=== PATIENT | male | born 1960 | race Caucasian/White ===

== ENCOUNTER → 2017-08-13 | Outpatient (CLI) | payer MEDICARE, MEDICAID ==
--- NOTE | 2017-08-14 14:50 | WOMENS IMAGING REPORT ---
EXAM DESCRIPTION: 3D DX MAMMO BILAT; U/S BREAST UNILAT LIMITED COMPLETED DATE/TIME: 08/13/2017 9:50 am; 08/13/2017 11:05 am REASON FOR STUDY: UNSPECIFED LUMP; N63.20; UNSPECIFIED LUMP N63.23 UNSPECIFIED LUMP IN THE LEFT SAMMIE AST, LOWER OUTER QUAD COMPARISON: None. TECHNIQUE: Standard craniocaudal and mediolateral oblique views of each breast recorded using digita l acquisition and breast tomosynthesis. Additional left male breast 90 mediolateral view, and exaggerated craniocaudad view Left male breast ultrasound, with comparison right male breast images LIMITATIONS: None. FINDINGS: RIGHT BREAST MASSES: No suspicious masses. CALCIFICATIONS: No new or suspicious calcifications. ARCHITECTURAL DISTORTION: None. DEVELOPING DENSITY: None. ASYMMETRY: None noted. OTHER: No other significant findings. LEFT BREAST MASSES: No suspicious masses. CALCIFICATIONS: No new or suspicious calcifications. ARCHITECTURAL DISTORTION: None. DEVELOPING DENSITY: None. ASYMMETRY: None noted. OTHER: In the lateral aspect of the left male breast/ subcutaneous fat there is very mild soft tissue stranding with subtle asymmetric thickening of the Ismael's ligaments. Read with the assistance of CAD: .[facility] - R2 Cenova Version 1.3 .[facility] Imaging - R2 Cenova Version 1.3 .[facility] Imaging - R2 Cenova Version 2.4 .[facility] [place] [facility] - R2 Cenova Version 2.4 .[facility] - R2 Emg Technician Version 9.2 Left breast ultrasound: Patient indicates a tender palpable abnormality in the lateral aspect left male breast. In this area , minimal skin thickening and interstitial fluid is present, involving about a 7 cm diameter area. N o well-circumscribed mass. No cysts. No worrisome acoustic absorption. Left chest wall fat is incr eased in echogenicity in this area as compared to the right side. Ultrasound of the right lateral male breast/chest wall is unremarkable. IMPRESSION: No mammographic/ultrasound evidence for malignancy right male breast/ chest wall 7 cm diameter area of subtle findings on mammo and ultrasound, with interstitial tissue fluid/thicken ing of Ismael's ligaments and increased echogenicity of the chest wall fat. Differential is reactive change from contusion or trauma, versus cellulitis. Fat necrosis is possible. A discrete lipoma or soft tissue masses not definitely seen. Continued clinical follow-up is recommended. If this area is fails to resolve, consider follow-up chest wall MRI without contrast BREAST DENSITY: a. The breasts are almost entirely fatty. BIRAD: 2 Benign findings. RECOMMENDATION: RECOMMENDED FOLLOW UP: Clinical follow-up recommended. If these findings fail to re solve or if these findings progress, further imaging with MRI would be useful for followup. SPECIFIC INTERVENTION/IMAGING/CONSULTATION RECOMMENDED:As above COMMUNICATION:Patient notified by letter COMMENT: The patient has been notified of the results by letter per SA requirements. Additional no tification policies are in place for contacting patient with suspicious or incomplete findings. Quality ID #225: The [employer] recommends an annual screening mammogram for women aged 40 years or over. This facility utilizes a reminder system to ensure that all patients receive reminder letters, and/or direct phone calls for appointments. This includes reminders for routine scr eening mammograms, diagnostic mammograms, or other Breast Imaging Interventions when appropriate. Th is patient will be placed in the appropriate reminder system. The [employer] (ACR) has developed recommendations for screening MRI of the breast s in certain patient populations, to be used in conjunction with mammography. Breast MRI surveillanc e may be appropriate for women with more than 20% lifetime risk of developing breast cancer as deter mined by genetic testing, significant family history of the disease, or history of mantle radiation f or Hodgkins Disease. ACR Practice Guidelines 2008. DBT Technology DBT is a type of tomographic mammography. With conventional mammography, overlapping breast tissue ma y make lesions difficult to detect, even with good compression. DBT uses an x-ray tube that rotates a round the breast, taking images at different angles. These images are then combined to create thin sl ices of the breast that the radiologist can view as a 3D reconstruction. The [employer] unit can perform full-field digital mammograms (2D imaging); or DBT (3D imaging); or both, in a combination mode that quickly performs both the mammogram and the tomosynthesis scan while the breast is still compressed. PQRS 6045F: Fluoroscopic imaging is not utilized for breast tomosynthesis. TECHNICAL DOCUMENTATION: FINDING NUMBER: (1) ASSESSMENT: (1) JOB ID: [id number] [employer]- All Rights Reserved Reading location - IP/workstation name: [email or web address]
--- NOTE | 2017-08-14 14:50 | WOMENS IMAGING REPORT ---
EXAM DESCRIPTION: 3D DX MAMMO BILAT; U/S BREAST UNILAT LIMITED COMPLETED DATE/TIME: 08/13/2017 9:50 am; 08/13/2017 11:05 am REASON FOR STUDY: UNSPECIFED LUMP; N63.20; UNSPECIFIED LUMP N63.23 UNSPECIFIED LUMP IN THE LEFT SAMMIE AST, LOWER OUTER QUAD COMPARISON: None. TECHNIQUE: Standard craniocaudal and mediolateral oblique views of each breast recorded using digita l acquisition and breast tomosynthesis. Additional left male breast 90 mediolateral view, and exaggerated craniocaudad view Left male breast ultrasound, with comparison right male breast images LIMITATIONS: None. FINDINGS: RIGHT BREAST MASSES: No suspicious masses. CALCIFICATIONS: No new or suspicious calcifications. ARCHITECTURAL DISTORTION: None. DEVELOPING DENSITY: None. ASYMMETRY: None noted. OTHER: No other significant findings. LEFT BREAST MASSES: No suspicious masses. CALCIFICATIONS: No new or suspicious calcifications. ARCHITECTURAL DISTORTION: None. DEVELOPING DENSITY: None. ASYMMETRY: None noted. OTHER: In the lateral aspect of the left male breast/ subcutaneous fat there is very mild soft tissue stranding with subtle asymmetric thickening of the Ismael's ligaments. Read with the assistance of CAD: .[facility] - R[facility] Cenova Version 1.3 .[facility] Imaging - R2 Cenova Version 1.3 .[facility] Imaging - R2 Cenova Version 2.4 .[facility] - R2 Cenova Version 2.4 .[facility] - R2 Restaurant Worker Version 9.2 Left breast ultrasound: Patient indicates a tender palpable abnormality in the lateral aspect left male breast. In this area , minimal skin thickening and interstitial fluid is present, involving about a 7 cm diameter area. N o well-circumscribed mass. No cysts. No worrisome acoustic absorption. Left chest wall fat is incr eased in echogenicity in this area as compared to the right side. Ultrasound of the right lateral male breast/chest wall is unremarkable. IMPRESSION: No mammographic/ultrasound evidence for malignancy right male breast/ chest wall 7 cm diameter area of subtle findings on mammo and ultrasound, with interstitial tissue fluid/thicken ing of Ismael's ligaments and increased echogenicity of the chest wall fat. Differential is reactive change from contusion or trauma, versus cellulitis. Fat necrosis is possible. A discrete lipoma or soft tissue masses not definitely seen. Continued clinical follow-up is recommended. If this area is fails to resolve, consider follow-up chest wall MRI without contrast BREAST DENSITY: a. The breasts are almost entirely fatty. BIRAD: 2 Benign findings. RECOMMENDATION: RECOMMENDED FOLLOW UP: Clinical follow-up recommended. If these findings fail to re solve or if these findings progress, further imaging with MRI would be useful for followup. SPECIFIC INTERVENTION/IMAGING/CONSULTATION RECOMMENDED:As above COMMUNICATION:Patient notified by letter COMMENT: The patient has been notified of the results by letter per SA requirements. Additional no tification policies are in place for contacting patient with suspicious or incomplete findings. Quality ID #225: The [employer] recommends an annual screening mammogram for women aged 40 years or over. This facility utilizes a reminder system to ensure that all patients receive reminder letters, and/or direct phone calls for appointments. This includes reminders for routine scr eening mammograms, diagnostic mammograms, or other Breast Imaging Interventions when appropriate. Th is patient will be placed in the appropriate reminder system. The [employer] (ACR) has developed recommendations for screening MRI of the breast s in certain patient populations, to be used in conjunction with mammography. Breast MRI surveillanc e may be appropriate for women with more than 20% lifetime risk of developing breast cancer as deter mined by genetic testing, significant family history of the disease, or history of mantle radiation f or Hodgkins Disease. ACR Practice Guidelines 2008. DBT Technology DBT is a type of tomographic mammography. With conventional mammography, overlapping breast tissue ma y make lesions difficult to detect, even with good compression. DBT uses an x-ray tube that rotates a round the breast, taking images at different angles. These images are then combined to create thin sl ices of the breast that the radiologist can view as a 3D reconstruction. The [employer] unit can perform full-field digital mammograms (2D imaging); or DBT (3D imaging); or both, in a combination mode that quickly performs both the mammogram and the tomosynthesis scan while the breast is still compressed. PQRS 6045F: Fluoroscopic imaging is not utilized for breast tomosynthesis. TECHNICAL DOCUMENTATION: FINDING NUMBER: (1) ASSESSMENT: (1) JOB ID: [id number] [employer]- All Rights Reserved Reading location - IP/workstation name: [email or web address]
== END ==
LOC: WI 09:20
PROVIDERS: ATTEND Internal Medicine Geriatric Medicine
DX: N63.23 Unspecified lump in the left breast, lower outer quadrant (principal)
CPT/HCPCS: 76642; 77066; G0279; 77062

== ENCOUNTER 2017-09-26 11:53 | Emergency (ER) | payer MEDICARE, MEDICAID ==
[2017-09-26] MEDS ORDERED: ASPIRIN 81 MG TABLET, CHEWABLE PO ONE (12:21)
[2017-09-26] MEDS ORDERED: NITROGLYCERIN 0.4 MG/TAB 25 TAB/BOTTLE SL PRN (12:30)
--- NOTE | 2017-09-26 12:30 | ER Document Report ---
ED Medical Screen (RME) - General Chief Complaint: Chest Pain > 30 Stated Complaint: CHEST PAIN Time Seen by Provider: 09/26/17 12:22 Notes: Patient is a 56-year-old male, past medical history hypertension, ESRD (Thursday, Thursday dialysis), HLD, presents with 4 hours of left-sided chest pressure with radiation down the left arm that started at rest. PE: NAD. RRR. RUE fistula. I have greeted and performed a rapid initial assessment of this patient. A comprehensive ED assessment and evaluation of the patient, analysis of test results and completion of the medical decision making process will be conducted by additional ED providers. TRAVEL OUTSIDE OF THE [place] IN LAST 30 DAYS: No - Related Data Allergies/Adverse Reactions: No Known Allergies Allergy (Verified 09/26/17 11:55) Past Medical History - Past Medical History Cardiac Medical History: Reports: Hx Hypertension Past Surgical History: Reports: Hx Appendectomy, Hx Cholecystectomy - Immunizations Hx Diphtheria, Pertussis, Tetanus Vaccination: Yes Physical Exam - Vital signs Vitals: Temp Pulse Resp BP Pulse Ox 98.7 F 80 18 165/77 H 99 09/26/17 12:07 09/26/17 12:07 09/26/17 12:07 09/26/17 12:07 09/26/17 12:07 Course - Vital Signs Vital signs: Temp Pulse Resp BP Pulse Ox 98.7 F 80 18 165/77 H 99 09/26/17 12:07 09/26/17 12:07 09/26/17 12:07 09/26/17 12:07 09/26/17 12:07 Doctor's Discharge - Discharge Referrals: RUDY JACOBSEN MD [Primary Care Provider] - Follow up as needed
--- NOTE | 2017-09-26 12:45 | RADIOLOGY REPORT (SQ) ---
EXAM DESCRIPTION: CHEST 2 VIEWS COMPLETED DATE/TIME: 09/26/2017 12:26 pm REASON FOR STUDY: CHEST PRESSURE COMPARISON: None. EXAM PARAMETERS: NUMBER OF VIEWS: two views TECHNIQUE: Digital Frontal and Lateral radiographic views of the chest acquired. RADIATION DOSE: NA LIMITATIONS: none FINDINGS: LUNGS AND PLEURA: Patchy airspace disease is present at the right lung base atelectasis ve rsus pneumonia. Trace bilateral pleural effusions in the posterior costophrenic sulci. No pneumotho rax. MEDIASTINUM AND HILAR STRUCTURES: No masses or contour abnormalities. HEART AND VASCULAR STRUCTURES: Moderate cardiomegaly BONES: No acute findings. HARDWARE: None in the chest. OTHER: No other significant finding. IMPRESSION: Cardiomegaly with trace pleural effusions. Patchy airspace disease right base atelectasis versus pneumonia TECHNICAL DOCUMENTATION: JOB ID: [id number] [employer]- All Rights Reserved Reading location - IP/workstation name: [email or web address]
[2017-09-26 13:09] LABS: ABSOLUTE BASOPHILS # (AUTO) 0.1 10^3/uL (0.0-0.2); ABSOLUTE EOSINOPHILS # (AUTO) 0.5 10^3/uL (0.0-0.6); ABSOLUTE LYMPHOCYTES (AUTO) 0.7 10^3/uL (0.5-4.7); ABSOLUTE MONOCYTES (AUTO) 0.7 10^3/uL (0.1-1.4); ABSOLUTE NEUT (AUTO) 7.3 10^3/uL (1.7-8.2); BASOPHILS % (AUTO) 1.4 % (0-2); EOSINOPHILS % (AUTO) 4.9 % (0-6); HEMATOCRIT 23.5 % (37.9-51.0); LYMPHOCYTES % (AUTO) 7.6 % (13-45); MEAN CORPUSCULAR HEMOGLOBIN 29.6 pg (27.0-33.4); MEAN CORPUSCULAR HGB CONC 32.6 g/dL (32.0-36.0); MEAN CORPUSCULAR VOLUME 91 fl (80-97); MONOCYTES % (AUTO) 7.2 % (3-13); PLATELET COUNT 187 10^3/uL (150-450); RED BLOOD COUNT 2.58 10^6/uL (4.35-5.55); RED CELL DISTRIBUTION WIDTH 16.2 % (11.5-14.0); SEGMENTED NEUTROPHILS % (AUTO) 78.9 % (42-78); TOTAL CELLS COUNTED % (AUTO) 100 %; WHITE BLOOD COUNT 9.3 10^3/uL (4.0-10.5)
[2017-09-26 13:13] LABS: HEMOGLOBIN 7.6 g/dL (13.5-17.0)
[2017-09-26 13:26] LABS: ALANINE AMINOTRANSFERASE 31 U/L (21-72); ALBUMIN 4.2 g/dL (3.5-5.0); ALKALINE PHOSPHATASE 48 U/L (38-126); ASPARTATE AMINO TRANSFERASE 20 U/L (17-59); BILIRUBIN,DIRECT 0.5 mg/dL (0.0-0.4); BILIRUBIN,TOTAL 0.5 mg/dL (0.2-1.3); BLOOD UREA NITROGEN 96 mg/dL (7-20); CALCIUM 8.9 mg/dL (8.4-10.2); CREATINE KINASE 164 U/L (55-170); GLUCOSE 116 mg/dL (75-110); POTASSIUM 5.2 mmol/L (3.6-5.0); TOTAL PROTEIN 6.8 g/dL (6.3-8.2)
[2017-09-26 13:32] LABS: CARBON DIOXIDE 19 mmol/L (22-30); CHLORIDE 106 mmol/L (98-107); SODIUM 146.5 mmol/L (137-145)
[2017-09-26 13:35] LABS: ANION GAP 22 (5-19)
[2017-09-26 13:43] LABS: CREATINE KINASE MB 1.59 ng/mL (<4.55)
[2017-09-26 13:49] LABS: TROPONIN I 0.047 ng/mL
--- NOTE | 2017-09-26 13:55 | ER Document Report ---
ED General - General Chief Complaint: Chest Pain > 30 Stated Complaint: CHEST PAIN Time Seen by Provider: 09/26/17 12:22 Information source: Patient Notes: 56-year-old male with a history of hypertension and hyperlipidemia presents to the emergency department with complaints of a 4 hour history of left-sided chest pain. He describes it as a pressure sensation with radiation to the L arm. Patient states that it started while he was at rest. He states that he coughed and the pain started. He states that it constant. Pain reduced with nitroglycerin. Patient denies a history of diabetes, coronary artery disease, family history of coronary artery disease. Quit smoking 6 months ago. Patient states that he has had a stress test that was done 3 years ago was normal. No history of stents. Patient also denies any recent travel, recent surgery, calf pain, history of DVT or PE, hormone use, history of malignancy. Patient is a dialysis patient. Gets dialysis M.. His community relations representative is Dr. Urbano in [place]. TRAVEL OUTSIDE OF THE [place] IN LAST 30 DAYS: No - HPI Onset: Other - 4 hours Onset/Duration: Sudden Quality of pain: Sharp, Stabbing Severity: Mild Associated symptoms: None Exacerbated by: Movement, Coughing, Other - Palpation Relieved by: Denies Similar symptoms previously: No Recently seen / treated by doctor: No - Related Data Allergies/Adverse Reactions: No Known Allergies Allergy (Verified 09/26/17 11:55) Past Medical History - Social History Smoking Status: Former Smoker Chew tobacco use (# tins/day): No Frequency of alcohol use: None Drug Abuse: None Family History: Reviewed & Not Pertinent Patient has suicidal ideation: No Patient has homicidal ideation: No - Past Medical History Cardiac Medical History: Reports: Hx Hypercholesterolemia, Hx Hypertension Renal/ Medical History: Reports: Hx Peritoneal Dialysis - M &W Past Surgical History: Reports: Hx Appendectomy, Hx Cholecystectomy - Immunizations Hx Diphtheria, Pertussis, Tetanus Vaccination: Yes Review of Systems - Review of Systems Constitutional: No symptoms reported EENT: No symptoms reported Cardiovascular: Chest pain Respiratory: Cough Gastrointestinal: No symptoms reported Genitourinary: No symptoms reported Male Genitourinary: No symptoms reported Skin: Lumps Hematologic/Lymphatic: No symptoms reported Neurological/Psychological: No symptoms reported -: Yes All other systems reviewed and negative Physical Exam - Vital signs Vitals: Temp Pulse Resp BP Pulse Ox 98.7 F 80 18 165/77 H 99 09/26/17 12:07 09/26/17 12:07 09/26/17 12:07 09/26/17 12:07 09/26/17 12:07 Interpretation: Normal - Notes Notes: PHYSICAL EXAMINATION: GENERAL: Well-appearing, well-nourished and in no acute distress. HEAD: Atraumatic, normocephalic. EYES: Pupils equal round and reactive to light, extraocular movements intact, sclera anicteric, conjunctiva are normal. ENT: Nares patent, oropharynx clear without exudates. Moist mucous membranes. NECK: Normal range of motion, supple without lymphadenopathy LUNGS: Breath sounds clear to auscultation bilaterally and equal. No wheezes rales or rhonchi. HEART: Regular rate and rhythm without murmurs. Left lateral chest wall tenderness to palpation. Area of induration noted to the left lateral chest wall without fluctuance. ABDOMEN: Soft, nontender, nondistended abdomen. No guarding, no rebound. No masses appreciated. Musculoskeletal: Normal range of motion, no pitting or edema. No cyanosis. NEUROLOGICAL: Cranial nerves grossly intact. Normal speech, normal gait. Normal sensory, motor exams PSYCH: Normal mood, normal affect. SKIN: Warm, Dry, normal turgor, area of induration to the left lateral chest wall. No fluctuance. Course - Re-evaluation Re-evalutation: 09/26/17 14:24 Patient has indeterminate troponin. EKG does not show STEMI. Hemoglobin low. No previous values to compare. Patient denies any hospitalizations. Says he only gets labs done at dialysis clinic. I contacted the hospitalist weight control engineer for his PCP. Dr. Castillo recommends transfer for cardiac rule out as the patient has a history of renal failure requiring dialysis. [facility]. 09/26/17 14:35 I spoke with the hospitalist weight control engineer at [facility]. She would like repeat troponin done in the ED. She is going to contact the community relations representative weight control engineer to see about getting old lab work for comparison. 09/26/17 15:57 Troponin trending down. No occult blood in stool. Patient now states that he went to dialysis yesterday but did not complete his dialysis. Patient given kayexelate for potassium of 5.2. No EKG changes. Dr. Damian accepts transfer of patient. He is clinically stable at this time. - Vital Signs Vital signs: Temp Pulse Resp BP Pulse Ox 98.7 F 80 18 165/77 H 99 09/26/17 12:07 09/26/17 12:07 09/26/17 12:07 09/26/17 12:07 09/26/17 12:07 - Laboratory Result Diagrams: 09/26/17 12:45 09/26/17 12:45 Laboratory results interpreted by me: 09/26/17 09/26/17 12:45 12:45 RBC 2.58 L Hgb 7.6 L Hct 23.5 L RDW 16.2 H Seg Neutrophils % 78.9 H Lymphocytes % 7.6 L Sodium 146.5 H Potassium 5.2 H Carbon Dioxide 19 L Anion Gap 22 H BUN 96 H Creatinine 22.66 H Est GFR ( Amer) 3 L Est GFR (Non-Af Amer) 2 L Glucose 116 H Direct Bilirubin 0.5 H - EKG Interpretation by Me Additional EKG results interpreted by me: 09/26/17 13:55 EKG: Ventricular rate 77, MS interval 180, QRS duration 110, QTc 494, sinus rhythm, no ischemic changes. Discharge - Discharge Clinical Impression: End stage renal disease, Abscess, Hyperkalemia Chest pain Qualifiers: Chest pain type: unspecified Qualified Code(s): R07.9 - Chest pain, unspecified Condition: Good Disposition: [facility] Referrals: RUDY JACOBSEN MD [Primary Care Provider] - Follow up as needed
[2017-09-26] MEDS ORDERED: SODIUM POLYSTYRENE SULFONATE 15 GM/60 ML PO ONE (14:37)
[2017-09-26] MEDS ORDERED: MORPHINE SULFATE 10 MG/ML INJ IV ONE (15:59)
[2017-09-26] MEDS ORDERED: DOXYCYCLINE HYCLATE 100 MG TABLET PO ONE (16:03)
[2017-09-26 16:14] VITALS: BP 175/87
--- NOTE | 2017-09-26 21:07 | EKG REPORT ---
SEVERITY:- ABNORMAL ECG - SINUS RHYTHM NONSPECIFIC INTRAVENTRICULAR CONDUCTION DELAY : Confirmed by: Fabian Dominguez MD 26-Sep-2017 21:06:16
== END 2017-09-26 16:41 | disposition short-term general hospital (02) ==
LOC: ER 11:53
DX: L02.213 Cutaneous abscess of chest wall (principal); I12.0 Hypertensive chronic kidney disease with stage 5 chronic kidney disease or end stage renal disease; N18.6 End stage renal disease; Z99.2 Dependence on renal dialysis; E87.5 Hyperkalemia; E78.5 Hyperlipidemia, unspecified; Z87.891 Personal history of nicotine dependence
CPT/HCPCS: 93005; 99285; 96374; 36415; 82553; 82550; 85025; 82272; 80053; 84484; 71046; 93010; A9270 ×2; J2270

== ENCOUNTER 2017-11-02 13:51 | Emergency (ER) | payer MEDICARE, MEDICAID ==
--- NOTE | 2017-11-02 15:09 | ER Document Report ---
ED Medical Screen (RME) - General Chief Complaint: Leg Pain Stated Complaint: LEFT CALF PAIN Time Seen by Provider: 11/02/17 15:04 Mode of Arrival: Medic Information source: Patient Notes: Patient is a 56-year-old male who presents to the emergency department today with chief complaint of left calf pain. Patient reports this pain has been going on since Thursday, describes as an achy pain. There is associated swelling but no erythema. Patient denies any history of DVTs or pulmonary embolism. Patient denies being on any blood thinners. Patient is a hemodialysis patient and was supposed to have dialysis this morning however when he got there he reported the calf pain so they sent him straight to the emergency department. Patient's primary care provider is Dr. Jacobsen. Exam: Swelling to left lower extremity. I have greeted and performed a rapid initial assessment of this patient. A comprehensive ED assessment and evaluation of the patient, analysis of test results and completion of the medical decision making process will be conducted by additional ED providers. Dictation of this chart was performed using voice recognition software; therefore, there may be some unintended grammatical errors. TRAVEL OUTSIDE OF THE [place] IN LAST 30 DAYS: No - Related Data Allergies/Adverse Reactions: No Known Allergies Allergy (Verified 09/26/17 11:55) Past Medical History - Past Medical History Cardiac Medical History: Reports: Hx Hypercholesterolemia, Hx Hypertension Renal/ Medical History: Reports: Hx Peritoneal Dialysis - M &W Past Surgical History: Reports: Hx Appendectomy, Hx Cholecystectomy - Immunizations Hx Diphtheria, Pertussis, Tetanus Vaccination: Yes Physical Exam - Vital signs Vitals: Temp Pulse Resp BP Pulse Ox 97.9 F 77 18 156/71 H 97 11/02/17 13:58 11/02/17 13:58 11/02/17 13:58 11/02/17 13:58 11/02/17 13:58 Course - Vital Signs Vital signs: Temp Pulse Resp BP Pulse Ox 97.9 F 77 18 156/71 H 97 11/02/17 13:58 11/02/17 13:58 11/02/17 13:58 11/02/17 13:58 11/02/17 13:58 Doctor's Discharge - Discharge Referrals: RUDY JACOBSEN MD [Primary Care Provider] - Follow up as needed
[2017-11-02 16:19] LABS: ABSOLUTE BASOPHILS # (AUTO) 0.1 10^3/uL (0.0-0.2); ABSOLUTE EOSINOPHILS # (AUTO) 0.4 10^3/uL (0.0-0.6); ABSOLUTE LYMPHOCYTES (AUTO) 0.8 10^3/uL (0.5-4.7); ABSOLUTE MONOCYTES (AUTO) 0.5 10^3/uL (0.1-1.4); ABSOLUTE NEUT (AUTO) 5.5 10^3/uL (1.7-8.2); HEMATOCRIT 24.3 % (37.9-51.0); LYMPHOCYTES % (AUTO) 10.9 % (13-45); MEAN CORPUSCULAR HEMOGLOBIN 28.8 pg (27.0-33.4); MEAN CORPUSCULAR HGB CONC 32.9 g/dL (32.0-36.0); MEAN CORPUSCULAR VOLUME 87 fl (80-97); MONOCYTES % (AUTO) 6.5 % (3-13); PLATELET COUNT 214 10^3/uL (150-450); RED BLOOD COUNT 2.78 10^6/uL (4.35-5.55); RED CELL DISTRIBUTION WIDTH 16.9 % (11.5-14.0); SEGMENTED NEUTROPHILS % (AUTO) 76.6 % (42-78); TOTAL CELLS COUNTED % (AUTO) 100 %; WHITE BLOOD COUNT 7.2 10^3/uL (4.0-10.5)
[2017-11-02 16:25] LABS: PROTHROMBIN TIME 13.7 SEC (11.4-15.4)
[2017-11-02 16:26] LABS: PARTIAL THROMBOPLASTIN TIME 30.3 SEC (23.5-35.8)
[2017-11-02 16:40] LABS: ALANINE AMINOTRANSFERASE 36 U/L (21-72); ALBUMIN 4.2 g/dL (3.5-5.0); ALKALINE PHOSPHATASE 58 U/L (38-126); ASPARTATE AMINO TRANSFERASE 35 U/L (17-59); BILIRUBIN,DIRECT 0.5 mg/dL (0.0-0.4); BILIRUBIN,TOTAL 0.5 mg/dL (0.2-1.3); BLOOD UREA NITROGEN 94 mg/dL (7-20); CALCIUM 9.3 mg/dL (8.4-10.2); GLUCOSE 93 mg/dL (75-110); POTASSIUM 5.6 mmol/L (3.6-5.0)
[2017-11-02 16:47] LABS: CARBON DIOXIDE 18 mmol/L (22-30); CHLORIDE 102 mmol/L (98-107); SODIUM 143.2 mmol/L (137-145)
[2017-11-02 16:55] LABS: ANION GAP 23 (5-19)
--- NOTE | 2017-11-02 17:14 | RADIOLOGY REPORT (SQ) ---
EXAM DESCRIPTION: VENOUS UNILATERAL LOWER COMPLETED DATE/TIME: 11/02/2017 5:02 pm REASON FOR STUDY: left calf swelling/pain COMPARISON: None. TECHNIQUE: Dynamic and static clark scale and color images acquired of the left leg venous system. Se lected spectral images acquired with additional compression and augmentation maneuvers. The contralat eral common femoral vein and saphenofemoral junction were also imaged. Images stored on PACS. LIMITATIONS: None. FINDINGS: COMMON FEMORAL: Normal phasicity, compression and augmentation. No visualized echogenic ma terial on clark scale. No defects on color images. FEMORAL: Normal compression and augmentation. No visualized echogenic material on clark scale. No defe cts on color images. POPLITEAL: Normal compression, augmentation. No visualized echogenic material on clark scale. No defec ts on color images. CALF VESSELS: Normal compression, augmentation. No visualized echogenic material on clark scale. No de fects on color images. GSV and SSV: Greater saphenous not seen. Small saphenous normal. ANY DEEP VENOUS INSUFFICIENCY: Not evaluated. ANY EVIDENCE OF POPLITEAL CYST: No. OTHER: No other significant finding. CONTRALATERAL COMMON FEMORAL VEIN AND SAPHENOFEMORAL JUNCTION: Normal phasicity, compression and augmentation. No visualized echogenic material on clark scale. No de fects on color images. IMPRESSION: NO EVIDENCE DVT OR SVT IN THE LEFT LEG. TECHNICAL DOCUMENTATION: JOB ID: [id number] [employer]- All Rights Reserved Reading location - IP/workstation name: [email or web address]
--- NOTE | 2017-11-02 17:42 | ER Document Report ---
ED General - General Chief Complaint: Leg Pain Stated Complaint: LEFT CALF PAIN Time Seen by Provider: 11/02/17 15:04 Mode of Arrival: Medic Notes: 56-year-old male who presents to the emergency department today with chief complaint of left calf pain. Patient reports this pain has been going on since Thursday, describes as an achy pain. There is associated swelling but no erythema. Patient denies any history of DVTs or pulmonary embolism. Patient denies being on any blood thinners. Patient is a hemodialysis patient and was supposed to have dialysis this morning however when he got there he reported the calf pain so they sent him straight to the emergency department. Patient's primary care provider is Dr. Jacobsen. TRAVEL OUTSIDE OF THE [place] IN LAST 30 DAYS: No - Related Data Allergies/Adverse Reactions: No Known Allergies Allergy (Verified 09/26/17 11:55) Past Medical History - General Information source: Patient - Social History Smoking Status: Unknown if Ever Smoked Family History: Reviewed & Not Pertinent - Past Medical History Cardiac Medical History: Reports: Hx Hypercholesterolemia, Hx Hypertension Renal/ Medical History: Reports: Hx Peritoneal Dialysis - M &W Past Surgical History: Reports: Hx Appendectomy, Hx Cholecystectomy - Immunizations Hx Diphtheria, Pertussis, Tetanus Vaccination: Yes Review of Systems - Review of Systems Cardiovascular: denies: Chest pain, Dyspnea Musculoskeletal: Leg swelling -: Yes All other systems reviewed and negative Physical Exam - Vital signs Vitals: Temp Pulse Resp BP Pulse Ox 97.9 F 77 18 156/71 H 97 11/02/17 13:58 11/02/17 13:58 11/02/17 13:58 11/02/17 13:58 11/02/17 13:58 - Notes Notes: GENERAL_APPEARANCE: well_nourished, alert, cooperative, no_acute_distress, no_ obvious_discomfort. VITALS: reviewed, see vital signs table. HEAD: no_swelling\tenderness on the head. EYES: conjunctiva_clear. NOSE: no_nasal_discharge. MOUTH: (-)decreased moisture. EXTREMITIES: Mild left calf pain positive Homans sign strong dorsalis pedis posterior tibial pulses, chronic edema noted SKIN: warm, dry, good_color, no_rash. MENTAL_STATUS: speech_clear, oriented_X_3, normal_affect, responds_ appropriately to questions. Course - Re-evaluation Re-evalutation: 11/02/17 17:40 Doppler was negative for DVT. No obvious signs of infection. Will refer back to his family doctor. 11/02/17 17:40 All the lab abnormalities are actually better than prior labs a lot of the patient's conditions are chronic including his kidney disease and chronic anemia. - Vital Signs Vital signs: Temp Pulse Resp BP Pulse Ox 97.9 F 77 18 156/71 H 97 11/02/17 13:58 11/02/17 13:58 11/02/17 13:58 11/02/17 13:58 11/02/17 13:58 - Laboratory Result Diagrams: 11/02/17 16:05 11/02/17 16:05 Laboratory results interpreted by me: 11/02/17 11/02/17 16:05 16:05 RBC 2.78 L Hgb 8.0 L Hct 24.3 L RDW 16.9 H Lymphocytes % 10.9 L Potassium 5.6 H Carbon Dioxide 18 L Anion Gap 23 H BUN 94 H Creatinine 25.07 H Est GFR ( Amer) 2 L Est GFR (Non-Af Amer) 2 L Direct Bilirubin 0.5 H - Diagnostic Test Radiology reviewed: Reports reviewed Radiology results interpreted by me: 11/02/17 17:40 Venous Doppler Study 11/02/17 15:04 IMPRESSION: NO EVIDENCE DVT OR SVT IN THE LEFT LEG. Discharge - Discharge Clinical Impression: Leg pain, left Condition: Good Disposition: HOME, SELF-CARE Instructions: Leg Pain Nonspecific ([facility]) Additional Instructions: Please follow-up with your doctor for further care Referrals: RUDY JACOBSEN MD [Primary Care Provider] - Follow up as needed
[2017-11-02 18:36] VITALS: BP 169/93
== END 2017-11-02 18:31 | disposition home or self-care (01) ==
LOC: ER 13:51
DX: M79.662 Pain in left lower leg (principal); I12.0 Hypertensive chronic kidney disease with stage 5 chronic kidney disease or end stage renal disease; N18.6 End stage renal disease; Z99.2 Dependence on renal dialysis; D64.9 Anemia, unspecified; R60.0 Localized edema
CPT/HCPCS: 36415; 80053; 85025; 85610; 85730; 93971; 99284

== ENCOUNTER 2017-11-10 09:32 | Emergency (ER) | payer MEDICARE, MEDICAID ==
[2017-11-10] MEDS ORDERED: NORMAL SALINE 250 ML IV PRN (10:12)
--- NOTE | 2017-11-10 10:22 | ER Document Report ---
ED General - General Chief Complaint: Abnormal Lab Results Stated Complaint: ABNORMAL LABS Time Seen by Provider: 11/10/17 10:09 Notes: Patient says he has been feeling bad for a couple of days. Feels weak, tired, no energy. Patient is a Thursday and Thursday dialysis patient. After his dialysis yesterday, he had labs done and was called to be told that his hemoglobin was 6.1 and he needed transfusions. Patient denies any bleeding source. He has not seen any blood in his stools. Does have hemorrhoids that used to bleed but no problems with him for a couple of months. Has not seen any black stools. No blood in urine. Patient does make some urine. He had a transfusion of blood a couple of months ago, but no other times in the past. Denies any abdominal pains. No vomiting. Denies fevers. TRAVEL OUTSIDE OF THE [place] IN LAST 30 DAYS: No - Related Data Allergies/Adverse Reactions: No Known Allergies Allergy (Verified 09/26/17 11:55) Past Medical History - Social History Smoking Status: Former Smoker - Stopped smoking 6 months ago. Chew tobacco use (# tins/day): No Frequency of alcohol use: None Drug Abuse: None Family History: Reviewed & Not Pertinent Patient has suicidal ideation: No Patient has homicidal ideation: No - Past Medical History Cardiac Medical History: Reports: Hx Hypercholesterolemia, Hx Hypertension Endocrine Medical History: Denies: Hx Diabetes Mellitus Type 1 Past Surgical History: Reports: Hx Appendectomy, Hx Cholecystectomy - Immunizations Hx Diphtheria, Pertussis, Tetanus Vaccination: Yes Review of Systems - Review of Systems Notes: REVIEW OF SYSTEMS: CONSTITUTIONAL : Denies fever. See HPI. Feels weak, tired, no energy. EENT: Denies eye, ear, nose or mouth or throat pain or other symptoms. CARDIOVASCULAR: Denies chest pain. RESPIRATORY: Patient has had a cough for the past few days. Some congestion. Little shortness of breath. GASTROINTESTINAL: Denies abdominal pain or nausea, vomiting, or diarrhea. No indications of gastrointestinal bleeding. GENITOURINARY: Denies difficulty or painful urinating, urinary frequency, blood in urine. MUSCULOSKELETAL: Denies back or neck pain. Denies joint pain or swelling. SKIN: Denies rash or skin lesions. NEUROLOGICAL: Denies LOC or altered mental status. Denies headache. Denies sensory loss or motor deficits. ALL OTHER SYSTEMS REVIEWED AND NEGATIVE. Physical Exam - Vital signs Vitals: Temp Pulse BP Pulse Ox 98.0 F 94 152/72 H 99 11/10/17 09:38 11/10/17 09:38 11/10/17 09:38 11/10/17 09:38 Interpretation: Normal, Hypertensive - Minimal - Notes Notes: PHYSICAL EXAMINATION: GENERAL: Well-appearing, in no acute distress. Pale. Vital signs are all essentially normal with very slight elevation of blood pressure. Occasional cough. HEAD: Atraumatic, normocephalic. EYES: Pupils equal round and reactive to light, extraocular movements intact. ENT: oropharynx clear without exudates. Moist mucous membranes. NECK: Normal range of motion, supple. LUNGS: Breath sounds clear and equal bilaterally. HEART: Regular rate and rhythm without murmurs. ABDOMEN: Soft, nontender. No guarding or rebound. No masses. BACK: No tenderness throughout entire back. EXTREMITIES: Normal range of motion without pain. Dialysis shunt in right upper arm. NEUROLOGICAL: Normal speech, normal gait. Normal sensory, motor, and reflex exams. Awake, alert, and oriented x3. Cranial nerves normal. PSYCH: Normal mood, normal affect. SKIN: Warm, dry, no rashes. Course - Re-evaluation Re-evalutation: 11/10/17 19:15 Patient has had 2 units of packed cells going to give him 20 mg of Lasix IV. He says he does still produce a fair amount of urine. I have also asked for a portable chest just to make sure that I am not missing something causing this patient's cough for the last few days or week. He does not appear to be short of breath. Still, I am going to make certain that I am not overlooking something in his chest. - Vital Signs Vital signs: Temp Pulse Resp BP Pulse Ox 98.6 F 88 24 H 188/76 H 98 11/10/17 19:16 11/10/17 19:10 11/10/17 19:10 11/10/17 19:16 11/10/17 19:10 - Laboratory Result Diagrams: 11/10/17 10:01 11/10/17 10:01 Laboratory results interpreted by me: 11/10/17 11/10/17 11/10/17 10:01 10:01 11:45 RBC 2.29 L Hgb 6.5 L Hct 20.2 L RDW 16.8 H Plt Count 126 L Lymphocytes % 9.2 L Sodium 147.5 H BUN 63 H Creatinine 16.04 H Est GFR ( Amer) 4 L Est GFR (Non-Af Amer) 3 L Direct Bilirubin 0.5 H Crossmatch See Detail - Diagnostic Test Radiology results interpreted by me: 11/10/17 19:32 Chest x-ray shows cardiomegaly and some pulmonary vascular congestion, but no pneumonia or infiltrates. Also no large amount of fluid or pulmonary edema seen. Discharge - Discharge Clinical Impression: Anemia, Chronic kidney disease with end stage renal failure on dialysis Condition: Stable Disposition: HOME, SELF-CARE Additional Instructions: Anemia You have been found to have a significant anemia (a lower than normal amount of red blood cells). Anemia can be due to iron deficiency, vitamin deficiency, abnormal bleeding, or internal diseases. Usually, further tests are necessary to find the exact cause of the anemia. The most common cause of anemia is iron deficiency, often brought on by blood loss. This can be treated with iron supplements. If this appears to be the most likely cause, iron tablets may be prescribed even before all tests are complete. Contact the doctor at once if you note black or tarry-looking stools, bloody vomiting, shortness of breath, chest pain, or faintness. You have been transfused 2 units of packed cells. Your were also given a low dose of Lasix, 20 mg, IV to assist your kidneys and getting rid of any fluid excess that might occur as a result of the transfusions. Follow-up with your primary care provider and bag loader. FOLLOW-UP CARE: If you have been referred to a physician for follow-up care, call the physician s office for an appointment as you were instructed or within the next two days. If you experience worsening or a significant change in your symptoms, notify the physician immediately or return to the Emergency Department at any time for re-evaluation.. Referrals: AIDA ZHOU MD [NO LOCAL MD] - Follow up as needed
[2017-11-10 10:26] LABS: ABSOLUTE BASOPHILS # (AUTO) 0.1 10^3/uL (0.0-0.2); ABSOLUTE EOSINOPHILS # (AUTO) 0.1 10^3/uL (0.0-0.6); ABSOLUTE LYMPHOCYTES (AUTO) 0.5 10^3/uL (0.5-4.7); ABSOLUTE MONOCYTES (AUTO) 0.7 10^3/uL (0.1-1.4); ABSOLUTE NEUT (AUTO) 4.5 10^3/uL (1.7-8.2); BASOPHILS % (AUTO) 1.1 % (0-2); EOSINOPHILS % (AUTO) 2.4 % (0-6); HEMATOCRIT 20.2 % (37.9-51.0); LYMPHOCYTES % (AUTO) 9.2 % (13-45); MEAN CORPUSCULAR HEMOGLOBIN 28.4 pg (27.0-33.4); MEAN CORPUSCULAR HGB CONC 32.4 g/dL (32.0-36.0); MEAN CORPUSCULAR VOLUME 88 fl (80-97); MONOCYTES % (AUTO) 11.1 % (3-13); PLATELET COUNT 126 10^3/uL (150-450); RED BLOOD COUNT 2.29 10^6/uL (4.35-5.55); RED CELL DISTRIBUTION WIDTH 16.8 % (11.5-14.0); SEGMENTED NEUTROPHILS % (AUTO) 76.2 % (42-78); TOTAL CELLS COUNTED % (AUTO) 100 %; WHITE BLOOD COUNT 5.9 10^3/uL (4.0-10.5)
[2017-11-10 10:28] LABS: HEMOGLOBIN 6.5 g/dL (13.5-17.0)
[2017-11-10 10:30] LABS: ALANINE AMINOTRANSFERASE 42 U/L (21-72); ALBUMIN 3.7 g/dL (3.5-5.0); ALKALINE PHOSPHATASE 56 U/L (38-126); ANION GAP 19 (5-19); ASPARTATE AMINO TRANSFERASE 40 U/L (17-59); BILIRUBIN,DIRECT 0.5 mg/dL (0.0-0.4); BILIRUBIN,TOTAL 0.5 mg/dL (0.2-1.3); BLOOD UREA NITROGEN 63 mg/dL (7-20); CALCIUM 8.5 mg/dL (8.4-10.2); CARBON DIOXIDE 26 mmol/L (22-30); CHLORIDE 103 mmol/L (98-107); GLUCOSE 98 mg/dL (75-110); IRON 124.3 ug/dL (49-181); POTASSIUM 4.3 mmol/L (3.6-5.0); SODIUM 147.5 mmol/L (137-145); TOTAL PROTEIN 6.5 g/dL (6.3-8.2)
[2017-11-10 10:51] LABS: INTERNATIONAL RATION (INR) 1.04; PROTHROMBIN TIME 14.1 SEC (11.4-15.4)
[2017-11-10 10:52] LABS: PARTIAL THROMBOPLASTIN TIME 30.3 SEC (23.5-35.8)
[2017-11-10] MEDS ORDERED: BENZONATATE 100 MG CAPSULE PO ONE (13:24)
[2017-11-10] MEDS ORDERED: HYDROCODONE/ACETAMINOPHEN 5-325 MG TABLET PO ONE (13:45)
[2017-11-10] MEDS ORDERED: FUROSEMIDE INJ/PF 20 MG/2 ML SDV IV ONE (19:08)
[2017-11-10 19:36] VITALS: BP 180/79
--- NOTE | 2017-11-10 19:43 | RADIOLOGY REPORT (SQ) ---
EXAM DESCRIPTION: CHEST SINGLE VIEW COMPLETED DATE/TIME: 11/10/2017 7:27 pm REASON FOR STUDY: cough COMPARISON: 09/26/2017 EXAM PARAMETERS: NUMBER OF VIEWS: One view. TECHNIQUE: Single frontal radiographic view of the chest acquired. RADIATION DOSE: NA LIMITATIONS: None. FINDINGS: LUNGS AND PLEURA: There is increased opacification in the left base. Pulmonary vascular c ongestion is present. No denia pulmonary edema is seen. MEDIASTINUM AND HILAR STRUCTURES: No masses. Contour normal. HEART AND VASCULAR STRUCTURES: Cardiomegaly. BONES: No acute findings. HARDWARE: None in the chest. OTHER: No other significant finding. IMPRESSION: Cardiomegaly with pulmonary vascular congestion but no denia CHF. Left lower lobe pneum onia. TECHNICAL DOCUMENTATION: JOB ID: [id number] [email or web address]- All Rights Reserved Reading location - IP/workstation name: [email or web address]
--- NOTE | 2017-11-11 11:50 | ER Document Report ---
Doctor's Note Notes: 11/11/17 11:48 Patient's x-ray was read by radiology as showing left lower lobe pneumonia, which I did not see when I reviewed the patient's films when he was here last night. I contacted the patient this morning and advised him of the findings and the I would like to call in a prescription for an antibiotic for him. He asked me to call it to the [facility] pharmacy on [facility], which I did. I prescribed Levaquin 500 mg initially on the first day, then 250 daily starting on the second day. I discussed this treatment regimen and dosage with 1 of our staff nephrologists to account for the patient's renal disease on dialysis. Patient said he was feeling somewhat better. Denies significant shortness of breath. No fevers. Advised to recheck with us if he develops any symptoms of worsening illness.
== END 2017-11-10 19:49 | disposition home or self-care (01) ==
LOC: ER 09:32
DX: I12.0 Hypertensive chronic kidney disease with stage 5 chronic kidney disease or end stage renal disease (principal); N18.6 End stage renal disease; D64.9 Anemia, unspecified; R53.1 Weakness; R05 Cough; R09.81 Nasal congestion; R06.02 Shortness of breath; Z99.2 Dependence on renal dialysis; Z87.891 Personal history of nicotine dependence
CPT/HCPCS: 99284; 96374; 86900; 86901; 36415; 36430; 86850; 83540; 85025; 85610; 85730; 80053; 86920; 71045; P9016; J1940; J7050; A9270

== ENCOUNTER 2017-11-25 09:18 | Inpatient (IN) | payer MEDICARE, MEDICAID ==
[2017-11-25] MEDS ORDERED: NORMAL SALINE 500 ML IV ONE (09:55)
[2017-11-25] MEDS ORDERED: IPRATROPIUM/ALBUTEROL 0.5-2.5 MG/3 ML AMPUL NEB ONE (09:55)
[2017-11-25] MEDS ORDERED: LIDOCAINE 1% INJ-PF (10 MG/ML) 30 ML SDV NEB ONE (09:55)
--- NOTE | 2017-11-25 09:56 | ER Document Report ---
ED Medical Screen (RME) - General Chief Complaint: Productive Cough Stated Complaint: COUGH Time Seen by Provider: 11/25/17 09:51 TRAVEL OUTSIDE OF THE [place] IN LAST 30 DAYS: No - HPI Notes: 11/25/17 09:56 Patient recently seen for blood transfusion diagnosed with left lower lobe pneumonia and started on Levaquin followed up with Dr. Jacobsen was given more antibiotics states not feeling any better. - Related Data Allergies/Adverse Reactions: No Known Allergies Allergy (Verified 11/25/17 09:20) Past Medical History - Social History Frequency of alcohol use: None Drug Abuse: None - Past Medical History Cardiac Medical History: Reports: Hx Hypercholesterolemia, Hx Hypertension Endocrine Medical History: Denies: Hx Diabetes Mellitus Type 1 Renal/ Medical History: Denies: Hx Peritoneal Dialysis - dialysis M/W/F Past Surgical History: Reports: Hx Appendectomy, Hx Cholecystectomy - Immunizations Hx Diphtheria, Pertussis, Tetanus Vaccination: Yes Review of Systems - Review of Systems Constitutional: Other - Cough generalized weakness Physical Exam - Vital signs Vitals: Temp Pulse Resp BP Pulse Ox 98.1 F 97 20 175/82 H 96 11/25/17 09:24 11/25/17 09:24 11/25/17 09:24 11/25/17 09:24 11/25/17 09:24 - Respiratory Respiratory status: No respiratory distress Chest status: Nontender Breath sounds: Rhonchi, Wheezing Chest palpation: Normal - Cardiovascular Rhythm: Regular, Tachycardia Course - Vital Signs Vital signs: Temp Pulse Resp BP Pulse Ox 98.1 F 97 20 175/82 H 96 11/25/17 09:24 11/25/17 09:24 11/25/17 09:24 11/25/17 09:24 11/25/17 09:24 Doctor's Discharge - Discharge Referrals: RUDY JACOBSEN MD [Primary Care Provider] - Follow up as needed
--- NOTE | 2017-11-25 10:18 | ER Document Report ---
ED Respiratory Problem - General Chief Complaint: Productive Cough Stated Complaint: COUGH Time Seen by Provider: 11/25/17 09:51 Mode of Arrival: Ambulatory Information source: Patient Notes: 57-year-old end-stage renal dialysis patient was told to come to the emergency room and not go to dialysis today because of his cough and shortness of breath. He has tachypnea, shortness of breath, orthopnea for 1 month. He was diagnosed with some CHF and left lower lobe pneumonia when he was seen in the emergency department on November 09. He was started on antibiotics which have not helped. He states they usually pull off 1.2-2 L of fluid during his dialysis but that has not been working for a month. He had a echo and stress test 5 years ago before he moved here in no echo done here. His pcp is Dr. Baker and his patcher helper is Dr. Urbano in [place]. He has been on [facility] Thursday dialysis for 6-8 months. Today was supposed to be the first time he was dialyzed 3 times a week, he decided to come on his own because he did not think the cough would get any better with the dialysis. TRAVEL OUTSIDE OF THE [place] IN LAST 30 DAYS: No - Related Data Allergies/Adverse Reactions: No Known Allergies Allergy (Verified 11/25/17 09:20) Past Medical History - General Information source: Patient - Social History Smoking Status: Former Smoker Frequency of alcohol use: None Drug Abuse: None Lives with: Family Family History: Reviewed & Not Pertinent Patient has suicidal ideation: No Patient has homicidal ideation: No - Past Medical History Cardiac Medical History: Reports: Hx Congestive Heart Failure, Hx Hypercholesterolemia, Hx Hypertension Past Surgical History: Reports: Hx Appendectomy, Hx Cholecystectomy - Immunizations Hx Diphtheria, Pertussis, Tetanus Vaccination: Yes Review of Systems - Review of Systems Constitutional: No symptoms reported EENT: No symptoms reported Cardiovascular: No symptoms reported Respiratory: No symptoms reported, See HPI Gastrointestinal: No symptoms reported Genitourinary: No symptoms reported Male Genitourinary: No symptoms reported Musculoskeletal: No symptoms reported Skin: No symptoms reported Hematologic/Lymphatic: No symptoms reported Neurological/Psychological: No symptoms reported Physical Exam - Vital signs Vitals: Temp Pulse Resp BP Pulse Ox 98.1 F 97 20 175/82 H 96 11/25/17 09:24 11/25/17 09:24 11/25/17 09:24 11/25/17 09:24 11/25/17 09:24 Interpretation: Tachycardic, Tachypneic Notes: Pale chronically ill-appearing - General General appearance: Alert In distress: Moderate - Tachypneic - HEENT Head: Normocephalic, Atraumatic Eyes: Normal Conjunctiva: Normal Pupils: PERRL Neck: Supple. No: Lymphadenopathy - Respiratory Respiratory status: Tachypnea Chest status: Nontender Breath sounds: Decreased air movement - Left, Nonproductive cough Chest palpation: Normal - Cardiovascular Rhythm: Regular Heart sounds: Normal auscultation Murmur: No - Abdominal Inspection: Normal Distension: No distension Bowel sounds: Normal Tenderness: Nontender Organomegaly: No organomegaly - Back Back: Normal, Nontender - Extremities General upper extremity: Normal inspection, Nontender, Normal color, Normal ROM , Normal temperature General lower extremity: Nontender, Edema - Lateral pitting left more than right , Normal color, Normal ROM, Normal temperature, Normal weight bearing. No: Verito's sign - Neurological Neuro grossly intact: Yes Cognition: Normal Orientation: AAOx4 [place] Coma Scale Eye Opening: Spontaneous [place] Coma Scale Verbal: Oriented Yue Coma Scale Motor: Obeys Commands [place] Coma Scale Total: 15 Speech: Normal Motor strength normal: LUE, RUE, LLE, RLE Sensory: Normal - Psychological Associated symptoms: Normal affect, Normal mood - Skin Skin Temperature: Warm Skin Moisture: Dry Skin Color: Normal Course - Re-evaluation Re-evalutation: 11/25/17 10:[address] Kerr he recommends a CTA since CHF, pneumonia, PE, cancers in the differential. He is due for dialysis today. July 2017 there was no mammogram or ultrasound evidence of left breast cancer. It showed a soft tissue mass. The patient states he is gotten 2 more lumps since then. He states his been going downhill since those lumps again. 11/25/17 11:14 Dr. Capellan is willing to be the patcher helper for dialysis if he needs it today and the hospitalist would be the admitting doctor if he needs to be admitted. 11/25/17 12:[address] nelson about the bilateral pleural effusions. 11/25/17 12:[address] Sadler who is willing to consult on the patient and put it in [facility]. He may need a thoracentesis. Call to dr. baker for admission. Will call Dr. Capellan back and let him know about the CT scan. 11/25/17 12:22 Troponin is 0.132 I have ordered a repeat the hours after the first [address] Nelson aware. 11/25/17 12:23 CTA no PE, bilateral effusions and mild LLL volume loss. superimposed asymmetric edema or pneumonia in the right lung. 11/25/17 12:28 11/25/17 13:16 Dr. Baker will admit the patient to [facility], I told him that [facility] and Dr. Capellan will probably dialyze him today and tomorrow. I told him about the pleural effusions and that I consulted with Dr. Talley for possible thoracentesis. - Vital Signs Vital signs: Temp Pulse Resp BP Pulse Ox 98.1 F 97 19 162/74 H 100 11/25/17 09:24 11/25/17 09:24 11/25/17 15:32 11/25/17 15:32 11/25/17 15:32 - Laboratory Result Diagrams: 11/25/17 10:48 11/25/17 10:48 Laboratory results interpreted by me: 11/25/17 11/25/17 11/25/17 10:48 10:48 10:48 RBC 2.67 L Hgb 7.5 L Hct 23.2 L RDW 17.8 H Lymphocytes % 9.1 L BUN 53 H Creatinine 13.16 H Est GFR ( Amer) 5 L Est GFR (Non-Af Amer) 4 L Direct Bilirubin 1.0 H NT-Pro-B Natriuret Pep [id number] H - EKG Interpretation by Sc EKG shows normal: Sinus rhythm Rate: Normal - Transfer of Care Notes: 11/25/17 12:28 prolonged qtc 501, 494 on 11-09-17 Discharge - Discharge Clinical Impression: Pleural cavity effusion, Shortness of breath, ESRD (end stage renal disease) Congestive heart failure Qualifiers: Heart failure type: unspecified Heart failure chronicity: acute on chronic Qualified Code(s): I50.9 - Heart failure, unspecified Anemia Qualifiers: Anemia type: unspecified type Qualified Code(s): D64.9 - Anemia, unspecified Condition: Fair Disposition: ADMITTED INPATIENT Admitting Provider: [facility] Admitted: [facility]
--- NOTE | 2017-11-25 10:36 | RADIOLOGY REPORT (SQ) ---
EXAM DESCRIPTION: CHEST 2 VIEWS COMPLETED DATE/TIME: 11/25/2017 10:18 am REASON FOR STUDY: sob hx of lll pna COMPARISON: 09/26/2017, 11/10/2017 NUMBER OF VIEWS: Two view TECHNIQUE: Frontal and lateral radiographic images of the chest acquired. LIMITATIONS: None. FINDINGS: LUNGS AND PLEURA: Diffuse interstitial pattern with more confluent subsegmental density in the right lower lobe. Small effusions. MEDIASTINUM AND HILAR STRUCTURES: Stable heart size and mediastinal structures. HEART AND VASCULAR STRUCTURES: Stable appearance. BONES: No acute findings. HARDWARE: None in the chest. OTHER: No other significant finding. IMPRESSION: Some degree of volume overload. Possible superimposed pneumonia or other postobstructiv e process in the right lower lobe. TECHNICAL DOCUMENTATION: JOB ID: [id number] [employer]- All Rights Reserved Reading location - IP/workstation name: [email or web address]
[2017-11-25] MEDS ORDERED: FUROSEMIDE INJ/PF 20 MG/2 ML SDV IV ONE (10:48)
[2017-11-25 11:13] LABS: VENOUS BLOOD BASE EXCESS 2.7 mmol/L; VENOUS BLOOD HCO3 28.1 mmol/L (20-32); VENOUS BLOOD PCO2 47.7 mmHg (35-63); VENOUS BLOOD PH 7.39 (7.30-7.42)
[2017-11-25 11:16] LABS: INTERNATIONAL RATION (INR) 1.13; PROTHROMBIN TIME 15.1 SEC (11.4-15.4)
[2017-11-25 11:21] LABS: ABSOLUTE BASOPHILS # (AUTO) 0.1 10^3/uL (0.0-0.2); ABSOLUTE EOSINOPHILS # (AUTO) 0.2 10^3/uL (0.0-0.6); ABSOLUTE LYMPHOCYTES (AUTO) 0.6 10^3/uL (0.5-4.7); ABSOLUTE MONOCYTES (AUTO) 0.9 10^3/uL (0.1-1.4); BASOPHILS % (AUTO) 1.2 % (0-2); EOSINOPHILS % (AUTO) 3.4 % (0-6); HEMATOCRIT 23.2 % (37.9-51.0); LYMPHOCYTES % (AUTO) 9.1 % (13-45); MEAN CORPUSCULAR HGB CONC 32.3 g/dL (32.0-36.0); MEAN CORPUSCULAR VOLUME 87 fl (80-97); MONOCYTES % (AUTO) 12.8 % (3-13); PLATELET COUNT 157 10^3/uL (150-450); RED BLOOD COUNT 2.67 10^6/uL (4.35-5.55); RED CELL DISTRIBUTION WIDTH 17.8 % (11.5-14.0); SEGMENTED NEUTROPHILS % (AUTO) 73.5 % (42-78); TOTAL CELLS COUNTED % (AUTO) 100 %; WHITE BLOOD COUNT 6.8 10^3/uL (4.0-10.5)
[2017-11-25 11:30] LABS: ALANINE AMINOTRANSFERASE 23 U/L (21-72); ALBUMIN 3.9 g/dL (3.5-5.0); ALKALINE PHOSPHATASE 47 U/L (38-126); ANION GAP 16 (5-19); ASPARTATE AMINO TRANSFERASE 40 U/L (17-59); BLOOD UREA NITROGEN 53 mg/dL (7-20); CALCIUM 8.7 mg/dL (8.4-10.2); CARBON DIOXIDE 26 mmol/L (22-30); CHLORIDE 101 mmol/L (98-107); GLUCOSE 103 mg/dL (75-110); POTASSIUM 4.3 mmol/L (3.6-5.0); SODIUM 143.2 mmol/L (137-145); TOTAL PROTEIN 7.1 g/dL (6.3-8.2)
[2017-11-25 11:31] LABS: HEMOGLOBIN 7.5 g/dL (13.5-17.0)
[2017-11-25 11:50] LABS: TROPONIN I 0.132 ng/mL
[2017-11-25] MEDS ORDERED: LIDOCAINE 1% INJ-PF (10 MG/ML) 30 ML SDV ONE (11:59)
--- NOTE | 2017-11-25 12:08 | RADIOLOGY REPORT (SQ) ---
EXAM DESCRIPTION: CTA CHEST COMPLETED DATE/TIME: 11/25/2017 11:51 am REASON FOR STUDY: sob, cough COMPARISON: Recent radiographs. TECHNIQUE: CT scan of the chest performed using helical scanning technique with dynamic intravenous contrast injection. Images reviewed with lung, soft tissue and bone windows. Reconstructed coronal and sagittal MPR images reviewed. Additional 3 dimensional post-processing performed to develop Maximal Intensity Projection images (MD P). All images stored on PACS. All CT scanners at this facility use dose modulation, iterative reconstruction, and/or weight based d osing when appropriate to reduce radiation dose to as low as reasonably achievable (ALARA). [facility]: Dose Right [facility]: CareDose [facility]: Dose Right [facility]: Teradose 4D [facility]: [employer] CONTRAST TYPE AND DOSE: contrast/concentration: Isovue 350.00 mg/ml; Total Contrast Delivered: 83.0 ml; Total Saline Delivered: 90.0 ml Contrast bolus optimized for the pulmonary arteries. Not diagnostic for the aorta. RENAL FUNCTION: Creatinine 12.7. Dialysis patient. RADIATION DOSE: CT Rad equipment meets quality standard of care and radiation dose reduction techniq ues were employed. CTDIvol: 34.8 - 46.3 mGy. DLP: 1330 mGy-cm. . LIMITATIONS: Mild limiting motion. FINDINGS: LUNGS AND PLEURA: Small -moderate bilateral pleural effusions. Mild volume loss left lowe r lobe. Patchy ground-glass opacities in the right upper lobe, right middle lobe and right lower lob e. Potential superimposed pneumonia/ aspiration or asymmetric edema (as suggested on radiographs). AORTA AND GREAT VESSELS: Limited assessment. No gross aneurysm. HEART: Cardiac enlargement. No effusion. Moderate coronary calcification. PULMONARY ARTERIES: Central arteries clear. Peripheral arteries mildly limited due to motion. HILAR AND MEDIASTINAL STRUCTURES: No identified masses or abnormal nodes. HARDWARE: None in the chest. UPPER ABDOMEN: No significant findings. Limited exam. THYROID AND OTHER SOFT TISSUES: No masses. No adenopathy. BONES: No acute or significant finding. 3D MIPS: Confirm above findings. OTHER: No other significant finding. IMPRESSION: 1. Bilateral effusions and mild left lower lobe volume loss, likely related to fluid ov erload (patient normally receives dialysis but has not received dialysis today). Superimposed asymme tric edema or pneumonia in the right lung. 2. No pulmonary embolus. COMMENT: Quality ID # [id number]: Final reports with documentation of one or more dose reduction techniques (e.g., Automated exposure control, adjustment of the mA and/or kV according to patient size, use of iterative reconstruction technique) TECHNICAL DOCUMENTATION: JOB ID: [id number] [employer]- All Rights Reserved Reading location - IP/workstation name: [email or web address]
[2017-11-25] MEDS ORDERED: CEFTRIAXONE INJ 1000 MG VIAL IV ONE ×2 (12:23→17:00)
--- NOTE | 2017-11-25 13:58 | EKG REPORT ---
SEVERITY:- ABNORMAL ECG - SINUS RHYTHM PROLONGED QT INTERVAL : Confirmed by: Fabian Dominguez MD 25-Nov-2017 13:57:57
[2017-11-25] MEDS ORDERED: EPOETIN ALFA INJ 20000 UNIT/1 ML VIAL (RENAL) IV ONE (15:30)
--- NOTE | 2017-11-25 16:18 | PDOC CONSULTATION ---
Consultation Consult Date: 11/25/17 Consult reason:: Acute hemodialysis History of Present Illness Admission Date/PCP: 11/25/17 13:22 RUDY JACOBSEN History of Present Illness: ANY STRONG is a 57 year old maleHistory of ESRD in the background of hypertension and dialyzing with Dr. Urbano of [facility] comes in with history of progressive shortness of breath leading to orthopnea. He said this is been progressing over the last 2-3 weeks. He also has a cough with minimal mucoid expectoration no history of any fever chills or riders no history of any chest pains. Evaluations in the ER revealed that he has likely CHF with superimposed right-sided pneumonia. Patient is being admitted and requested for dialysis by ER provider. Patient currently seen on hemodialysis that she is undergoing without any issues. Labs and medications are reviewed with the patient.He denies any history of abdominal pains or lower GI bleeds. He says he has had cardiac risk stratification to 5 years ago and both echo and apparent distress test were negative. Orders were reviewed with the treating dialysis nurse. Past Medical History Cardiac Medical History: Reports: Hyperlipidemia, Hypertension-primary Endocrine Medical History: Denies: Diabetes Mellitus Type 1 Renal/ Medical History: Reports: End Stage Renal Disease, Secondary Hyperparathyroidism Hematology Medical History: Reports Anemia of Chronic Kidney Disease Past Surgical History Past Surgical History: Reports: Appendectomy, Cholecystectomy Social History Lives with: Family Smoking Status: Former Smoker - Advance Directive Resuscitation Status: Full Code Family History Parental Family History Reviewed: Yes - Negative for ESRD. Children Family History Reviewed: No Sibling(s) Family History Reviewed.: No Medication/Allergy Home Medications: Amlodipine Besylate [Norvasc 10 mg Tablet] 10 mg PO DAILY 11/25/17 Clonidine HCl 0.3 mg PO Q12 11/25/17 Levofloxacin [Levofloxacin] 250 mg PO DAILY MDD filled 11/19 for 7ds 11/25/17 Pravastatin Sodium [Pravastatin Sodium] 40 mg PO QHS 11/25/17 Ranitidine HCl 150 mg PO Q6AM 11/25/17 Sevelamer Carbonate [Renvela] 3,200 mg PO MEALS 11/25/17 Vit B Comp No.3/Folic/C/Biotin [Nephro-Julius Rx Tablet] 1 each PO DAILY 11/25/17 Allergies/Adverse Reactions: No Known Allergies Allergy (Verified 11/25/17 09:20) Review of Systems Constitutional: PRESENT: weakness. ABSENT: fever(s), headache(s), night sweats Nose, Mouth, and Throat: ABSENT: mouth pain, sore throat Cardiovascular: PRESENT: dyspnea on exertion, orthropnea, palpitations. ABSENT : chest pain, edema Respiratory: PRESENT: cough, dyspnea. ABSENT: hemoptysis Gastrointestinal: ABSENT: abdominal pain, diarrhea, dysphagia, heartburn, hematemesis, nausea, vomiting Genitourinary: ABSENT: dysuria, hematuria Neurological: ABSENT: abnormal movements, abnormal speech, confusion, focal weakness Endocrine: ABSENT: heat intolerance Hematologic/Lymphatic: ABSENT: easy bleeding, easy bruising, lymphadenopathy Physical Exam Vital Signs: Temp Pulse Resp BP Pulse Ox 98.1 F 97 19 162/74 H 100 11/25/17 09:24 11/25/17 09:24 11/25/17 15:32 11/25/17 15:32 11/25/17 15:32 General appearance: PRESENT: no acute distress Eye exam: PRESENT: conjunctiva pink, EOMI, PERRLA Ear exam: PRESENT: normal external ear exam Mouth exam: PRESENT: moist, neck supple Neck exam: ABSENT: lymphadenopathy, meningismus, tenderness, thyromegaly, tracheal deviation Respiratory exam: PRESENT: clear to auscultation lew, crackles - Medium-sized in the on the right side. ABSENT: rhonchi Cardiovascular exam: PRESENT: +S1, +S2, systolic murmur GI/Abdominal exam: PRESENT: normal bowel sounds, soft. ABSENT: organomegaly, tenderness Extremities exam: PRESENT: pedal edema Neurological exam: PRESENT: alert, awake, oriented to person, oriented to place Psychiatric exam: PRESENT: appropriate affect Skin exam: ABSENT: cyanosis, erythema, mottled, rash Results Impressions: Chest X-Ray 11/25/17 09:55 IMPRESSION: Some degree of volume overload. Possible superimposed pneumonia or other postobstructive process in the right lower lobe. Chest/Abdomen CTA 11/25/17 10:27 IMPRESSION: 1. Bilateral effusions and mild left lower lobe volume loss, likely related to fluid overload (patient normally receives dialysis but has not received dialysis today). Superimposed asymmetric edema or pneumonia in the right lung. 2. No pulmonary embolus. Assessment & Plan - Diagnosis (1) Congestive heart failure Qualifiers: Heart failure type: unspecified Heart failure chronicity: acute on chronic Qualified Code(s): I50.9 - Heart failure, unspecified Plan: Clinically he is shows features suggestive of likely congestive heart failure with superimposed right-sided pneumonia. Patient currently seen on dialysis which is undergoing without any issues. Plan to remove between 4 and 5 L as tolerated. Discuss orders with the treating dialysis nurse. (2) ESRD (end stage renal disease) Plan: Patient currently undergoing dialysis without any issues. Vital Signs are stable. Orders reviewed with the treating dialysis nurse. Plan to remove between 4 and 5 L as tolerated. (3) Anemia Qualifiers: Anemia type: unspecified type Qualified Code(s): D64.9 - Anemia, unspecified Plan: Adjust erythropoietin. Get iron studies. No evidence of GI bleeds. Monitor. Hemodynamically stable. (4) Hypertension Plan: Uncontrolled. See response to ultrafiltration on dialysis. Monitor. (5) Pneumonia Plan: Right sided. As per primary care.
[2017-11-25 20:26] LABS: APPEARANCE,URINE SLIGHTLY-CLOUDY; BILIRUBIN,URINE NEGATIVE (NEGATIVE); COLOR,URINE STRAW; GLUCOSE, URINE 150 mg/dL (NEGATIVE); KETONES,URINE TRACE mg/dL (NEGATIVE); LEUKOCYTE ESTERASE,URINE TRACE (NEGATIVE); NITRITE,URINE NEGATIVE (NEGATIVE); PROTEIN,URINE >=500 mg/dL (NEGATIVE); URINE SPECIFIC GRAVITY 1.009; UROBILINOGEN,URINE NEGATIVE mg/dL (<2.0)
--- NOTE | 2017-11-25 20:51 | PDOC H&P ---
History of Present Illness Admission Date/PCP: 11/25/17 13:22 [facility] Patient complains of: Difficulty with breathing; Coughing History of Present Illness: ANY STROGN is a 57 year old male known to my practice who presented to the ED with complain of worsening exertional difficulty with breathing and coughing. Patient narrated difficulty with sleeping due to recurrent coughing. Cough remain unproductive. He is currently on Levofloxacin and Benzonatate for recent evaluation of possible URTI. He denied any ongoing fever or chills but reported staying cold all the time. He denied any palpitation or irregular heart beat. He has 2 pillow orthopnea but denied PND. He is currently on twice weekly hemodialysis therapy for ESRD. He continue to make fairly satisfactory urine. He claimed compliance with his medication and admitted to some amount of dietary and fluid indiscretion. His initial evaluation in the ED suggested fluid overload with possible CHF in view of his chest X ray, CTA chest evaluation and elevated NT-Pro BNP level. He was seen in consultation by Dr. Cristo Capellan, senior tax specialist and Dr. Manzanares, [facility] [employer]. His morbidities include Hypertension, Hyperlipidemia, Osteoathritis, Lump around his left breast , GERD and ESRD on hemodialysis. He was advised hospitalization with urgent hemodialysis intervention. Past Medical History Cardiac Medical History: Reports: Congestive Heart Failure, Hyperlipidema, Hypertension Endocrine Medical History: Denies: Diabetes Mellitus Type 1 Renal/ Medical History: Reports: End Stage Renal Disease Past Surgical History Past Surgical History: Reports: Appendectomy, Cholecystectomy Social History Lives with: Family Smoking Status: Former Smoker Number of Years Smokin Frequency of Alcohol Use: None Hx Recreational Drug Use: No Drugs: None Hx Prescription Drug Abuse: No - Advance Directive Resuscitation Status: Full Code Family History Family History: Reviewed & Not Pertinent Parental Family History Reviewed: Yes Children Family History Reviewed: Yes Sibling(s) Family History Reviewed.: Yes Medication/Allergy Home Medications: Amlodipine Besylate [Norvasc 10 mg Tablet] 10 mg PO DAILY 11/25/17 Clonidine HCl 0.3 mg PO Q12 11/25/17 Levofloxacin [Levofloxacin] 250 mg PO DAILY MDD filled 11/19 for 7ds 11/25/17 Pravastatin Sodium [Pravastatin Sodium] 40 mg PO QHS 11/25/17 Ranitidine HCl 150 mg PO Q6AM 11/25/17 Sevelamer Carbonate [Renvela] 3,200 mg PO MEALS 11/25/17 Vit B Comp No.3/Folic/C/Biotin [Nephro-Julius Rx Tablet] 1 each PO DAILY 11/25/17 Allergies/Adverse Reactions: No Known Allergies Allergy (Verified 11/25/17 09:20) Review of Systems Constitutional: ABSENT: chills, fever(s), headache(s), weight gain, weight loss Eyes: PRESENT: visual disturbances - use corrective glasses Ears: ABSENT: hearing changes Nose, Mouth, and Throat: ABSENT: as per HPI, headache(s), mouth pain, sore throat, vertigo, other Cardiovascular: PRESENT: dyspnea on exertion, edema - lower extremities, orthropnea. ABSENT: as per HPI, chest pain, palpitations, other Respiratory: PRESENT: cough, dyspnea. ABSENT: as per HPI, hemoptysis, sputum, other Gastrointestinal: ABSENT: abdominal pain, constipation, diarrhea, hematemesis, hematochezia, nausea, vomiting Genitourinary: ABSENT: dysuria, hematuria Musculoskeletal: PRESENT: joint swelling - periankle regions Integumentary: ABSENT: rash, wounds Neurological: ABSENT: abnormal gait, abnormal speech, confusion, dizziness, focal weakness, syncope Psychiatric: ABSENT: anxiety, depression, homidical ideation, suicidal ideation Endocrine: ABSENT: cold intolerance, heat intolerance, polydipsia, polyuria Hematologic/Lymphatic: ABSENT: easy bleeding, easy bruising, lymphadenopathy Allergic/Immunologic: ABSENT: seasonal rhinorrhea Physical Exam Vital Signs: Temp Pulse Resp BP Pulse Ox 98.5 F 102 H 23 H 168/79 H 94 11/25/17 17:57 11/25/17 19:00 11/25/17 17:57 11/25/17 17:57 11/25/17 17:57 Intake & Output 11/24/17 11/25/17 11/26/17 06:59 06:59 06:59 Weight 115.4 kg General appearance: PRESENT: no acute distress - post dialysis at the time of my evaluation, obese Head exam: PRESENT: atraumatic, normocephalic Eye exam: PRESENT: conjunctiva pink, EOMI, PERRLA. ABSENT: scleral icterus Ear exam: PRESENT: normal external ear exam Mouth exam: PRESENT: moist Teeth exam: ABSENT: dental caries, dental tenderness, edentulous, poor dentation , other Throat exam: ABSENT: post pharyngeal erythema, tonsillar erythema, tonsillar exudate, tonsillogmegaly, other Neck exam: PRESENT: full ROM. ABSENT: carotid bruit, JVD, lymphadenopathy, thyromegaly Respiratory exam: PRESENT: clear to auscultation lew, decreased breath sounds - at lung bases Cardiovascular exam: PRESENT: RRR. ABSENT: diastolic murmur, rubs, systolic murmur Pulses: PRESENT: normal dorsalis pedis pul, +2 pedal pulses bilateral Vascular exam: PRESENT: normal capillary refill. ABSENT: pallor GI/Abdominal exam: PRESENT: normal bowel sounds, soft. ABSENT: distended, guarding, mass, organolmegaly, rebound, tenderness Rectal exam: PRESENT: deferred Extremities exam: ABSENT: pedal edema Musculoskeletal exam: PRESENT: tenderness, other - right arm AV fistula for hemodialysis dressing okay. Neurological exam: PRESENT: alert, awake, oriented to person, oriented to place , oriented to time, oriented to situation, CN II-XII grossly intact. ABSENT: motor sensory deficit Psychiatric exam: PRESENT: appropriate affect, normal mood. ABSENT: homicidal ideation, suicidal ideation Skin exam: PRESENT: dry, warm. ABSENT: cyanosis, rash Results Laboratory Results: 11/25/17 19:40 Urine Color STRAW Urine Appearance SLIGHTLY-CLOUDY Urine pH 9.0 Ur Specific [place] 1.009 Urine Protein >=500 H Urine Glucose (UA) 150 H Urine Ketones TRACE H Urine Blood NEGATIVE Urine Nitrite NEGATIVE Ur Leukocyte Esterase TRACE H Urine WBC (Auto) 6 Urine RBC (Auto) 1 Impressions: Chest X-Ray 11/25/17 09:55 IMPRESSION: Some degree of volume overload. Possible superimposed pneumonia or other postobstructive process in the right lower lobe. Chest/Abdomen CTA 11/25/17 10:27 IMPRESSION: 1. Bilateral effusions and mild left lower lobe volume loss, likely related to fluid overload (patient normally receives dialysis but has not received dialysis today). Superimposed asymmetric edema or pneumonia in the right lung. 2. No pulmonary embolus. Assessment & Plan - Diagnosis (1) Acute CHF (congestive heart failure) Qualifiers: Heart failure type: unspecified Qualified Code(s): I50.9 - Heart failure, unspecified Is this a current diagnosis for this admission?: Yes Plan: See admitting attending physician orders. (2) ESRD on hemodialysis Is this a current diagnosis for this admission?: Yes Plan: See admitting attending physician orders. (3) Anemia in CKD (chronic kidney disease) Qualifiers: Chronic kidney disease stage: on chronic dialysis Qualified Code(s): N18.6 - End stage renal disease; D63.1 - Anemia in chronic kidney disease; D63.1 - Anemia in chronic kidney disease; Z99.2 - Dependence on renal dialysis; Z99.2 - Dependence on renal dialysis; Z99.2 - Dependence on renal dialysis; Z99.2 - Dependence on renal dialysis Is this a current diagnosis for this admission?: Yes Plan: See admitting attending physician orders. (4) Hypertension Qualifiers: Hypertension type: essential hypertension Qualified Code(s): I10 - Essential (primary) hypertension Is this a current diagnosis for this admission?: Yes Plan: See admitting attending physician orders. (5) HLD (hyperlipidemia) Qualifiers: Hyperlipidemia type: unspecified Qualified Code(s): E78.5 - Hyperlipidemia , unspecified Is this a current diagnosis for this admission?: Yes Plan: See admitting attending physician orders. (6) GERD (gastroesophageal reflux disease) Qualifiers: Esophagitis presence: without esophagitis Qualified Code(s): K21.9 - Gastro -esophageal reflux disease without esophagitis Is this a current diagnosis for this admission?: Yes Plan: See admitting attending physician orders. (7) Osteoarthritis involving multiple joints on both sides of body Is this a current diagnosis for this admission?: Yes Plan: See admitting attending physician orders. - Time Time Spent: 50 to 70 Minutes Medications reviewed and adjusted accordingly: Yes Anticipated discharge: Home with Homehealth Within: Other - Inpatient Certification Based on my medical assessment, after consideration of the patient's comorbidities, presenting symptoms, or acuity I expect that the services needed warrant INPATIENT care.: Yes I certify that my determination is in accordance with my understanding of Medicare's requirements for reasonable and necessary INPATIENT services [42 CFR 412.3e].: Yes Medical Necessity: Need Close Monitoring Due to Risk of Patient Decompensation, Need For Continuous Telemetry Monitoring, Risk of Complication if Not Cared For in Hospital Post Hospital Care: D/C Automatic Driller And Reamer Documentation - Plan Summary Plan Summary: See admitting attending physician orders.
[2017-11-25] MEDS ORDERED: BENZONATATE 100 MG CAPSULE PO PRN (21:00)
[2017-11-25] MEDS ORDERED: AMLODIPINE BESYLATE 10 MG TABLET PO ONE (21:30)
[2017-11-25] MEDS: CLONIDINE HCL 0.1 MG TABLET PO SCH (21:34)
[2017-11-25] MEDS: FUROSEMIDE INJ/PF 40 MG/4 ML SDV IV SCH (21:34)
[2017-11-25] MEDS: ATORVASTATIN CALCIUM 10 MG TABLET PO SCH (21:35)
[2017-11-25] MEDS ORDERED: (PENDING PHARMACY ID) (Clonidine Hcl [Clonidine Hcl] 0.3 MG) PO SCH (22:00)
[2017-11-25] MEDS ORDERED: (PENDING PHARMACY ID) (Pravastatin Sodium [Pravastatin Sodium] 40 MG) PO SCH (22:00)
[2017-11-26] MEDS ORDERED: FAMOTIDINE 20 MG TABLET PO SCH (06:00)
[2017-11-26] MEDS ORDERED: (PENDING PHARMACY ID) (Ranitidine Hcl [Ranitidine Hcl] 150 MG) PO SCH (06:00)
[2017-11-26] MEDS ORDERED: SEVELAMER CARBONATE 3200 MG PO SCH (08:00)
[2017-11-26] MEDS: LEVOFLOXACIN 250 MG TABLET PO SCH (09:16)
[2017-11-26] MEDS: AMLODIPINE BESYLATE 10 MG TABLET PO SCH (09:16)
[2017-11-26] MEDS: FOLIC ACID/VITAMIN B COMP W-C CAPSULE PO SCH (09:16)
[2017-11-26] MEDS: SEVELAMER HCL 800 MG TABLET PO SCH ×3 (09:16→17:31)
[2017-11-26] MEDS: FUROSEMIDE INJ/PF 40 MG/4 ML SDV IV SCH (09:17)
[2017-11-26] MEDS: CLONIDINE HCL 0.1 MG TABLET PO SCH ×2 (09:17→22:56)
[2017-11-26 09:30] LABS: ANION GAP 13 (5-19); CALCIUM 8.5 mg/dL (8.4-10.2); CARBON DIOXIDE 30 mmol/L (22-30); CHLORIDE 99 mmol/L (98-107); GLUCOSE 85 mg/dL (75-110); IRON(TIBC) 48.9 ug/dL (49-181); POTASSIUM 4.4 mmol/L (3.6-5.0); SODIUM 141.7 mmol/L (137-145)
[2017-11-26] MEDS ORDERED: [UNRECOGNIZED DRUG - REMARK] PO SCH (10:00)
[2017-11-26 10:31] LABS: ABSOLUTE RETICS # 0.027 10^6/uL (0.028-0.122); HEMATOCRIT 21.8 % (37.9-51.0); MEAN CORPUSCULAR HGB CONC 32.3 g/dL (32.0-36.0); MEAN CORPUSCULAR VOLUME 87 fl (80-97); PLATELET COUNT 189 10^3/uL (150-450); RED BLOOD COUNT 2.51 10^6/uL (4.35-5.55); RED CELL DISTRIBUTION WIDTH 17.5 % (11.5-14.0); RETICULOCYTE COUNT (AUTO) 1.07 % (0.66-2.85); WHITE BLOOD COUNT 6.2 10^3/uL (4.0-10.5)
--- NOTE | 2017-11-26 11:03 | CONSULTATION REPORT E ---
Consultation Report NAME: ANY STRONG : 1960 AGE: 57Y DATE: 11/25/2017 327 A TO: DICKSON ACEVEDO M.D. FROM: RUDY JACOBSEN M.D. Requesting Physician HISTORY OF PRESENT ILLNESS: The patient is a 57-year-old male who came in with increased shortness of breath and chronic cough for the last 1-2 weeks. Patient denies any fever, denies any chills. Patient claims that he is coughing whitish sputum. Denies any purulent sputum production or hemoptysis. Condition worsened today and patient went to [facility] and eventually referred to emergency room because of increased shortness of breath. Patient had dialysis only 2 days a week prior to this admission. PAST MEDICAL HISTORY: 1. Patient has history of hypertension. 2. Hyperlipidemia. 3. End-stage renal disease. 4. She has hyperparathyroidism. 5. History of anemia of chronic disease. SOCIAL HISTORY: Patient lives with family. Patient is a former smoker. MEDICATIONS: Medications at home include: 1. Norvasc. 2. Clonidine. 3. Levaquin. 4. Pravastatin. 5. Ranitidine. 7. Vitamin B complex. ALLERGIES: No known drug allergies. REVIEW OF SYSTEMS: CONSTITUTIONAL: No fever or chills or headache noted. Patient just feeling weak. EARS, NOSE, MOUTH AND THROAT: No ear drainage. No nasal or sore throat. RESPIRATORY: Complains of increased shortness of breath over the last 1-2 weeks. Mostly complained about whitish phlegm expectoration over the last 2 weeks but no purulent sputum production. No hemoptysis. GASTROINTESTINAL: No nausea, vomiting, diarrhea. GENITOURINARY: No dysuria, hematuria. Has history of chronic kidney disease on hemodialysis 2 days a week. NEUROLOGIC: No seizures or stroke or focal weakness. ENDOCRINE: No heat intolerance. PHYSICAL EXAMINATION: GENERAL: The patient is awake, alert, coherent, oriented x3. VITAL SIGNS: Afebrile, not in respiratory distress, with a temperature of 98.5 with a T max of 98.5. Pulse rate of 100. Blood pressure is 168/39, respiratory rate 23, saturation 94% on room air. EYES: No jaundice or pallor. EARS, NOSE AND THROAT: No ear drainage. No nasal discharge. CHEST AND LUNGS: No wheezing. No rhonchi. No coarse crackles. CARDIOVASCULAR: S1, S2 distant. Normal rate, regular rhythm. ABDOMEN: Flabby. Positive bowel sounds. Soft, nondistended, nontender. EXTREMITIES: No joint swelling or cellulitis. LABORATORY: CBC done today showed white count of 6.8, hemoglobin 7.5. Platelet count is 157. PT is 50.1. INR is 1.13 The blood gases this morning with a venous blood gas pH of 7.39, pCO2 of 47. Blood gas bicarb is 21. Chemistry this morning showed sodium 143, potassium 4.3, chloride is 101, CO2 is 26, BUN is 53, creatinine 13.1, glucose is 103, calcium is 8.1. SGOT is 40, SGPT 23. NT-BNP is 145,000. ASSESSMENT: 1. Pulmonary edema with symmetric pulmonary infiltrate, right lower lobe. 2. Pleural effusion bilateral, left greater than right. This is a small pleural effusion and will not a thoracentesis at this time. I do not think this pleural effusion is infected, and this may be due to chronic kidney disease, renal failure and congestive heart failure. 3. Pneumonia, right lower lobe. Possible, but less likely due to nonproductive cough,absence of purulent sputum or fever and leukocytosis. PLAN/RECOMMENDATIONS: 1. Recommend hemodialysis, which will alleviate the pulmonary edema/ congestion as well reduce the pleural effusion. 2. I do not think patient needs a thoracentesis for now. Will continue to watch patient. DICTATING PHYSICIAN: DICKSON ACEVEDO MD,DIDIER,MPH [id number] PHY#: [id number] [id number] JOB#: [id number] ACCT: [id number] cc:DICKSON ACEVEDO M.D. > KURT
[2017-11-26 11:38] LABS: BLOOD UREA NITROGEN 31 mg/dL (7-20)
--- NOTE | 2017-11-26 15:20 | PDOC PROGRESS REPORT ---
Subjective Progress Note for:: 11/26/17 Subjective:: Patient was laying in his bed at the time of examination. He stated that he felt a lot better compared to yesterday. He denied chest pain, SOB, n/v/d/c. He also denied seeing any blood in his stool or any dark tarry stools. Reason For Visit: ACUTE CHF, ESRD ON HEMODIAYSIS, ANEMIA OF CKD Physical Exam Vital Signs: Temp Pulse Resp BP Pulse Ox 98.7 F 83 18 134/68 H 95 11/26/17 11:23 11/26/17 14:00 11/26/17 11:23 11/26/17 11:23 11/26/17 11:23 Intake & Output 11/25/17 11/26/17 11/27/17 06:59 06:59 06:59 Intake Total 222 473 Output Total 4900 Balance -4678 473 Weight 115.5 kg General appearance: PRESENT: no acute distress, well-developed, well-nourished Mouth exam: PRESENT: moist, neck supple Neck exam: PRESENT: full ROM. ABSENT: JVD Respiratory exam: PRESENT: rhonchi. ABSENT: accessory muscle use, clear to auscultation lew, crackles, rales, wheezes Cardiovascular exam: PRESENT: +S1, +S2, systolic murmur GI/Abdominal exam: PRESENT: normal bowel sounds, soft. ABSENT: organomegaly, tenderness Extremities exam: PRESENT: pedal edema, +1 edema. ABSENT: +2 edema Neurological exam: PRESENT: alert, awake, oriented to person, oriented to place , oriented to time, oriented to situation Psychiatric exam: PRESENT: appropriate affect, normal mood Skin exam: PRESENT: dry, intact, warm. ABSENT: cyanosis Results Laboratory Results: 11/26/17 05:48 11/26/17 05:48 11/25/17 11/26/17 11/26/17 19:40 05:48 05:48 WBC 6.2 RBC 2.51 L Hgb 7.0 L Hct 21.8 L MCV 87 MCH 28.0 MCHC 32.3 RDW 17.5 H Plt Count 189 Retic Count (auto) 1.07 Absolute Retic 0.027 L Sodium 141.7 Potassium 4.4 Chloride 99 Carbon Dioxide 30 Anion Gap 13 BUN 31 H D Creatinine 8.91 H Est GFR ( Amer) 7 L Est GFR (Non-Af Amer) 6 L Glucose 85 Calcium 8.5 Iron 48.9 L TIBC 161 L % Saturation 30 Ferritin 1020.00 H Vitamin B12 622.0 Folate 11.30 Urine Color STRAW Urine Appearance SLIGHTLY-CLOUDY Urine pH 9.0 Ur Specific [place] 1.009 Urine Protein >=500 H Urine Glucose (UA) 150 H Urine Ketones TRACE H Urine Blood NEGATIVE Urine Nitrite NEGATIVE Ur Leukocyte Esterase TRACE H Urine WBC (Auto) 6 Urine RBC (Auto) 1 Impressions: Chest X-Ray 11/25/17 09:55 IMPRESSION: Some degree of volume overload. Possible superimposed pneumonia or other postobstructive process in the right lower lobe. Chest/Abdomen CTA 11/25/17 10:27 IMPRESSION: 1. Bilateral effusions and mild left lower lobe volume loss, likely related to fluid overload (patient normally receives dialysis but has not received dialysis today). Superimposed asymmetric edema or pneumonia in the right lung. 2. No pulmonary embolus. Assessment & Plan - Diagnosis (1) Acute CHF (congestive heart failure) Qualifiers: Heart failure type: unspecified Qualified Code(s): I50.9 - Heart failure, unspecified Is this a current diagnosis for this admission?: Yes Plan: currently improving, will look to remove more fluid tomorrow on dialysis. (2) Anemia Qualifiers: Anemia type: unspecified type Qualified Code(s): D64.9 - Anemia, unspecified Plan: concern for a GI bleed with how rapid it is dropping. Ordering an occult blood stool test. It should have improved after having fluid removed yesterday. Will look to give him epogen at dialysis tomorrow. Re-evaluate tomorrow. (3) ESRD (end stage renal disease) Plan: no indication for BOTTLE GAUGER today, will look to have him receive dialysis tomorrow (4) Hypertension Qualifiers: Hypertension type: essential hypertension Qualified Code(s): I10 - Essential (primary) hypertension Is this a current diagnosis for this admission?: Yes Plan: has improved to the 130s, will have to keep monitoring (5) Pneumonia Plan: per primary
--- NOTE | 2017-11-26 18:13 | PDOC PROGRESS REPORT ---
Subjective Progress Note for:: 11/26/17 Subjective:: Patient reported improvement in his breathing. No chest pain. No abdominal pain , nausea, or vomiting. No fever or chills. Reason For Visit: ACUTE CHF, ESRD ON HEMODIAYSIS, ANEMIA OF CKD Physical Exam Vital Signs: Temp Pulse Resp BP Pulse Ox 98.7 F 75 18 148/73 H 96 11/26/17 15:16 11/26/17 15:16 11/26/17 15:16 11/26/17 15:16 11/26/17 15:16 Intake & Output 11/25/17 11/26/17 11/27/17 06:59 06:59 06:59 Intake Total 222 473 Output Total 4900 Balance -4678 473 Weight 115.5 kg General appearance: PRESENT: no acute distress, obese Head exam: PRESENT: atraumatic, normocephalic Ear exam: PRESENT: normal external ear exam Mouth exam: PRESENT: moist Respiratory exam: PRESENT: clear to auscultation lew, decreased breath sounds - at lung bases Cardiovascular exam: PRESENT: RRR, +S1, +S2. ABSENT: diastolic murmur, rubs, systolic murmur Vascular exam: PRESENT: normal capillary refill. ABSENT: pallor GI/Abdominal exam: PRESENT: normal bowel sounds, soft. ABSENT: distended, guarding, mass, organolmegaly, rebound, tenderness Extremities exam: PRESENT: pedal edema - minimally Musculoskeletal exam: PRESENT: deformity - related to multiple joints involvement witha rthritis. ABSENT: tenderness Neurological exam: PRESENT: alert, awake, oriented to person, oriented to place , oriented to time, oriented to situation, CN II-XII grossly intact. ABSENT: motor sensory deficit Psychiatric exam: PRESENT: appropriate affect, normal mood. ABSENT: homicidal ideation, suicidal ideation Skin exam: PRESENT: dry, warm, other - Right arm AV fistula site satisfactory with good bruit. Results Laboratory Results: 11/26/17 05:48 11/26/17 05:48 11/25/17 11/26/17 11/26/17 19:40 05:48 05:48 WBC 6.2 RBC 2.51 L Hgb 7.0 L Hct 21.8 L MCV 87 MCH 28.0 MCHC 32.3 RDW 17.5 H Plt Count 189 Retic Count (auto) 1.07 Absolute Retic 0.027 L Sodium 141.7 Potassium 4.4 Chloride 99 Carbon Dioxide 30 Anion Gap 13 BUN 31 H D Creatinine 8.91 H Est GFR ( Amer) 7 L Est GFR (Non-Af Amer) 6 L Glucose 85 Calcium 8.5 Iron 48.9 L TIBC 161 L % Saturation 30 Ferritin 1020.00 H Vitamin B12 622.0 Folate 11.30 Urine Color STRAW Urine Appearance SLIGHTLY-CLOUDY Urine pH 9.0 Ur Specific [place] 1.009 Urine Protein >=500 H Urine Glucose (UA) 150 H Urine Ketones TRACE H Urine Blood NEGATIVE Urine Nitrite NEGATIVE Ur Leukocyte Esterase TRACE H Urine WBC (Auto) 6 Urine RBC (Auto) 1 Stool Occult Blood 11/26/17 16:32 WBC RBC Hgb Hct MCV MCH MCHC RDW Plt Count Retic Count (auto) Absolute Retic Sodium Potassium Chloride Carbon Dioxide Anion Gap BUN Creatinine Est GFR ( Amer) Est GFR (Non-Af Amer) Glucose Calcium Iron TIBC % Saturation Ferritin Vitamin B12 Folate Urine Color Urine Appearance Urine pH Ur Specific [place] Urine Protein Urine Glucose (UA) Urine Ketones Urine Blood Urine Nitrite Ur Leukocyte Esterase Urine WBC (Auto) Urine RBC (Auto) Stool Occult Blood NEGATIVE Impressions: Chest X-Ray 11/25/17 09:55 IMPRESSION: Some degree of volume overload. Possible superimposed pneumonia or other postobstructive process in the right lower lobe. Chest/Abdomen CTA 11/25/17 10:27 IMPRESSION: 1. Bilateral effusions and mild left lower lobe volume loss, likely related to fluid overload (patient normally receives dialysis but has not received dialysis today). Superimposed asymmetric edema or pneumonia in the right lung. 2. No pulmonary embolus. Assessment & Plan - Diagnosis (1) Acute CHF (congestive heart failure) Qualifiers: Heart failure type: unspecified Qualified Code(s): I50.9 - Heart failure, unspecified Is this a current diagnosis for this admission?: Yes (2) ESRD on hemodialysis Is this a current diagnosis for this admission?: Yes (3) Anemia in CKD (chronic kidney disease) Qualifiers: Chronic kidney disease stage: on chronic dialysis Qualified Code(s): N18.6 - End stage renal disease; D63.1 - Anemia in chronic kidney disease; D63.1 - Anemia in chronic kidney disease; Z99.2 - Dependence on renal dialysis; Z99.2 - Dependence on renal dialysis; Z99.2 - Dependence on renal dialysis; Z99.2 - Dependence on renal dialysis Is this a current diagnosis for this admission?: Yes (4) Hypertension Qualifiers: Hypertension type: essential hypertension Qualified Code(s): I10 - Essential (primary) hypertension Is this a current diagnosis for this admission?: Yes (5) HLD (hyperlipidemia) Qualifiers: Hyperlipidemia type: unspecified Qualified Code(s): E78.5 - Hyperlipidemia , unspecified Is this a current diagnosis for this admission?: Yes (6) GERD (gastroesophageal reflux disease) Qualifiers: Esophagitis presence: without esophagitis Qualified Code(s): K21.9 - Gastro -esophageal reflux disease without esophagitis Is this a current diagnosis for this admission?: Yes (7) Osteoarthritis involving multiple joints on both sides of body Is this a current diagnosis for this admission?: Yes - Time Time Spent with patient: 25-34 minutes Medications reviewed and adjusted accordingly: Yes Anticipated discharge: Home with Homehealth Within: Other - Inpatient Certification Based on my medical assessment, after consideration of the patient's comorbidities, presenting symptoms, or acuity I expect that the services needed warrant INPATIENT care.: Yes I certify that my determination is in accordance with my understanding of Medicare's requirements for reasonable and necessary INPATIENT services [42 CFR 412.3e].: Yes Medical Necessity: Need Close Monitoring Due to Risk of Patient Decompensation, Need For Continuous Telemetry Monitoring, Risk of Complication if Not Cared For in Hospital Post Hospital Care: D/C Surgery Scheduler Documentation - Plan Summary Plan Summary: See attending physician orders. Patient will be schedule for HD session tomorrow and we will evaluate need for any PRBC transfusion.
[2017-11-26] MEDS: ATORVASTATIN CALCIUM 10 MG TABLET PO SCH (22:56)
[2017-11-27] MEDS ORDERED: EPOETIN ALFA INJ 20000 UNIT/1 ML VIAL (RENAL) IV PRN (05:00)
[2017-11-27 05:49] LABS: ABSOLUTE BASOPHILS # (AUTO) 0.1 10^3/uL (0.0-0.2); ABSOLUTE EOSINOPHILS # (AUTO) 0.3 10^3/uL (0.0-0.6); ABSOLUTE LYMPHOCYTES (AUTO) 0.7 10^3/uL (0.5-4.7); ABSOLUTE MONOCYTES (AUTO) 0.7 10^3/uL (0.1-1.4); ABSOLUTE NEUT (AUTO) 4.6 10^3/uL (1.7-8.2); BASOPHILS % (AUTO) 1.7 % (0-2); EOSINOPHILS % (AUTO) 4.4 % (0-6); HEMATOCRIT 21.5 % (37.9-51.0); LYMPHOCYTES % (AUTO) 10.9 % (13-45); MEAN CORPUSCULAR HGB CONC 32.7 g/dL (32.0-36.0); MEAN CORPUSCULAR VOLUME 86 fl (80-97); MONOCYTES % (AUTO) 11.4 % (3-13); PLATELET COUNT 217 10^3/uL (150-450); RED CELL DISTRIBUTION WIDTH 17.1 % (11.5-14.0); SEGMENTED NEUTROPHILS % (AUTO) 71.6 % (42-78); TOTAL CELLS COUNTED % (AUTO) 100 %; WHITE BLOOD COUNT 6.5 10^3/uL (4.0-10.5)
[2017-11-27 06:15] LABS: ANION GAP 12 (5-19); BLOOD UREA NITROGEN 38 mg/dL (7-20); CALCIUM 8.3 mg/dL (8.4-10.2); CARBON DIOXIDE 26 mmol/L (22-30); CHLORIDE 101 mmol/L (98-107); GLUCOSE 92 mg/dL (75-110); POTASSIUM 4.5 mmol/L (3.6-5.0); SODIUM 139.4 mmol/L (137-145)
[2017-11-27] MEDS: LANSOPRAZOLE 30 MG TAB.RAP.DR PO SCH (06:29)
[2017-11-27] MEDS: SEVELAMER HCL 800 MG TABLET PO SCH ×3 (08:36→18:02)
[2017-11-27] MEDS: AMLODIPINE BESYLATE 10 MG TABLET PO SCH (09:55)
[2017-11-27] MEDS: CLONIDINE HCL 0.1 MG TABLET PO SCH ×2 (09:55→21:57)
[2017-11-27] MEDS: LEVOFLOXACIN 250 MG TABLET PO SCH (09:55)
[2017-11-27] MEDS: FUROSEMIDE INJ/PF 40 MG/4 ML SDV IV SCH (09:55)
[2017-11-27] MEDS: FOLIC ACID/VITAMIN B COMP W-C CAPSULE PO SCH (09:55)
--- NOTE | 2017-11-27 12:45 | PROGRESS NOTE E ---
Progress Note NAME: ANY STRONG : 1960 AGE: 57Y DATE: 11/26/2017 ROOM: 327 SUBJECTIVE: The patient is a 57-year-old male who came in with increased coughing and increased shortness of breath with a pulmonary infiltrate on the right lower lobe suggestive of pulmonary edema rather than pneumonia. Started on Levaquin 50 mg daily yesterday. Also started on Rocephin. Patient denies any purulent sputum production, no hemoptysis. Claims that he has some coughing spells but not productive and no fever, chills, no nausea, vomiting, diarrhea. He is scheduled for dialysis again tomorrow. No dialysis done today, but he had dialysis yesterday. OBJECTIVE: GENERAL: Patient awake, alert, coherent, oriented. VITAL SIGNS: Afebrile, not in apparent respiratory distress, with temperature of 98.1 with a T max of 98.7, heart rate is 81, blood pressure is 159/73, respirations 216, saturation 93% on room air. EYES: No jaundice or pallor. EARS, NOSE AND THROAT: No ear drainage. No nasal discharge. HEAD AND NECK: No scalp tenderness. No neck tenderness. CHEST AND LUNGS: No wheezing, no rhonchi, no coarse crackles. CARDIOVASCULAR: S1, S2 distinct. Normal rate, regular rhythm. ABDOMEN: Flabby. Positive bowel sounds. Soft, nondistended, nontender. EXTREMITIES: No joint swelling and no cellulitis. LABORATORY DATA: CBC done today showed white count of 6.2, hemoglobin is 10, hematocrit is 31.8, platelet count is 189,000. Chemistry done today shows sodium 141, potassium 4.4, chloride 99, CO2 is 33, BUN 31, creatinine is 8.91, glucose is 85 and calcium is 8.5. ASSESSMENT: 1. CHRONIC COUGH , RELATED TO GASTROESOPHAGEAL REFLUX DISEASE. 2. PLEURAL EFFUSION, BILATERAL MOST LIKELY DUE TO CKD, WELL PULMONARY EDEMA, CHRONIC CONGESTION. 3. PULMONARY INFILTRATE, RIGHT LOWER LOBE MOST LIKELY PULMONARY CONGESTION/EDEMA. PNEUMONIA POSSIBLE BUT MAY BE LESS LIKELY. Currently in IV antibiotics. PLAN/RECOMMENDATION: 1. Encourage patient to go to hemodialysis 3 days a week. 2. May consider doing chest x-ray after dialysis tomorrow to see progression of the pleural effusion. 3. May consider changing pepcid to omeprazole 40 mg daily. DICTATING PHYSICIAN: DICKSON ACEVEDO MD,DIDIER,MPH [id number] PHY#: [id number] ID: [id number] JOB#: [id number] ACCT: [id number] cc: > MTDD
--- NOTE | 2017-11-27 15:57 | PDOC PROGRESS REPORT ---
Subjective Progress Note for:: 11/27/17 Reason For Visit: Is feeling better since his dialysis in the ER the other day. He denies any history of chest pain or shortness of breath. Feels some weakness. Denies any GI bleeds. Patient currently being seen on dialysis which is undergoing without any issues. Labs and medications reviewed with the patient. Hemoglobin stable at 7. Orders reviewed with the dialysis nurse. Physical Exam Vital Signs: Temp Pulse Resp BP Pulse Ox 98 F 67 15 163/84 H 95 11/27/17 15:06 11/27/17 15:06 11/27/17 15:06 11/27/17 15:06 11/27/17 15:06 Intake & Output 11/26/17 11/27/17 11/28/17 06:59 06:59 06:59 Intake Total 222 709 712 Output Total 4900 Balance -4678 709 712 Weight 115.5 kg General appearance: PRESENT: no acute distress Respiratory exam: PRESENT: clear to auscultation lew. ABSENT: crackles Cardiovascular exam: PRESENT: +S1, +S2, systolic murmur GI/Abdominal exam: PRESENT: normal bowel sounds, soft. ABSENT: organomegaly, tenderness Extremities exam: PRESENT: pedal edema Neurological exam: PRESENT: alert, awake, oriented to person, oriented to place Skin exam: ABSENT: erythema, mottled, rash, skin tears Results Laboratory Results: 11/27/17 05:17 11/27/17 05:17 11/26/17 11/27/17 11/27/17 16:32 05:17 05:17 WBC 6.5 RBC 2.50 L Hgb 7.0 L Hct 21.5 L MCV 86 MCH 28.0 MCHC 32.7 RDW 17.1 H Plt Count 217 Seg Neutrophils % 71.6 Lymphocytes % 10.9 L Monocytes % 11.4 Eosinophils % 4.4 Basophils % 1.7 Absolute Neutrophils 4.6 Absolute Lymphocytes 0.7 Absolute Monocytes 0.7 Absolute Eosinophils 0.3 Absolute Basophils 0.1 Sodium 139.4 Potassium 4.5 Chloride 101 Carbon Dioxide 26 Anion Gap 12 BUN 38 H Creatinine 9.82 H Est GFR ( Amer) 7 L Est GFR (Non-Af Amer) 5 L Glucose 92 Calcium 8.3 L Stool Occult Blood NEGATIVE 11/25/17 19:40 Clean Catch Midstream Urine Culture - Final Mixed Urogenital Vianney Impressions: Chest X-Ray 11/25/17 09:55 IMPRESSION: Some degree of volume overload. Possible superimposed pneumonia or other postobstructive process in the right lower lobe. Chest/Abdomen CTA 11/25/17 10:27 IMPRESSION: 1. Bilateral effusions and mild left lower lobe volume loss, likely related to fluid overload (patient normally receives dialysis but has not received dialysis today). Superimposed asymmetric edema or pneumonia in the right lung. 2. No pulmonary embolus. Assessment & Plan - Diagnosis (1) Congestive heart failure Qualifiers: Heart failure type: unspecified Heart failure chronicity: acute on chronic Qualified Code(s): I50.9 - Heart failure, unspecified Plan: Stable. Still has fluid to be removed. Will challenge him approximately 4 L on dialysis today. Orders reviewed with the treating dialysis nurse. Patient otherwise stable. Vital signs stable. Electrolytes were stable.Will recommend cardiac risk stratification as an outpatient. (2) ESRD (end stage renal disease) Plan: Patient being seen while undergoing dialysis. Vital signs are stable. Plan to remove approximately 4 L. Will get transfusion 2 today on dialysis. Orders reviewed with the treating dialysis.Patient currently undergoes dialysis only twice a week.Discussed with the patient that he needs to have 3 dialysis sessions per week given his recurrent heart failure. Advised to discuss with Dr. Urbano who is his treating management accountant. Furthermore he would benefit from cardiac risk stratification as well. (3) Anemia Qualifiers: Anemia type: unspecified type Qualified Code(s): D64.9 - Anemia, unspecified Plan: Hemoglobin stable at 7. No evidence of GI bleeds. Transfused 2 units. Adjust erythropoietin to 25,000 on dialysis. Monitor. (4) Hypertension Qualifiers: Hypertension type: essential hypertension Qualified Code(s): I10 - Essential (primary) hypertension Is this a current diagnosis for this admission?: Yes Plan: Uncontrolled. Monitor. See response to dialysis. (5) Pneumonia Plan: Superimposed on CHF. On antibiotic.
[2017-11-27] MEDS ORDERED: EPOETIN ALFA 25,000 UNIT in SYRINGE, DISPOSABLE, 1 EACH IV PRN (16:00)
--- NOTE | 2017-11-27 18:16 | PDOC DISCHARGE SUMMARY ---
General - Admit/Disc Date/PCP Admission Date/Primary Care Provider: 11/25/17 13:22 RUDYGEN JACOBSEN Discharge Date: 11/27/17 - Discharge Diagnosis (1) Acute CHF (congestive heart failure) Is this a current diagnosis for this admission?: Yes (2) ESRD on hemodialysis Is this a current diagnosis for this admission?: Yes (3) Anemia in CKD (chronic kidney disease) Is this a current diagnosis for this admission?: Yes (4) Hypertension Is this a current diagnosis for this admission?: Yes (5) HLD (hyperlipidemia) Is this a current diagnosis for this admission?: Yes (6) GERD (gastroesophageal reflux disease) Is this a current diagnosis for this admission?: Yes (7) Osteoarthritis involving multiple joints on both sides of body Is this a current diagnosis for this admission?: Yes - Additional Information Resuscitation Status: Full Code Prescriptions: Carvedilol 3.125 mg PO BID #60 tablet Furosemide [Lasix 40 mg Tablet] 40 mg PO DAILY #30 tablet Levofloxacin [Levaquin 250 mg Tablet] 250 mg PO DAILY #7 tablet Home Medications: Amlodipine Besylate [Norvasc 10 mg Tablet] 10 mg PO DAILY 11/25/17 Clonidine HCl 0.3 mg PO Q12 11/25/17 Levofloxacin 250 mg PO DAILY MDD filled 11/19 for 7ds 11/25/17 Pravastatin Sodium 40 mg PO QHS 11/25/17 Ranitidine HCl 150 mg PO Q6AM 11/25/17 Sevelamer Carbonate [Renvela] 3,200 mg PO MEALS 11/25/17 Vit B Comp No.3/Folic/C/Biotin [Nephro-Julius Rx Tablet] 1 each PO DAILY 11/25/17 Carvedilol 3.125 mg PO BID #60 tablet 11/27/17 Furosemide [Lasix 40 mg Tablet] 40 mg PO DAILY #30 tablet 11/27/17 Levofloxacin [Levaquin 250 mg Tablet] 250 mg PO DAILY #7 tablet 11/27/17 History of Present Illness Patient complains of: Difficulty with breathing History of Present Illness: ANY STRONG is a 57 year old male known to my practice who presented to the ED with complain of worsening exertional difficulty with breathing and coughing. Patient narrated difficulty with sleeping due to recurrent coughing. Cough remain unproductive. He is currently on Levofloxacin and Benzonatate for recent evaluation of possible URTI. He denied any ongoing fever or chills but reported staying cold all the time. He denied any palpitation or irregular heart beat. He has 2 pillow orthopnea but denied PND. He is currently on twice weekly hemodialysis therapy for ESRD. He continue to make fairly satisfactory urine. He claimed compliance with his medication and admitted to some amount of dietary and fluid indiscretion. His initial evaluation in the ED suggested fluid overload with possible CHF in view of his chest X ray, CTA chest evaluation and elevated NT-Pro BNP level. He was seen in consultation by Dr. Cristo Capellan, oleomargarine maker and Dr. Manzanares, fine arts model. His morbidities include Hypertension, Hyperlipidemia, Osteoarthritis, Lump around his left breast, GERD and ESRD on hemodialysis. He was advised hospitalization with urgent hemodialysis intervention. Hospital Course Hospital Course: Patient was admitted for acute decompensated CHF with fluid over load. He had two sessions of hemodialysis with significant improvement in his symptoms. Also , he was managed with IV Lasix. He was transfused 2 units PRBC during dialysis today due to persistently low hemoglobin around 7 gm /dL. His post transfusion CBC and official echocardiogram reports are not available at the time of his discharge. He will be starting on three times per week dialysis session from Thursday. I will start him on Carvedilol 3.125 mg po bid and maintain on Lasix 40 mg po daily. He will follow up with Dr Urbano, oleomargarine maker, at [facility] for nephrology care. He will follow up with me as instructed upon discharge. Physical Exam Vital Signs: Temp Pulse Resp BP Pulse Ox 97.9 F 73 15 178/84 H 98 11/27/17 15:48 11/27/17 15:48 11/27/17 15:48 11/27/17 15:48 11/27/17 15:48 Intake & Output 11/26/17 11/27/17 11/28/17 06:59 06:59 06:59 Intake Total 797 321 6567.25 Output Total 4900 Balance -4678 709 1013.25 Weight 115.5 kg Physical Exam: General appearance: PRESENT: no acute distress, obese Head exam: PRESENT: atraumatic, normocephalic Ear exam: PRESENT: normal external ear exam Mouth exam: PRESENT: moist Respiratory exam: PRESENT: clear to auscultation lew, decreased breath sounds - at lung bases Cardiovascular exam: PRESENT: RRR, +S1, +S2. ABSENT: diastolic murmur, rubs, systolic murmur Vascular exam: PRESENT: normal capillary refill. ABSENT: pallor GI/Abdominal exam: PRESENT: normal bowel sounds, soft. ABSENT: distended, guarding, mass, organomegaly, rebound, tenderness Extremities exam: PRESENT: pedal edema - minimally Musculoskeletal exam: PRESENT: deformity - related to multiple joints involvement with arthritis. ABSENT: tenderness Neurological exam: PRESENT: alert, awake, oriented to person, oriented to place , oriented to time, oriented to situation, CN II-XII grossly intact. ABSENT: motor sensory deficit Psychiatric exam: PRESENT: appropriate affect, normal mood. ABSENT: homicidal ideation, suicidal ideation Skin exam: PRESENT: dry, warm, other - Right arm AV fistula site satisfactory with good bruit. Results Laboratory Results: 11/27/17 05:17 11/27/17 05:17 11/27/17 11/27/17 05:17 05:17 WBC 6.5 RBC 2.50 L Hgb 7.0 L Hct 21.5 L MCV 86 MCH 28.0 MCHC 32.7 RDW 17.1 H Plt Count 217 Seg Neutrophils % 71.6 Lymphocytes % 10.9 L Monocytes % 11.4 Eosinophils % 4.4 Basophils % 1.7 Absolute Neutrophils 4.6 Absolute Lymphocytes 0.7 Absolute Monocytes 0.7 Absolute Eosinophils 0.3 Absolute Basophils 0.1 Sodium 139.4 Potassium 4.5 Chloride 101 Carbon Dioxide 26 Anion Gap 12 BUN 38 H Creatinine 9.82 H Est GFR ( Amer) 7 L Est GFR (Non-Af Amer) 5 L Glucose 92 Calcium 8.3 L 11/25/17 19:40 Clean Catch Midstream Urine Culture - Final Mixed Urogenital Vianney Impressions: Chest X-Ray 11/25/17 09:55 IMPRESSION: Some degree of volume overload. Possible superimposed pneumonia or other postobstructive process in the right lower lobe. Chest/Abdomen CTA 11/25/17 10:27 IMPRESSION: 1. Bilateral effusions and mild left lower lobe volume loss, likely related to fluid overload (patient normally receives dialysis but has not received dialysis today). Superimposed asymmetric edema or pneumonia in the right lung. 2. No pulmonary embolus. Qualifiers - * PATIENT BEING DISCHARGED WITH ANY OF THE FOLLOWING DIAGNOSIS: Heart Failure HF Pt being discharged on ACEI for LVEF less than 40%?: No Reason(s) for not prescribing ACEI:: Medical Contraindication HF Pt being discharged on ARBS for LVEF less than 40%?: No Reason(s) for not prescribing ARBS:: Medical Contraindication HF Pt with Afib discharged with Warfarin?: No Reason(s) for not prescribing Warfarin:: Not indicated HF Pt discharged on evidence-based Beta Sunday:: Yes Plan Discharge Plan: D/C home today. Follow up in the office as instructed upon discharge. Patient is scheduled for hemodialysis at [facility] on Thursday, Thursday, and Thursday.
--- NOTE | 2017-11-27 18:39 | XCELERA REPORT ---
[address] [address] Transthoracic Echocardiogram Report Name: ANY STRONG Age: 57 yrs Gender: Male : 1960 Patient Status: Inpatient Patient Location: [address] [place] [address] Study Date: 11/27/2017 02:37 PM Height: 70 in Weight: 254 lb BSA: 2.3 m2 Procedure: A complete two-dimensional transthoracic echocardiogram was performed (2D, M-mode, spectral and color flow Doppler). The study was technically adequate with some images being suboptimal in quality. Reason For Study: Acute CHF, ESRD on Hemodialysis Ordering Physician: RUDY JACOBSEN Performed By: Nancy Fontenot Interpretation Summary Left ventricular systolic function is low normal. The Ejection Fraction estimate is 50-55% There is mild concentric left ventricular hypertrophy. The left ventricle is grossly normal size. Doppler measurements suggest pseudonormalized left ventricular relaxation, which is associated with grade II/IV or mild to moderate diastolic dysfunction Wall motion cannot be accurately commented on, but no definite regional wall motion abnormalities noted. The right ventricular systolic function is normal. The right ventricle is grossly normal size. The right atrium is normal in size The left atrium is mildly dilated. There is a trace amount of mitral regurgitation There is no mitral valve stenosis. No aortic regurgitation is present. There is no aortic valve stenosis There is a trace to mild amount of tricuspid regurgitation There is mild pulmonary hypertension by echo Right ventricular systolic pressure is estimated to be elevated at 30-40mmHg. The aortic root is not well visualized but is probably normal size. The inferior vena cava was not well visualized Minimal pericardial effusion. MMode/2D Measurements & Calculations RVDd: 2.8 cm LVIDd: 6.1 cm FS: 30.5 % Ao root diam: 2.9 cm IVSd: 1.3 cm LVIDs: 4.2 cm EDV(Teich): 183.9 ml Ao root area: 6.4 cm2 LVPWd: 1.3 cm ESV(Teich): 78.9 ml LA dimension: 4.2 cm EF(Teich): 57.1 % Doppler Measurements & Calculations MV E max taye: MV P1/2t max atye: Ao V2 max: LV V1 max P.3 cm/sec 116.3 cm/sec 176.3 cm/sec 10.5 mmHg MV A max taye: MV P1/2t: 111.9 msec Ao max PG: LV V1 max: 100.9 cm/sec MVA(P1/2t): 2.0 cm2 12.4 mmHg 162.3 cm/sec MV E/A: 1.2 MV dec slope: 304.3 cm/sec2 MV dec time: 0.39 sec PA V2 max: TR max taye: MV P1/2t-pr_phl: 121.7 cm/sec 255.2 cm/sec 111.9 msec PA max P.9 mmHgTR max P.0 mmHg Left Ventricle The left ventricle is grossly normal size. There is mild concentric left ventricular hypertrophy. Left ventricular systolic function is low normal. The Ejection Fraction estimate is 50-55%. Doppler measurements suggest pseudonormalized left ventricular relaxation, which is associated with grade II/IV or mild to moderate diastolic dysfunction. Wall motion cannot be accurately commented on, but no definite regional wall motion abnormalities noted. Right Ventricle The right ventricle is grossly normal size. There is normal right ventricular wall thickness. The right ventricular systolic function is normal. Atria The right atrium is normal in size. The left atrium is mildly dilated. Interarterial septum not well visualized and not well dopplered. Cannot comment on ASD/PFO presence. Mitral Valve There is mild mitral leaflet calcification. There is mild mitral annular calcification. There is no mitral valve stenosis. There is a trace amount of mitral regurgitation. Aortic Valve The aortic valve is grossly normal. There is no aortic valve stenosis. No aortic regurgitation is present. Tricuspid Valve The tricuspid valve is not well visualized, but is grossly normal. There is no tricuspid stenosis. There is a trace to mild amount of tricuspid regurgitation. There is mild pulmonary hypertension by echo. Right ventricular systolic pressure is estimated to be elevated at 30-40mmHg. Pulmonic Valve The pulmonic valve is not well seen, but is grossly normal. Great Vessels The aortic root is not well visualized but is probably normal size. The inferior vena cava was not well visualized. Effusions Minimal pericardial effusion. : RUDY JACOBSEN > Ryann Varner
[2017-11-27] MEDS: CARVEDILOL 3.125 MG TABLET PO SCH (21:58)
[2017-11-27] MEDS: HEPARIN SOD (PORCINE) 5,000 UNIT/ML 1 ML SYRINGE SUBCUT SCH (21:59)
[2017-11-27] MEDS: ATORVASTATIN CALCIUM 10 MG TABLET PO SCH (21:59)
[2017-11-28] MEDS: LANSOPRAZOLE 30 MG TAB.RAP.DR PO SCH (06:01)
[2017-11-28] MEDS: HEPARIN SOD (PORCINE) 5,000 UNIT/ML 1 ML SYRINGE SUBCUT SCH (06:02)
[2017-11-28 06:48] LABS: HEMATOCRIT 26.6 % (37.9-51.0); HEMOGLOBIN 8.9 g/dL (13.5-17.0); MEAN CORPUSCULAR HEMOGLOBIN 28.6 pg (27.0-33.4); MEAN CORPUSCULAR HGB CONC 33.3 g/dL (32.0-36.0); MEAN CORPUSCULAR VOLUME 86 fl (80-97); PLATELET COUNT 231 10^3/uL (150-450); RED CELL DISTRIBUTION WIDTH 16.2 % (11.5-14.0); WHITE BLOOD COUNT 6.2 10^3/uL (4.0-10.5)
[2017-11-28 07:00] LABS: ANION GAP 10 (5-19); BLOOD UREA NITROGEN 25 mg/dL (7-20); CALCIUM 8.9 mg/dL (8.4-10.2); CARBON DIOXIDE 29 mmol/L (22-30); CHLORIDE 101 mmol/L (98-107); GLUCOSE 86 mg/dL (75-110); POTASSIUM 4.3 mmol/L (3.6-5.0); SODIUM 139.5 mmol/L (137-145)
--- NOTE | 2017-11-28 07:25 | PROGRESS NOTE E ---
Progress Note NAME: ANY STRONG : 1960 AGE: 57Y DATE: 11/27/2017 ROOM: 327 SUBJECTIVE: The patient is a 57-year-old male who has chronic kidney disease. Consulted because of pleural effusion bilateral, pulmonary infiltrate right lower lobe, suspected to be a pneumonic process. Currently, the patient is also coughing chronically, suffering severe paroxysms. Currently today, the patient is feeling a lot better, had the hemodialysis today. Denies any fever, chills, increased cough, or purulent sputum production. No hemoptysis or chest pain. OBJECTIVE: GENERAL: The patient is awake, alert, oriented x3. VITAL SIGNS: Afebrile, not in apparent respiratory distress, with a temperature of 98.3, with a T max of 98.3, blood pressure 156/52, respiratory rate 16, saturation 97% on room air. EYES: No jaundice or pallor. EARS, NOSE, AND THROAT: No ear drainage. No nasal discharge. HEAD AND NECK: No scalp tenderness. No neck tenderness. CHEST AND LUNGS: No wheezing. No rhonchi. No coarse crackles. CARDIOVASCULAR: S1, S2 distinct. Normal rate, regular rhythm. ABDOMEN: Flabby. Positive bowel sounds. Soft, nondistended, nontender. EXTREMITIES: No joint swelling. No cellulitis. LABORATORY DATA: CBC done today showed a white count of 6.5, hemoglobin of 7, hematocrit 31.5, platelet count 217. Chemistry done today showed sodium is 139, potassium 4.5, chloride 101, CO2 is 26, BUN is 38, creatinine 9.82, calcium is 8.3, and glucose is 92. ASSESSMENT: 1. CHRONIC COUGH, MOST LIKELY DUE TO GERD. 2. PLEURAL EFFUSION BILATERALLY, MOST LIKELY DUE TO FLUID OVERLOAD, PULMONARY CONGESTION, AND PULMONARY EDEMA. Dyspnea appeared to be improving following hemodialysis. 3. PULMONARY INFILTRATE RIGHT LOWER LOBE. I THINK THIS MAY BE A *------* OF PULMONARY EDEMA, CHRONIC CONGESTION. PNEUMONIA MAY STILL BE POSSIBLE, BUT THAT COULD NOT BE COMPLETELY EXCLUDED, BUT PROBABLY LESS LIKELY. PLAN AND RECOMMENDATIONS: 1. Recommend pulmonary clinic followup in 2-3 weeks following hospital discharge to follow up the bilateral pleural effusion, and the pulmonary infiltrate right lower lobe. 2. 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 3. Continue Lasix maybe 40 mg once daily. 4. Recommend Prevacid 30 mg once a day. 5. May continue Levaquin 250 mg tabletfor 7-8 days. DICTATING PHYSICIAN: DICKSON ACEVEDO MD,DIDIER,MPH [id number] PH#: [id number] 2017 ID: [id number] JOB#: [id number] ACCT: [id number] cc: > MTDD
[2017-11-28 08:22] VITALS: BP 145/72
[2017-11-28] MEDS: SEVELAMER HCL 800 MG TABLET PO SCH (09:08)
[2017-11-28] MEDS: CLONIDINE HCL 0.1 MG TABLET PO SCH (09:08)
[2017-11-28] MEDS: FUROSEMIDE INJ/PF 40 MG/4 ML SDV IV SCH (09:09)
[2017-11-28] MEDS: AMLODIPINE BESYLATE 10 MG TABLET PO SCH (09:09)
[2017-11-28] MEDS: FOLIC ACID/VITAMIN B COMP W-C CAPSULE PO SCH (09:09)
[2017-11-28] MEDS: LEVOFLOXACIN 250 MG TABLET PO SCH (09:09)
[2017-11-28] MEDS: CARVEDILOL 3.125 MG TABLET PO SCH (09:09)
== END 2017-11-28 10:24 | disposition home health service (06) | DRG 291 ==
LOC: ER 09:18 → EH 13:22 → 3S 17:40
PROVIDERS: ADMIT Internal Medicine Geriatric Medicine; ATTEND Internal Medicine Geriatric Medicine
PROC: 5A1D70Z Performance of Urinary Filtration, Intermittent, Less than 6 Hours Per Day (ICD-10-PCS; 2017-11-25)
PROC: 30233N1 Transfusion of Nonautologous Red Blood Cells into Peripheral Vein, Percutaneous Approach (ICD-10-PCS; principal; 2017-11-27)
PROC: 5A1D70Z Performance of Urinary Filtration, Intermittent, Less than 6 Hours Per Day (ICD-10-PCS; 2017-11-27)
DX: I13.2 Hypertensive heart and chronic kidney disease with heart failure and with stage 5 chronic kidney disease, or end stage renal disease (principal); N18.6 End stage renal disease; I50.9 Heart failure, unspecified; D63.1 Anemia in chronic kidney disease; E78.5 Hyperlipidemia, unspecified; K21.9 Gastro-esophageal reflux disease without esophagitis; N63.0 Unspecified lump in unspecified breast; M19.90 Unspecified osteoarthritis, unspecified site; Z79.899 Other long term (current) drug therapy; Z87.891 Personal history of nicotine dependence; Z90.49 Acquired absence of other specified parts of digestive tract
CPT/HCPCS: 36415; 36430; 71046; 71275; 80048; 80053; 81001; 82272; 82553; 82607; 82728; 82746; 82803; 82962; 83540; 83550; 83605; 83880; 84484; 85025; 85027; 85045; 85610; 86850; 86900; 86901; 86920; 87040; 87086; 93005; 93010; 93306; 94640; 99285; G0257; J0696; J1644; J1940; J3490; J7620; P9016; Q4081

== ENCOUNTER 2018-03-27 21:43 | Emergency (ER) | payer MEDICARE, MEDICAID ==
[2018-03-27] MEDS ORDERED: PROMETHAZINE HCL INJ 25 MG/1 ML VIAL IM ONE (23:38)
--- NOTE | 2018-03-27 23:41 | ER Document Report ---
ED General - General Chief Complaint: Nausea/Vomiting/Diarrhea Stated Complaint: LOSS OF APPETITE, DIARRHEA Time Seen by Provider: 03/27/18 23:28 Notes: Patient is a 57-year-old male that comes to the emergency department for chief complaint of vomiting, diarrhea, inability to take his home medications, and shortness of breath with pain across his upper abdomen. He states he has vomited 7 times today, he is having diarrhea almost every 20 minutes. He denies bloody diarrhea, hematemesis, fever. He states he has been unable to take his Norvasc 10 mg and clonidine 0.3 mg twice a day because he vomits them. Symptoms have been going on for 3 days. He also missed dialysis on Thursday and Thursday (normally MWF with Dr. Kimball), because of his symptoms. Past medical history of CHF, hypertension, kidney failure. He states he does not make any urine. TRAVEL OUTSIDE OF THE [place] IN LAST 30 DAYS: No - Related Data Allergies/Adverse Reactions: No Known Allergies Allergy (Verified 11/25/17 09:20) Past Medical History - General Information source: Patient - Social History Smoking Status: Never Smoker Drug Abuse: None Lives with: Alone Family History: Reviewed & Not Pertinent - Past Medical History Cardiac Medical History: Reports: Hx Congestive Heart Failure, Hx Hypercholesterolemia, Hx Hypertension Endocrine Medical History: Denies: Hx Diabetes Mellitus Type 1 Renal/ Medical History: Reports: Hx End Stage Renal Disease. Denies: Hx Peritoneal Dialysis - dialysis M/W/F Past Surgical History: Reports: Hx Appendectomy, Hx Cholecystectomy - Immunizations Hx Diphtheria, Pertussis, Tetanus Vaccination: Yes Review of Systems - Review of Systems Constitutional: See HPI EENT: No symptoms reported Cardiovascular: No symptoms reported Respiratory: No symptoms reported Gastrointestinal: See HPI Genitourinary: No symptoms reported Male Genitourinary: No symptoms reported Musculoskeletal: No symptoms reported Skin: No symptoms reported Hematologic/Lymphatic: No symptoms reported Neurological/Psychological: No symptoms reported Physical Exam - Vital signs Vitals: Temp Pulse Resp BP Pulse Ox 98.0 F 95 24 H 221/101 H 98 03/27/18 22:08 03/27/18 22:08 03/27/18 22:08 03/27/18 22:08 03/27/18 22:08 - Notes Notes: GENERAL: Generally unwell-appearing HEAD: Normocephalic, atraumatic. EYES: Pupils equal, round, and reactive to light. Extraocular movements intact. ENT: Oral mucosa dry, tongue midline. Oropharynx unremarkable. Airway patent. Nares patent, no nasal septal hematoma, TM's intact. NECK: Full range of motion. Supple. Trachea midline. LUNGS: Clear to auscultation bilaterally, no wheezes, rales, or rhonchi. No respiratory distress. HEART: Regular rate and rhythm. No murmur ABDOMEN: Generalized abdominal tenderness, nonspecific, no guarding. Borborygmi. GENITOURINARY: Deferred EXTREMITIES: Moves all 4 extremities spontaneously. No edema, normal radial and dorsalis pedis pulses bilaterally. No cyanosis. BACK: no cervical, thoracic, lumbar midline tenderness. No saddle anesthesia, normal distal neurovascular exam. NEUROLOGICAL: Alert and oriented x3. Normal speech. [cranial nerves II through XII grossly intact]. PSYCH: Normal affect, normal mood. SKIN: Warm, dry, normal turgor. No rashes or lesions noted. Course - Re-evaluation Re-evalutation: EKG showing prolonged QT at 535. T waves are not significantly peaked. Chest x-ray is unremarkable without evidence of vascular congestion. Patient probably does have some degree of volume overload after missing dialysis twice, he is hypertensive, he is also unable to take his medication at home reportedly. Patient has been able to tolerate p.o., feeling slightly better reportedly, still has some nausea, giving his daily blood pressure medications by mouth at this time. 03/28/18 02:29 Called and spoke with lab because it has been 3 hours since I have seen patient and I still do not have a blood chemistry result. They state that both analyzer's are down and both are being repaired at this moment, should have results soon. Results still pending. CBC unremarkable. Chemistry is still pending. C. difficile is positive. After medications however patient started to significantly improved. He started to tolerate p.o. without any difficulty. He still states he feels poorly. Chemistry shows marked uremia with BUN greater than 120. Creatinine is 26. Potassium 5.6. Bicarbonate is 12. Because of this along with prolonged QT and no dialysis for several days I discussed with Dr. Calle and then with patient. We do not have nephrology until Thursday. I recommend the [facility] for [facility]. Patient declines. He states he is able to take oral medication and he wants to wait until Thursday to have his dialysis performed. Explained that because he has had delay on di alysis he has volume overload, hyperkalemia, PT prolongation, and he could have a life-threatening arrhythmia or other complication in diet. Patient persists. He states that he wants to be discharged and he wants to go to dialysis tomorrow. He is requesting he be prescribed the antibiotic for the C. difficile as well. Patient is completely oriented, he can relate the concerns back to me in full detail, he appears to be completely capable of making this decision. Patient states he wants to sign out AGAINST MEDICAL ADVICE after this was thoroughly discussed. Confirmed with Dr. Calle. - Vital Signs Vital signs: Temp Pulse Resp BP Pulse Ox 98.0 F 95 18 215/95 H 98 03/27/18 22:08 03/27/18 22:08 03/28/18 03:58 03/28/18 03:58 03/28/18 03:58 - Laboratory Result Diagrams: 03/28/18 01:00 03/28/18 01:00 Laboratory results interpreted by me: 03/28/18 03/28/18 01:00 01:00 RBC 3.68 L Hgb 11.2 L Hct 35.1 L MCHC 31.9 L RDW 15.7 H Plt Count 132 L Seg Neutrophils % 80.6 H Lymphocytes % 8.8 L Potassium 5.6 H Carbon Dioxide 12 L Anion Gap 27 H BUN > 120 H Creatinine 26.08 H Est GFR ( Amer) 2 L Est GFR (Non-Af Amer) 2 L Calcium 8.2 L Direct Bilirubin 0.5 H AST 11 L ALT 11 L Lipase 520.4 H Discharge - Discharge Clinical Impression: Uremia, Prolonged QT interval, Hyperkalemia, C. difficile diarrhea, ESRD (end stage renal disease) Diarrhea Qualifiers: Diarrhea type: infectious Qualified Code(s): A09 - Infectious gastroenteritis and colitis, unspecified Hypertension Qualifiers: Hypertension type: unspecified Qualified Code(s): I10 - Essential (primary) hypertension Disposition: AGAINST MEDICAL ADVICE Additional Instructions: You are signing out AGAINST MEDICAL ADVICE. You have C. difficile infection causing the abdominal and diarrhea symptoms, you also emergently need dialysis. There is a possibility that you will have a life-threatening arrhythmia and you could . I strongly recommend that you both take your vancomycin and you have dialysis as soon as possible, return to the emergency department at any time for additional evaluation and management. Prescriptions: Promethazine HCl [Phenergan 25 mg Tablet] 25 mg PO Q6H PRN #20 tablet PRN Reason: Vancomycin HCl 125 mg PO Q6H 10 Days #40 capsule Referrals: RUDY JACOBSEN MD [Primary Care Provider] - Follow up as needed
--- NOTE | 2018-03-28 00:13 | RADIOLOGY REPORT (SQ) ---
XR CHEST 1 VIEW HISTORY: Shortness of breath, hypertension, missed dialysis. COMPARISON: 11/10/2017 FINDINGS: The heart size is enlarged. No pulmonary vascular congestion is seen. The lungs are clear. No pleural effusion or pneumothorax is identified. IMPRESSION: No pulmonary edema or pleural effusions.
[2018-03-28] MEDS ORDERED: OXYCODONE HCL IR 5 MG TABLET PO ONE (01:13)
[2018-03-28] MEDS ORDERED: FAMOTIDINE 20 MG TABLET PO ONE (01:13)
[2018-03-28 01:21] LABS: ABSOLUTE BASOPHILS # (AUTO) 0.1 10^3/uL (0.0-0.2); ABSOLUTE EOSINOPHILS # (AUTO) 0.1 10^3/uL (0.0-0.6); ABSOLUTE LYMPHOCYTES (AUTO) 0.5 10^3/uL (0.5-4.7); ABSOLUTE MONOCYTES (AUTO) 0.5 10^3/uL (0.1-1.4); EOSINOPHILS % (AUTO) 1.4 % (0-6); HEMATOCRIT 35.1 % (37.9-51.0); HEMOGLOBIN 11.2 g/dL (13.5-17.0); LYMPHOCYTES % (AUTO) 8.8 % (13-45); MEAN CORPUSCULAR HEMOGLOBIN 30.5 pg (27.0-33.4); MEAN CORPUSCULAR HGB CONC 31.9 g/dL (32.0-36.0); MEAN CORPUSCULAR VOLUME 95 fl (80-97); MONOCYTES % (AUTO) 8.2 % (3-13); PLATELET COUNT 132 10^3/uL (150-450); RED BLOOD COUNT 3.68 10^6/uL (4.35-5.55); RED CELL DISTRIBUTION WIDTH 15.7 % (11.5-14.0); SEGMENTED NEUTROPHILS % (AUTO) 80.6 % (42-78); TOTAL CELLS COUNTED % (AUTO) 100 %; WHITE BLOOD COUNT 6.2 10^3/uL (4.0-10.5)
[2018-03-28] MEDS ORDERED: CLONIDINE HCL 0.2 MG TABLET PO ONE (01:49)
[2018-03-28] MEDS ORDERED: AMLODIPINE BESYLATE 10 MG TABLET PO ONE (01:49)
[2018-03-28 03:06] LABS: ALANINE AMINOTRANSFERASE 11 U/L (21-72); ALBUMIN 4.1 g/dL (3.5-5.0); ALKALINE PHOSPHATASE 65 U/L (38-126); ASPARTATE AMINO TRANSFERASE 11 U/L (17-59); BILIRUBIN,DIRECT 0.5 mg/dL (0.0-0.4); BILIRUBIN,TOTAL 0.5 mg/dL (0.2-1.3); CALCIUM 8.2 mg/dL (8.4-10.2); GLUCOSE 92 mg/dL (75-110); LIPASE 520.4 U/L (23-300); POTASSIUM 5.6 mmol/L (3.6-5.0); TOTAL PROTEIN 7.1 g/dL (6.3-8.2)
[2018-03-28 03:14] LABS: CARBON DIOXIDE 12 mmol/L (22-30); CHLORIDE 103 mmol/L (98-107)
[2018-03-28 03:17] LABS: ANION GAP 27 (5-19)
[2018-03-28] MEDS ORDERED: VANCOMYCIN HCL INJ 500 MG VIAL PO ONE (03:26)
[2018-03-28 03:59] VITALS: BP 215/95
--- NOTE | 2018-03-28 12:50 | EKG REPORT ---
SEVERITY:- ABNORMAL ECG - SINUS RHYTHM PROBABLE LEFT ATRIAL ABNORMALITY INCOMPLETE RIGHT BUNDLE BRANCH BLOCK : Confirmed by: Oanh Valdivia MD 28-Mar-2018 12:49:18
[2018-03-29 08:26] LABS: BLOOD UREA NITROGEN 156 mg/dL (7-20)
== END 2018-03-28 04:11 | disposition left against medical advice (07) ==
LOC: ER 21:43
DX: A09 Infectious gastroenteritis and colitis, unspecified (principal); I45.81 Long QT syndrome; E87.5 Hyperkalemia; B96.89 Other specified bacterial agents as the cause of diseases classified elsewhere; I13.2 Hypertensive heart and chronic kidney disease with heart failure and with stage 5 chronic kidney disease, or end stage renal disease; I50.9 Heart failure, unspecified; N18.6 End stage renal disease; R11.2 Nausea with vomiting, unspecified; R63.0 Anorexia; R10.10 Upper abdominal pain, unspecified
CPT/HCPCS: 93005; 99284; 96372; 36415; 87045; 89055; 87205; 83690; 85025; 80053; 84484; 87493; 71045; 93010; A9270 ×4; J2550; J3370

== ENCOUNTER 2018-04-03 09:44 | Inpatient (IN) | payer MEDICARE, MEDICAID ==
[2018-04-03] MEDS ORDERED: OXYCODONE-ACETAMINOPHEN 5-325 MG TABLET PO ONE (10:16)
--- NOTE | 2018-04-03 10:16 | ER Document Report ---
ED Medical Screen (RME) - General Chief Complaint: Chest Pain Stated Complaint: CHEST PAIN Time Seen by Provider: 04/03/18 10:07 Notes: 57-year-old dialysis patient, not feeling well since yesterday. Onset yesterday evening of midsternal pleuritic chest pain and shortness of breath since midnight. Did not go to dialysis yesterday. Does not make urine. Was seen here 6 days ago diagnosed with C. difficile diarrhea and started on vancomycin. The pain is a sharp midsternal pain made worse with deep breath. I have greeted and performed a rapid initial assessment of this patient. A comprehensive ED assessment and evaluation of the patient, analysis of test results and completion of the medical decision making process will be conducted by additional ED providers. TRAVEL OUTSIDE OF THE [place] IN LAST 30 DAYS: No - Related Data Allergies/Adverse Reactions: No Known Allergies Allergy (Verified 04/03/18 10:14) Past Medical History - Social History Chew tobacco use (# tins/day): No Frequency of alcohol use: None Drug Abuse: None - Past Medical History Cardiac Medical History: Reports: Hx Congestive Heart Failure, Hx Hypercholesterolemia, Hx Hypertension Endocrine Medical History: Denies: Hx Diabetes Mellitus Type 1 Renal/ Medical History: Reports: Hx End Stage Renal Disease. Denies: Hx Peritoneal Dialysis Past Surgical History: Reports: Hx Appendectomy, Hx Cholecystectomy - Immunizations Hx Diphtheria, Pertussis, Tetanus Vaccination: Yes Physical Exam - Vital signs Vitals: Temp Pulse Resp BP Pulse Ox 97.8 F 83 20 146/65 H 99 04/03/18 10:04/03/18 10:04/03/18 10:07 04/03/18 10:07 04/03/18 10:07 Course - Vital Signs Vital signs: Temp Pulse Resp BP Pulse Ox 97.8 F 83 20 146/65 H 99 04/03/18 10:07 04/03/18 10:07 04/03/18 10:04/03/18 10:07 04/03/18 10:07 Doctor's Discharge - Discharge Referrals: RUDY JACOBSEN MD [Primary Care Provider] - Follow up as needed
[2018-04-03] MEDS ORDERED: ONDANSETRON HCL INJ/PF 4 MG/2 ML SDV IV ONE (10:46)
[2018-04-03] MEDS ORDERED: FENTANYL CITRATE INJ/PF 100 MCG/2 ML AMPUL IV ONE (10:47)
[2018-04-03] MEDS ORDERED: BACLOFEN 20 MG TABLET PO ONE (10:47)
--- NOTE | 2018-04-03 10:51 | RADIOLOGY REPORT (SQ) ---
EXAM DESCRIPTION: CHEST SINGLE VIEW COMPLETED DATE/TIME: 04/03/2018 10:34 am REASON FOR STUDY: Pleuritic midsternal chest pain COMPARISON: 03/27/2018 NUMBER OF VIEWS: One view. TECHNIQUE: Single frontal radiographic view of the chest acquired. LIMITATIONS: None. FINDINGS: LUNGS AND PLEURA: Low lung volumes. No opacities, masses or pneumothorax. No pleural eff usion. MEDIASTINUM AND HILAR STRUCTURES: No masses. No contour abnormality. HEART AND VASCULAR STRUCTURES: Normal size. No evidence for failure. BONES: No acute findings. HARDWARE: None in the chest. OTHER: No other significant finding. IMPRESSION: LOW LUNG VOLUMES. NO SIGNIFICANT RADIOGRAPHIC FINDING IN THE CHEST. TECHNICAL DOCUMENTATION: JOB ID: [id number] [employer]- All Rights Reserved Reading location - IP/workstation name: [email or web address]
--- NOTE | 2018-04-03 10:52 | ER Document Report ---
ED General - General Chief Complaint: Chest Pain Stated Complaint: CHEST PAIN Time Seen by Provider: 04/03/18 10:07 Mode of Arrival: Ambulatory Information source: Patient Notes: Chief complaint: Chest pain History of complain:( obtained from----patient) 57 years old male with a history of congestive heart failure, hypertension, recently diagnosed with C. difficile infection. Presents today with mid back pain as well as right chest wall pain since midnight last night. He was sleeping in a couch, pain woke him up. Since then is been persistent. Increasing pain on change of position particularly laying down or turning around. Not associated with any nausea vomiting palpitation or diaphoresis. Denies any fever chills or cough. Onset: As above Duration: Since last midnight Severity: Moderate Quality: Sharp Context: Slept the wrong way Exacerbating factor and relieving factors: Change of position REVIEW OF SYSTEMS: CONSTITUTIONAL : Denies fever, chills, or sweats. Denies recent illness. EENT: Denies eye, ear, throat, or mouth pain or symptoms. Denies nasal or sinus congestion or discharge. Denies throat, tongue, or mouth swelling or difficulty swallowing. CARDIOVASCULAR: . Denies palpitations or racing or irregular heart beat. Denies ankle edema. RESPIRATORY: Denies cough, cold, or chest congestion. Denies shortness of breath, difficulty breathing, or wheezing. GASTROINTESTINAL: Denies distention. Denies nausea, vomiting, or diarrhea. Denies blood in vomitus, stools, or per rectum. Denies black, tarry stools. Denies constipation. GENITOURINARY: Denies difficulty urinating, painful urination, burning, frequency, blood in urine, or discharge. FEMALE GENITOURINARY: Denies vaginal bleeding, heavy or abnormal periods, irregular periods. Denies vaginal discharge or odor. MUSCULOSKELETAL: Denies back or neck pain or stiffness. Denies joint pain or swelling. SKIN: Denies rash, lesions or sores. HEMATOLOGIC : Denies easy bruising or bleeding. LYMPHATIC: Denies swollen, enlarged glands. NEUROLOGICAL: Denies confusion or altered mental status. Denies passing out or loss of consciousness. Denies dizziness or lightheadedness. Denies headache. Denies weakness or paralysis or loss of use of either side. Denies problems with gait or speech. Denies sensory loss, numbness, or tingling. Denies seizures. PSYCHIATRIC: Denies anxiety or stress. Denies depression, suicidal ideation, or homicidal ideation. ALL OTHER SYSTEMS REVIEWED AND NEGATIVE. PHYSICAL EXAMINATION: GENERAL: Well-appearing, well-nourished and in no acute distress. HEAD: Atraumatic, normocephalic. EYES: Pupils equal round and reactive to light, extraocular movements intact, conjunctiva are normal. ENT: Nares patent, oropharynx clear without exudates. Moist mucous membranes. NECK: Normal range of motion, supple without lymphadenopathy LUNGS: Breath sounds clear to auscultation bilaterally and equal. No wheezes rales or rhonchi. Chest wall-sharp tenderness over the right fifth and sixth ribs anteriorly, as well as bilateral paraspinal muscular tenderness over the mid thoracic vertebral region. HEART: Regular rate and rhythm without murmurs ABDOMEN: Soft, nontender, nondistended abdomen. No guarding, no rebound. No masses appreciated. Examination of genitals-deferred Musculoskeletal: Normal range of motion, no pitting or edema. No cyanosis. NEUROLOGICAL: Cranial nerves grossly intact. Normal speech, normal gait. Normal sensory, motor exams PSYCH: Normal mood, normal affect. SKIN: Warm, Dry, normal turgor, no rashes or lesions noted. Except multiple skin rashes noted over the back most likely is a scratch back Dictation was performed using [employer] voice recognition software TRAVEL OUTSIDE OF THE [place] IN LAST 30 DAYS: No - HPI Notes: Dictated - Related Data Allergies/Adverse Reactions: No Known Allergies Allergy (Verified 04/03/18 10:14) Past Medical History - Social History Smoking Status: Never Smoker Chew tobacco use (# tins/day): No Frequency of alcohol use: None Drug Abuse: None Lives with: Family Family History: Reviewed & Not Pertinent Patient has suicidal ideation: No Patient has homicidal ideation: No - Past Medical History Cardiac Medical History: Reports: Hx Congestive Heart Failure, Hx Hypercho lesterolemia, Hx Hypertension Endocrine Medical History: Denies: Hx Diabetes Mellitus Type 1 Renal/ Medical History: Reports: Hx End Stage Renal Disease. Denies: Hx Peritoneal Dialysis Past Surgical History: Reports: Hx Appendectomy, Hx Cholecystectomy - Immunizations Hx Diphtheria, Pertussis, Tetanus Vaccination: Yes Review of Systems - Review of Systems Notes: Dictated Physical Exam - Vital signs Vitals: Temp Pulse Resp BP Pulse Ox 97.8 F 83 20 146/65 H 99 04/03/18 10:07 04/03/18 10:07 04/03/18 10:07 04/03/18 10:07 04/03/18 10:07 - Notes Notes: Dictated Course - Re-evaluation Re-evalutation: 04/03/18 12:13 Case was discussed with the hospitalist and currently being admitted - Vital Signs Vital signs: Temp Pulse Resp BP Pulse Ox 97.8 F 83 21 H 139/70 H 95 04/03/18 10:07 04/03/18 10:07 04/03/18 11:42 04/03/18 11:42 04/03/18 11:42 - Laboratory Result Diagrams: 04/03/18 10:08 04/03/18 10:08 Laboratory results interpreted by me: 04/03/18 04/03/18 10:08 10:08 RBC 3.82 L Hgb 11.6 L Hct 35.6 L RDW 15.4 H Seg Neutrophils % 83.8 H Lymphocytes % 5.4 L Absolute Neutrophils 8.7 H Chloride 95 L Carbon Dioxide 21 L Anion Gap 21 H BUN 89 H Creatinine 16.19 H Est GFR ( Amer) 4 L Est GFR (Non-Af Amer) 3 L Glucose 140 H Direct Bilirubin 0.7 H ALT 14 L - Diagnostic Test Radiology reviewed: Reports reviewed - CT of the chest indicates bilateral small pleural effusion no obvious rib fractures. Chest x-ray reported as unremarkable Critical Care Note - Critical Care Note Total time excluding time spent on procedures (mins): 30 Comments: Management of non-STEMI, interpretation of EKG chest x-ray Discharge - Discharge Clinical Impression: Non-STEMI (non-ST elevated myocardial infarction), Pleural effusion Chest pain Qualifiers: Chest pain type: unspecified Qualified Code(s): R07.9 - Chest pain, unspecified Condition: Fair Disposition: ADMITTED INPATIENT Admitting Provider: Hospitalist Unit Admitted: Telemetry Referrals: RUDY JACOBSEN MD [Primary Care Provider] - Follow up as needed
[2018-04-03 11:09] LABS: ABSOLUTE BASOPHILS # (AUTO) 0.1 10^3/uL (0.0-0.2); ABSOLUTE EOSINOPHILS # (AUTO) 0.2 10^3/uL (0.0-0.6); ABSOLUTE LYMPHOCYTES (AUTO) 0.6 10^3/uL (0.5-4.7); ABSOLUTE MONOCYTES (AUTO) 0.8 10^3/uL (0.1-1.4); ABSOLUTE NEUT (AUTO) 8.7 10^3/uL (1.7-8.2); BASOPHILS % (AUTO) 0.8 % (0-2); HEMATOCRIT 35.6 % (37.9-51.0); HEMOGLOBIN 11.6 g/dL (13.5-17.0); LYMPHOCYTES % (AUTO) 5.4 % (13-45); MEAN CORPUSCULAR HEMOGLOBIN 30.4 pg (27.0-33.4); MEAN CORPUSCULAR HGB CONC 32.7 g/dL (32.0-36.0); MEAN CORPUSCULAR VOLUME 93 fl (80-97); PLATELET COUNT 274 10^3/uL (150-450); RED BLOOD COUNT 3.82 10^6/uL (4.35-5.55); RED CELL DISTRIBUTION WIDTH 15.4 % (11.5-14.0); SEGMENTED NEUTROPHILS % (AUTO) 83.8 % (42-78); TOTAL CELLS COUNTED % (AUTO) 100 %; WHITE BLOOD COUNT 10.4 10^3/uL (4.0-10.5)
[2018-04-03 11:28] LABS: ALANINE AMINOTRANSFERASE 14 U/L (21-72); ALBUMIN 4.8 g/dL (3.5-5.0); ALKALINE PHOSPHATASE 69 U/L (38-126); ASPARTATE AMINO TRANSFERASE 28 U/L (17-59); BILIRUBIN,DIRECT 0.7 mg/dL (0.0-0.4); BILIRUBIN,TOTAL 0.7 mg/dL (0.2-1.3); BLOOD UREA NITROGEN 89 mg/dL (7-20); CALCIUM 8.5 mg/dL (8.4-10.2); CREATINE KINASE 57 U/L (55-170); GLUCOSE 140 mg/dL (75-110); POTASSIUM 4.9 mmol/L (3.6-5.0); TOTAL PROTEIN 8.2 g/dL (6.3-8.2)
[2018-04-03 11:33] LABS: CARBON DIOXIDE 21 mmol/L (22-30); CHLORIDE 95 mmol/L (98-107)
[2018-04-03 11:36] LABS: ANION GAP 21 (5-19)
[2018-04-03 11:39] LABS: CREATINE KINASE MB 1.34 ng/mL (<4.55)
--- NOTE | 2018-04-03 11:40 | RADIOLOGY REPORT (SQ) ---
EXAM DESCRIPTION: CT CHEST WITHOUT COMPLETED DATE/TIME: 04/03/2018 11:22 am REASON FOR STUDY: Chest wall pain/rule out rib fracture COMPARISON: Chest radiograph TECHNIQUE: CT scan performed of the chest without intravenous contrast. Images reviewed with lung, soft tissue and bone windows. Reconstructed coronal and sagittal MPR images reviewed. All images st ored on PACS. All CT scanners at this facility use dose modulation, iterative reconstruction, and/or weight based d osing when appropriate to reduce radiation dose to as low as reasonably achievable (ALARA). [facility]: Dose Right [facility]: CareDose [facility]: Dose Right [facility]: Teradose 4D [facility]: [employer] RADIATION DOSE: CT Rad equipment meets quality standard of care and radiation dose reduction techniq ues were employed. CTDIvol: 19.9 mGy. DLP: 799 mGy-cm. mGy. LIMITATIONS: No technical limitations. FINDINGS: LUNGS AND PLEURA: Bilateral pleural effusions left greater than right. HILAR AND MEDIASTINAL STRUCTURES: No identified masses or abnormal nodes. No obvious aneurysm. HEART AND VASCULAR STRUCTURES: Cardiac enlargement. Coronary artery calcification. UPPER ABDOMEN: Small kidneys. Multiple masses arising from the kidneys which are likely cysts. Poss ible right hydronephrosis. THYROID AND OTHER SOFT TISSUES: No masses. No adenopathy. BONES: No significant finding. HARDWARE: None in the chest. OTHER: No other significant findings. IMPRESSION: Small bilateral pleural effusions left greater than right. Cardiac enlargement. Coronary artery calcification. Small kidneys. Question right hydronephrosis. TECHNICAL DOCUMENTATION: JOB ID: [id number] Quality ID # [id number]: Final reports with documentation of one or more dose reduction techniques (e.g., Au tomated exposure control, adjustment of the mA and/or kV according to patient size, use of iterative reconstruction technique) 2010 [employer]- All Rights Reserved Reading location - IP/workstation name: [email or web address]
[2018-04-03 11:41] LABS: TROPONIN I 0.145 ng/mL
--- NOTE | 2018-04-03 12:11 | EKG REPORT ---
SEVERITY:- BORDERLINE ECG - SINUS RHYTHM BORDERLINE PROLONGED QT INTERVAL : Confirmed by: Fabian Dominguez MD 03-Apr-2018 12:10:42
[2018-04-03] MEDS ORDERED: TEMAZEPAM 15 MG CAPSULE PO PRN (13:08)
[2018-04-03] MEDS ORDERED: ACETAMINOPHEN 325 MG TABLET PO PRN (13:08)
[2018-04-03] MEDS ORDERED: IPRATROPIUM/ALBUTEROL 0.5-2.5 MG/3 ML AMPUL NEB PRN (13:08)
[2018-04-03 15:31] LABS: CREATINE KINASE MB 1.39 ng/mL (<4.55); TROPONIN I 0.141 ng/mL
[2018-04-03] MEDS: OXYCODONE-ACETAMINOPHEN 5-325 MG TABLET PO PRN ×2 (15:47→21:43)
[2018-04-03] MEDS: DOCUSATE SODIUM 100 MG CAPSULE PO SCH (18:40)
[2018-04-03] MEDS: SEVELAMER HCL 800 MG TABLET PO SCH (18:43)
[2018-04-03] MEDS: LANSOPRAZOLE 15 MG TAB.RAP.DR PO SCH (18:43)
[2018-04-03] MEDS ORDERED: NITROGLYCERIN 10 MG (0.4 MG/HR) PATCH.TD24 TD ONE (19:15)
[2018-04-03] MEDS: CARVEDILOL 3.125 MG TABLET PO SCH (21:36)
[2018-04-03] MEDS: ATORVASTATIN CALCIUM 40 MG TABLET PO SCH (21:36)
[2018-04-03] MEDS: FAMOTIDINE 20 MG TABLET PO SCH (21:37)
[2018-04-03] MEDS: CLONIDINE HCL 0.2 MG TABLET PO SCH (21:37)
[2018-04-03 21:52] LABS: CREATINE KINASE MB 1.76 ng/mL (<4.55)
[2018-04-03 21:53] LABS: TROPONIN I 0.177 ng/mL
--- NOTE | 2018-04-03 22:07 | HISTORY AND PHYSICAL E ---
History and Physical NAME: ANY STRONG : 1960 AGE: 57Y ADMITTED: 04/03/2018 ROOM: 403 CHIEF COMPLAINT: Chest pain. HISTORY OF PRESENT ILLNESS: The patient is a pleasant 57-year-old male who has a past medical history of hypertension, heart failure, hyperlipidemia. He says the chest pain started retrosternal. It increases with cough and with movement. He had a troponin that was slightly elevated. EKG was unremarkable. The patient goes to dialysis on Thursday, Thursday, and Thursday. REVIEW OF SYSTEMS: GENERAL: No fever, chills, or weakness. HEENT: No headache or dizziness. Eyes: No blurred vision or double vision. Ears: No discharge from the ears. Nose: No discharge from the nose. NECK: No difficulty swallowing. RESPIRATORY: No cough or wheezing or hemoptysis. CARDIOVASCULAR: See history of present illness. GASTROINTESTINAL: No nausea, vomiting, or diarrhea. GENITOURINARY: No urgency, no frequency, no dysuria or hematuria. ENDOCRINE: No polyuria, polyphagia, polydipsia. HEMATOLOGIC: No significant anemia. No easy bruising. PAST MEDICAL HISTORY: 1. Congestive heart failure. 2. Hyperlipidemia. 3. Hypertension. 4. End-stage renal disease on hemodialysis Thursday, Thursday, and Thursday. PAST SURGICAL HISTORY: 1. Appendectomy. 2. Cholecystectomy. SOCIAL HISTORY: Former smoker. FAMILY HISTORY: Positive for heart disease and hypertension. HOME MEDICATIONS: 1. Amlodipine 10 mg daily. 2. Clonidine 0.3 mg daily. 3. Levaquin 250 mg daily. 4. Pravastatin 40 mg daily. 5. Ranitidine 150 twice a day. 6. Sevelamer 3200 mg three times daily. 7. B complex. ALLERGIES: No known drug allergies. PHYSICAL EXAMINATION: GENERAL: The patient is lying in bed comfortably. Not in distress. VITAL SIGNS: Blood pressure 151/70, heart rate 77, temperature afebrile. HEENT: Normocephalic/atraumatic. Pupils equal, round, reactive to light and accommodation bilaterally. Ears: Tympanic membranes intact bilaterally, no discharge from the ears. No discharge from the nose. NECK: Supple. No acute JVD. No thyromegaly. No lymphadenopathy. CARDIOVASCULAR: Normal S1, S2. Regular rate and rhythm. No murmur. No gallop, no S3. LUNGS: Clear. ABDOMEN: Soft, nontender. MUSCULOSKELETAL: No edema. NEUROLOGIC: Awake, alert. SKIN: No rash. HEMATOLOGIC: No significant anemia, no easy bruising. LABORATORY: Sodium 136, potassium 4.9, creatinine 16. White blood count 10, hemoglobin 11. Troponin 0.145. EKG: No change. ASSESSMENT: 1. CHEST PAIN, RULE OUT MYOCARDIAL INFARCTION. 2. END-STAGE RENAL DISEASE ON HEMODIALYSIS. 3. HYPERTENSION. 4. HYPERLIPIDEMIA. PLAN: 1. Will admit the patient for a 23-hour observation to rule out myocardial infarction. Admit to telemetry. 2. Three sets of cardiac enzymes. 3. Diet: Cardiac diet. 4. Medications: Will continue his home medication. Will put him on aspirin 325 mg daily and Tylenol p.r.n. Continue his home medication of clonidine 0.3 twice daily, Coreg 3.125 twice a day, amlodipine 10 mg daily, Sevelamer 3200 mg three times daily. 5. Code status. Full code. 6. Activity as tolerated. Time spent is 45 minutes. DICTATING PHYSICIAN: LOBO MORENO M.D. [id number] PHY#: [id number] ID: [id number] JOB#: [id number] ACCT: [id number] cc:LOBO MORENO M.D. > MTDD
[2018-04-04 03:58] LABS: CREATINE KINASE MB 2.14 ng/mL (<4.55)
[2018-04-04 04:07] LABS: TROPONIN I 0.201 ng/mL
[2018-04-04] MEDS: OXYCODONE-ACETAMINOPHEN 5-325 MG TABLET PO PRN (05:44)
[2018-04-04] MEDS: LANSOPRAZOLE 15 MG TAB.RAP.DR PO SCH ×2 (05:44→17:08)
[2018-04-04] MEDS: SEVELAMER HCL 800 MG TABLET PO SCH ×3 (07:58→17:08)
[2018-04-04] MEDS: ONDANSETRON HCL INJ/PF 4 MG/2 ML SDV IV PRN ×2 (07:59→13:27)
[2018-04-04] MEDS: PROMETHAZINE HCL 25 MG TABLET PO PRN (10:51)
[2018-04-04] MEDS: NITROGLYCERIN 10 MG (0.4 MG/HR) PATCH.TD24 TD SCH (10:51)
[2018-04-04] MEDS: CARVEDILOL 3.125 MG TABLET PO SCH ×2 (11:59→21:45)
[2018-04-04] MEDS: AMLODIPINE BESYLATE 10 MG TABLET PO SCH (11:59)
[2018-04-04] MEDS: DOCUSATE SODIUM 100 MG CAPSULE PO SCH ×2 (12:00→17:08)
[2018-04-04] MEDS: ASPIRIN 325 MG TABLET PO SCH (12:00)
[2018-04-04] MEDS: CLONIDINE HCL 0.2 MG TABLET PO SCH ×2 (12:00→21:44)
[2018-04-04] MEDS: FAMOTIDINE 20 MG TABLET PO SCH ×2 (12:01→21:45)
[2018-04-04] MEDS ORDERED: PROMETHAZINE HCL INJ 25 MG/1 ML VIAL IV PRN (13:42)
[2018-04-04 16:22] LABS: CREATINE KINASE MB 3.31 ng/mL (<4.55)
[2018-04-04 16:26] LABS: TROPONIN I 0.142 ng/mL
--- NOTE | 2018-04-04 16:57 | PROGRESS NOTE E ---
Progress Note NAME: ANY STRONG : 1960 AGE: 57Y DATE: 04/04/2018 ROOM: 403 SUBJECTIVE: We are going to hold discharge today. The patient is feeling better. He vomited one time, and his troponins came back and continued increasing. OBJECTIVE: GENERAL: Patient lying in bed comfortable, not in distress. VITAL SIGNS: Temperature 98, heart rate 171, blood pressure is 149/69. HEENT: Normocephalic, atraumatic. Pupils round, reactive to light and accommodation bilaterally. Extraocular movements intact. Ears: Tympanic membranes intact bilaterally. No discharge from the ears. No discharge from the nose. NECK: Supple. No increased JVD. No thyromegaly. No lymphadenopathy. CARDIOVASCULAR: Normal S1, S2. Regular rate and rhythm. No murmur. No gallop. RESPIRATORY: Lungs clear. ABDOMEN: Soft, nontender. MUSCULOSKELETAL: No edema. NEUROLOGICAL: Awake, alert. LABORATORY: White blood count is 10, hemoglobin 11. Troponin is increasing at 0.14, increased to 0.4 and now 0.2. ASSESSMENT: 1. NON-STEMI. 2. END-STAGE RENAL DISEASE ON HEMODIALYSIS. 3. HYPERTENSION. PLAN: Will put the patient on nitroglycerin and continue Coreg and aspirin. He is on statin, Lipitor 40 mg. I discussed the case with Dr. Valdivia. He will do stress tomorrow morning. Recommended another serial cardiac enzyme. Will hold the discharge instructions. DICTATING PHYSICIAN: LOBO MORENO M.D. [id number] Y#: [id number] ID: [id number] JOB#: [id number] ACCT: [id number] cc: >
[2018-04-04 21:39] LABS: CREATINE KINASE MB 2.74 ng/mL (<4.55); TROPONIN I 0.129 ng/mL
[2018-04-04] MEDS: ATORVASTATIN CALCIUM 40 MG TABLET PO SCH (21:45)
[2018-04-05 04:12] LABS: CREATINE KINASE MB 2.27 ng/mL (<4.55); TROPONIN I 0.11 ng/mL
[2018-04-05] MEDS: LANSOPRAZOLE 15 MG TAB.RAP.DR PO SCH ×2 (05:10→17:54)
[2018-04-05 08:16] LABS: ABSOLUTE BASOPHILS # (AUTO) 0.1 10^3/uL (0.0-0.2); ABSOLUTE EOSINOPHILS # (AUTO) 0.4 10^3/uL (0.0-0.6); ABSOLUTE LYMPHOCYTES (AUTO) 0.6 10^3/uL (0.5-4.7); ABSOLUTE MONOCYTES (AUTO) 0.9 10^3/uL (0.1-1.4); ABSOLUTE NEUT (AUTO) 4.8 10^3/uL (1.7-8.2); EOSINOPHILS % (AUTO) 5.2 % (0-6); HEMATOCRIT 29.9 % (37.9-51.0); HEMOGLOBIN 9.8 g/dL (13.5-17.0); LYMPHOCYTES % (AUTO) 9.6 % (13-45); MEAN CORPUSCULAR HEMOGLOBIN 30.6 pg (27.0-33.4); MEAN CORPUSCULAR HGB CONC 32.7 g/dL (32.0-36.0); MEAN CORPUSCULAR VOLUME 94 fl (80-97); MONOCYTES % (AUTO) 13.1 % (3-13); PLATELET COUNT 255 10^3/uL (150-450); RED CELL DISTRIBUTION WIDTH 15.1 % (11.5-14.0); SEGMENTED NEUTROPHILS % (AUTO) 71.1 % (42-78); TOTAL CELLS COUNTED % (AUTO) 100 %; WHITE BLOOD COUNT 6.8 10^3/uL (4.0-10.5)
[2018-04-05 08:35] LABS: ANION GAP 18 (5-19); BLOOD UREA NITROGEN 110 mg/dL (7-20); CALCIUM 8.1 mg/dL (8.4-10.2); CARBON DIOXIDE 22 mmol/L (22-30); CHLORIDE 94 mmol/L (98-107); GLUCOSE 88 mg/dL (75-110); POTASSIUM 5.7 mmol/L (3.6-5.0); SODIUM 133.7 mmol/L (137-145)
[2018-04-05] MEDS ORDERED: EPOETIN ALFA INJ 20000 UNIT/1 ML VIAL (RENAL) IV PRN (09:44)
[2018-04-05] MEDS ORDERED: NORMAL SALINE 1000 ML 1,000 ML IV PRN (09:44)
[2018-04-05] MEDS: NITROGLYCERIN 10 MG (0.4 MG/HR) PATCH.TD24 TD SCH (09:47)
[2018-04-05] MEDS: DOCUSATE SODIUM 100 MG CAPSULE PO SCH ×2 (09:49→17:54)
[2018-04-05] MEDS: ASPIRIN 325 MG TABLET PO SCH (09:49)
[2018-04-05] MEDS: SEVELAMER HCL 800 MG TABLET PO SCH ×3 (09:49→17:54)
[2018-04-05] MEDS: CLONIDINE HCL 0.2 MG TABLET PO SCH ×2 (09:50→22:39)
[2018-04-05] MEDS: METOPROLOL SUCCINATE 25 MG TAB.SR.24H PO SCH (09:50)
[2018-04-05] MEDS: FAMOTIDINE 20 MG TABLET PO SCH (09:50)
[2018-04-05] MEDS: CARVEDILOL 3.125 MG TABLET PO SCH ×2 (09:50→22:39)
[2018-04-05] MEDS: AMLODIPINE BESYLATE 10 MG TABLET PO SCH (09:50)
[2018-04-05] MEDS ORDERED: EPOETIN ALFA 10,000 UNIT in SYRINGE, DISPOSABLE, 1 EACH IV PRN (09:59)
--- NOTE | 2018-04-05 13:21 | DISCHARGE SUMMARY E ---
Discharge Summary NAME: ANY STRONG : 1960 AGE: 57Y ADMITTED: 04/03/2018 DISCHARGED: 04/04/2018 ADMISSION DIAGNOSES: 1. Chest pain, rule out [place]. 2. End-stage renal disease on hemodialysis. 3. Hypertension. 4. Diabetes. 5. Hyperlipidemia. 6. Congestive heart failure. DISCHARGE DIAGNOSES: 1. Chest pain, [place] was ruled out. 2. Congestive heart failure. 3. End-stage renal disease. 4. Hypertension. 5. Hyperlipidemia. IMAGING: CT scan of the chest was unremarkable. No PE. Small bilateral pleural effusion. HOSPITAL COURSE: The patient is a pleasant 57-year-old male who had a past medical history of end-stage renal disease on hemodialysis Thursday, Thursday, Thursday and Nephrology, hyperlipidemia, congestive heart failure. The patient was admitted with chest pain. He has slight elevation of troponin, He had 3 sets of cardiac enzymes that were done. His troponin did increase from 0.17 to 0.14 to 2 today, but the patient denies any chest pain or any shortness of breath. He is feeling much better. The patient is stable to be discharged home. DISCHARGE INSTRUCTIONS: Discharge patient home. Diet regular renal diet. Activity as tolerated. Follow up with his primary physician. 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 MEDICATIONS: 1. Phenergan p.r.n. for nausea, vomiting. 2. Coreg 3.125 mg twice a day. 3. Clonidine 0.2 mg t.i.d. 4. Sevelamer. 5. Pravastatin. DICTATING PHYSICIAN: LOBO MORENO M.D. [id number] PHY#: [id number] ID: [id number] JOB#: [id number] ACCT: [id number] cc:LOBO MORENO M.D. > MTDD
[2018-04-05] MEDS ORDERED: ACETAMINOPHEN 325 MG TABLET PO PRN (15:06)
--- NOTE | 2018-04-05 15:12 | PDOC CONSULTATION ---
Consultation Consult Date: 04/05/18 Attending physician:: LOBO MORENO Consult reason:: I was asked to see the patient supervised dialysis while here in the hospital. History of Present Illness Admission Date/PCP: 04/04/18 15:28 RUDY JACOBSEN History of Present Illness: ANY STRONG is a 57 year old male with history of end-stage renal disease on maintenance on Mondays, Wednesdays and Fridays, hypertension, and history of congestive heart failure who was admitted on April 03 for chest pains. Patient relates that he started having chest pain early Thursday morning. He tried taking antacid but it did not get resolved so that front of him to go to emergency room. He did miss his dialysis last Thursday so his last dialysis was Thursday of last week. He said he he continues to have chest pains over the weekend and then about 2 AM today. Currently he denies any chest pains no shortness of breath otherwise. He is being scheduled for stress test tomorrow morning. I am seeing the patient on hemodialysis this afternoon. So far has been hemodynamically stable and really does not have much complaints. He seems to be tolerating dialysis well without any much problems or complaints. Is being dialyzed through his right AV fistula. Patient is being monitored throughout dialysis treatment. Past Medical History Cardiac Medical History: Reports: Hyperlipidemia, Hypertension-primary Endocrine Medical History: Reports: Obesity, Other - Thyroid nodule Renal/ Medical History: Reports: End Stage Renal Disease, Hyperphosphatemia, Renal Osteodystropy, Secondary Hyperparathyroidism GI Medical History: Reports: Gastroesophageal Reflux Disease Musculoskeltal Medical History: Reports: Other - Degenerative joint disease Hematology Medical History: Reports Anemia of Chronic Kidney Disease Past Surgical History Past Surgical History: Reports: Appendectomy, Cholecystectomy, Dialysis Access Surgery AVF Social History Information Source: Patient Lives with: Family Smoking Status: Never Smoker Frequency of Alcohol Use: None Hx Recreational Drug Use: No Drugs: None Hx Prescription Drug Abuse: No Family History Family History: Chronic Kidney Disease - Sister, Hypertension - Sister, Malignancy - Sister and mother of unknown types Parental Family History Reviewed: Yes Children Family History Reviewed: Yes Sibling(s) Family History Reviewed.: Yes Medication/Allergy Home Medications: Amlodipine Besylate [Norvasc 10 mg Tablet] 10 mg PO QAM 04/05/18 Carvedilol [Coreg 12.5 mg Tablet] 12.5 mg PO Q12 04/05/18 Clonidine HCl [Catapres 0.3 mg Tablet] 0.3 mg PO TID 04/05/18 Furosemide [Lasix 40 mg Tablet] 40 mg PO QAM 04/05/18 Pravastatin Sodium [Pravachol] 40 mg PO QHS 04/05/18 Promethazine HCl 12.5 mg PO Q4HP PRN 04/05/18 Ranitidine HCl [Zantac 150 mg Tablet] 150 mg PO Q6AM 04/05/18 Allergies/Adverse Reactions: No Known Allergies Allergy (Verified 04/03/18 10:14) Review of Systems All systems: reviewed and no additional remarkable complaints except as stated Review of Systems: Constitutional: ABSENT: chills, fatigue, fever(s), headache(s), weight gain, weight loss Eyes: ABSENT: visual disturbances Ears: ABSENT: hearing changes Cardiovascular: ABSENT: Dyspnea on exertion, edema, orthropnea, palpitations; admits chest pains Respiratory: ABSENT: cough, dyspnea, hemoptysis Gastrointestinal: ABSENT: abdominal pain, constipation, diarrhea, hematemesis, hematochezia, nausea, vomiting Genitourinary: ABSENT: dysuria, hematuria Musculoskeletal: ABSENT: joint swelling Integumentary: ABSENT: rash, wounds Neurological: ABSENT: abnormal gait, abnormal speech, confusion, dizziness, focal weakness, numbness, syncope Psychiatric: ABSENT: anxiety, depression Endocrine: ABSENT: cold intolerance, heat intolerance, polydipsia, polyuria Hematologic/Lymphatic: ABSENT: easy bleeding, easy bruising, lymphadenopathy Physical Exam Vital Signs: Temp Pulse Resp BP Pulse Ox 98.1 F 59 L 16 121/56 L 98 04/05/18 11:01 04/05/18 14:00 04/05/18 11:01 04/05/18 11:01 04/05/18 11:01 Intake & Output 04/04/18 04/05/18 04/06/18 06:59 06:59 06:59 Intake Total 220 1624 Output Total 500 Balance 220 1124 Weight 113 kg 113.2 kg Vitals during dialysis: Blood pressure 142/80, heart rate of 57, blood flow rate of 450 ml/ per minute, dialysate flow rate of 800 mL/min. Exam: General appearance: No acute distress, cooperative, well-developed, well- nourished Head exam: PRESENT: atraumatic, normocephalic Eye exam: PRESENT: Conjunctiva slightly pale, EOMI, PERRLA. ABSENT: conjunctival injection, scleral icterus Mouth exam: PRESENT: moist, neck supple, tongue midline Neck exam: PRESENT: full ROM. ABSENT: carotid bruit, JVD, lymphadenopathy, thyromegaly Respiratory exam: PRESENT: clear to auscultation bilaterally. ABSENT: rales, rhonchi, stridor, wheezes Cardiovascular exam: PRESENT: RRR, +S1, +S2. Grade 2/6 systolic murmur Pulses: PRESENT: normal radial pulses, normal dorsalis pedis pulses GI/Abdominal exam: PRESENT: normal bowel sounds, soft. ABSENT: guarding, mass, tenderness Rectal exam: Deferred Extremities exam: PRESENT: full ROM. ABSENT: calf tenderness, pedal edema Musculoskeletal: PRESENT: full ROM. ABSENT: deformity Neurological exam: PRESENT: alert, Awake, Oriented to person, Oriented to place, Oriented to time, reflexes normal, CN II-XII grossly intact. ABSENT: motor sensory deficit Psychiatric exam: PRESENT: appropriate affect, normal mood. ABSENT: homicidal ideation, suicidal ideation Skin exam: PRESENT: intact, dry, warm. ABSENT: rash Results Laboratory Results: 04/05/18 08:02 04/05/18 08:02 04/05/18 04/05/18 08:02 08:02 WBC 6.8 RBC 3.20 L Hgb 9.8 L Hct 29.9 L MCV 94 MCH 30.6 MCHC 32.7 RDW 15.1 H Plt Count 255 Seg Neutrophils % 71.1 Lymphocytes % 9.6 L Monocytes % 13.1 H Eosinophils % 5.2 Basophils % 1.0 Absolute Neutrophils 4.8 Absolute Lymphocytes 0.6 Absolute Monocytes 0.9 Absolute Eosinophils 0.4 Absolute Basophils 0.1 Sodium 133.7 L Potassium 5.7 H Chloride 94 L Carbon Dioxide 22 Anion Gap 18 BUN 110 H Creatinine 19.24 H Est GFR ( Amer) 3 L Est GFR (Non-Af Amer) 3 L Glucose 88 Calcium 8.1 L 04/03/18 04/03/18 04/03/18 10:08 10:08 10:08 Creatine Kinase 57 CK-MB (CK-2) 1.34 Troponin I 0.145 NT-Pro-B Natriuret Pep [id number] H 04/03/18 04/03/18 04/03/18 14:46 14:46 21:10 Creatine Kinase 49 L 53 L CK-MB (CK-2) 1.39 Troponin I 0.141 NT-Pro-B Natriuret Pep 04/03/18 04/04/18 04/04/18 21:10 03:08 03:08 Creatine Kinase 55 CK-MB (CK-2) 1.76 2.14 Troponin I 0.177 0.201 NT-Pro-B Natriuret Pep 04/04/18 04/04/18 04/04/18 15:20 15:20 21:00 Creatine Kinase 68 49 L CK-MB (CK-2) 3.31 Troponin I 0.142 NT-Pro-B Natriuret Pep 04/04/18 04/05/18 04/05/18 21:00 03:22 03:22 Creatine Kinase 38 L CK-MB (CK-2) 2.74 2.27 Troponin I 0.129 0.110 NT-Pro-B Natriuret Pep Impressions: Chest X-Ray 04/03/18 10:14 IMPRESSION: LOW LUNG VOLUMES. NO SIGNIFICANT RADIOGRAPHIC FINDING IN THE CH EST. Chest CT 04/03/18 10:45 IMPRESSION: Small bilateral pleural effusions left greater than right. Cardiac enlargement. Coronary artery calcification. Small kidneys. Question right hydronephrosis. Assessment & Plan - Diagnosis (1) ESRD (end stage renal disease) Is this a current diagnosis for this admission?: Yes Plan: We will do dialysis today for 3 hours, using the patient's right AV fistula, with 2 potassium bath, blood flow rate of 450 mL per minute, dialysate flow rate of 800 mL per minute, ultrafiltration 3-4 L as tolerated no heparin 10,000, no heparin and Procrit with 10,000 units during dialysis intravenously. Patient will be monitored during dialysis treatment. Ultrafiltration will be adjusted accordingly. Discussed prescription and treatment of dialysis nurse. (2) Hyperkalemia Is this a current diagnosis for this admission?: Yes Plan: Dialysis will take care of this. (3) Chest pain Qualifiers: Chest pain type: unspecified Qualified Code(s): R07.9 - Chest pain, unspecified Is this a current diagnosis for this admission?: Yes Plan: Patient has borderline elevated troponin. He will be scheduled for stress test tomorrow morning. (4) Anemia in CKD (chronic kidney disease) Qualifiers: Chronic kidney disease stage: on chronic dialysis Qualified Code(s): N18.6 - End stage renal disease; D63.1 - Anemia in chronic kidney disease; D63.1 - Anemia in chronic kidney disease; Z99.2 - Dependence on renal dialysis; Z99.2 - Dependence on renal dialysis; Z99.2 - Dependence on renal dialysis; Z99.2 - Dependence on renal dialysis Is this a current diagnosis for this admission?: Yes Plan: Procrit to be given on dialysis today. (5) Hypertension Qualifiers: Hypertension type: unspecified Qualified Code(s): I10 - Essential (primary) hypertension Is this a current diagnosis for this admission?: Yes - Notes Notes: Thank you very much for this consultation. We will supervised dialysis while the patient is here in the hospital. - Time Time Spent: 50 to 70 Minutes
[2018-04-05] MEDS ORDERED: ONDANSETRON HCL INJ/PF 4 MG/2 ML SDV IV PRN (15:30)
--- NOTE | 2018-04-05 20:49 | PDOC PROGRESS REPORT ---
Subjective Progress Note for:: 04/05/18 Subjective:: Patient was transferred to my service today with his discharge on hold by the hospitalist team due to continued intermittent chest discomfort and need for further evaluation with pharmacologic stress test. He reported continue exertional dyspnea. No palpitation or associated diaphoresis. No nausea or vomiting. He had his scheduled hemodialysis today. Reason For Visit: NSTEMI, CHEST PAIN Physical Exam Vital Signs: Temp Pulse Resp BP Pulse Ox 98.1 F 59 L 16 121/56 L 98 04/05/18 11:01 04/05/18 14:00 04/05/18 11:01 04/05/18 11:01 04/05/18 11:01 Intake & Output 04/04/18 04/05/18 04/06/18 06:59 06:59 06:59 Intake Total 220 1624 624.5 Output Total 500 Balance 220 1124 624.5 Weight 113 kg 113.2 kg General appearance: PRESENT: no acute distress, obese Head exam: PRESENT: atraumatic, normocephalic Eye exam: PRESENT: conjunctiva pink, EOMI, PERRLA. ABSENT: scleral icterus Ear exam: PRESENT: normal external ear exam Mouth exam: PRESENT: moist Respiratory exam: PRESENT: decreased breath sounds - at lung bases Cardiovascular exam: PRESENT: RRR. ABSENT: diastolic murmur, rubs, systolic murmur Vascular exam: PRESENT: normal capillary refill, other - right arm dialysis fistular bruit.. ABSENT: pallor GI/Abdominal exam: PRESENT: normal bowel sounds, soft. ABSENT: distended, guarding, mass, organolmegaly, rebound, tenderness Extremities exam: ABSENT: pedal edema Musculoskeletal exam: PRESENT: normal inspection Neurological exam: PRESENT: alert, awake, oriented to person, oriented to place, oriented to time, oriented to situation, CN II-XII grossly intact. ABSENT: motor sensory deficit Skin exam: PRESENT: dry, warm Results Laboratory Results: 04/05/18 08:02 04/05/18 08:02 04/05/18 04/05/18 08:02 08:02 WBC 6.8 RBC 3.20 L Hgb 9.8 L Hct 29.9 L MCV 94 MCH 30.6 MCHC 32.7 RDW 15.1 H Plt Count 255 Seg Neutrophils % 71.1 Lymphocytes % 9.6 L Monocytes % 13.1 H Eosinophils % 5.2 Basophils % 1.0 Absolute Neutrophils 4.8 Absolute Lymphocytes 0.6 Absolute Monocytes 0.9 Absolute Eosinophils 0.4 Absolute Basophils 0.1 Sodium 133.7 L Potassium 5.7 H Chloride 94 L Carbon Dioxide 22 Anion Gap 18 BUN 110 H Creatinine 19.24 H Est GFR ( Amer) 3 L Est GFR (Non-Af Amer) 3 L Glucose 88 Calcium 8.1 L 04/03/18 04/03/18 04/03/18 10:08 10:08 10:08 Creatine Kinase 57 CK-MB (CK-2) 1.34 Troponin I 0.145 NT-Pro-B Natriuret Pep [id number] H 04/03/18 04/03/18 04/03/18 14:46 14:46 21:10 Creatine Kinase 49 L 53 L CK-MB (CK-2) 1.39 Troponin I 0.141 NT-Pro-B Natriuret Pep 04/03/18 04/04/18 04/04/18 21:10 03:08 03:08 Creatine Kinase 55 CK-MB (CK-2) 1.76 2.14 Troponin I 0.177 0.201 NT-Pro-B Natriuret Pep 04/04/18 04/04/18 04/04/18 15:20 15:20 21:00 Creatine Kinase 68 49 L CK-MB (CK-2) 3.31 Troponin I 0.142 NT-Pro-B Natriuret Pep 04/04/18 04/05/18 04/05/18 21:00 03:22 03:22 Creatine Kinase 38 L CK-MB (CK-2) 2.74 2.27 Troponin I 0.129 0.110 NT-Pro-B Natriuret Pep Impressions: Chest X-Ray 04/03/18 10:14 IMPRESSION: LOW LUNG VOLUMES. NO SIGNIFICANT RADIOGRAPHIC FINDING IN THE CHEST. Chest CT 04/03/18 10:45 IMPRESSION: Small bilateral pleural effusions left greater than right. Cardiac enlargement. Coronary artery calcification. Small kidneys. Question right hydronephrosis. Assessment & Plan - Diagnosis (1) Chest pain Qualifiers: Chest pain type: unspecified Qualified Code(s): R07.9 - Chest pain, unspecified Is this a current diagnosis for this admission?: Yes Plan: His elevated Troponin I may be cardiac leakage and less clearance due to his ESRD on dialysis. He is schedule for pharmacologic stress test evaluation tomorrow. (2) ESRD on hemodialysis Is this a current diagnosis for this admission?: Yes Plan: Continue schedule dialysis on Thursday, Thursday and Thursday. Spray Technician input appreciated. (3) Anemia in CKD (chronic kidney disease) Qualifiers: Chronic kidney disease stage: on chronic dialysis Qualified Code(s): N18.6 - End stage renal disease; D63.1 - Anemia in chronic kidney disease; D63.1 - Anemia in chronic kidney disease; Z99.2 - Dependence on renal dialysis; Z99.2 - Dependence on renal dialysis; Z99.2 - Dependence on renal dialysis; Z99.2 - Dependence on renal dialysis Is this a current diagnosis for this admission?: Yes Plan: Continue current medication management with procrit administration at dialysis. (4) Hypertension Qualifiers: Hypertension type: unspecified Qualified Code(s): I10 - Essential (primary) hypertension Is this a current diagnosis for this admission?: Yes Plan: Continue current medication management. (5) HLD (hyperlipidemia) Qualifiers: Hyperlipidemia type: unspecified Qualified Code(s): E78.5 - Hyperlipidemia, unspecified Is this a current diagnosis for this admission?: Yes Plan: Continue current medication management. (6) GERD (gastroesophageal reflux disease) Qualifiers: Esophagitis presence: without esophagitis Qualified Code(s): K21.9 - Gas tro-esophageal reflux disease without esophagitis Is this a current diagnosis for this admission?: Yes Plan: Continue current medication, dietary restrictions and lifestyle modification management. - Time Time Spent with patient: 25-34 minutes Medications reviewed and adjusted accordingly: Yes Anticipated discharge: Home Within: Other - Inpatient Certification Based on my medical assessment, after consideration of the patient's comorbidities, presenting symptoms, or acuity I expect that the services needed warrant INPATIENT care.: Yes I certify that my determination is in accordance with my understanding of Medicare's requirements for reasonable and necessary INPATIENT services [42 CFR 412.3e].: Yes Medical Necessity: Need Close Monitoring Due to Risk of Patient Decompensation, Need For Continuous Telemetry Monitoring, Risk of Complication if Not Cared For in Hospital Post Hospital Care: D/C Medical Receptionist Biller Documentation - Plan Summary Plan Summary: Continue current medication management. Follow up on pharmacologic stress test findings.
[2018-04-05] MEDS: ATORVASTATIN CALCIUM 40 MG TABLET PO SCH (22:38)
[2018-04-06] MEDS: LANSOPRAZOLE 15 MG TAB.RAP.DR PO SCH ×2 (05:34→18:24)
[2018-04-06] MEDS ORDERED: REGADENOSON INJ 0.4 MG/5 ML DISP.SYRIN IV ONE (12:39)
[2018-04-06] MEDS: SEVELAMER HCL 800 MG TABLET PO SCH ×3 (12:53→18:24)
[2018-04-06] MEDS: CLONIDINE HCL 0.2 MG TABLET PO SCH ×2 (12:54→21:32)
[2018-04-06] MEDS: CARVEDILOL 3.125 MG TABLET PO SCH ×2 (12:54→21:33)
[2018-04-06] MEDS: DOCUSATE SODIUM 100 MG CAPSULE PO SCH ×2 (12:54→18:26)
[2018-04-06] MEDS: METOPROLOL SUCCINATE 25 MG TAB.SR.24H PO SCH (12:54)
[2018-04-06] MEDS: ASPIRIN 325 MG TABLET PO SCH (12:55)
[2018-04-06] MEDS: AMLODIPINE BESYLATE 10 MG TABLET PO SCH (12:56)
[2018-04-06] MEDS: FAMOTIDINE 20 MG TABLET PO SCH (12:58)
--- NOTE | 2018-04-06 13:18 | PDOC PROGRESS REPORT ---
Subjective Progress Note for:: 04/06/18 Subjective:: No chest pain or difficulty with breathing. Patient had episode of low blood pressure and bradycardia last night necessitating withholding of his evening dose of Carvedilol and Clonidine. Awaiting stress test findings. No nausea, vomiting or abdominal pain. No fever or chills. Reason For Visit: NSTEMI, CHEST PAIN Physical Exam Vital Signs: Temp Pulse Resp BP Pulse Ox 98.5 F 60 16 129/64 H 97 04/06/18 07:52 04/06/18 07:52 04/06/18 07:52 04/06/18 07:52 04/06/18 07:52 Intake & Output 04/05/18 04/06/18 04/07/18 06:59 06:59 06:59 Intake Total 1624 846.5 Output Total 500 3100 Balance 1124 -2253.5 Weight 113.2 kg 110.1 kg Physical Exam: General appearance: PRESENT: no acute distress, obese Head exam: PRESENT: atraumatic, normocephalic Eye exam: PRESENT: conjunctiva pink, EOMI, PERRLA. ABSENT: pallor, scleral icterus Ear exam: PRESENT: normal external ear exam Mouth exam: PRESENT: moist Respiratory exam: PRESENT: decreased breath sounds - at lung bases Cardiovascular exam: PRESENT: RRR. ABSENT: diastolic murmur, rubs, systolic murmur Vascular exam: PRESENT: normal capillary refill, other - right arm dialysis fistula bruit. GI/Abdominal exam: PRESENT: normal bowel sounds, soft. ABSENT: distended, guarding, mass, organomegaly, rebound, tenderness Extremities exam: ABSENT: pedal edema Musculoskeletal exam: PRESENT: normal inspection Neurological exam: PRESENT: alert, awake, oriented to person, oriented to place, oriented to time, oriented to situation, CN II-XII grossly intact. ABSENT: motor sensory deficit Skin exam: PRESENT: dry, warm Results Laboratory Results: 04/05/18 08:02 04/05/18 08:02 04/03/18 04/03/18 04/03/18 10:08 10:08 10:08 Creatine Kinase 57 CK-MB (CK-2) 1.34 Troponin I 0.145 NT-Pro-B Natriuret Pep 91461 H 01/12/19 01/12/19 01/12/19 14:46 14:46 21:10 Creatine Kinase 49 L 53 L CK-MB (CK-2) 1.39 Troponin I 0.141 NT-Pro-B Natriuret Pep 04/03/18 04/04/18 04/04/18 21:10 03:08 03:08 Creatine Kinase 55 CK-MB (CK-2) 1.76 2.14 Troponin I 0.177 0.201 NT-Pro-B Natriuret Pep 04/04/18 04/04/18 04/04/18 15:20 15:20 21:00 Creatine Kinase 68 49 L CK-MB (CK-2) 3.31 Troponin I 0.142 NT-Pro-B Natriuret Pep 04/04/18 04/05/18 04/05/18 21:00 03:22 03:22 Creatine Kinase 38 L CK-MB (CK-2) 2.74 2.27 Troponin I 0.129 0.110 NT-Pro-B Natriuret Pep Impressions: Chest X-Ray 04/03/18 10:14 IMPRESSION: LOW LUNG VOLUMES. NO SIGNIFICANT RADIOGRAPHIC FINDING IN THE CHEST . Chest CT 04/03/18 10:45 IMPRESSION: Small bilateral pleural effusions left greater than right. Cardiac enlargement. Coronary artery calcification. Small kidneys. Question right hydronephrosis. Assessment & Plan - Diagnosis (1) Chest pain Qualifiers: Chest pain type: unspecified Qualified Code(s): R07.9 - Chest pain, unspecified Is this a current diagnosis for this admission?: Yes (2) ESRD on hemodialysis Is this a current diagnosis for this admission?: Yes (3) Anemia in CKD (chronic kidney disease) Qualifiers: Chronic kidney disease stage: on chronic dialysis Qualified Code(s): N18.6 - End stage renal disease; D63.1 - Anemia in chronic kidney disease; D63.1 - Anemia in chronic kidney disease; Z99.2 - Dependence on renal dialysis; Z99.2 - Dependence on renal dialysis; Z99.2 - Dependence on renal dialysis; Z99.2 - Dependence on renal dialysis Is this a current diagnosis for this admission?: Yes (4) Hypertension Qualifiers: Hypertension type: unspecified Qualified Code(s): I10 - Essential (primary) hypertension Is this a current diagnosis for this admission?: Yes (5) HLD (hyperlipidemia) Qualifiers: Hyperlipidemia type: unspecified Qualified Code(s): E78.5 - Hyperlipidemia, unspecified Is this a current diagnosis for this admission?: Yes (6) GERD (gastroesophageal reflux disease) Qualifiers: Esophagitis presence: without esophagitis Qualified Code(s): K21.9 - Gastro-esophageal reflux disease without esophagitis Is this a current diagnosis for this admission?: Yes - Time Time Spent with patient: 25-34 minutes Medications reviewed and adjusted accordingly: Yes Anticipated discharge: Home Within: Other - Inpatient Certification Based on my medical assessment, after consideration of the patient's comorbidities, presenting symptoms, or acuity I expect that the services needed warrant INPATIENT care.: Yes I certify that my determination is in accordance with my understanding of Medic are's requirements for reasonable and necessary INPATIENT services [42 CFR 412.3e].: Yes Medical Necessity: Need Close Monitoring Due to Risk of Patient Decompensation, Need For Continuous Telemetry Monitoring, Risk of Complication if Not Cared For in Hospital Post Hospital Care: D/C [employer] Documentation - Plan Summary Plan Summary: Continue current medication management. Follow up on stress test findings. Possible discharge in AM to allow for schedule dialysis at [facility] tomorrow at 1 pm..
[2018-04-06] MEDS: PROMETHAZINE HCL 25 MG TABLET PO PRN (21:32)
[2018-04-06] MEDS: ATORVASTATIN CALCIUM 40 MG TABLET PO SCH (21:33)
[2018-04-07] MEDS: LANSOPRAZOLE 15 MG TAB.RAP.DR PO SCH (05:45)
--- NOTE | 2018-04-07 08:40 | PDOC DISCHARGE SUMMARY ---
General - Admit/Disc Date/PCP Admission Date/Primary Care Provider: 04/04/18 15:28 RUDY DELMAR Discharge Date: 04/07/18 - Discharge Diagnosis (1) Chest pain not due to acute coronary syndrome Is this a current diagnosis for this admission?: Yes Summary: Patient will be discharged home on his preadmission mediation. His elevated Troponin I most likely was due to his ESRD on dialysis with less elimination. (2) ESRD on hemodialysis Is this a current diagnosis for this admission?: Yes (3) Anemia in CKD (chronic kidney disease) Is this a current diagnosis for this admission?: Yes (4) Hypertension Is this a current diagnosis for this admission?: Yes (5) HLD (hyperlipidemia) Is this a current diagnosis for this admission?: Yes (6) GERD (gastroesophageal reflux disease) Is this a current diagnosis for this admission?: Yes - Additional Information Discharge Activity: Activity As Tolerated Home Medications: Amlodipine Besylate [Norvasc 10 mg Tablet] 10 mg PO QAM 04/05/18 Carvedilol [Coreg 12.5 mg Tablet] 12.5 mg PO Q12 04/05/18 Clonidine HCl [Catapres 0.3 mg Tablet] 0.3 mg PO TID 04/05/18 Furosemide [Lasix 40 mg Tablet] 40 mg PO QAM 04/05/18 Pravastatin Sodium [Pravachol] 40 mg PO QHS 04/05/18 Promethazine HCl 12.5 mg PO Q4HP PRN 04/05/18 Ranitidine HCl [Zantac 150 mg Tablet] 150 mg PO Q6AM 04/05/18 History of Present Illness Patient complains of: Chest pain History of Present Illness: ANY STRONG is a 57 year old male known to my practice who was admitted on 04/03/18 to hospitalist program for chest pain and transferred to my service on 04/05/18 with his discharge on hold due to elevated Troponin level and need for further inpatient care. Patient reported chest pain that started in his retrosternal region and worsen with coughing and movement. Hospital Course Hospital Course: His cardiac enzymes did show downward trend and his pharmacologic stress test was negative for reversible ischemic changes. He had his dialysis as schedule for Thursday, Thursday, and Thursday. He will be discharge home today with plan for hemodialysis at [facility] today. He will follow up with his sales account manager and myself as instructed upon discharge. Physical Exam Vital Signs: Temp Pulse Resp BP Pulse Ox 98.0 F 53 L 18 107/59 L 93 04/07/18 07:20 04/07/18 07:20 04/07/18 07:20 04/07/18 07:20 04/07/18 07:20 Intake & Output 04/06/18 04/07/18 04/08/18 06:59 06:59 06:59 Intake Total 846.5 1037 Output Total 3100 Balance -2253.5 1037 Weight 110.1 kg 112 kg Physical Exam: General appearance: PRESENT: no acute distress, obese Head exam: PRESENT: atraumatic, normocephalic Eye exam: PRESENT: conjunctiva pink, EOMI, PERRLA. ABSENT: pallor, scleral icterus Ear exam: PRESENT: normal external ear exam Mouth exam: PRESENT: moist Respiratory exam: PRESENT: decreased breath sounds - at lung bases Cardiovascular exam: PRESENT: RRR. ABSENT: diastolic murmur, rubs, systolic murmur Vascular exam: PRESENT: normal capillary refill, other - right arm dialysis fistula bruit. GI/Abdominal exam: PRESENT: normal bowel sounds, soft. ABSENT: distended, guarding, mass, organomegaly, rebound, tenderness Extremities exam: ABSENT: pedal edema Musculoskeletal exam: PRESENT: normal inspection Neurological exam: PRESENT: alert, awake, oriented to person, oriented to place, oriented to time, oriented to situation, CN II-XII grossly intact. ABSENT: motor sensory deficit Skin exam: PRESENT: dry, warm Results Laboratory Results: 04/05/18 08:02 04/05/18 08:02 04/03/18 04/03/18 04/03/18 10:08 10:08 10:08 Creatine Kinase 57 CK-MB (CK-2) 1.34 Troponin I 0.145 NT-Pro-B Natriuret Pep [id number] H 04/03/18 04/03/18 04/03/18 14:46 14:46 21:10 Creatine Kinase 49 L 53 L CK-MB (CK-2) 1.39 Troponin I 0.141 NT-Pro-B Natriuret Pep 04/03/18 04/04/18 04/04/18 21:10 03:08 03:08 Creatine Kinase 55 CK-MB (CK-2) 1.76 2.14 Troponin I 0.177 0.201 NT-Pro-B Natriuret Pep 04/04/18 04/04/18 04/04/18 15:20 15:20 21:00 Creatine Kinase 68 49 L CK-MB (CK-2) 3.31 Troponin I 0.142 NT-Pro-B Natriuret Pep 04/04/18 04/05/18 04/05/18 21:00 03:22 03:22 Creatine Kinase 38 L CK-MB (CK-2) 2.74 2.27 Troponin I 0.129 0.110 NT-Pro-B Natriuret Pep Impressions: Chest X-Ray 04/03/18 10:14 IMPRESSION: LOW LUNG VOLUMES. NO SIGNIFICANT RADIOGRAPHIC FINDING IN THE CHES T. Chest CT 04/03/18 10:45 IMPRESSION: Small bilateral pleural effusions left greater than right. Cardiac enlargement. Coronary artery calcification. Small kidneys. Question right hydronephrosis. Qualifiers - * PATIENT BEING DISCHARGED WITH ANY OF THE FOLLOWING DIAGNOSIS: No Plan Discharge Plan: Discharge home today. Follow up in the office as instructed upon discharge.
[2018-04-07 08:56] VITALS: BP 117/58
[2018-04-07] MEDS: CLONIDINE HCL 0.2 MG TABLET PO SCH (09:23)
[2018-04-07] MEDS: NITROGLYCERIN 10 MG (0.4 MG/HR) PATCH.TD24 TD SCH (09:23)
[2018-04-07] MEDS: AMLODIPINE BESYLATE 10 MG TABLET PO SCH (09:24)
[2018-04-07] MEDS: CARVEDILOL 3.125 MG TABLET PO SCH (09:24)
[2018-04-07] MEDS: METOPROLOL SUCCINATE 25 MG TAB.SR.24H PO SCH (09:24)
[2018-04-07] MEDS: DOCUSATE SODIUM 100 MG CAPSULE PO SCH (09:25)
[2018-04-07] MEDS: ASPIRIN 325 MG TABLET PO SCH (09:25)
[2018-04-07] MEDS: FAMOTIDINE 20 MG TABLET PO SCH (09:25)
[2018-04-07] MEDS: SEVELAMER HCL 800 MG TABLET PO SCH (09:25)
--- NOTE | 2018-04-09 00:49 | DRAGON STRESS TEST REPORT ---
Intravenous Lexiscan Cardiolite stress test using single photon emmision computerized tomography. Date of procedure: 04/06/2018. Ordering Provider: Dr. Munson. Patient's status: In Patient. Indication: Chest pain. Coronary risk factors: Age, hypertension, and dyslipidemia. Patient has end-stage renal disease on hemodialysis. Resting EKG: Sinus rhythm T inversion in lead aVL only. Stress EKG: No changes of ischemia. The patient had no chest pain or discomfort, and there were no arrhythmias seen. Reason for termination: Protocol. Conclusions: Normal EKG and hemodynamic response to IV Lexiscan. Nuclear data: At rest the patient was given 16.30 millicuries of technetium 99m sestamibi injected intravenously. As per protocol rest non gated SPECT images were obtained. Subsequently the patient was given intravenous Lexiscan at a dose of 0.4 mg in 5 mL intravenously, followed by flush with normal saline. Subsequently the stress dose of 48.1 millicuries of technetium 99m sestamibi was injected intravenously. As per protocol stress gated images were obtained. Nuclear interpretation: Review of images showed that all segments of the myocardium had normal perfusion at rest, and normal perfusion post stress with IV Lexiscan. All segments of the myocardium had normal motion, contraction, and thickening by gated study. T. I D. ratio was normal at 1.10. There is no transient ischemic dilatation of the left ventricle. Computer read rest, and stress left ventricular ejection fraction were 48 %, and 49 %, respectively. Conclusion: 1. There is no scintigraphic evidence of Lexiscan induced myocardial ischemia. 2. There is no scintigraphic evidence of myocardial infarction/scar. Recommendations: 1. Check echo for LV ejection fraction correlation. 2. Aggressive risk factor modification, and treating the underlying co- morbidities. [facility]
== END 2018-04-07 09:45 | disposition home or self-care (01) | DRG 313 ==
LOC: ER 09:44 → EH 12:31 → 4N 17:56 → OBSVTOIN 04-04 15:28
PROVIDERS: ADMIT Internal Medicine Geriatric Medicine; ATTEND Internal Medicine Geriatric Medicine
PROC: 5A1D70Z Performance of Urinary Filtration, Intermittent, Less than 6 Hours Per Day (ICD-10-PCS; principal; 2018-04-05)
DX: R07.89 Other chest pain (principal); N18.6 End stage renal disease; I13.2 Hypertensive heart and chronic kidney disease with heart failure and with stage 5 chronic kidney disease, or end stage renal disease; I50.9 Heart failure, unspecified; E78.5 Hyperlipidemia, unspecified; D63.1 Anemia in chronic kidney disease; K21.9 Gastro-esophageal reflux disease without esophagitis; Z99.2 Dependence on renal dialysis; E66.9 Obesity, unspecified; R00.1 Bradycardia, unspecified; Z87.891 Personal history of nicotine dependence
CPT/HCPCS: 36415; 71045; 71250; 78452; 80048; 80053; 82550; 82553; 83880; 84484; 85025; 87040; 93005; 93010; 93017; 96374; 96375; 99291; A9500; G0378; J2405; J2550; J2785; J3010; J3490; Q4081; Q9969

== ENCOUNTER 2018-05-04 22:29 | Emergency (ER) | payer MEDICARE, MEDICAID ==
[2018-05-05] MEDS ORDERED: OXYCODONE-ACETAMINOPHEN 5-325 MG TABLET PO ONE (00:30)
[2018-05-05] MEDS ORDERED: ONDANSETRON 4 MG TAB.RAPDIS PO ONE (00:44)
--- NOTE | 2018-05-05 00:44 | RADIOLOGY REPORT (SQ) ---
EXAM DESCRIPTION: XR SHOULDER 2 OR MORE VIEWS COMPLETED DATE/TME: 05/04/2018 23:23 CLINICAL HISTORY: 57 years Male, pain COMPARISON: None. Findings: 0.7 cm left acromioclavicular joint space indicates mild acromioclavicular ligamentous injury/laxity. Mild osteoarthritis of the acromiohumeral joint. Bones, joints, and soft tissues of the LEFT XR SHOULDER 3 VIEWS appear otherwise intact. IMPRESSION: Mild left acromioclavicular ligamentous injury/laxity.
--- NOTE | 2018-05-05 01:43 | ER Document Report ---
ED General - General Chief Complaint: Shoulder Pain Stated Complaint: LEFT SHOULDER PAIN Time Seen by Provider: 05/05/18 00:22 Primary Care Provider: RUDY JACOBSEN MD [Primary Care Provider] - Follow up as needed TRAVEL OUTSIDE OF THE [place] IN LAST 30 DAYS: No - HPI Notes: Patient presents to the emergency department for evaluation of left shoulder pain. He states he had a similar episode a few weeks ago and it seemed to get better within a few hours. He states he woke with this. It is a sharp and shooting pain. He states it hurts significantly for him to move his left arm in any way. When his pain is severe he has nausea. No associated shortness of breath, diaphoresis, near syncope. Pain with this pain. He was last dialyzed last week. He is due again this week. He has no shortness of breath at all. - Related Data Allergies/Adverse Reactions: No Known Allergies Allergy (Verified 04/03/18 10:14) Past Medical History - General Information source: Patient - Social History Smoking Status: Former Smoker Family History: Reviewed & Not Pertinent Patient has suicidal ideation: No Patient has homicidal ideation: No - Past Medical History Cardiac Medical History: Reports: Hx Congestive Heart Failure, Hx Hypercholesterolemia, Hx Hypertension Endocrine Medical History: Denies: Hx Diabetes Mellitus Type 1 Renal/ Medical History: Reports: Hx End Stage Renal Disease. Denies: Hx Peritoneal Dialysis GI Medical History: Reports: Hx Gastroesophageal Reflux Disease Past Surgical History: Reports: Hx Appendectomy, Hx Cholecystectomy - Immunizations Hx Diphtheria, Pertussis, Tetanus Vaccination: Yes Review of Systems - Review of Systems Constitutional: No symptoms reported EENT: No symptoms reported Cardiovascular: No symptoms reported Respiratory: No symptoms reported Musculoskeletal: See HPI Physical Exam - Vital signs Vitals: Temp Pulse Resp BP Pulse Ox 98.7 F 95 16 208/87 H 99 05/04/18 23:20 05/04/18 23:20 05/04/18 23:20 05/04/18 23:20 05/04/18 23:20 Interpretation: Hypertensive - Notes Notes: Vital signs reviewed, please refer to chart. Patient is normocephalic, atraumatic. Pupils equal round, reactive to light. Neck is supple without meningismus. Heart is regular rate and rhythm. Lungs are clear to auscultation bilaterally. Abdomen is soft, nontender, normoactive bowel sounds throughout. Extremities without cyanosis, clubbing, edema. Peripheral pulses are equal. Skin is warm and dry. Patient is awake, alert, neurological exam is nonfocal. Examination of the left shoulder reveals no obvious deformity. He is tender to palpation over the trapezius and the anterior humeral head, and exquisitely tender down the anterior head of the biceps. Negative drawer sign, negative apprehension. Patient resists any sort of active range of motion of that left upper extremity secondary to pain. Radial pulses 2+. Capillary refill is brisk. Strength is plus 5 out of 5 balance wheel facer, patient declines to do any further strength testing secondary to pain. Course - Re-evaluation Re-evalutation: 05/05/18 01:41 Patient presents to the emergency department for evaluation of left shoulder pain. It sounds musculoskeletal in nature. It is reproducible. Patient is medicated here. There is some mild AC joint separation noted on x-ray but no other acute bony abnormality. Will refer him on to his primary care, possible MRI/referral on to orthopedist. He states he has seen one in the past. We did discuss his elevated blood pressure. He is due for dialysis tomorrow which is the likely cause. He states he will follow up regarding this with his primary care physician as well. He is to return to the ED with worsening or new concerning symptoms of any sort. 05/05/18 01:48 - Vital Signs Vital signs: Temp Pulse Resp BP Pulse Ox 98.7 F 95 20 184/77 H 95 05/04/18 23:20 05/04/18 23:20 05/05/18 01:22 05/05/18 01:22 05/05/18 01:22 - EKG Interpretation by Me Additional EKG results interpreted by me: 05/05/18 01:40 Sinus mechanism with a rate of 92 bpm. Normal axis and intervals, no acute ST-T wave changes concerning for ischemia or infarction. Discharge - Discharge Clinical Impression: Left shoulder pain Condition: Good Disposition: HOME, SELF-CARE Instructions: Shoulder Injury ([facility]) Additional Instructions: Take pain medication as needed for severe pain. Follow-up with your orthopedic doctor in 1-2 weeks if pain persist. Wear sling as needed for comfort. Be sure to practice range of motion intermittently to avoid frozen shoulder. Return to the emergency department with worsening or new concerning symptoms. Referrals: RUDY JACOBSEN MD [Primary Care Provider] - Follow up as needed
[2018-05-05 02:01] VITALS: BP 179/74
--- NOTE | 2018-05-05 07:36 | EKG REPORT ---
SEVERITY:- NORMAL ECG - SINUS RHYTHM : Confirmed by: Oanh Valdivia MD 05-May-2018 07:35:43
== END 2018-05-05 02:01 | disposition home or self-care (01) ==
LOC: ER 22:29
DX: S43.102A Unspecified dislocation of left acromioclavicular joint, initial encounter (principal); M25.512 Pain in left shoulder; X58.XXXA Exposure to other specified factors, initial encounter; R11.0 Nausea; I12.0 Hypertensive chronic kidney disease with stage 5 chronic kidney disease or end stage renal disease; N18.6 End stage renal disease; Z99.2 Dependence on renal dialysis; Z87.891 Personal history of nicotine dependence
CPT/HCPCS: 93005; 99283; 73030; 93010; A9270 ×2; S0119

== ENCOUNTER 2018-06-22 05:37 | Inpatient (IN) | payer MEDICARE, MEDICAID ==
--- NOTE | 2018-06-22 06:15 | ER Document Report ---
ED General - General Chief Complaint: Cough Stated Complaint: DIFFICULTY BREATHING,COUGH Time Seen by Provider: 06/22/18 06:01 TRAVEL OUTSIDE OF THE [place] IN LAST 30 DAYS: No - HPI Notes: Patient is a 57-year-old male that presents to the emergency department for chief complaint of shortness of breath and cough. Patient reports cough for the last month with increased shortness of breath starting yesterday. He does state he feels like there is something in the back of his throat that he cannot clear. He denies any associated fevers or chills. He states he has been sitting sleeping up right which seems to help. He denies any significant change in his lower extremity edema. Patient does receive dialysis Thursday and had a complete treatment yesterday. He denies increased sputum production and smoking. Patient states yesterday he started to have an aching in the left side of his chest that has been constant since onset. Past Medical History: Hypertension, end-stage renal disease on dialysis, hyperlipidemia, CHF Past Surgical History: Right upper extremity AV fistula Social History: Denies drugs alcohol and tobacco Family History: Reviewed and noncontributory for presenting illness Allergies: Reviewed, see documented allergy list. REVIEW OF SYSTEMS: CONSTITUTIONAL : No fever No chills No diaphoresis No recent illness EENT: No vision changes congestion No sore throat CARDIOVASCULAR: chest pain No palpitations RESPIRATORY: shortness of breath cough difficulty breathing GASTROINTESTINAL: No abdominal pain No nausea No vomiting No diarrhea GENITOURINARY: No dysuria No hematuria No difficulty urinating MUSCULOSKELETAL: No back pain No leg pain No arm pain SKIN: No rashes No lesions LYMPHATIC: No swollen, enlarged glands. NEUROLOGICAL: No lightheadedness No headache No weakness No paresthesias PSYCHIATRIC: No anxiety No depression PHYSICAL EXAMINATION: Vital signs reviewed, nursing noted reviewed. GENERAL: Well-appearing, well-nourished and in no acute distress. HEAD: Atraumatic, normocephalic. EYES: Eyes appear normal, extraocular movements intact, sclera anicteric, conjunctiva are normal. ENT: nares patent, oropharynx clear without exudates. Moist mucous membranes. NECK: Normal range of motion, supple without lymphadenopathy LUNGS: Breath sounds significantly diminished on the left. Diminished and wheezing on the right. Mild tachypnea. Mild accessory muscle use HEART: Tachycardic rate and regular rhythm without murmurs ABDOMEN: Soft, nontender, normoactive bowel sounds. No rebound, guarding, or rigidity. No masses appreciated. EXTREMITIES: Nontender, good range of motion, +2 pitting edema bilateral lower extremities NEUROLOGICAL: No focal neurological deficits. Moves all extremities spontaneously Motor and sensory grossly intact on exam. PSYCH: Normal mood, normal affect. SKIN: Warm, Dry, normal turgor, no rashes or lesions noted on exposed skin - Related Data Allergies/Adverse Reactions: No Known Allergies Allergy (Verified 06/22/18 05:39) Past Medical History - Social History Smoking Status: Unknown if Ever Smoked Family History: Reviewed & Not Pertinent Patient has suicidal ideation: No Patient has homicidal ideation: No - Past Medical History Cardiac Medical History: Reports: Hx Congestive Heart Failure, Hx Hyperchole sterolemia, Hx Hypertension Endocrine Medical History: Denies: Hx Diabetes Mellitus Type 1 Renal/ Medical History: Reports: Hx End Stage Renal Disease. Denies: Hx Peritoneal Dialysis GI Medical History: Reports: Hx Gastroesophageal Reflux Disease Past Surgical History: Reports: Hx Appendectomy, Hx Cholecystectomy - Immunizations Hx Diphtheria, Pertussis, Tetanus Vaccination: Yes Physical Exam - Vital signs Vitals: Temp Pulse Resp BP Pulse Ox 98.1 F 107 H 22 H 166/80 H 95 06/22/18 05:42 06/22/18 05:42 06/22/18 05:42 06/22/18 05:42 06/22/18 05:42 Course - Re-evaluation Re-evalutation: 06/22/18 07:37 Vitals reviewed. Nursing notes reviewed. Patient is oxygenating well on 2 L nasal cannula but does have increased work of breathing. His x-ray shows a large left pleural effusion. Patient has no leukocytosis or fever and I do not clinically suspect underlying infection. He is not currently requiring antibiotics. He did receive a full dialysis treatment yesterday. I discussed his care with Dr. Barahona who will admit him to the hospital for thoracentesis today and discharge in the morning so he can obtain his dialysis tomorrow as an outpatient. Patient is in agreement with this plan of care and stable at time of admission Laboratory 06/22/18 06/22/18 06/22/18 06:17 06:17 06:17 WBC 8.3 RBC 2.48 L Hgb 7.1 L Hct 21.9 L MCV 88 MCH 28.5 MCHC 32.3 RDW 17.5 H Plt Count 337 Seg Neutrophils % 80.3 H Lymphocytes % 8.5 L Monocytes % 6.6 Eosinophils % 3.3 Basophils % 1.3 Absolute Neutrophils 6.6 Absolute Lymphocytes 0.7 Absolute Monocytes 0.5 Absolute Eosinophils 0.3 Absolute Basophils 0.1 Sodium 141.7 Potassium 4.6 Chloride 100 Carbon Dioxide 26 Anion Gap 16 BUN 48 H Creatinine 12.25 H Est GFR ( Amer) 5 L Est GFR (Non-Af Amer) 4 L Glucose 109 Calcium 9.3 Total Bilirubin 0.5 Direct Bilirubin 0.5 H Neonat Total Bilirubin Not Reportable Neonat Direct Bilirubin Not Reportable Neonat Indirect Bili Not Reportable AST 13 L ALT 21 Alkaline Phosphatase 90 Troponin I 0.046 NT-Pro-B Natriuret Pep 17993 H Total Protein 7.3 Albumin 4.0 Chest X-Ray 06/22/18 06:01 IMPRESSION: 1. Large left pleural effusion. 2. Suspect trace right pleural effusion. 3. Suspect cardiomegaly. - Vital Signs Vital signs: Temp Pulse Resp BP Pulse Ox 98.1 F 107 H 36 H 176/75 H 97 06/22/18 05:42 06/22/18 05:42 06/22/18 06:01 06/22/18 06:01 06/22/18 06:01 - Laboratory Result Diagrams: 06/22/18 06:17 06/22/18 06:17 Laboratory results interpreted by me: 06/22/18 06/22/18 06/22/18 06:17 06:17 06:17 RBC 2.48 L Hgb 7.1 L Hct 21.9 L RDW 17.5 H Seg Neutrophils % 80.3 H Lymphocytes % 8.5 L BUN 48 H Creatinine 12.25 H Est GFR ( Amer) 5 L Est GFR (Non-Af Amer) 4 L Direct Bilirubin 0.5 H AST 13 L NT-Pro-B Natriuret Pep 01264 H - EKG Interpretation by Me Additional EKG results interpreted by me: 06/22/18 06:15 Interpreted by myself [id number]: Sinus tachycardia, rate 101, normal axis, no ectopy, no STEMI, nonspecific T wave abnormalities Discharge - Discharge Clinical Impression: Pleural effusion, left Dyspnea Qualifiers: Dyspnea type: unspecified Qualified Code(s): R06.00 - Dyspnea, unspecified Condition: Stable Disposition: ADMITTED OBSERVATION Admitting Provider: [facility] Admitted: Telemetry
[2018-06-22 06:29] LABS: ABSOLUTE BASOPHILS # (AUTO) 0.1 10^3/uL (0.0-0.2); ABSOLUTE EOSINOPHILS # (AUTO) 0.3 10^3/uL (0.0-0.6); ABSOLUTE LYMPHOCYTES (AUTO) 0.7 10^3/uL (0.5-4.7); ABSOLUTE MONOCYTES (AUTO) 0.5 10^3/uL (0.1-1.4); ABSOLUTE NEUT (AUTO) 6.6 10^3/uL (1.7-8.2); BASOPHILS % (AUTO) 1.3 % (0-2); EOSINOPHILS % (AUTO) 3.3 % (0-6); HEMATOCRIT 21.9 % (37.9-51.0); LYMPHOCYTES % (AUTO) 8.5 % (13-45); MEAN CORPUSCULAR HEMOGLOBIN 28.5 pg (27.0-33.4); MEAN CORPUSCULAR HGB CONC 32.3 g/dL (32.0-36.0); MEAN CORPUSCULAR VOLUME 88 fl (80-97); MONOCYTES % (AUTO) 6.6 % (3-13); PLATELET COUNT 337 10^3/uL (150-450); RED BLOOD COUNT 2.48 10^6/uL (4.35-5.55); RED CELL DISTRIBUTION WIDTH 17.5 % (11.5-14.0); SEGMENTED NEUTROPHILS % (AUTO) 80.3 % (42-78); TOTAL CELLS COUNTED % (AUTO) 100 %; WHITE BLOOD COUNT 8.3 10^3/uL (4.0-10.5)
[2018-06-22 06:31] LABS: HEMOGLOBIN 7.1 g/dL (13.5-17.0)
[2018-06-22 06:37] LABS: ALANINE AMINOTRANSFERASE 21 U/L (21-72); ALKALINE PHOSPHATASE 90 U/L (38-126); ANION GAP 16 (5-19); ASPARTATE AMINO TRANSFERASE 13 U/L (17-59); BILIRUBIN,DIRECT 0.5 mg/dL (0.0-0.4); BILIRUBIN,TOTAL 0.5 mg/dL (0.2-1.3); BLOOD UREA NITROGEN 48 mg/dL (7-20); CALCIUM 9.3 mg/dL (8.4-10.2); CARBON DIOXIDE 26 mmol/L (22-30); CHLORIDE 100 mmol/L (98-107); GLUCOSE 109 mg/dL (75-110); POTASSIUM 4.6 mmol/L (3.6-5.0); SODIUM 141.7 mmol/L (137-145); TOTAL PROTEIN 7.3 g/dL (6.3-8.2)
[2018-06-22 07:00] LABS: TROPONIN I 0.046 ng/mL
--- NOTE | 2018-06-22 07:23 | RADIOLOGY REPORT (SQ) ---
EXAM DESCRIPTION: X-ray two view chest. CLINICAL HISTORY: 57 years Male, cough COMPARISON: Prior CT chest performed on 04/03/2018 TECHNIQUE: PA and Lateral views of the chest performed on 06/22/2018 at 7:01 AM FINDINGS: There is moderate opacification of the left inferior hemithorax due to a large pleural effusion. There is likely underlying compressive atelectasis. The right lung is well-expanded. There is trace blunting of the right lateral and posterior costophrenic sulci suggesting a small right pleural effusion. The right lung is otherwise grossly clear. There is no evidence of a pneumothorax. The cardiac silhouette is partially obscured by pathology in the left lung. The cardiac silhouette appears enlarged. The mediastinal contours are normal. No acute osseous abnormalities are identified. No focal soft tissue abnormalities are identified. IMPRESSION: 1. Large left pleural effusion. 2. Suspect trace right pleural effusion. 3. Suspect cardiomegaly.
--- NOTE | 2018-06-22 07:56 | EKG REPORT ---
SEVERITY:- ABNORMAL ECG - SINUS TACHYCARDIA NONSPECIFIC T ABNORMALITIES, LATERAL LEADS : Confirmed by: Fabian Dominguez MD 22-Jun-2018 07:55:34
[2018-06-22] MEDS ORDERED: MORPHINE SULFATE 10 MG/ML INJ IV ONE (08:11)
[2018-06-22 08:24] LABS: INTERNATIONAL RATION (INR) 1.01; PARTIAL THROMBOPLASTIN TIME 38.4 SEC (23.5-35.8); PROTHROMBIN TIME 13.8 SEC (11.4-15.4)
[2018-06-22] MEDS: FAMOTIDINE 20 MG TABLET PO SCH ×2 (09:49→22:44)
[2018-06-22] MEDS: FUROSEMIDE INJ/PF 20 MG/2 ML SDV IV SCH (09:49)
[2018-06-22] MEDS: CARVEDILOL 12.5 MG TABLET PO SCH ×2 (09:50→22:44)
[2018-06-22] MEDS: CLONIDINE HCL 0.2 MG TABLET PO SCH ×2 (09:50→22:44)
[2018-06-22] MEDS: AMLODIPINE BESYLATE 10 MG TABLET PO SCH (09:50)
--- NOTE | 2018-06-22 15:48 | RADIOLOGY REPORT (SQ) ---
EXAM DESCRIPTION: CHEST SINGLE VIEW COMPLETED DATE/TIME: 06/22/2018 3:40 pm REASON FOR STUDY: S/P LT THORACENTESIS COMPARISON: Earlier the same day. EXAM PARAMETERS: NUMBER OF VIEWS: One view. TECHNIQUE: Single frontal radiographic view of the chest acquired. RADIATION DOSE: NA LIMITATIONS: None. FINDINGS: LUNGS AND PLEURA: Persistent large left pleural effusion. No pneumothorax. There is a sm all right effusion. MEDIASTINUM AND HILAR STRUCTURES: No masses. Contour normal. HEART AND VASCULAR STRUCTURES: Difficult to evaluate but appears enlarged. BONES: No acute findings. HARDWARE: None in the chest. OTHER: No other significant finding. IMPRESSION: Large left pleural effusion. No pneumothorax following thoracentesis. Small right effu cathy. TECHNICAL DOCUMENTATION: JOB ID: [id number] [employer]- All Rights Reserved Reading location - IP/workstation name: [email or web address]
--- NOTE | 2018-06-22 16:13 | RADIOLOGY REPORT (SQ) ---
EXAM DESCRIPTION: U/S THORACENTESIS WITH IMAGING COMPLETED DATE/TIME: 06/22/2018 3:54 pm REASON FOR STUDY: Large left Pleural Effusion J90 PLEURAL EFFUSION, NOT ELSEWHERE CLASSIFIED I12.0 HYP CHR KIDNEY DISEASE W STAGE 5 CHR KIDNEY DISEASE OR COMPARISON: None. LIMITATIONS: None. PROCEDURE: Procedure, risks, benefit, and alternative explained to patient who then gave written con sent. The posterior left chest wall was marked using ultrasound guidance. A time-out was called for correct marking verification. Chest prepped and draped using sterile technique. Local anesthesia ac hieved using 10 ml of 1% lidocaine injection. A 6fr Safe-T- Centesis set was introduced into the lef t pleural space. Fluid was aspirated. The catheter was removed and the entry site was covered with sterile bandage. No immediate complications noted. Images acquired during the procedure were stored on PACS. FINDINGS: ENTRY SITE: posterior left chest. FLUID VOLUME: 900 mL. FLUID ANALYSIS: Clear eddie colored fluid. OTHER: Fluid sent to the lab for testing. IMPRESSION: SUCCESSFUL THORACENTESIS USING ULTRASOUND GUIDANCE. COMMENT: Patient medication list reviewed: Yes- Quality ID# [id number]:Eligible professional attests to doc umenting in the medical record they obtained, updated, or reviewed the patient's current medications. TECHNICAL DOCUMENTATION: JOB ID: [id number] [email or web address]- All Rights Reserved Reading location - IP/workstation name: [email or web address]
[2018-06-22 16:30] LABS: FLUID SOURCE LUNG; FLUID TYPE PLEURAL
[2018-06-22 16:31] LABS: FLUID APPEARANCE SLIGHTLY HAZY; FLUID COLOR DARK YELLOW; FLUID VISCOSITY LIQUID
--- NOTE | 2018-06-22 17:57 | RADIOLOGY REPORT (SQ) ---
EXAM DESCRIPTION: CHEST SINGLE VIEW COMPLETED DATE/TIME: 06/22/2018 5:49 pm REASON FOR STUDY: S/P LT THORACENTESIS J90 PLEURAL EFFUSION, NOT ELSEWHERE CLASSIFIED I12.0 HYP CH R KIDNEY DISEASE W STAGE 5 CHR KIDNEY DISEASE OR COMPARISON: Earlier the same day. NUMBER OF VIEWS: One view. TECHNIQUE: Single frontal radiographic image of the chest acquired. LIMITATIONS: None. FINDINGS: LUNGS AND PLEURA: Stable appearance. No pneumothorax 2 hours following thoracentesis. Pe rsistent large left pleural effusion. MEDIASTINUM AND HILAR STRUCTURES: Stable heart size and mediastinal structures. HEART AND VASCULAR STRUCTURES: Stable appearance. BONES: No acute findings. HARDWARE: None in the chest. OTHER: No other significant finding. IMPRESSION: STABLE APPEARANCE OF THE CHEST. TECHNICAL DOCUMENTATION: JOB ID: [id number] [employer]- All Rights Reserved Reading location - IP/workstation name: [email or web address]
[2018-06-22] MEDS ORDERED: FUROSEMIDE INJ/PF 40 MG/4 ML SDV IV ONE (20:00)
[2018-06-22 20:09] LABS: ABSOLUTE BASOPHILS # (AUTO) 0.1 10^3/uL (0.0-0.2); ABSOLUTE EOSINOPHILS # (AUTO) 0.2 10^3/uL (0.0-0.6); ABSOLUTE LYMPHOCYTES (AUTO) 0.8 10^3/uL (0.5-4.7); ABSOLUTE MONOCYTES (AUTO) 0.9 10^3/uL (0.1-1.4); BASOPHILS % (AUTO) 0.7 % (0-2); EOSINOPHILS % (AUTO) 1.4 % (0-6); HEMATOCRIT 19.5 % (37.9-51.0); MEAN CORPUSCULAR HEMOGLOBIN 28.6 pg (27.0-33.4); MEAN CORPUSCULAR HGB CONC 32.1 g/dL (32.0-36.0); MEAN CORPUSCULAR VOLUME 89 fl (80-97); MONOCYTES % (AUTO) 8.6 % (3-13); PLATELET COUNT 274 10^3/uL (150-450); RED CELL DISTRIBUTION WIDTH 17.1 % (11.5-14.0); SEGMENTED NEUTROPHILS % (AUTO) 82.3 % (42-78); TOTAL CELLS COUNTED % (AUTO) 100 %
[2018-06-22 20:13] LABS: HEMOGLOBIN 6.3 g/dL (13.5-17.0)
[2018-06-23] MEDS ORDERED: NORMAL SALINE 1000 ML 1,000 ML IV PRN (05:00)
[2018-06-23 06:15] LABS: HEMATOCRIT 18.4 % (37.9-51.0); MEAN CORPUSCULAR HEMOGLOBIN 28.5 pg (27.0-33.4); MEAN CORPUSCULAR HGB CONC 31.7 g/dL (32.0-36.0); MEAN CORPUSCULAR VOLUME 90 fl (80-97); PLATELET COUNT 270 10^3/uL (150-450); RED BLOOD COUNT 2.05 10^6/uL (4.35-5.55); RED CELL DISTRIBUTION WIDTH 16.9 % (11.5-14.0); WHITE BLOOD COUNT 7.2 10^3/uL (4.0-10.5)
[2018-06-23 06:18] LABS: HEMOGLOBIN 5.8 g/dL (13.5-17.0)
[2018-06-23 06:31] LABS: ANION GAP 11 (5-19); BLOOD UREA NITROGEN 58 mg/dL (7-20); CALCIUM 8.7 mg/dL (8.4-10.2); CARBON DIOXIDE 28 mmol/L (22-30); CHLORIDE 97 mmol/L (98-107); GLUCOSE 91 mg/dL (75-110); POTASSIUM 5.2 mmol/L (3.6-5.0); SODIUM 136.1 mmol/L (137-145)
--- NOTE | 2018-06-23 07:57 | PDOC PROGRESS REPORT ---
Subjective Progress Note for:: 06/23/18 Subjective:: No chest pain. SOB improving but not with exertion. No leg swelling. Patient denied any tarry or blood stool. [place] normal about 5-6 years ago. No abdominal pain, nausea or vomiting. No fever or chills. Patient reported completion of cardiac stress test at this facility couple of years ago. Reason For Visit: PLEURAL EFFUSION Physical Exam Vital Signs: Temp Pulse Resp BP Pulse Ox 98.5 F 59 L 20 117/64 98 06/23/18 04:28 06/23/18 04:28 06/23/18 04:28 06/23/18 04:28 06/23/18 04:28 Intake & Output 06/22/18 06/23/18 06/24/18 06:59 06:59 06:59 Intake Total 222 Output Total 0 Balance 222 Weight 108.2 kg 105.4 kg General appearance: PRESENT: no acute distress, well-developed, well-nourished Head exam: PRESENT: atraumatic, normocephalic Eye exam: ABSENT: scleral icterus Ear exam: PRESENT: normal external ear exam Mouth exam: PRESENT: moist Respiratory exam: PRESENT: clear to auscultation lew, decreased breath sounds - at lung bases Cardiovascular exam: PRESENT: RRR, +S1, +S2. ABSENT: diastolic murmur, rubs, systolic murmur Vascular exam: PRESENT: pallor GI/Abdominal exam: PRESENT: normal bowel sounds, soft. ABSENT: distended, guarding, mass, organolmegaly, rebound, tenderness Extremities exam: ABSENT: pedal edema Neurological exam: PRESENT: alert, awake, oriented to person, oriented to place, oriented to time, oriented to situation, CN II-XII grossly intact. ABSENT: motor sensory deficit Psychiatric exam: PRESENT: appropriate affect, normal mood. ABSENT: homicidal ideation, suicidal ideation Skin exam: PRESENT: dry, warm Results Laboratory Results: 06/23/18 05:44 06/23/18 05:44 06/22/18 06/22/18 06/22/18 15:15 19:55 20:43 WBC 11.0 H RBC 2.20 L Hgb 6.3 L Hct 19.5 L MCV 89 MCH 28.6 MCHC 32.1 RDW 17.1 H Plt Count 274 Seg Neutrophils % 82.3 H Lymphocytes % 7.0 L Monocytes % 8.6 Eosinophils % 1.4 Basophils % 0.7 Absolute Neutrophils 9.0 H Absolute Lymphocytes 0.8 Absolute Monocytes 0.9 Absolute Eosinophils 0.2 Absolute Basophils 0.1 Sodium Potassium Chloride Carbon Dioxide Anion Gap BUN Creatinine Est GFR ( Amer) Est GFR (Non-Af Amer) Glucose Calcium Fluid Type PLEURAL Fluid Source LUNG Fluid Color DARK YELLOW Fluid Appearance SLIGHTLY HAZY Fluid Viscosity LIQUID Fluid WBC 0 Fluid RBC 29440 Blood Type A POSITIVE Antibody Screen NEGATIVE 06/23/18 06/23/18 05:44 05:44 WBC 7.2 RBC 2.05 L Hgb 5.8 L Hct 18.4 L MCV 90 MCH 28.5 MCHC 31.7 L RDW 16.9 H Plt Count 270 Seg Neutrophils % Lymphocytes % Monocytes % Eosinophils % Basophils % Absolute Neutrophils Absolute Lymphocytes Absolute Monocytes Absolute Eosinophils Absolute Basophils Sodium 136.1 L Potassium 5.2 H Chloride 97 L Carbon Dioxide 28 Anion Gap 11 BUN 58 H Creatinine 13.53 H Est GFR ( Amer) 5 L Est GFR (Non-Af Amer) 4 L Glucose 91 Calcium 8.7 Fluid Type Fluid Source Fluid Color Fluid Appearance Fluid Viscosity Fluid WBC Fluid RBC Blood Type Antibody Screen 06/22/18 06:17 Troponin I 0.046 NT-Pro-B Natriuret Pep 09771 H Impressions: Thoracentesis Ultrasound 06/22/18 00:00 IMPRESSION: SUCCESSFUL THORACENTESIS USING ULTRASOUND GUIDANCE. Chest X-Ray 06/22/18 17:30 IMPRESSION: STABLE APPEARANCE OF THE CHEST. Assessment & Plan - Diagnosis (1) Pleural effusion, left Is this a current diagnosis for this admission?: Yes (2) Anemia in CKD (chronic kidney disease) Qualifiers: Chronic kidney disease stage: on chronic dialysis Qualified Code(s): N18.6 - End stage renal disease; D63.1 - Anemia in chronic kidney disease; D63.1 - Anemia in chronic kidney disease; Z99.2 - Dependence on renal dialysis; Z99.2 - Dependence on renal dialysis; Z99.2 - Dependence on renal dialysis; Z99.2 - Dependence on renal dialysis Is this a current diagnosis for this admission?: Yes Plan: Type and cross 2 units PRBC for transfusion during hemodialysis today. (3) Chest pain Qualifiers: Chest pain type: unspecified Qualified Code(s): R07.9 - Chest pain, unspecified Is this a current diagnosis for this admission?: Yes (4) ESRD on hemodialysis Is this a current diagnosis for this admission?: Yes (5) Hypertension Qualifiers: Hypertension type: unspecified Qualified Code(s): I10 - Essential (primary) hypertension Is this a current diagnosis for this admission?: Yes (6) Chronic diastolic CHF (congestive heart failure), NYHA class 3 Is this a current diagnosis for this admission?: Yes Plan: Obtain complete echocardiogram in view of his persistent large left pleural effusion and elevated NT-Pro BNP although the latter may be due to his ESRD. (7) HLD (hyperlipidemia) Qualifiers: Hyperlipidemia type: unspecified Qualified Code(s): E78.5 - Hyperlipidemia, unspecified Is this a current diagnosis for this admission?: Yes - Time Time Spent with patient: 25-34 minutes Medications reviewed and adjusted accordingly: Yes Anticipated discharge: Home Within: Other - Inpatient Certification Based on my medical assessment, after consideration of the patient's comorbidities, presenting symptoms, or acuity I expect that the services needed warrant INPATIENT care.: Yes I certify that my determination is in accordance with my understanding of Medicare's requirements for reasonable and necessary INPATIENT services [42 CFR 412.3e].: Yes Medical Necessity: Significant Comorbidiites Make Outpatient Treatment Too Risky, Need Close Monitoring Due to Risk of Patient Decompensation, Risk of Complication if Not Cared For in Hospital, Risk of Diagnosis Which Will Require Inpatient Eval/Care/Monitoring 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 Chen for possible dialysis and PRBC transfusion while on dialysis. Obtain complete echocardiogram for function and structural evaluation of the heart. Change his admission status to full inpatient due to rapid decline in his hemoglobin. Obtain stool occult blood test. Continue all other current medication management.
--- NOTE | 2018-06-23 14:39 | RADIOLOGY REPORT (SQ) ---
EXAM DESCRIPTION: CHEST 2 VIEWS COMPLETED DATE/TIME: 06/23/2018 2:16 pm REASON FOR STUDY: post left thoracentesis, lew. pleural effusion COMPARISON: 06/22/2018 EXAM PARAMETERS: NUMBER OF VIEWS: two views TECHNIQUE: Digital Frontal and Lateral radiographic views of the chest acquired. RADIATION DOSE: NA LIMITATIONS: none FINDINGS: LUNGS AND PLEURA: Persistent large left pleural effusion in basilar consolidation. Mildly improved aeration of the upper lung compared to prior. Unchanged small right pleural effusion. No appreciable pneumothorax. MEDIASTINUM AND HILAR STRUCTURES: Stable. HEART AND VASCULAR STRUCTURES: Partially obscured, stable. BONES: No acute findings. HARDWARE: None in the chest. OTHER: No other significant finding. IMPRESSION: Mildly improved aeration of the left mid lung with persistent moderate to large effusion . TECHNICAL DOCUMENTATION: JOB ID: [id number] [employer]- All Rights Reserved Reading location - IP/workstation name: [email or web address]
[2018-06-23] MEDS: CLONIDINE HCL 0.2 MG TABLET PO SCH (15:14)
[2018-06-23] MEDS: CARVEDILOL 12.5 MG TABLET PO SCH (15:14)
[2018-06-23] MEDS: FUROSEMIDE INJ/PF 20 MG/2 ML SDV IV SCH (15:15)
[2018-06-23] MEDS: AMLODIPINE BESYLATE 10 MG TABLET PO SCH (15:15)
[2018-06-23] MEDS: FAMOTIDINE 20 MG TABLET PO SCH (15:16)
--- NOTE | 2018-06-23 18:22 | PDOC H&P ---
History of Present Illness Admission Date/PCP: 06/22/18 07:50 RUDY DELMAR Patient complains of: DIFFICULTY BREATHING,COUGH History of Present Illness: ANY STRONG is a 57 year old male patient known to my practice who presented to the ED with worsening shortness of breath and difficulty laying down to sleep. He reported worsening cough and orthopnea over last couple of days due to difficulty even with ambulation in his home from shortness of breath he decided to seek further evaluation in the ED. He has ESRD on hemodialysis and had a session at [facility] [place] a day prior to his presentation. He denied any palpitation but reported chest discomfort with coughing earlier that has minimally improved. He reported compliance with his medication ad dietary restrictions. He denied cigarette smoking or alcohol abuse. He denied any significant sputum production, fever or chills. No nausea, vomiting or abdominal pain. His urine output remain fairly stable. His initial ED evaluation was significant for tachypnea, bilateral pleural effusion, left >> right on his chest x ray, anemia, elevated NT Pro-BNP and elevated serum creatinine related to his ESRD on hemodialysis support. His morbidities include chronic CHF, HTN, Hyperlipidemia, ESRD on dialysis, and GERD. He was advised hospitalization to observation bed for further evaluation and management. Past Medical History Cardiac Medical History: Reports: Congestive Heart Failure, Hyperlipidema, Hypertension Endocrine Medical History: Denies: Diabetes Mellitus Type 1 Renal/ Medical History: Reports: End Stage Renal Disease GI Medical History: Reports: Gastroesophageal Reflux Disease Past Surgical History Past Surgical History: Reports: Appendectomy, Cholecystectomy Social History Smoking Status: Unknown if Ever Smoked Frequency of Alcohol Use: None Hx Recreational Drug Use: No Drugs: None Hx Prescription Drug Abuse: No - Advance Directive Resuscitation Status: Full Code Family History Family History: Reviewed & Not Pertinent Parental Family History Reviewed: Yes Children Family History Reviewed: Yes Sibling(s) Family History Reviewed.: Yes Medication/Allergy Home Medications: Amlodipine Besylate [Norvasc 10 mg Tablet] 10 mg PO QAM 04/05/18 Carvedilol [Coreg 12.5 mg Tablet] 12.5 mg PO Q12 04/05/18 Clonidine HCl [Catapres 0.3 mg Tablet] 0.3 mg PO TID 04/05/18 Furosemide [Lasix 40 mg Tablet] 40 mg PO QAM 04/05/18 Pravastatin Sodium [Pravachol] 40 mg PO QHS 04/05/18 Promethazine HCl 12.5 mg PO Q4HP PRN 04/05/18 Ranitidine HCl [Zantac 150 mg Tablet] 150 mg PO Q6AM 04/05/18 Oxycodone HCl/Acetaminophen [Percocet 5-325 mg Tablet] 1 tab PO Q4H PRN #8 tablet 05/05/18 Allergies/Adverse Reactions: No Known Allergies Allergy (Verified 06/22/18 05:39) Review of Systems Constitutional: ABSENT: chills, fever(s), headache(s), weight gain, weight loss Eyes: ABSENT: visual disturbances Ears: ABSENT: hearing changes Nose, Mouth, and Throat: ABSENT: as per HPI, headache(s), mouth pain, sore throat, vertigo Cardiovascular: PRESENT: chest pain, dyspnea on exertion, orthropnea Respiratory: PRESENT: cough, dyspnea, other. ABSENT: as per HPI, hemoptysis, sputum Gastrointestinal: ABSENT: abdominal pain, constipation, diarrhea, hematemesis, hematochezia, nausea, vomiting Genitourinary: ABSENT: dysuria, hematuria Musculoskeletal: ABSENT: joint swelling Integumentary: ABSENT: rash, wounds Neurological: ABSENT: abnormal gait, abnormal speech, confusion, dizziness, focal weakness, syncope Psychiatric: ABSENT: anxiety, depression, homidical ideation, suicidal ideation Endocrine: ABSENT: cold intolerance, heat intolerance, polydipsia, polyuria Hematologic/Lymphatic: ABSENT: easy bleeding, easy bruising, lymphadenopathy Allergic/Immunologic: ABSENT: seasonal rhinorrhea Physical Exam Vital Signs: Temp Pulse Resp BP Pulse Ox 98.1 F 107 H 36 H 176/75 H 97 06/22/18 05:42 06/22/18 05:42 06/22/18 06:01 06/22/18 06:01 06/22/18 06:01 Intake & Output 06/21/18 06/22/18 06/23/18 06:59 06:59 06:59 Weight 108.2 kg General appearance: PRESENT: mild distress - sitting up in recliner chair Head exam: PRESENT: atraumatic, normocephalic Eye exam: PRESENT: conjunctiva pink, EOMI, PERRLA. ABSENT: scleral icterus Ear exam: PRESENT: normal external ear exam Mouth exam: PRESENT: moist Neck exam: PRESENT: full ROM. ABSENT: carotid bruit, JVD, lymphadenopathy, thyromegaly Respiratory exam: PRESENT: decreased breath sounds - at lung bases, tachypnea Cardiovascular exam: PRESENT: RRR, +S1, +S2. ABSENT: diastolic murmur, rubs, systolic murmur Vascular exam: ABSENT: pallor GI/Abdominal exam: PRESENT: normal bowel sounds, soft. ABSENT: distended, guarding, mass, organolmegaly, rebound, tenderness Rectal exam: PRESENT: deferred Gentrourinary exam: ABSENT: scrotal swelling Extremities exam: ABSENT: pedal edema Musculoskeletal exam: PRESENT: normal inspection Neurological exam: PRESENT: alert, awake, oriented to person, oriented to place, oriented to time, oriented to situation, CN II-XII grossly intact. ABSENT: motor sensory deficit Psychiatric exam: PRESENT: appropriate affect, normal mood. ABSENT: homicidal ideation, suicidal ideation Skin exam: PRESENT: dry, warm Results Laboratory Results: 06/22/18 06:17 06/22/18 06:17 06/22/18 06/22/18 06:17 06:17 WBC 8.3 RBC 2.48 L Hgb 7.1 L Hct 21.9 L MCV 88 MCH 28.5 MCHC 32.3 RDW 17.5 H Plt Count 337 Seg Neutrophils % 80.3 H Lymphocytes % 8.5 L Monocytes % 6.6 Eosinophils % 3.3 Basophils % 1.3 Absolute Neutrophils 6.6 Absolute Lymphocytes 0.7 Absolute Monocytes 0.5 Absolute Eosinophils 0.3 Absolute Basophils 0.1 Sodium 141.7 Potassium 4.6 Chloride 100 Carbon Dioxide 26 Anion Gap 16 BUN 48 H Creatinine 12.25 H Est GFR ( Amer) 5 L Est GFR (Non-Af Amer) 4 L Glucose 109 Calcium 9.3 Total Bilirubin 0.5 AST 13 L ALT 21 Alkaline Phosphatase 90 Total Protein 7.3 Albumin 4.0 06/22/18 06:17 Troponin I 0.046 NT-Pro-B Natriuret Pep [id number] H Impressions: Chest X-Ray 06/22/18 06:01 IMPRESSION: 1. Large left pleural effusion. 2. Suspect trace right pleural effusion. 3. Suspect cardiomegaly. Assessment & Plan - Diagnosis (1) Pleural effusion, left Is this a current diagnosis for this admission?: Yes Plan: See admitting attending physician orders. (2) Anemia in CKD (chronic kidney disease) Qualifiers: Chronic kidney disease stage: on chronic dialysis Qualified Code(s): N18.6 - End stage renal disease; D63.1 - Anemia in chronic kidney disease; D63.1 - Anemia in chronic kidney disease; Z99.2 - Dependence on renal dialysis; Z99.2 - Dependence on renal dialysis; Z99.2 - Dependence on renal dialysis; Z99.2 - Dependence on renal dialysis Plan: See admitting attending physician orders. (3) Chest pain Qualifiers: Chest pain type: unspecified Qualified Code(s): R07.9 - Chest pain, unspecified Is this a current diagnosis for this admission?: Yes Plan: See admitting attending physician orders. (4) ESRD on hemodialysis Is this a current diagnosis for this admission?: Yes Plan: See admitting attending physician orders. (5) Hypertension Qualifiers: Hypertension type: unspecified Qualified Code(s): I10 - Essential (primary) hypertension Is this a current diagnosis for this admission?: Yes Plan: See admitting attending physician orders. (6) Chronic diastolic CHF (congestive heart failure), NYHA class 3 Is this a current diagnosis for this admission?: Yes Plan: See admitting attending physician orders. (7) HLD (hyperlipidemia) Qualifiers: Hyperlipidemia type: unspecified Qualified Code(s): E78.5 - Hyperlipidemia, unspecified Is this a current diagnosis for this admission?: Yes Plan: See admitting attending physician orders. 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
--- NOTE | 2018-06-23 18:30 | PDOC PROGRESS REPORT ---
Subjective Progress Note for:: 06/23/18 Subjective:: Patient's hemoglobin dropped significantly since admission. He is scheduled for hemodialysis today with intent to transfuse during dialysis. No chest pain. Patient reported fair breathing with efforts. No abdominal pain, nausea or vomiting. No fever or chills. Reason For Visit: SEVERE ANEMIA,ESRD ON DIALYSIS,PLEURAL EFFUSION, Physical Exam Vital Signs: Temp Pulse Resp BP Pulse Ox 98.4 F 70 16 140/64 H 91 L 06/23/18 14:37 06/23/18 14:37 06/23/18 14:37 06/23/18 14:37 06/23/18 14:37 Intake & Output 06/22/18 06/23/18 06/24/18 06:59 06:59 06:59 Intake Total 222 1200 Output Total 0 800 Balance 222 400 Weight 108.2 kg 105.4 kg Physical Exam: General appearance: PRESENT: no acute distress, well-developed, well-nourished Head exam: PRESENT: atraumatic, normocephalic Eye exam: PRESENT: pallor ABSENT: scleral icterus Ear exam: PRESENT: normal external ear exam Mouth exam: PRESENT: moist Respiratory exam: PRESENT: clear to auscultation lew, decreased breath sounds - at lung bases Cardiovascular exam: PRESENT: RRR, +S1, +S2. ABSENT: diastolic murmur, rubs, systolic murmur GI/Abdominal exam: PRESENT: normal bowel sounds, soft. ABSENT: distended, guarding, mass, organomegaly, rebound, tenderness Extremities exam: ABSENT: pedal edema Neurological exam: PRESENT: alert, awake, oriented to person, oriented to place, oriented to time, oriented to situation, CN II-XII grossly intact. ABSENT: motor sensory deficit Psychiatric exam: PRESENT: appropriate affect, normal mood. ABSENT: homicidal ideation, suicidal ideation Skin exam: PRESENT: dry, warm, left thoracentesis site dressing remain intact. Results Laboratory Results: 06/23/18 05:44 06/22/18 06/22/18 06/23/18 19:55 20:43 05:44 WBC 11.0 H 7.2 RBC 2.20 L 2.05 L Hgb 6.3 L 5.8 L Hct 19.5 L 18.4 L MCV 89 90 MCH 28.6 28.5 MCHC 32.1 31.7 L RDW 17.1 H 16.9 H Plt Count 274 270 Seg Neutrophils % 82.3 H Lymphocytes % 7.0 L Monocytes % 8.6 Eosinophils % 1.4 Basophils % 0.7 Absolute Neutrophils 9.0 H Absolute Lymphocytes 0.8 Absolute Monocytes 0.9 Absolute Eosinophils 0.2 Absolute Basophils 0.1 Sodium Potassium Chloride Carbon Dioxide Anion Gap BUN Creatinine Est GFR ( Amer) Est GFR (Non-Af Amer) Glucose Calcium Blood Type A POSITIVE Antibody Screen NEGATIVE 06/23/18 05:44 WBC RBC Hgb Hct MCV MCH MCHC RDW Plt Count Seg Neutrophils % Lymphocytes % Monocytes % Eosinophils % Basophils % Absolute Neutrophils Absolute Lymphocytes Absolute Monocytes Absolute Eosinophils Absolute Basophils Sodium 136.1 L Potassium 5.2 H Chloride 97 L Carbon Dioxide 28 Anion Gap 11 BUN 58 H Creatinine 13.53 H Est GFR ( Amer) 5 L Est GFR (Non-Af Amer) 4 L Glucose 91 Calcium 8.7 Blood Type Antibody Screen 06/22/18 06:17 Troponin I 0.046 NT-Pro-B Natriuret Pep 00407 H Impressions: Thoracentesis Ultrasound 06/22/18 00:00 IMPRESSION: SUCCESSFUL THORACENTESIS USING ULTRASOUND GUIDANCE. Chest X-Ray 06/23/18 08:00 IMPRESSION: Mildly improved aeration of the left mid lung with persistent moderate to large effusion. Assessment & Plan - Diagnosis (1) Pleural effusion, left Is this a current diagnosis for this admission?: Yes (2) Anemia in CKD (chronic kidney disease) Qualifiers: Chronic kidney disease stage: on chronic dialysis Qualified Code(s): N18.6 - End stage renal disease; D63.1 - Anemia in chronic kidney disease; D63.1 - Anemia in chronic kidney disease; Z99.2 - Dependence on renal dialysis; Z99.2 - Dependence on renal dialysis; Z99.2 - Dependence on renal dialysis; Z99.2 - Dependence on renal dialysis Is this a current diagnosis for this admission?: Yes (3) Chest pain Qualifiers: Chest pain type: unspecified Qualified Code(s): R07.9 - Chest pain, unspecified Is this a current diagnosis for this admission?: Yes (4) ESRD on hemodialysis Is this a current diagnosis for this admission?: Yes (5) Hypertension Qualifiers: Hypertension type: unspecified Qualified Code(s): I10 - Essential (primary) hypertension Is this a current diagnosis for this admission?: Yes (6) Chronic diastolic CHF (congestive heart failure), NYHA class 3 Is this a current diagnosis for this admission?: Yes (7) HLD (hyperlipidemia) Qualifiers: Hyperlipidemia type: unspecified Qualified Code(s): E78.5 - Hyperlipidemia, unspecified Is this a current diagnosis for this admission?: Yes - Time Time Spent with patient: 25-34 minutes Medications reviewed and adjusted accordingly: Yes Anticipated discharge: Home Within: Other - Inpatient Certification Based on my medical assessment, after consideration of the patient's comorbidities, presenting symptoms, or acuity I expect that the services needed warrant INPATIENT care.: Yes I certify that my determination is in accordance with my understanding of Medicare's requirements for reasonable and necessary INPATIENT services [42 CFR 412.3e].: Yes Medical Necessity: Significant Comorbidiites Make Outpatient Treatment Too Risky, Need Close Monitoring Due to Risk of Patient Decompensation, Risk of Complication if Not Cared For in Hospital, Risk of Diagnosis Which Will Require Inpatient Eval/Care/Monitoring 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 I consulted with Dr. Chen, glaze carrier, on his need for hemodialysis with transfusion today. Patient's regular glaze carrier is Dr. Urbano who does not come to this hospital. Obtain complete echocardiogram for further cardiac evaluation. Patient had stress test earlier this year and did not suggest any ischemic event or m yocardial infarction.
[2018-06-23 18:31] LABS: HEMATOCRIT 24.8 % (37.9-51.0); MEAN CORPUSCULAR HEMOGLOBIN 28.8 pg (27.0-33.4); MEAN CORPUSCULAR HGB CONC 32.8 g/dL (32.0-36.0); MEAN CORPUSCULAR VOLUME 88 fl (80-97); PLATELET COUNT 289 10^3/uL (150-450); RED BLOOD COUNT 2.82 10^6/uL (4.35-5.55); RED CELL DISTRIBUTION WIDTH 16.2 % (11.5-14.0); WHITE BLOOD COUNT 7.4 10^3/uL (4.0-10.5)
[2018-06-23 18:33] LABS: HEMOGLOBIN 8.1 g/dL (13.5-17.0)
[2018-06-23 19:24] LABS: ABSOLUTE MONOCYTES # (MANUAL) 0.7 10^3/uL (0.1-1.4); ABSOLUTE NEUTROPHILS# (MANUAL) 5.5 10^3/uL (1.7-8.2); BASOPHILS % (MANUAL) 0 % (0-2); EOSINOPHILS % (MANUAL) 3 % (0-6); LYMPHOCYTES % (MANUAL) 13 % (13-45); MONOCYTES % (MANUAL) 10 % (3-13); SEGMENTED NEUTROPHILS % (MAN) 74 % (42-78); TOTAL CELLS COUNTED 100
[2018-06-23 19:25] LABS: ANISOCYTOSIS 1+; PLATELET COMMENT ADEQUATE; POIKILOCYTOSIS SLIGHT; TOXIC GRANULATION SLIGHT
--- NOTE | 2018-06-23 20:00 | PDOC CONSULTATION ---
Consultation Consult Date: 06/23/18 Consult reason:: Dialysis History of Present Illness Admission Date/PCP: 06/23/18 07:44 RUDY OSUNKPHU History of Present Illness: ANY STRONG is a 57 year old male who is ESRD on dialysis and fluid overload. He came to the ER yesterday due to increased SOB. His SOB started about a week ago and was not improving with dialysis. He denies having any chest pain, nausea, vomiting, fever, chills, or cough/sputum production. Does admit to orthopnea when laying completely. flat. Claims that he has not missed any dialysis treatments lately. In the ER a chest x-ray was done that showed a large left pleural effusions and a small right. A thoracentesis was done and 900mL was removed from the left side. Labs showed an initial hemoglobin of 7.1, that the dropped to 6.3 and 5.8 after that. At this time he was admitted to receive transfusions with dialysis and to have the pleural effusions looked into a little further. Patient was seen on dialysis today. He was undergoing dialysis with no complications. Packed red blood cells were being hung at the time. He claims that his SOB has improved since being in the hospital. He denies chest pain with dialysis. Past Medical History Cardiac Medical History: Reports: Hyperlipidemia, Hypertension-primary Endocrine Medical History: Denies: Diabetes Mellitus Type 1 Renal/ Medical History: Reports: End Stage Renal Disease, Hyperphosphatemia GI Medical History: Reports: Gastroesophageal Reflux Disease Past Surgical History Past Surgical History: Reports: Appendectomy, Cholecystectomy, Dialysis Access Surgery AVF Social History Smoking Status: Unknown if Ever Smoked Frequency of Alcohol Use: None Hx Recreational Drug Use: No Drugs: None Hx Prescription Drug Abuse: No - Advance Directive Resuscitation Status: Full Code Family History Parental Family History Reviewed: Yes Children Family History Reviewed: No Sibling(s) Family History Reviewed.: No Medication/Allergy Home Medications: Amlodipine Besylate [Norvasc 10 mg Tablet] 10 mg PO DAILY 06/23/18 Carvedilol [Coreg 12.5 mg Tablet] 12.5 mg PO BID 06/23/18 Clonidine HCl [Catapres 0.3 mg Tablet] 0.3 mg PO TID 06/23/18 Furosemide [Lasix 40 mg Tablet] 40 mg PO DAILY 06/23/18 Pravastatin Sodium [Pravachol] 40 mg PO QHS 06/23/18 Promethazine HCl 12.5 mg PO Q4HP PRN 06/23/18 Ranitidine HCl [Zantac 150 mg Tablet] 150 mg PO DAILY 06/23/18 Allergies/Adverse Reactions: No Known Allergies Allergy (Verified 06/22/18 05:39) Review of Systems Constitutional: ABSENT: chills, fever(s) Eyes: ABSENT: visual disturbances Nose, Mouth, and Throat: ABSENT: headache(s) Cardiovascular: PRESENT: dyspnea on exertion, orthropnea. ABSENT: chest pain, edema Respiratory: PRESENT: dyspnea. ABSENT: sputum Gastrointestinal: ABSENT: constipation, diarrhea, nausea, vomiting Genitourinary: ABSENT: dysuria Neurological: ABSENT: numbness, weakness Physical Exam Vital Signs: Temp Pulse Resp BP Pulse Ox 97.6 F 57 L 18 148/75 H 100 06/23/18 11:15 06/23/18 11:15 06/23/18 11:15 06/23/18 11:15 06/23/18 10:40 Intake & Output 06/22/18 06/23/18 06/24/18 06:59 06:59 06:59 Intake Total 222 800 Output Total 0 800 Balance 222 0 Weight 108.2 kg 105.4 kg General appearance: PRESENT: no acute distress, well-developed, well-nourished Mouth exam: PRESENT: moist. ABSENT: neck supple Neck exam: ABSENT: JVD, tracheal deviation Respiratory exam: PRESENT: crackles. ABSENT: accessory muscle use, clear to auscultation lew, rhonchi, wheezes Cardiovascular exam: PRESENT: RRR, +S1, +S2 GI/Abdominal exam: PRESENT: soft. ABSENT: distended, tenderness Extremities exam: ABSENT: pedal edema, tenderness, +1 edema, +2 edema Musculoskeletal exam: PRESENT: normal inspection. ABSENT: tenderness Neurological exam: PRESENT: alert, awake, oriented to person, oriented to place, oriented to time, oriented to situation Skin exam: PRESENT: dry, intact, warm Results Laboratory Results: 06/23/18 05:44 06/23/18 05:44 06/22/18 06/22/18 06/22/18 15:15 19:55 20:43 WBC 11.0 H RBC 2.20 L Hgb 6.3 L Hct 19.5 L MCV 89 MCH 28.6 MCHC 32.1 RDW 17.1 H Plt Count 274 Seg Neutrophils % 82.3 H Lymphocytes % 7.0 L Monocytes % 8.6 Eosinophils % 1.4 Basophils % 0.7 Absolute Neutrophils 9.0 H Absolute Lymphocytes 0.8 Absolute Monocytes 0.9 Absolute Eosinophils 0.2 Absolute Basophils 0.1 Sodium Potassium Chloride Carbon Dioxide Anion Gap BUN Creatinine Est GFR ( Amer) Est GFR (Non-Af Amer) Glucose Calcium Fluid Type PLEURAL Fluid Source LUNG Fluid Color DARK YELLOW Fluid Appearance SLIGHTLY HAZY Fluid Viscosity LIQUID Fluid WBC 0 Fluid RBC 50836 Blood Type A POSITIVE Antibody Screen NEGATIVE 06/23/18 06/23/18 05:44 05:44 WBC 7.2 RBC 2.05 L Hgb 5.8 L Hct 18.4 L MCV 90 MCH 28.5 MCHC 31.7 L RDW 16.9 H Plt Count 270 Seg Neutrophils % Lymphocytes % Monocytes % Eosinophils % Basophils % Absolute Neutrophils Absolute Lymphocytes Absolute Monocytes Absolute Eosinophils Absolute Basophils Sodium 136.1 L Potassium 5.2 H Chloride 97 L Carbon Dioxide 28 Anion Gap 11 BUN 58 H Creatinine 13.53 H Est GFR ( Amer) 5 L Est GFR (Non-Af Amer) 4 L Glucose 91 Calcium 8.7 Fluid Type Fluid Source Fluid Color Fluid Appearance Fluid Viscosity Fluid WBC Fluid RBC Blood Type Antibody Screen 06/22/18 06:17 Troponin I 0.046 NT-Pro-B Natriuret Pep 96688 H Impressions: Thoracentesis Ultrasound 06/22/18 00:00 IMPRESSION: SUCCESSFUL THORACENTESIS USING ULTRASOUND GUIDANCE. Chest X-Ray 06/23/18 08:00 IMPRESSION: Mildly improved aeration of the left mid lung with persistent moderate to large effusion. Assessment & Plan - Diagnosis (1) ESRD (end stage renal disease) Plan: Patient was seen on dialysis. He was under going dialysis with no complications. Vitals were stable. Labs and orders were discussed with treating dialysis nurse. (2) Anemia in CKD (chronic kidney disease) Qualifiers: Chronic kidney disease stage: on chronic dialysis Qualified Code(s): N18.6 - End stage renal disease; D63.1 - Anemia in chronic kidney disease; D63.1 - Anemia in chronic kidney disease; Z99.2 - Dependence on renal dialysis; Z99.2 - Dependence on renal dialysis; Z99.2 - Dependence on renal dialysis; Z99.2 - Dependence on renal dialysis Is this a current diagnosis for this admission?: Yes Plan: getting a blood transfusion during dialysis and epogen. Will then check hemoglobin after dialysis. (3) Chronic diastolic CHF (congestive heart failure), NYHA class 3 Is this a current diagnosis for this admission?: Yes Plan: Will look to remove some extra fluid with dialysis. (4) Dyspnea Qualifiers: Dyspnea type: unspecified Qualified Code(s): R06.00 - Dyspnea, unspecified Plan: Looks to be due to the pleural effusion and from a decreased hemoglobin. Will be getting a blood transfusion with dialysis. (5) Pleural effusion, left Is this a current diagnosis for this admission?: Yes Plan: had a recent thoracentesis of 900mL (6) Hyperkalemia Plan: removing potassium with dialysis.
--- NOTE | 2018-06-23 22:31 | XCELERA REPORT ---
[address] [address] Transthoracic Echocardiogram Report Name: ANY STRONG Age: 57 yrs Gender: Male : 1960 Patient Status: Inpatient Patient Location: [address] [place], [place] [address] Study Date: 06/23/2018 01:32 PM Height: 70 in Weight: 232 lb BSA: 2.2 m2 Procedure: A two-dimensional transthoracic echocardiogram with color flow Doppler was performed. Study Quality: Fair. Reason For Study: CHF History: CHF. Ordering Physician: RUDY JACOBSEN Performed By: Nancy Fontenot Interpretation Summary The left ventricle is mildly dilated. There is normal left ventricular wall thickness. The left ventricular ejection fraction is within normal limits. LV EF is 60% Doppler measurements suggest normal left ventricular diastolic function The left ventricular wall motion is normal. There is no thrombus. There is no ventricular septal defect visualized. The right ventricle is mild to moderately dilated. The right ventricle is not well visualized secondary to technical limitations The right atrium is mildly dilated. The left atrium is moderately dilated. The interatrial septum is intact with no evidence for an atrial septal defect. There is no Doppler evidence for an interatrial shunt There is moderate to severe mitral annular calcification. Calcified mitral apparatus causing mitral stenosis. There is no evidence of mitral valve prolapse. There is no vegetation seen on the mitral valve. There is mild mitral stenosis There is a trace amount of mitral regurgitation There is no aortic valvular vegetation. There is mild aortic stenosis There is a peak gradient of 19 mm of Hg. No hemodynamically significant valvular aortic stenosis. There is a trace amount of aortic regurgitation There is no tricuspid stenosis. There is a mild amount of tricuspid regurgitation There is moderate pulmonary hypertension by echo RVSP is 53 to 58 mm of Hg , with RA mean of 15 to 20. There is no pulmonic valvular stenosis. There is no pulmonic valvular regurgitation. The aortic root is normal size. The inferior vena cava appeared dilated and decreased < 50% with respiration (RAP 15-20 mmHg) There is no pericardial effusion. Large left pleural effusion. MMode/2D Measurements & Calculations RVDd: 3.8 cm LVIDd: 6.1 cm FS: 31.2 % Ao root diam: 3.0 cm IVSd: 1.0 cm LVIDs: 4.2 cm EDV(Teich): 188.8 ml Ao root area: 7.1 cm2 LVPWd: 0.95 cm ESV(Teich): 79.3 ml LA dimension: 4.7 cm EF(Teich): 58.0 % Doppler Measurements & Calculations MV E max taye: MV P1/2t max taye: Ao V2 max: LV V1 max P.6 cm/sec 168.4 cm/sec 206.3 cm/sec 14.7 mmHg MV A max taye: MV P1/2t: 84.8 msec Ao max PG: LV V1 max: 137.8 cm/sec MVA(P1/2t): 2.6 cm2 17.0 mmHg 192.0 cm/sec MV E/A: 1.2 MV dec slope: 581.2 cm/sec2 MV dec time: 0.30 sec PA V2 max: TR max taye: MV P1/2t-pr_phl: 97.2 cm/sec 308.1 cm/sec 84.8 msec PA max P.8 mmHgTR max P.0 mmHg Left Ventricle The left ventricle is mildly dilated. There is normal left ventricular wall thickness. The left ventricular ejection fraction is within normal limits. LV EF is 60%. Doppler measurements suggest normal left ventricular diastolic function. The left ventricular wall motion is normal. There is no thrombus. There is no ventricular septal defect visualized. Right Ventricle The right ventricle is mild to moderately dilated. The right ventricle is not well visualized secondary to technical limitations. Atria The right atrium is mildly dilated. The left atrium is moderately dilated. The interatrial septum is intact with no evidence for an atrial septal defect. There is no Doppler evidence for an interatrial shunt. Mitral Valve There is moderate to severe mitral annular calcification. Calcified mitral apparatus causing mitral stenosis. There is no evidence of mitral valve prolapse. There is no vegetation seen on the mitral valve. There is mild mitral stenosis. There is a trace amount of mitral regurgitation. Aortic Valve There is no aortic valvular vegetation. There is mild aortic stenosis. There is a peak gradient of 19 mm of Hg. No hemodynamically significant valvular aortic stenosis. There is a trace amount of aortic regurgitation. Tricuspid Valve There is no tricuspid stenosis. There is a mild amount of tricuspid regurgitation. There is moderate pulmonary hypertension by echo. RVSP is 53 to 58 mm of Hg , with RA mean of 15 to 20. Pulmonic Valve There is no pulmonic valvular stenosis. There is no pulmonic valvular regurgitation. Great Vessels The aortic root is normal size. The inferior vena cava appeared dilated and decreased < 50% with respiration (RAP 15-20 mmHg). Effusions There is no pericardial effusion. Large left pleural effusion. : RUDY JACOBSEN > Oanh Valdivia
[2018-06-24] MEDS: FAMOTIDINE 20 MG TABLET PO SCH ×2 (00:25→09:28)
[2018-06-24] MEDS: CLONIDINE HCL 0.2 MG TABLET PO SCH ×3 (00:25→21:40)
[2018-06-24] MEDS: CARVEDILOL 12.5 MG TABLET PO SCH ×3 (00:25→21:41)
--- NOTE | 2018-06-24 08:08 | PDOC PROGRESS REPORT ---
Subjective Progress Note for:: 06/24/18 Subjective:: Patient denied any chest pain. Breathing remain fair No abdominal pain, nausea or vomiting. No fever or chills. Reason For Visit: SEVERE ANEMIA,ESRD ON DIALYSIS,PLEURAL EFFUSION, Physical Exam Vital Signs: Temp Pulse Resp BP Pulse Ox 98.1 F 62 17 120/56 L 98 06/24/18 07:18 06/24/18 07:18 06/24/18 07:18 06/24/18 07:18 06/24/18 07:18 Intake & Output 06/23/18 06/24/18 06/25/18 06:59 06:59 06:59 Intake Total 222 1422 Output Total 0 800 Balance 222 622 Weight 105.4 kg 106.1 kg Physical Exam: General appearance: PRESENT: no acute distress, well-developed, well-nourished Head exam: PRESENT: atraumatic, normocephalic Eye exam: PRESENT: pallor ABSENT: scleral icterus Ear exam: PRESENT: normal external ear exam Mouth exam: PRESENT: moist Respiratory exam: PRESENT: clear to auscultation lew, decreased breath sounds - at lung bases Cardiovascular exam: PRESENT: RRR, +S1, +S2. ABSENT: diastolic murmur, rubs, systolic murmur GI/Abdominal exam: PRESENT: normal bowel sounds, soft. ABSENT: distended, g uarding, mass, organomegaly, rebound, tenderness Extremities exam: ABSENT: pedal edema Neurological exam: PRESENT: alert, awake, oriented to person, oriented to place, oriented to time, oriented to situation, CN II-XII grossly intact. ABSENT: motor sensory deficit Psychiatric exam: PRESENT: appropriate affect, normal mood. ABSENT: homicidal ideation, suicidal ideation Skin exam: PRESENT: dry, warm Results Laboratory Results: 06/23/18 18:05 06/23/18 05:44 06/22/18 06/23/18 06/23/18 20:43 05:44 18:05 WBC 7.2 7.4 RBC 2.05 L 2.82 L Hgb 5.8 L 8.1 L D Hct 18.4 L 24.8 L MCV 90 88 MCH 28.5 28.8 MCHC 31.7 L 32.8 RDW 16.9 H 16.2 H Plt Count 270 289 Seg Neutrophils % Cancelled Not Reportable Lymphocytes % Cancelled Not Reportable Monocytes % Cancelled Not Reportable Eosinophils % Cancelled Not Reportable Basophils % Cancelled Not Reportable Absolute Neutrophils Cancelled Not Reportable Absolute Lymphocytes Cancelled Not Reportable Absolute Monocytes Cancelled Not Reportable Absolute Eosinophils Cancelled Not Reportable Absolute Basophils Cancelled Not Reportable Blood Type A POSITIVE Antibody Screen NEGATIVE 06/22/18 06:17 Troponin I 0.046 NT-Pro-B Natriuret Pep 65212 H Impressions: Thoracentesis Ultrasound 06/22/18 00:00 IMPRESSION: SUCCESSFUL THORACENTESIS USING ULTRASOUND GUIDANCE. Chest X-Ray 06/23/18 08:00 IMPRESSION: Mildly improved aeration of the left mid lung with persistent moderate to large effusion. Assessment & Plan - Diagnosis (1) Pleural effusion, left Is this a current diagnosis for this admission?: Yes (2) Anemia in CKD (chronic kidney disease) Qualifiers: Chronic kidney disease stage: on chronic dialysis Qualified Code(s): N18.6 - End stage renal disease; D63.1 - Anemia in chronic kidney disease; D63.1 - Anemia in chronic kidney disease; Z99.2 - Dependence on renal dialysis; Z99.2 - Dependence on renal dialysis; Z99.2 - Dependence on renal dialysis; Z99.2 - Dependence on renal dialysis Is this a current diagnosis for this admission?: Yes (3) Chest pain Qualifiers: Chest pain type: unspecified Qualified Code(s): R07.9 - Chest pain, unspecified Is this a current diagnosis for this admission?: Yes (4) ESRD on hemodialysis Is this a current diagnosis for this admission?: Yes (5) Hypertension Qualifiers: Hypertension type: unspecified Qualified Code(s): I10 - Essential (primary) hypertension Is this a current diagnosis for this admission?: Yes (6) Chronic diastolic CHF (congestive heart failure), NYHA class 3 Is this a current diagnosis for this admission?: Yes (7) HLD (hyperlipidemia) Qualifiers: Hyperlipidemia type: unspecified Qualified Code(s): E78.5 - Hyperlipidemia, unspecified Is this a current diagnosis for this admission?: Yes - Time Time Spent with patient: 25-34 minutes Medications reviewed and adjusted accordingly: Yes Anticipated discharge: Home Within: Other - Inpatient Certification Based on my medical assessment, after consideration of the patient's comorbi dities, presenting symptoms, or acuity I expect that the services needed warrant INPATIENT care.: Yes I certify that my determination is in accordance with my understanding of Medicare's requirements for reasonable and necessary INPATIENT services [42 CFR 412.3e].: Yes Medical Necessity: Significant Comorbidiites Make Outpatient Treatment Too Risky, Need Close Monitoring Due to Risk of Patient Decompensation, Risk of Complication if Not Cared For in Hospital, Risk of Diagnosis Which Will Require Inpatient Eval/Care/Monitoring 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 Request repeat left thoracentesis for removal of more pleural fluid today. I discussed possible chest tube placement if radiologist is not able to satisfactorily remove enough fluid. I discussed his echocardiogram findings with Dr. Whitt yesterday.
[2018-06-24] MEDS: FUROSEMIDE 40 MG TABLET PO SCH (09:28)
[2018-06-24] MEDS: AMLODIPINE BESYLATE 10 MG TABLET PO SCH (09:28)
[2018-06-24 14:52] LABS: TOTAL PROTEIN BODY FLUID 4.4 g/dL (.)
[2018-06-24] MEDS ORDERED: MORPHINE SULFATE 10 MG/ML INJ ONE (15:46)
--- NOTE | 2018-06-24 15:50 | RADIOLOGY REPORT (SQ) ---
EXAM DESCRIPTION: U/S THORACENTESIS W/CHEST TUBE COMPLETED DATE/TIME: 06/24/2018 3:14 pm REASON FOR STUDY: persistent large pelural effusion J90 PLEURAL EFFUSION, NOT ELSEWHERE CLASSIFIED I12.0 HYP CHR KIDNEY DISEASE W STAGE 5 CHR KIDNEY DISEASE OR COMPARISON: None FLUORO TIME: None. 1 images saved to PACS. TECHNIQUE: Image guided chest tube placement using sterile technique. LIMITATIONS: None FINDINGS: After written consent was obtained and explaining the risks and benefits of conscious elsy tion , the patient was placed upright. A time out was then called for site verification. An entry si te was then marked using ultrasound guidance. The posterior left wall was then prepped and draped in a sterile fashion. The site was then anesthetized using 4.0 ml of 1% lidocaine solution. An 11 blad e scalpel was used to make a small skin incision. A 18g -7cm needle was advanced into the chest wall . A.038 guidewire was passed through the needle. The tract was then dilated using a 10 Marshallese dilat or. A 10 fr drain was then placed over the wire. The catheter was then attached to the collection d evice. The entry site was covered with a sterile bandage. IMPRESSION: SUCCESSFUL PLACEMENT OF A LEFT SIDED CHEST TUBE USING ULTRASOUND GUIDANCE. COMMENT: Patient medication list reviewed: Yes- Quality ID# [id number]:Eligible professional attests to do cumenting in the medical record they obtained, updated, or reviewed the patient's current medications . Quality ID 145: Final reports for procedures using fluoroscopy that document radiation exposure griffin lorraine, or exposure time and number of fluorographic images (if radiation exposure indices are not avail able) TECHNICAL DOCUMENTATION: JOB ID: [id number] [employer]- All Rights Reserved rev-07/08 Reading location - IP/workstation name: [email or web address]
[2018-06-24] MEDS ORDERED: MORPHINE SULFATE 10 MG/ML INJ IV ONE (16:15)
[2018-06-24] MEDS: HYDROCODONE/ACETAMINOPHEN 5-325 MG TABLET PO PRN (19:34)
[2018-06-25] MEDS: HYDROCODONE/ACETAMINOPHEN 5-325 MG TABLET PO PRN (00:30)
[2018-06-25] MEDS ORDERED: EPOETIN ALFA INJ 20000 UNIT/1 ML VIAL (RENAL) IV PRN (05:00)
[2018-06-25] MEDS ORDERED: NORMAL SALINE 1000 ML 1,000 ML IV PRN (05:00)
[2018-06-25 06:51] LABS: ABSOLUTE BASOPHILS # (AUTO) 0.1 10^3/uL (0.0-0.2); ABSOLUTE EOSINOPHILS # (AUTO) 0.3 10^3/uL (0.0-0.6); ABSOLUTE LYMPHOCYTES (AUTO) 0.9 10^3/uL (0.5-4.7); ABSOLUTE MONOCYTES (AUTO) 0.7 10^3/uL (0.1-1.4); BASOPHILS % (AUTO) 0.9 % (0-2); EOSINOPHILS % (AUTO) 4.3 % (0-6); HEMATOCRIT 24.6 % (37.9-51.0); HEMOGLOBIN 8.1 g/dL (13.5-17.0); LYMPHOCYTES % (AUTO) 10.8 % (13-45); MEAN CORPUSCULAR HEMOGLOBIN 28.8 pg (27.0-33.4); MEAN CORPUSCULAR HGB CONC 32.8 g/dL (32.0-36.0); MEAN CORPUSCULAR VOLUME 88 fl (80-97); MONOCYTES % (AUTO) 8.7 % (3-13); PLATELET COUNT 241 10^3/uL (150-450); RED BLOOD COUNT 2.81 10^6/uL (4.35-5.55); RED CELL DISTRIBUTION WIDTH 15.7 % (11.5-14.0); SEGMENTED NEUTROPHILS % (AUTO) 75.3 % (42-78); TOTAL CELLS COUNTED % (AUTO) 100 %; WHITE BLOOD COUNT 7.9 10^3/uL (4.0-10.5)
[2018-06-25 07:13] LABS: ANION GAP 14 (5-19); BLOOD UREA NITROGEN 56 mg/dL (7-20); CALCIUM 8.5 mg/dL (8.4-10.2); CARBON DIOXIDE 27 mmol/L (22-30); CHLORIDE 93 mmol/L (98-107); GLUCOSE 84 mg/dL (75-110); PHOSPHORUS 8.4 mg/dL (2.5-4.5); POTASSIUM 4.7 mmol/L (3.6-5.0)
--- NOTE | 2018-06-25 09:56 | PDOC PROGRESS REPORT ---
Subjective Progress Note for:: 06/25/18 Subjective:: Patient was seen on dialysis. He was under going dialysis with no complications. He had no complaints at the time of evaluation. His SOB had resolved and he denied chest pain. He had a recent chest tube placed for recurrent pleural effusions. He has had about 3 liters removed since admission. Reason For Visit: SEVERE ANEMIA,ESRD ON DIALYSIS,PLEURAL EFFUSION, Physical Exam Vital Signs: Temp Pulse Resp BP Pulse Ox 98.1 F 64 16 127/49 H 96 06/25/18 07:23 06/25/18 07:23 06/25/18 07:23 06/25/18 07:23 06/25/18 07:23 Intake & Output 06/24/18 06/25/18 06/26/18 06:59 06:59 06:59 Intake Total 1422 500 Output Total 800 2475 Balance 622 -1975 Weight 106.1 kg 106.3 kg General appearance: PRESENT: no acute distress, well-developed, well-nourished Mouth exam: PRESENT: moist, neck supple Neck exam: ABSENT: JVD, tracheal deviation Respiratory exam: PRESENT: crackles, rales, unlabored. ABSENT: accessory muscle use, clear to auscultation lew, rhonchi, wheezes Cardiovascular exam: PRESENT: RRR, +S1, +S2 GI/Abdominal exam: PRESENT: soft. ABSENT: distended, tenderness Extremities exam: ABSENT: tenderness, +1 edema, +2 edema Musculoskeletal exam: PRESENT: normal inspection. ABSENT: tenderness Neurological exam: PRESENT: alert, awake, oriented to person, oriented to place, oriented to time, oriented to situation Psychiatric exam: PRESENT: appropriate affect, normal mood Skin exam: PRESENT: dry, intact, warm Results Laboratory Results: 06/25/18 06:13 06/25/18 06:13 06/22/18 06/25/18 06/25/18 15:15 06:13 06:13 WBC 7.9 RBC 2.81 L Hgb 8.1 L Hct 24.6 L MCV 88 MCH 28.8 MCHC 32.8 RDW 15.7 H Plt Count 241 Seg Neutrophils % 75.3 Lymphocytes % 10.8 L Monocytes % 8.7 Eosinophils % 4.3 Basophils % 0.9 Absolute Neutrophils 6.0 Absolute Lymphocytes 0.9 Absolute Monocytes 0.7 Absolute Eosinophils 0.3 Absolute Basophils 0.1 Sodium 134.0 L Potassium 4.7 Chloride 93 L Carbon Dioxide 27 Anion Gap 14 BUN 56 H Creatinine 10.36 H Est GFR ( Amer) 6 L Est GFR (Non-Af Amer) 5 L Glucose 84 Calcium 8.5 Phosphorus 8.4 H Magnesium 2.1 Fluid Glucose 99 Fluid Total Protein 4.4 Fluid LDH 182 Fluid Amylase 47 06/22/18 06:17 Troponin I 0.046 NT-Pro-B Natriuret Pep 08445 H Impressions: Chest X-Ray 06/23/18 08:00 IMPRESSION: Mildly improved aeration of the left mid lung with persistent moderate to large effusion. Thoracentesis Ultrasound 06/24/18 08:03 IMPRESSION: SUCCESSFUL PLACEMENT OF A LEFT SIDED CHEST TUBE USING ULTRASOUND SHIMA HALEY. Assessment & Plan - Diagnosis (1) ESRD (end stage renal disease) Plan: Patient was seen on dialysis. He was under going dialysis with no complications. Vitals were stable. Labs and orders were discussed with treating dialysis nurse. Looking to remove 2 to 3L (2) Anemia in CKD (chronic kidney disease) Qualifiers: Chronic kidney disease stage: on chronic dialysis Qualified Code(s): N18.6 - End stage renal disease; D63.1 - Anemia in chronic kidney disease; D63.1 - Anemia in chronic kidney disease; Z99.2 - Dependence on renal dialysis; Z99.2 - Dependence on renal dialysis; Z99.2 - Dependence on renal dialysis; Z99.2 - Dependence on renal dialysis Is this a current diagnosis for this admission?: Yes Plan: procrit with dialysis (3) Chronic diastolic CHF (congestive heart failure), NYHA class 3 Is this a current diagnosis for this admission?: Yes Plan: improved (4) Dyspnea Qualifiers: Dyspnea type: unspecified Qualified Code(s): R06.00 - Dyspnea, unspecified Plan: looks to have resolved at the time of examination (5) Pleural effusion, left Is this a current diagnosis for this admission?: Yes Plan: currently has a chest tube in place, per primary (6) Hyperkalemia Plan: currently controlled
--- NOTE | 2018-06-25 10:24 | RADIOLOGY REPORT (SQ) ---
EXAM DESCRIPTION: CHEST SINGLE VIEW COMPLETED DATE/TIME: 06/25/2018 10:00 am REASON FOR STUDY: chest tube COMPARISON: 06/23/2018. FINDINGS: Single-view chest AP portable upright approximately 0957 hours. Small caliber left chest tube in place. Improved left pleural effusion with improved left lung aeration generally. No significant pleural ga s. Slightly worsening aeration right base looks like volume loss predominantly. Probable small righ t pleural effusion as well. Generally stable cardiomediastinal silhouette. IMPRESSION: Improved left lung aeration post chest tube placement. Worsening right base aeration. TECHNICAL DOCUMENTATION: JOB ID: [id number] Reading location - IP/workstation name: [email or web address]
[2018-06-25] MEDS: FAMOTIDINE 20 MG TABLET PO SCH (12:15)
[2018-06-25] MEDS: CLONIDINE HCL 0.2 MG TABLET PO SCH ×2 (12:15→22:05)
[2018-06-25] MEDS: FUROSEMIDE 40 MG TABLET PO SCH (12:16)
[2018-06-25] MEDS: AMLODIPINE BESYLATE 10 MG TABLET PO SCH (12:16)
[2018-06-25] MEDS: CARVEDILOL 12.5 MG TABLET PO SCH ×2 (12:16→22:06)
--- NOTE | 2018-06-25 18:33 | PDOC PROGRESS REPORT ---
Subjective Progress Note for:: 06/25/18 Subjective:: Patient denied any chest pain but pain at site of chest tube is fairly controlled on oral [place]. Breathing remain fair No abdominal pain, nausea or vomiting. No fever or chills. Reason For Visit: SEVERE ANEMIA,ESRD ON DIALYSIS,PLEURAL EFFUSION, Physical Exam Vital Signs: Temp Pulse Resp BP Pulse Ox 98.7 F 66 16 135/69 H 92 06/25/18 16:00 06/25/18 16:00 06/25/18 16:00 06/25/18 16:00 06/25/18 16:00 Intake & Output 06/24/18 06/25/18 06/26/18 06:59 06:59 06:59 Intake Total 1422 500 Output Total 800 3625 4800 Balance 622 -1975 -4800 Weight 106.1 kg 106.3 kg Physical Exam: General appearance: PRESENT: no acute distress, well-developed, well-nourished Head exam: PRESENT: atraumatic, normocephalic Eye exam: PRESENT: pallor ABSENT: pallor, scleral icterus Ear exam: PRESENT: normal external ear exam Mouth exam: PRESENT: moist Respiratory exam: PRESENT: clear to auscultation lew, decreased breath sounds - at lung bases Cardiovascular exam: PRESENT: RRR, +S1, +S2. ABSENT: diastolic murmur, rubs, systolic murmur GI/Abdominal exam: PRESENT: normal bowel sounds, soft. ABSENT: distended, guarding, mass, organomegaly, rebound, tenderness Extremities exam: ABSENT: pedal edema Neurological exam: PRESENT: alert, awake, oriented to person, oriented to place, oriented to time, oriented to situation, CN II-XII grossly intact. ABSENT: motor sensory deficit Psychiatric exam: PRESENT: appropriate affect, normal mood. ABSENT: homicidal ideation, suicidal ideation Skin exam: PRESENT: dry, warm Results Laboratory Results: 06/25/18 06:13 06/25/18 06:13 06/25/18 06/25/18 06:13 06:13 WBC 7.9 RBC 2.81 L Hgb 8.1 L Hct 24.6 L MCV 88 MCH 28.8 MCHC 32.8 RDW 15.7 H Plt Count 241 Seg Neutrophils % 75.3 Lymphocytes % 10.8 L Monocytes % 8.7 Eosinophils % 4.3 Basophils % 0.9 Absolute Neutrophils 6.0 Absolute Lymphocytes 0.9 Absolute Monocytes 0.7 Absolute Eosinophils 0.3 Absolute Basophils 0.1 Sodium 134.0 L Potassium 4.7 Chloride 93 L Carbon Dioxide 27 Anion Gap 14 BUN 56 H Creatinine 10.36 H Est GFR ( Amer) 6 L Est GFR (Non-Af Amer) 5 L Glucose 84 Calcium 8.5 Phosphorus 8.4 H Magnesium 2.1 06/22/18 06:17 Troponin I 0.046 NT-Pro-B Natriuret Pep 23531 H Impressions: Thoracentesis Ultrasound 06/24/18 08:03 IMPRESSION: SUCCESSFUL PLACEMENT OF A LEFT SIDED CHEST TUBE USING ULTRASOUND GUIDANCE. Chest X-Ray 06/25/18 08:00 IMPRESSION: Improved left lung aeration post chest tube placement. Worsening right base aeration. Assessment & Plan - Diagnosis (1) Pleural effusion, left Is this a current diagnosis for this admission?: Yes (2) Anemia in CKD (chronic kidney disease) Qualifiers: Chronic kidney disease stage: on chronic dialysis Qualified Code(s): N18.6 - End stage renal disease; D63.1 - Anemia in chronic kidney disease; D63.1 - Anemia in chronic kidney disease; Z99.2 - Dependence on renal dialysis; Z99.2 - Dependence on renal dialysis; Z99.2 - Dependence on renal dialysis; Z99.2 - Dependence on renal dialysis Is this a current diagnosis for this admission?: Yes (3) Chest pain Qualifiers: Chest pain type: unspecified Qualified Code(s): R07.9 - Chest pain, unspecified Is this a current diagnosis for this admission?: Yes (4) ESRD on hemodialysis Is this a current diagnosis for this admission?: Yes (5) Hypertension Qualifiers: Hypertension type: unspecified Qualified Code(s): I10 - Essential (primary) hypertension Is this a current diagnosis for this admission?: Yes (6) Chronic diastolic CHF (congestive heart failure), NYHA class 3 Is this a current diagnosis for this admission?: Yes (7) HLD (hyperlipidemia) Qualifiers: Hyperlipidemia type: unspecified Qualified Code(s): E78.5 - Hyperlipidemia, unspecified Is this a current diagnosis for this admission?: Yes - Time Time Spent with patient: 25-34 minutes Medications reviewed and adjusted accordingly: Yes Anticipated discharge: Home Within: Other - Inpatient Certification Based on my medical assessment, after consideration of the patient's comorbidities, presenting symptoms, or acuity I expect that the services needed warrant INPATIENT care.: Yes I certify that my determination is in accordance with my understanding of Medicare's requirements for reasonable and necessary INPATIENT services [42 CFR 412.3e].: Yes Medical Necessity: Significant Comorbidiites Make Outpatient Treatment Too Risky, Need Close Monitoring Due to Risk of Patient Decompensation, Need For Continuous Telemetry Monitoring, Risk of Complication if Not Cared For in Hospital, Risk of Diagnosis Which Will Require Inpatient Eval/Care/Monitoring 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 Follow up on his chest tube drainage.
[2018-06-26] MEDS: HYDROCODONE/ACETAMINOPHEN 5-325 MG TABLET PO PRN ×4 (08:13→20:35)
[2018-06-26] MEDS: CLONIDINE HCL 0.2 MG TABLET PO SCH ×2 (09:56→21:25)
[2018-06-26] MEDS: AMLODIPINE BESYLATE 10 MG TABLET PO SCH (09:57)
[2018-06-26] MEDS: FAMOTIDINE 20 MG TABLET PO SCH (09:57)
[2018-06-26] MEDS: FUROSEMIDE 40 MG TABLET PO SCH (09:57)
[2018-06-26] MEDS: CARVEDILOL 12.5 MG TABLET PO SCH ×2 (09:57→21:26)
--- NOTE | 2018-06-26 10:07 | RADIOLOGY REPORT (SQ) ---
EXAM DESCRIPTION: CHEST SINGLE VIEW COMPLETED DATE/TIME: 06/26/2018 9:11 am REASON FOR STUDY: chest tube COMPARISON: Previous day. NUMBER OF VIEWS: One view. TECHNIQUE: Single frontal radiographic image of the chest acquired. LIMITATIONS: None. FINDINGS: LUNGS AND PLEURA: Stable appearance. No pneumothorax status post left thoracentesis. MEDIASTINUM AND HEART: Stable heart size and mediastinal structures. SUPPORT DEVICES: Appropriate location without change. BONY STRUCTURES: No acute findings. HARDWARE: None. OTHER: No other significant finding. IMPRESSION: No pneumothorax. Reading location - IP/workstation name: [email or web address]
--- NOTE | 2018-06-26 15:45 | RADIOLOGY REPORT (SQ) ---
EXAM DESCRIPTION: PELVIS AP COMPLETED DATE/TIME: 06/26/2018 2:53 pm REASON FOR STUDY: LEFT HIP PAIN J90 PLEURAL EFFUSION, NOT ELSEWHERE CLASSIFIED I12.0 HYP CHR KIDN EY DISEASE W STAGE 5 CHR KIDNEY DISEASE OR COMPARISON: None. NUMBER OF VIEWS: One view TECHNIQUE: AP Pelvis LIMITATIONS: None. FINDINGS: No evidence of fracture or aggressive bone lesion. Moderate osteoarthritic changes in bot h hips. SI joints are normal. Lower lumbar spondylosis. IMPRESSION: No acute findings. TECHNICAL DOCUMENTATION: JOB ID: [id number] [employer]- All Rights Reserved Reading location - IP/workstation name: [email or web address]
--- NOTE | 2018-06-26 16:09 | RADIOLOGY REPORT (SQ) ---
EXAM DESCRIPTION: VENOUS UNILATERAL LOWER COMPLETED DATE/TIME: 06/26/2018 4:00 pm REASON FOR STUDY: left leg pain and swelling r/o DVT J90 PLEURAL EFFUSION, NOT ELSEWHERE CLASSIFIED I12.0 HYP CHR KIDNEY DISEASE W STAGE 5 CHR KIDNEY DISEASE OR COMPARISON: None. TECHNIQUE: Dynamic and static clark scale and color images acquired of the left leg venous system. Se lected spectral images acquired with additional compression and augmentation maneuvers. The contralat eral common femoral vein and saphenofemoral junction were also imaged. Images stored on PACS. LIMITATIONS: None. FINDINGS: COMMON FEMORAL: Normal phasicity, compression and augmentation. No visualized echogenic ma terial on clark scale. No defects on color images. FEMORAL: Normal compression and augmentation. No visualized echogenic material on clark scale. No defe cts on color images. POPLITEAL: Normal compression, augmentation. No visualized echogenic material on clark scale. No defec ts on color images. CALF VESSELS: Normal compression, augmentation. No visualized echogenic material on clark scale. No de fects on color images. GSV and SSV: Normal compression, augmentation. No visualized echogenic material on clark scale. No def ects on color images. ANY DEEP VENOUS INSUFFICIENCY: Not evaluated. ANY EVIDENCE OF POPLITEAL CYST: No. OTHER: No other significant finding. CONTRALATERAL COMMON FEMORAL VEIN AND SAPHENOFEMORAL JUNCTION: Normal phasicity, compression and augmentation. No visualized echogenic material on clark scale. No de fects on color images. IMPRESSION: NO EVIDENCE DVT OR SVT IN THE LEFT LEG. TECHNICAL DOCUMENTATION: JOB ID: [id number] [employer]- All Rights Reserved Reading location - IP/workstation name: [email or web address]
--- NOTE | 2018-06-26 19:34 | PDOC PROGRESS REPORT ---
Subjective Progress Note for:: 06/26/18 Subjective:: Patient was seen by the bedside he complained of severe pain of the left upper thigh on inspection there was slight increased swelling of the thigh, a stat venous Doppler was done, negative for deep vein thrombosis a pelvic x-ray was done, demonstrated osteoarthritic changes in both hips, patient already on hydrocodone for pain control Reason For Visit: SEVERE ANEMIA,ESRD ON DIALYSIS,PLEURAL EFFUSION, Physical Exam Vital Signs: Temp Pulse Resp BP Pulse Ox 99.0 F 64 18 114/59 L 95 06/26/18 15:27 06/26/18 15:27 06/26/18 15:27 06/26/18 15:27 06/26/18 15:27 Intake & Output 06/25/18 06/26/18 06/27/18 06:59 06:59 06:59 Intake Total 853 671 9699 Output Total 2475 5400 50 Balance -1974 -4900 1204 Weight 106.3 kg 104.6 kg General appearance: PRESENT: no acute distress Eye exam: PRESENT: PERRLA Respiratory exam: PRESENT: clear to auscultation lew Cardiovascular exam: PRESENT: +S1, +S2 GI/Abdominal exam: PRESENT: soft Neurological exam: PRESENT: alert, CN II-XII grossly intact Results Laboratory Results: 06/25/18 06:13 06/25/18 06:13 06/22/18 15:15 Pleural Fluid - Left Pleural Effusion Gram Stain - Final 06/22/18 15:15 Pleural Fluid - Left Pleural Effusion Body Fluid Culture - Final NO AEROBIC OR ANAEROBIC ORGANISMS RECOVERED 06/22/18 06:17 Troponin I 0.046 NT-Pro-B Natriuret Pep [id number] H Impressions: Thoracentesis Ultrasound 06/24/18 08:03 IMPRESSION: SUCCESSFUL PLACEMENT OF A LEFT SIDED CHEST TUBE USING ULTRASOUND GUIDANCE. Pelvis X-Ray 06/26/18 00:00 IMPRESSION: No acute findings. Venous Doppler Study 06/26/18 00:00 IMPRESSION: NO EVIDENCE DVT OR SVT IN THE LEFT LEG. Chest X-Ray 06/26/18 08:00 IMPRESSION: No pneumothorax. Assessment & Plan - Diagnosis (1) Pleural effusion on left Is this a current diagnosis for this admission?: Yes Plan: He has a chest tube in place presently asymptomatic (2) Chronic diastolic heart failure Is this a current diagnosis for this admission?: Yes (3) Dyspnea Qualifiers: Dyspnea type: unspecified Qualified Code(s): R06.00 - Dyspnea, unspecified Is this a current diagnosis for this admission?: Yes (4) ESRD (end stage renal disease) on dialysis Is this a current diagnosis for this admission?: Yes
[2018-06-27] MEDS: HYDROCODONE/ACETAMINOPHEN 5-325 MG TABLET PO PRN ×3 (05:17→20:11)
[2018-06-27] MEDS: FUROSEMIDE 40 MG TABLET PO SCH (09:45)
[2018-06-27] MEDS: CLONIDINE HCL 0.2 MG TABLET PO SCH ×2 (09:45→23:03)
[2018-06-27] MEDS: CARVEDILOL 12.5 MG TABLET PO SCH ×2 (09:46→23:03)
[2018-06-27] MEDS: AMLODIPINE BESYLATE 10 MG TABLET PO SCH (09:46)
[2018-06-27] MEDS: FAMOTIDINE 20 MG TABLET PO SCH (09:46)
[2018-06-27] MEDS: CYCLOBENZAPRINE HCL 10 MG TABLET PO PRN ×2 (11:35→20:11)
--- NOTE | 2018-06-27 17:01 | RADIOLOGY REPORT (SQ) ---
EXAM DESCRIPTION: CT LT LOWER EXTREMITY WITHOUT COMPLETED DATE/TIME: 06/27/2018 4:28 pm REASON FOR STUDY: Left hip pain, immobility. J90 PLEURAL EFFUSION, NOT ELSEWHERE CLASSIFIED I12.0 HYP CHR KIDNEY DISEASE W STAGE 5 CHR KIDNEY DISEASE OR COMPARISON: None. TECHNIQUE: CT scan of the left hip performed without intravenous or oral contrast. Images reviewed with soft tissue and bone windows. Reconstructed coronal and sagittal MPR images reviewed. All imag es stored on PACS. All CT scanners at this facility use dose modulation, iterative reconstruction, and/or weight based d osing when appropriate to reduce radiation dose to as low as reasonably achievable (ALARA). [facility]: Dose Right [facility]: CareDose [facility]: Dose Right [facility]: Teradose 4D [facility]: Smart [place] EXTENDED STAYS RADIATION DOSE: CT Rad equipment meets quality standard of care and radiation dose reduction techniq ues were employed. CTDIvol: 4.1 mGy. DLP: 109 mGy-cm. mGy. LIMITATIONS: None. FINDINGS: PELVIC BONES: No acute fracture. No worrisome bone lesions. VISUALIZED SPINE: No acute findings. SYMPTOMATIC HIP: No acute fracture or dislocation. No worrisome bone lesions. Mild degenerative sweeney ges. OPPOSITE HIP: Not imaged PELVIC SOFT TISSUES: No significant findings. EXTRAPELVIC SOFT TISSUES: No significant findings. OTHER: No other significant finding. IMPRESSION: Mild degenerative changes without evidence of acute injury. TECHNICAL DOCUMENTATION: JOB ID: [id number] Quality ID # [id number]: Final reports with documentation of one or more dose reduction techniques (e.g., Au tomated exposure control, adjustment of the mA and/or kV according to patient size, use of iterative reconstruction technique) 2010 [employer]- All Rights Reserved Reading location - IP/workstation name: [email or web address]
[2018-06-27] MEDS: MORPHINE SULFATE 10 MG/ML INJ IV PRN (17:02)
--- NOTE | 2018-06-27 20:21 | PDOC PROGRESS REPORT ---
Subjective Progress Note for:: 06/27/18 Subjective:: Patient was seen by the bedside he complained of severe pain of the left upper thigh on inspection there was slight increased swelling of the thigh, a stat venous Doppler was done, negative for deep vein thrombosis a pelvic x-ray was done, demonstrated osteoarthritic changes in both hips, patient already on hydrocodone for pain control, He continues to complain of pain CT scan of the hip joint was done Reason For Visit: SEVERE ANEMIA,ESRD ON DIALYSIS,PLEURAL EFFUSION, Physical Exam Vital Signs: Temp Pulse Resp BP Pulse Ox 99.6 F 68 18 116/54 L 98 06/27/18 19:13 06/27/18 19:13 06/27/18 19:13 06/27/18 19:13 06/27/18 19:13 Intake & Output 06/26/18 06/27/18 06/28/18 06:59 06:59 06:59 Intake Total 500 1974 606 Output Total 5400 60 50 Balance -4900 1914 556 Weight 104.6 kg 104.6 kg General appearance: PRESENT: no acute distress Eye exam: PRESENT: PERRLA Respiratory exam: PRESENT: clear to auscultation lew Cardiovascular exam: PRESENT: +S1, +S2 GI/Abdominal exam: PRESENT: soft Neurological exam: PRESENT: alert Results Laboratory Results: 06/25/18 06:13 06/25/18 06:13 06/22/18 06:17 Troponin I 0.046 NT-Pro-B Natriuret Pep 80146 H Impressions: Thoracentesis Ultrasound 06/24/18 08:03 IMPRESSION: SUCCESSFUL PLACEMENT OF A LEFT SIDED CHEST TUBE USING ULTRASOUND GUIDANCE. Pelvis X-Ray 06/26/18 00:00 IMPRESSION: No acute findings. Venous Doppler Study 06/26/18 00:00 IMPRESSION: NO EVIDENCE DVT OR SVT IN THE LEFT LEG. Chest X-Ray 06/26/18 08:00 IMPRESSION: No pneumothorax. Lower Extremity CT 06/27/18 00:00 IMPRESSION: Mild degenerative changes without evidence of acute injury. Assessment & Plan - Diagnosis (1) Pleural effusion on left Is this a current diagnosis for this admission?: Yes (2) Chronic diastolic heart failure Is this a current diagnosis for this admission?: Yes (3) Dyspnea Qualifiers: Dyspnea type: unspecified Qualified Code(s): R06.00 - Dyspnea, unspecified Is this a current diagnosis for this admission?: Yes (4) ESRD (end stage renal disease) on dialysis Is this a current diagnosis for this admission?: Yes (5) Pain in left hip Is this a current diagnosis for this admission?: Yes
[2018-06-28] MEDS ORDERED: NORMAL SALINE 1000 ML 1,000 ML IV PRN (05:00)
[2018-06-28] MEDS ORDERED: EPOETIN ALFA INJ 20000 UNIT/1 ML VIAL (RENAL) IV PRN (05:00)
[2018-06-28] MEDS: CYCLOBENZAPRINE HCL 10 MG TABLET PO PRN (05:14)
[2018-06-28 07:56] LABS: ABSOLUTE BASOPHILS # (AUTO) 0.1 10^3/uL (0.0-0.2); ABSOLUTE EOSINOPHILS # (AUTO) 0.2 10^3/uL (0.0-0.6); ABSOLUTE LYMPHOCYTES (AUTO) 0.6 10^3/uL (0.5-4.7); ABSOLUTE MONOCYTES (AUTO) 0.9 10^3/uL (0.1-1.4); ABSOLUTE NEUT (AUTO) 7.6 10^3/uL (1.7-8.2); BASOPHILS % (AUTO) 0.7 % (0-2); EOSINOPHILS % (AUTO) 2.1 % (0-6); HEMATOCRIT 22.8 % (37.9-51.0); LYMPHOCYTES % (AUTO) 6.2 % (13-45); MEAN CORPUSCULAR HEMOGLOBIN 29.3 pg (27.0-33.4); MEAN CORPUSCULAR HGB CONC 32.8 g/dL (32.0-36.0); MEAN CORPUSCULAR VOLUME 89 fl (80-97); MONOCYTES % (AUTO) 9.5 % (3-13); PLATELET COUNT 257 10^3/uL (150-450); RED BLOOD COUNT 2.56 10^6/uL (4.35-5.55); RED CELL DISTRIBUTION WIDTH 16.6 % (11.5-14.0); SEGMENTED NEUTROPHILS % (AUTO) 81.5 % (42-78); TOTAL CELLS COUNTED % (AUTO) 100 %; WHITE BLOOD COUNT 9.3 10^3/uL (4.0-10.5)
[2018-06-28 07:59] LABS: HEMOGLOBIN 7.5 g/dL (13.5-17.0)
[2018-06-28] MEDS ORDERED: NORMAL SALINE 250 ML IV PRN ×2 (08:02)
[2018-06-28 08:11] LABS: ANION GAP 15 (5-19); BLOOD UREA NITROGEN 68 mg/dL (7-20); CALCIUM 8.7 mg/dL (8.4-10.2); CARBON DIOXIDE 23 mmol/L (22-30); CHLORIDE 94 mmol/L (98-107); GLUCOSE 133 mg/dL (75-110); POTASSIUM 5.5 mmol/L (3.6-5.0); SODIUM 131.8 mmol/L (137-145)
--- NOTE | 2018-06-28 08:11 | PDOC PROGRESS REPORT ---
Subjective Progress Note for:: 06/28/18 Subjective:: Patient reproted left thigh pain and difficulty lifting affected extremity. He denied any fall or trauma. He denied any chest pain. He reported satisfactory pain control at site of chest tube. Breathing is normal No abdominal pain, nausea or vomiting. No fever or chills. Reason For Visit: SEVERE ANEMIA,ESRD ON DIALYSIS,PLEURAL EFFUSION, Physical Exam Vital Signs: Temp Pulse Resp BP Pulse Ox 99.2 F 65 16 98/48 L 100 06/28/18 03:43 06/28/18 03:43 06/28/18 03:43 06/28/18 03:43 06/28/18 03:43 Intake & Output 06/27/18 06/28/18 06/29/18 06:59 06:59 06:59 Intake Total 1974 846 Output Total 60 60 Balance 1914 786 Weight 104.6 kg 104.6 kg Physical Exam: General appearance: PRESENT: no acute distress, obese Head exam: PRESENT: atraumatic, normocephalic Eye exam: PRESENT: pallor ABSENT: pallor, scleral icterus Ear exam: PRESENT: normal external ear exam Mouth exam: PRESENT: moist Respiratory exam: PRESENT: clear to auscultation lew, decreased breath sounds - at lung bases Cardiovascular exam: PRESENT: RRR, +S1, +S2. ABSENT: diastolic murmur, rubs, systolic murmur GI/Abdominal exam: PRESENT: normal bowel sounds, soft. ABSENT: distended, guarding, mass, organomegaly, rebound, tenderness Extremities exam: PRESENT: Left thigh pain to palpation ABSENT: pedal edema Neurological exam: PRESENT: alert, awake, oriented to person, oriented to place, oriented to time, oriented to situation, CN II-XII grossly intact. ABSENT: motor sensory deficit Psychiatric exam: PRESENT: appropriate affect, normal mood. ABSENT: homicidal ideation, suicidal ideation Skin exam: PRESENT: dry, warm Results Laboratory Results: 06/28/18 07:27 06/28/18 07:27 WBC 9.3 RBC 2.56 L Hgb 7.5 L Hct 22.8 L MCV 89 MCH 29.3 MCHC 32.8 RDW 16.6 H Plt Count 257 Seg Neutrophils % 81.5 H Lymphocytes % 6.2 L Monocytes % 9.5 Eosinophils % 2.1 Basophils % 0.7 Absolute Neutrophils 7.6 Absolute Lymphocytes 0.6 Absolute Monocytes 0.9 Absolute Eosinophils 0.2 Absolute Basophils 0.1 06/22/18 06:17 Troponin I 0.046 NT-Pro-B Natriuret Pep 26205 H Impressions: Thoracentesis Ultrasound 06/24/18 08:03 IMPRESSION: SUCCESSFUL PLACEMENT OF A LEFT SIDED CHEST TUBE USING ULTRASOUND GUIDANCE. Pelvis X-Ray 06/26/18 00:00 IMPRESSION: No acute findings. Venous Doppler Study 06/26/18 00:00 IMPRESSION: NO EVIDENCE DVT OR SVT IN THE LEFT LEG. Chest X-Ray 06/26/18 08:00 IMPRESSION: No pneumothorax. Lower Extremity CT 06/27/18 00:00 IMPRESSION: Mild degenerative changes without evidence of acute injury. Assessment & Plan - Diagnosis (1) Pleural effusion, left Is this a current diagnosis for this admission?: Yes Plan: Continue chest tube drainage. Obtain chest X ray for progress evaluation. (2) Anemia in CKD (chronic kidney disease) Qualifiers: Chronic kidney disease stage: on chronic dialysis Qualified Code(s): N18.6 - End stage renal disease; D63.1 - Anemia in chronic kidney disease; D63.1 - Anemia in chronic kidney disease; Z99.2 - Dependence on renal dialysis; Z99.2 - Dependence on renal dialysis; Z99.2 - Dependence on renal dialysis; Z99.2 - Dependence on renal dialysis Is this a current diagnosis for this admission?: Yes Plan: Transfuse 2 units during dialysis session today. (3) Chest pain Qualifiers: Chest pain type: unspecified Qualified Code(s): R07.9 - Chest pain, unspecified Is this a current diagnosis for this admission?: Yes (4) ESRD on hemodialysis Is this a current diagnosis for this admission?: Yes (5) Hypertension Qualifiers: Hypertension type: unspecified Qualified Code(s): I10 - Essential (primary) hypertension Is this a current diagnosis for this admission?: Yes (6) Chronic diastolic CHF (congestive heart failure), NYHA class 3 Is this a current diagnosis for this admission?: Yes (7) HLD (hyperlipidemia) Qualifiers: Hyperlipidemia type: unspecified Qualified Code(s): E78.5 - Hyperlipidemia, unspecified Is this a current diagnosis for this admission?: Yes (8) Pain in left thigh Is this a current diagnosis for this admission?: Yes Plan: Probably due to muscle spasm. CT scan evaluation was unrevealing and no acute fracture. Continue use of Flexeril for muscle spasm management. Obtain PT evaluation and management. - Time Time Spent with patient: 25-34 minutes Medications reviewed and adjusted accordingly: Yes Anticipated discharge: Home with Homehealth Within: Other - Inpatient Certification Based on my medical assessment, after consideration of the patient's comorbidities, presenting symptoms, or acuity I expect that the services needed warrant INPATIENT care.: Yes I certify that my determination is in accordance with my understanding of Medicare's requirements for reasonable and necessary INPATIENT services [42 CFR 412.3e].: Yes Medical Necessity: Significant Comorbidiites Make Outpatient Treatment Too Risky, Need Close Monitoring Due to Risk of Patient Decompensation, Need for Pain Control, Risk of Complication if Not Cared For in Hospital, Risk of Diagnosis Which Will Require Inpatient Eval/Care/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
[2018-06-28] MEDS: MORPHINE SULFATE 10 MG/ML INJ IV PRN (09:47)
--- NOTE | 2018-06-28 12:26 | PDOC PROGRESS REPORT ---
Subjective Progress Note for:: 06/28/18 Reason For Visit: Patient seen on dialysis. He is undergoing dialysis without any issues. He has got a chest tube in his left side and is draining minimal fluid. He admits that his breathing is a whole lot better since he has been admitted and had a chest tube placed. No complaints of any fever or chills. Labs and medications were reviewed. Chart review was done.Dialysis orders were reviewed with the treating dialysis nurse. Physical Exam Vital Signs: Temp Pulse Resp BP Pulse Ox 98.6 F 66 17 121/57 L 96 06/28/18 07:53 06/28/18 07:53 06/28/18 07:53 06/28/18 07:53 06/28/18 07:53 Intake & Output 06/27/18 06/28/18 06/29/18 06:59 06:59 06:59 Intake Total 1974 846 Output Total 60 60 Balance 1914 786 Weight 104.6 kg 104.6 kg General appearance: PRESENT: no acute distress Respiratory exam: PRESENT: clear to auscultation lew, decreased breath sounds - Left side.. ABSENT: crackles Cardiovascular exam: PRESENT: RRR, +S1, +S2 GI/Abdominal exam: PRESENT: normal bowel sounds, soft. ABSENT: distended, organomegaly, tenderness Extremities exam: ABSENT: pedal edema Neurological exam: PRESENT: alert, awake, oriented to person, oriented to place, oriented to time Skin exam: ABSENT: erythema, mottled, rash Results Laboratory Results: 06/28/18 07:27 06/28/18 07:20 06/28/18 06/28/18 06/28/18 07:20 07:27 10:32 WBC 9.3 RBC 2.56 L Hgb 7.5 L Hct 22.8 L MCV 89 MCH 29.3 MCHC 32.8 RDW 16.6 H Plt Count 257 Seg Neutrophils % 81.5 H Lymphocytes % 6.2 L Monocytes % 9.5 Eosinophils % 2.1 Basophils % 0.7 Absolute Neutrophils 7.6 Absolute Lymphocytes 0.6 Absolute Monocytes 0.9 Absolute Eosinophils 0.2 Absolute Basophils 0.1 Sodium 131.8 L Potassium 5.5 H Chloride 94 L Carbon Dioxide 23 Anion Gap 15 BUN 68 H Creatinine 12.37 H Est GFR ( Amer) 5 L Est GFR (Non-Af Amer) 4 L Glucose 133 H Calcium 8.7 Blood Type A POSITIVE Antibody Screen NEGATIVE 06/22/18 06:17 Troponin I 0.046 NT-Pro-B Natriuret Pep [id number] H Impressions: Thoracentesis Ultrasound 06/24/18 08:03 IMPRESSION: SUCCESSFUL PLACEMENT OF A LEFT SIDED CHEST TUBE USING ULTRASOUND GUIDANCE. Pelvis X-Ray 06/26/18 00:00 IMPRESSION: No acute findings. Venous Doppler Study 06/26/18 00:00 IMPRESSION: NO EVIDENCE DVT OR SVT IN THE LEFT LEG. Chest X-Ray 06/26/18 08:00 IMPRESSION: No pneumothorax. Lower Extremity CT 06/27/18 00:00 IMPRESSION: Mild degenerative changes without evidence of acute injury. Status: Imported from PACS Assessment & Plan - Diagnosis (1) ESRD (end stage renal disease) on dialysis Is this a current diagnosis for this admission?: Yes Plan: Patient seen on dialysis. He is undergoing dialysis without any issues. Vital signs are stable. Dialysis is being supervised to ensure safe and smooth procedure. Plan to remove between 1 and 1.5 L as tolerated. He dropped his blood pressure minimally initially and therefore ultrafiltration has been cut back. Dialysis orders were reviewed with the treating dialysis nurse. (2) Pleural effusion on left Is this a current diagnosis for this admission?: Yes Plan: Status post chest tube placement on the left with marked improvement in his breathing. (3) Hyperkalemia Plan: Should respond to dialysis. Monitor. Advised proper dietary changes. (4) Hypertension Qualifiers: Hypertension type: unspecified Qualified Code(s): I10 - Essential (primary) hypertension Is this a current diagnosis for this admission?: Yes Plan: Well-controlled. (5) Chronic diastolic CHF (congestive heart failure), NYHA class 3 Is this a current diagnosis for this admission?: Yes Plan: Stable.
[2018-06-28] MEDS: CARVEDILOL 12.5 MG TABLET PO SCH ×2 (14:36→23:13)
[2018-06-28] MEDS: FAMOTIDINE 20 MG TABLET PO SCH (14:36)
[2018-06-28] MEDS: HYDROCODONE/ACETAMINOPHEN 5-325 MG TABLET PO PRN (14:36)
[2018-06-28] MEDS: AMLODIPINE BESYLATE 10 MG TABLET PO SCH (14:37)
[2018-06-28] MEDS: FUROSEMIDE 40 MG TABLET PO SCH (14:37)
[2018-06-28] MEDS: CLONIDINE HCL 0.2 MG TABLET PO SCH ×3 (14:37→23:15)
[2018-06-28] MEDS ORDERED: ACETAMINOPHEN 325 MG TABLET ONE (15:56)
--- NOTE | 2018-06-28 17:01 | RADIOLOGY REPORT (SQ) ---
EXAM DESCRIPTION: CHEST 2 VIEWS COMPLETED DATE/TIME: 06/28/2018 4:46 pm REASON FOR STUDY: pleural efusion with indwelling chest tube. COMPARISON: Chest films 06/23/2018, 06/25/2018, 06/26/2018 EXAM PARAMETERS: NUMBER OF VIEWS: two views TECHNIQUE: Digital Frontal and Lateral radiographic views of the chest acquired. RADIATION DOSE: NA LIMITATIONS: none FINDINGS: LUNGS AND PLEURA: Left pleural space pigtail catheter is present. Resolved left pleural e ffusion. No left pneumothorax. Patchy consolidation at the left lung base is present worrisome for pneumonia. No right pleural effusion or pneumothorax. No focal right-sided infiltrates. MEDIASTINUM AND HILAR STRUCTURES: No masses or contour abnormalities. HEART AND VASCULAR STRUCTURES: Stable cardiomegaly BONES: No acute findings. HARDWARE: Left lower lateral pleural space pigtail catheter, no residual left pleural fluid. Persis tent left basilar consolidation. OTHER: No other significant finding. IMPRESSION: Left lower lateral pleural space pigtail catheter, no residual left pleural effusion. No pneumothorax Persistent left basilar consolidation atelectasis versus pneumonia TECHNICAL DOCUMENTATION: JOB ID: [id number] 3316[employer]- All Rights Reserved Reading location - IP/workstation name: [email or web address]
[2018-06-29] MEDS: AMLODIPINE BESYLATE 10 MG TABLET PO SCH (09:42)
[2018-06-29] MEDS: MORPHINE SULFATE 10 MG/ML INJ IV PRN (09:42)
[2018-06-29] MEDS: FUROSEMIDE 40 MG TABLET PO SCH (09:42)
[2018-06-29] MEDS: FAMOTIDINE 20 MG TABLET PO SCH (09:42)
[2018-06-29] MEDS: CLONIDINE HCL 0.2 MG TABLET PO SCH ×2 (09:42→21:01)
[2018-06-29] MEDS: CARVEDILOL 12.5 MG TABLET PO SCH ×2 (09:42→21:01)
[2018-06-29 10:18] LABS: ABSOLUTE BASOPHILS # (AUTO) 0.1 10^3/uL (0.0-0.2); ABSOLUTE EOSINOPHILS # (AUTO) 0.2 10^3/uL (0.0-0.6); ABSOLUTE LYMPHOCYTES (AUTO) 0.4 10^3/uL (0.5-4.7); ABSOLUTE MONOCYTES (AUTO) 0.9 10^3/uL (0.1-1.4); ABSOLUTE NEUT (AUTO) 4.4 10^3/uL (1.7-8.2); BASOPHILS % (AUTO) 0.9 % (0-2); EOSINOPHILS % (AUTO) 2.9 % (0-6); HEMATOCRIT 26.6 % (37.9-51.0); HEMOGLOBIN 8.7 g/dL (13.5-17.0); LYMPHOCYTES % (AUTO) 7.1 % (13-45); MEAN CORPUSCULAR HGB CONC 32.9 g/dL (32.0-36.0); MEAN CORPUSCULAR VOLUME 88 fl (80-97); MONOCYTES % (AUTO) 14.7 % (3-13); PLATELET COUNT 230 10^3/uL (150-450); RED BLOOD COUNT 3.02 10^6/uL (4.35-5.55); RED CELL DISTRIBUTION WIDTH 15.6 % (11.5-14.0); SEGMENTED NEUTROPHILS % (AUTO) 74.4 % (42-78); TOTAL CELLS COUNTED % (AUTO) 100 %; WHITE BLOOD COUNT 5.9 10^3/uL (4.0-10.5)
--- NOTE | 2018-06-29 17:44 | PDOC PROGRESS REPORT ---
Subjective Progress Note for:: 06/29/18 Subjective:: Patient reproted some improvement in his left thigh pain. He participated in physical therapy session. He denied any chest pain. He reported satisfactory pain control at site of chest tube. Breathing is normal. No abdominal pain, nausea or vomiting. No fever or chills. Chest tube drainage has been minimal since last clinical evaluation by me. Reason For Visit: SEVERE ANEMIA,ESRD ON DIALYSIS,PLEURAL EFFUSION, Physical Exam Vital Signs: Temp Pulse Resp BP Pulse Ox 98.9 F 61 19 115/55 L 100 06/29/18 11:16 06/29/18 13:57 06/29/18 11:16 06/29/18 11:16 06/29/18 11:16 Intake & Output 06/28/18 06/29/18 06/30/18 06:59 06:59 06:59 Intake Total 846 300 960 Output Total 60 1800 Balance 786 -1500 960 Weight 104.6 kg 104.8 kg Physical Exam: General appearance: PRESENT: no acute distress, obese Head exam: PRESENT: atraumatic, normocephalic Eye exam: PRESENT: pallor ABSENT: pallor, scleral icterus Ear exam: PRESENT: normal external ear exam Mouth exam: PRESENT: moist Respiratory exam: PRESENT: clear to auscultation lew, decreased breath sounds - at lung bases, left chest tube in situ. Cardiovascular exam: PRESENT: RRR, +S1, +S2. ABSENT: diastolic murmur, rubs, systolic murmur GI/Abdominal exam: PRESENT: normal bowel sounds, soft. ABSENT: distended, guarding, mass, organomegaly, rebound, tenderness Extremities exam: PRESENT: comparative improvement in expressed tenderness to Left thigh palpation ABSENT: pedal edema Neurological exam: PRESENT: alert, awake, oriented to person, oriented to place, oriented to time, oriented to situation, CN II-XII grossly intact. ABSENT: motor sensory deficit Psychiatric exam: PRESENT: appropriate affect, normal mood. ABSENT: homicidal ideation, suicidal ideation Skin exam: PRESENT: dry, warm Results Laboratory Results: 06/29/18 10:05 06/28/18 07:20 06/28/18 06/29/18 10:32 10:05 WBC 5.9 RBC 3.02 L Hgb 8.7 L Hct 26.6 L MCV 88 MCH 29.0 MCHC 32.9 RDW 15.6 H Plt Count 230 Seg Neutrophils % 74.4 Lymphocytes % 7.1 L Monocytes % 14.7 H Eosinophils % 2.9 Basophils % 0.9 Absolute Neutrophils 4.4 Absolute Lymphocytes 0.4 L Absolute Monocytes 0.9 Absolute Eosinophils 0.2 Absolute Basophils 0.1 Blood Type A POSITIVE Antibody Screen NEGATIVE 06/22/18 06:17 Troponin I 0.046 NT-Pro-B Natriuret Pep [id number] H Impressions: Thoracentesis Ultrasound 06/24/18 08:03 IMPRESSION: SUCCESSFUL PLACEMENT OF A LEFT SIDED CHEST TUBE USING ULTRASOUND GUIDANCE. Pelvis X-Ray 06/26/18 00:00 IMPRESSION: No acute findings. Venous Doppler Study 06/26/18 00:00 IMPRESSION: NO EVIDENCE DVT OR SVT IN THE LEFT LEG. Lower Extremity CT 06/27/18 00:00 IMPRESSION: Mild degenerative changes without evidence of acute injury. Chest X-Ray 06/28/18 00:00 IMPRESSION: Left lower lateral pleural space pigtail catheter, no residual left pleural effusion. No pneumothorax Persistent left basilar consolidation atelectasis versus pneumonia Assessment & Plan - Diagnosis (1) Pleural effusion, left Is this a current diagnosis for this admission?: Yes (2) Anemia in CKD (chronic kidney disease) Qualifiers: Chronic kidney disease stage: on chronic dialysis Qualified Code(s): N18.6 - End stage renal disease; D63.1 - Anemia in chronic kidney disease; D63.1 - Anemia in chronic kidney disease; Z99.2 - Dependence on renal dialysis; Z99.2 - Dependence on renal dialysis; Z99.2 - Dependence on renal dialysis; Z99.2 - Dependence on renal dialysis Is this a current diagnosis for this admission?: Yes (3) Chest pain Qualifiers: Chest pain type: unspecified Qualified Code(s): R07.9 - Chest pain, unspecified Is this a current diagnosis for this admission?: Yes (4) ESRD on hemodialysis Is this a current diagnosis for this admission?: Yes (5) Hypertension Qualifiers: Hypertension type: unspecified Qualified Code(s): I10 - Essential (primary) hypertension Is this a current diagnosis for this admission?: Yes (6) Chronic diastolic CHF (congestive heart failure), NYHA class 3 Is this a current diagnosis for this admission?: Yes (7) HLD (hyperlipidemia) Qualifiers: Hyperlipidemia type: unspecified Qualified Code(s): E78.5 - Hyperlipidemia, unspecified Is this a current diagnosis for this admission?: Yes (8) Pain in left thigh Is this a current diagnosis for this admission?: Yes - Time Time Spent with patient: 25-34 minutes Medications reviewed and adjusted accordingly: Yes Anticipated discharge: Home Within: Other - Inpatient Certification Based on my medical assessment, after consideration of the patient's comorbidities, presenting symptoms, or acuity I expect that the services needed warrant INPATIENT care.: Yes I certify that my determination is in accordance with my understanding of Medicare's requirements for reasonable and necessary INPATIENT services [42 CFR 412.3e].: Yes Medical Necessity: Significant Comorbidiites Make Outpatient Treatment Too Risky, Need Close Monitoring Due to Risk of Patient Decompensation, Need for Pain Control, Risk of Complication if Not Cared For in Hospital, Risk of Diagnosis Which Will Require Inpatient Eval/Care/Monitoring 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 Possible removal of chest tube tomorrow. Encouraged ambulation as much as possible.
[2018-06-29] MEDS: HYDROCODONE/ACETAMINOPHEN 5-325 MG TABLET PO PRN (20:14)
[2018-06-30] MEDS ORDERED: EPOETIN ALFA INJ 20000 UNIT/1 ML VIAL (RENAL) IV PRN (05:00)
[2018-06-30] MEDS: CARVEDILOL 12.5 MG TABLET PO SCH ×3 (10:27→22:44)
[2018-06-30] MEDS: FUROSEMIDE 40 MG TABLET PO SCH (10:29)
[2018-06-30] MEDS: FAMOTIDINE 20 MG TABLET PO SCH (10:29)
[2018-06-30] MEDS: CLONIDINE HCL 0.2 MG TABLET PO SCH ×2 (10:29→22:44)
[2018-06-30] MEDS: CYCLOBENZAPRINE HCL 10 MG TABLET PO PRN (12:52)
[2018-06-30] MEDS: AMLODIPINE BESYLATE 10 MG TABLET PO SCH (15:10)
--- NOTE | 2018-06-30 19:14 | PDOC PROGRESS REPORT ---
Subjective Progress Note for:: 06/30/18 Subjective:: Patient denied any chest pain or difficulty with breathing. He reported satisfactory pain control at site of chest tube. No abdominal pain, nausea or vomiting. No fever or chills. Chest tube drainage has been minimal since last clinical evaluation by me. Reason For Visit: SEVERE ANEMIA,ESRD ON DIALYSIS,PLEURAL EFFUSION, Physical Exam Vital Signs: Temp Pulse Resp BP Pulse Ox 98.9 F 62 18 135/75 H 96 06/30/18 11:41 06/30/18 14:00 06/30/18 11:41 06/30/18 11:41 06/30/18 11:41 Intake & Output 06/29/18 06/30/18 07/01/18 06:59 06:59 06:59 Intake Total 300 1440 573 Output Total 1800 0 1400 Balance -1500 1440 -827 Weight 104.8 kg 104.8 kg Physical Exam: General appearance: PRESENT: no acute distress, obese Head exam: PRESENT: atraumatic, normocephalic Eye exam: PRESENT: pallor ABSENT: pallor, scleral icterus Ear exam: PRESENT: normal external ear exam Mouth exam: PRESENT: moist Respiratory exam: PRESENT: clear to auscultation lew, decreased breath sounds - at lung bases, left chest tube in situ. Cardiovascular exam: PRESENT: RRR, +S1, +S2. ABSENT: diastolic murmur, rubs, systolic murmur GI/Abdominal exam: PRESENT: normal bowel sounds, soft. ABSENT: distended, guarding, mass, organomegaly, rebound, tenderness Extremities exam: PRESENT: minimal tenderness to Left thigh palpation ABSENT: pedal edema Neurological exam: PRESENT: alert, awake, oriented to person, oriented to place, oriented to time, oriented to situation, CN II-XII grossly intact. ABSENT: motor sensory deficit Psychiatric exam: PRESENT: appropriate affect, normal mood. ABSENT: homicidal ideation, suicidal ideation Skin exam: PRESENT: dry, warm Results Laboratory Results: 06/29/18 10:05 06/28/18 07:20 06/22/18 06:17 Troponin I 0.046 NT-Pro-B Natriuret Pep [id number] H Impressions: Thoracentesis Ultrasound 06/24/18 08:03 IMPRESSION: SUCCESSFUL PLACEMENT OF A LEFT SIDED CHEST TUBE USING ULTRASOUND GUIDANCE. Pelvis X-Ray 06/26/18 00:00 IMPRESSION: No acute findings. Venous Doppler Study 06/26/18 00:00 IMPRESSION: NO EVIDENCE DVT OR SVT IN THE LEFT LEG. Lower Extremity CT 06/27/18 00:00 IMPRESSION: Mild degenerative changes without evidence of acute injury. Chest X-Ray 06/28/18 00:00 IMPRESSION: Left lower lateral pleural space pigtail catheter, no residual left pleural effusion. No pneumothorax Persistent left basilar consolidation atelectasis versus pneumonia Assessment & Plan - Diagnosis (1) Pleural effusion, left Is this a current diagnosis for this admission?: Yes (2) Anemia in CKD (chronic kidney disease) Qualifiers: Chronic kidney disease stage: on chronic dialysis Qualified Code(s): N18.6 - End stage renal disease; D63.1 - Anemia in chronic kidney disease; D63.1 - Anemia in chronic kidney disease; Z99.2 - Dependence on renal dialysis; Z99.2 - Dependence on renal dialysis; Z99.2 - Dependence on renal dialysis; Z99.2 - Dependence on renal dialysis Is this a current diagnosis for this admission?: Yes (3) Chest pain Qualifiers: Chest pain type: unspecified Qualified Code(s): R07.9 - Chest pain, unspecified Is this a current diagnosis for this admission?: Yes (4) ESRD on hemodialysis Is this a current diagnosis for this admission?: Yes (5) Hypertension Qualifiers: Hypertension type: unspecified Qualified Code(s): I10 - Essential (primary) hypertension Is this a current diagnosis for this admission?: Yes (6) Chronic diastolic CHF (congestive heart failure), NYHA class 3 Is this a current diagnosis for this admission?: Yes (7) HLD (hyperlipidemia) Qualifiers: Hyperlipidemia type: unspecified Qualified Code(s): E78.5 - Hyperlipidemia, unspecified Is this a current diagnosis for this admission?: Yes (8) Pain in left thigh Is this a current diagnosis for this admission?: Yes - Time Time Spent with patient: 25-34 minutes Medications reviewed and adjusted accordingly: Yes Anticipated discharge: SNF Within: Other - Inpatient Certification Based on my medical assessment, after consideration of the patient's comorbidities, presenting symptoms, or acuity I expect that the services needed warrant INPATIENT care.: Yes I certify that my determination is in accordance with my understanding of Medicare's requirements for reasonable and necessary INPATIENT services [42 CFR 412.3e].: Yes Medical Necessity: Significant Comorbidiites Make Outpatient Treatment Too Risky, Need Close Monitoring Due to Risk of Patient Decompensation, Risk of Complication if Not Cared For in Hospital, Risk of Diagnosis Which Will Require Inpatient Eval/Care/Monitoring Post Hospital Care: D/C or Transfer Summary - Plan Summary Plan Summary: Continue current medication management. Follow up on SNF rehabilitation placement.
--- NOTE | 2018-06-30 19:33 | PDOC PROGRESS REPORT ---
Subjective Progress Note for:: 06/30/18 Reason For Visit: Patient seen on dialysis today. Undergoing dialysis without any issues. Still has chest tube with very minimal drainage. He denies any history of chest pain shortness of breath fever chills. Dialysis orders were reviewed with the treating dialysis nurse. Physical Exam Vital Signs: Temp Pulse Resp BP Pulse Ox 98.9 F 62 18 135/75 H 96 06/30/18 11:41 06/30/18 14:00 06/30/18 11:41 06/30/18 11:41 06/30/18 11:41 Intake & Output 06/29/18 06/30/18 07/01/18 06:59 06:59 06:59 Intake Total 300 1440 573 Output Total 1800 0 1400 Balance -1500 1440 -827 Weight 104.8 kg 104.8 kg General appearance: PRESENT: no acute distress Respiratory exam: PRESENT: clear to auscultation lew. ABSENT: crackles Cardiovascular exam: PRESENT: RRR, +S1, +S2 GI/Abdominal exam: PRESENT: normal bowel sounds, soft. ABSENT: distended, organomegaly, tenderness Extremities exam: ABSENT: pedal edema Neurological exam: PRESENT: alert, awake, oriented to person, oriented to place, oriented to time Skin exam: ABSENT: cyanosis, erythema, mottled, rash Results Laboratory Results: 06/29/18 10:05 06/28/18 07:20 06/22/18 06:17 Troponin I 0.046 NT-Pro-B Natriuret Pep 53830 H Impressions: Thoracentesis Ultrasound 06/24/18 08:03 IMPRESSION: SUCCESSFUL PLACEMENT OF A LEFT SIDED CHEST TUBE USING ULTRASOUND GUIDANCE. Pelvis X-Ray 06/26/18 00:00 IMPRESSION: No acute findings. Venous Doppler Study 06/26/18 00:00 IMPRESSION: NO EVIDENCE DVT OR SVT IN THE LEFT LEG. Lower Extremity CT 06/27/18 00:00 IMPRESSION: Mild degenerative changes without evidence of acute injury. Chest X-Ray 06/28/18 00:00 IMPRESSION: Left lower lateral pleural space pigtail catheter, no residual left pleural effusion. No pneumothorax Persistent left basilar consolidation atelectasis versus pneumonia Assessment & Plan - Diagnosis (1) ESRD (end stage renal disease) on dialysis Is this a current diagnosis for this admission?: Yes Plan: Patient seen on dialysis. He is undergoing dialysis without any issues. Vital signs are stable. Dialysis is being supervised to ensure safe and smooth procedure. Plan to remove between 1 and 1.5 L as tolerated. Dialysis orders were reviewed with the treating dialysis nurse. (2) Pleural effusion on left Is this a current diagnosis for this admission?: Yes Plan: Status post chest tube placement on the left with marked improvement in his breathing. (3) Hyperkalemia Plan: Unresolved.? Recirculation. Monitor. Advised proper dietary changes. (4) Hypertension Qualifiers: Hypertension type: unspecified Qualified Code(s): I10 - Essential (primary) hypertension Is this a current diagnosis for this admission?: Yes Plan: Well-controlled. (5) Chronic diastolic CHF (congestive heart failure), NYHA class 3 Is this a current diagnosis for this admission?: Yes Plan: Stable. (6) Anemia Qualifiers: Anemia type: unspecified type Qualified Code(s): D64.9 - Anemia, unspecified Plan: Status post transfusion stable. On erythropoietin.Get appropriate studies done as not done so far.
[2018-06-30] MEDS: ACETAMINOPHEN 325 MG TABLET PO PRN (22:45)
[2018-06-30] MEDS: HYDROCODONE/ACETAMINOPHEN 5-325 MG TABLET PO PRN (22:45)
[2018-07-01 04:59] LABS: ABSOLUTE RETICS # 0.038 10^6/uL (0.028-0.122); HEMATOCRIT 27.3 % (37.9-51.0); MEAN CORPUSCULAR HEMOGLOBIN 29.4 pg (27.0-33.4); MEAN CORPUSCULAR HGB CONC 32.8 g/dL (32.0-36.0); MEAN CORPUSCULAR VOLUME 90 fl (80-97); PLATELET COUNT 219 10^3/uL (150-450); RED BLOOD COUNT 3.05 10^6/uL (4.35-5.55); RED CELL DISTRIBUTION WIDTH 15.6 % (11.5-14.0); RETICULOCYTE COUNT (AUTO) 1.25 % (0.66-2.85); WHITE BLOOD COUNT 3.9 10^3/uL (4.0-10.5)
[2018-07-01 05:17] LABS: ANION GAP 11 (5-19); BLOOD UREA NITROGEN 38 mg/dL (7-20); CALCIUM 8.7 mg/dL (8.4-10.2); CARBON DIOXIDE 33 mmol/L (22-30); CHLORIDE 94 mmol/L (98-107); GLUCOSE 99 mg/dL (75-110); POTASSIUM 4.4 mmol/L (3.6-5.0); SODIUM 138.4 mmol/L (137-145)
[2018-07-01 06:23] LABS: FOLATE 5.59 ng/mL (>2.76)
[2018-07-01] MEDS: CARVEDILOL 12.5 MG TABLET PO SCH ×2 (09:48→21:04)
[2018-07-01] MEDS: AMLODIPINE BESYLATE 10 MG TABLET PO SCH (09:48)
[2018-07-01] MEDS: FUROSEMIDE 40 MG TABLET PO SCH (09:49)
[2018-07-01] MEDS: CLONIDINE HCL 0.2 MG TABLET PO SCH ×2 (09:49→21:04)
[2018-07-01] MEDS: FAMOTIDINE 20 MG TABLET PO SCH (09:49)
[2018-07-01] MEDS: CYCLOBENZAPRINE HCL 10 MG TABLET PO PRN ×2 (11:31→21:05)
--- NOTE | 2018-07-01 13:41 | RADIOLOGY REPORT (SQ) ---
EXAM DESCRIPTION: CHEST SINGLE VIEW COMPLETED DATE/TIME: 07/01/2018 1:09 pm REASON FOR STUDY: Chest Tube removal COMPARISON: 06/28/2018 EXAM PARAMETERS: NUMBER OF VIEWS: One view. TECHNIQUE: Single frontal radiographic view of the chest acquired. RADIATION DOSE: NA LIMITATIONS: None. FINDINGS: LUNGS AND PLEURA: There is improved aeration in the left base. There may be a minimal ple ural effusion. MEDIASTINUM AND HILAR STRUCTURES: No masses. Contour normal. HEART AND VASCULAR STRUCTURES: Cardiomegaly. No pulmonary edema. BONES: No acute findings. HARDWARE: Thoracotomy tube is no longer present in the left base. OTHER: No other significant finding. IMPRESSION: NO ACUTE RADIOGRAPHIC FINDING IN THE CHEST. TECHNICAL DOCUMENTATION: JOB ID: [id number] [employer]- All Rights Reserved Reading location - IP/workstation name: [email or web address]
--- NOTE | 2018-07-01 18:07 | PDOC PROGRESS REPORT ---
Subjective Progress Note for:: 07/01/18 Subjective:: Patient reported ambulating on the medical floor earlier today post removal of his left sided chest tube. He denied any chest pain or difficulty with breathing. No abdominal pain, nausea or vomiting. No fever or chills. Reason For Visit: SEVERE ANEMIA,ESRD ON DIALYSIS,PLEURAL EFFUSION, Physical Exam Vital Signs: Temp Pulse Resp BP Pulse Ox 98.7 F 65 16 127/64 H 96 07/01/18 07:31 07/01/18 14:00 07/01/18 07:31 07/01/18 07:31 07/01/18 07:31 Intake & Output 06/30/18 07/01/18 07/02/18 06:59 06:59 06:59 Intake Total 1440 1053 520 Output Total 0 1400 20 Balance 1440 -347 500 Weight 104.8 kg 106.4 kg Physical Exam: General appearance: PRESENT: no acute distress, obese Head exam: PRESENT: atraumatic, normocephalic Eye exam: PRESENT: pallor ABSENT: pallor, scleral icterus Ear exam: PRESENT: normal external ear exam Mouth exam: PRESENT: moist Respiratory exam: PRESENT: clear to auscultation lew, decreased breath sounds - at lung bases. Cardiovascular exam: PRESENT: RRR, +S1, +S2. ABSENT: diastolic murmur, rubs, systolic murmur GI/Abdominal exam: PRESENT: normal bowel sounds, soft. ABSENT: distended, guarding, mass, organomegaly, rebound, tenderness Extremities exam: PRESENT: minimal tenderness to Left thigh palpation ABSENT: pedal edema Neurological exam: PRESENT: alert, awake, oriented to person, oriented to place, oriented to time, oriented to situation, CN II-XII grossly intact. ABSENT: motor sensory deficit Psychiatric exam: PRESENT: appropriate affect, normal mood. ABSENT: homicidal ideation, suicidal ideation Skin exam: PRESENT: dry, warm Results Laboratory Results: 07/01/18 04:42 07/01/18 04:42 07/01/18 07/01/18 04:42 04:42 WBC 3.9 L RBC 3.05 L Hgb 9.0 L Hct 27.3 L MCV 90 MCH 29.4 MCHC 32.8 RDW 15.6 H Plt Count 219 Retic Count (auto) 1.25 Absolute Retic 0.038 Sodium 138.4 Potassium 4.4 Chloride 94 L Carbon Dioxide 33 H Anion Gap 11 BUN 38 H Creatinine 8.62 H Est GFR ( Amer) 8 L Est GFR (Non-Af Amer) 6 L Glucose 99 Calcium 8.7 Iron 19.0 L TIBC 160 L % Saturation 12 Ferritin 1800.00 H Vitamin B12 697.0 Folate 5.59 06/22/18 06:17 Troponin I 0.046 NT-Pro-B Natriuret Pep 53946 H Impressions: Thoracentesis Ultrasound 06/24/18 08:03 IMPRESSION: SUCCESSFUL PLACEMENT OF A LEFT SIDED CHEST TUBE USING ULTRASOUND GUIDANCE. Pelvis X-Ray 06/26/18 00:00 IMPRESSION: No acute findings. Venous Doppler Study 06/26/18 00:00 IMPRESSION: NO EVIDENCE DVT OR SVT IN THE LEFT LEG. Lower Extremity CT 06/27/18 00:00 IMPRESSION: Mild degenerative changes without evidence of acute injury. Chest X-Ray 07/01/18 00:00 IMPRESSION: NO ACUTE RADIOGRAPHIC FINDING IN THE CHEST. Assessment & Plan - Diagnosis (1) Pleural effusion, left Is this a current diagnosis for this admission?: Yes (2) Anemia in CKD (chronic kidney disease) Qualifiers: Chronic kidney disease stage: on chronic dialysis Qualified Code(s): N18.6 - End stage renal disease; D63.1 - Anemia in chronic kidney disease; D63.1 - Anemia in chronic kidney disease; Z99.2 - Dependence on renal dialysis; Z99.2 - Dependence on renal dialysis; Z99.2 - Dependence on renal dialysis; Z99.2 - Dependence on renal dialysis Is this a current diagnosis for this admission?: Yes (3) Chest pain Qualifiers: Chest pain type: unspecified Qualified Code(s): R07.9 - Chest pain, unspecified Is this a current diagnosis for this admission?: Yes (4) ESRD on hemodialysis Is this a current diagnosis for this admission?: Yes (5) Hypertension Qualifiers: Hypertension type: unspecified Qualified Code(s): I10 - Essential (primary) hypertension Is this a current diagnosis for this admission?: Yes (6) Chronic diastolic CHF (congestive heart failure), NYHA class 3 Is this a current diagnosis for this admission?: Yes (7) HLD (hyperlipidemia) Qualifiers: Hyperlipidemia type: unspecified Qualified Code(s): E78.5 - Hyperlipidemia, unspecified Is this a current diagnosis for this admission?: Yes (8) Pain in left thigh Is this a current diagnosis for this admission?: Yes - Time Time Spent with patient: 25-34 minutes Medications reviewed and adjusted accordingly: Yes Anticipated discharge: Home Within: Other - Inpatient Certification Based on my medical assessment, after consideration of the patient's comorbidities, presenting symptoms, or acuity I expect that the services needed warrant INPATIENT care.: Yes I certify that my determination is in accordance with my understanding of Medicare's requirements for reasonable and necessary INPATIENT services [42 CFR 412.3e].: Yes Medical Necessity: Significant Comorbidiites Make Outpatient Treatment Too Risky, Need Close Monitoring Due to Risk of Patient Decompensation, Risk of Complication if Not Cared For in Hospital, Risk of Diagnosis Which Will Require Inpatient Eval/Care/Monitoring Post Hospital Care: D/C Smalltalk Developer Documentation - Plan Summary Plan Summary: Continue current medication management. Encouraged gradual increase in physical activities with plan to engage in outpatient physical therapy.
[2018-07-01] MEDS: ACETAMINOPHEN 325 MG TABLET PO PRN (21:04)
[2018-07-02] MEDS ORDERED: EPOETIN ALFA INJ 20000 UNIT/1 ML VIAL (RENAL) IV PRN (05:00)
[2018-07-02 07:32] LABS: ANION GAP 14 (5-19); BLOOD UREA NITROGEN 51 mg/dL (7-20); CARBON DIOXIDE 26 mmol/L (22-30); CHLORIDE 94 mmol/L (98-107); GLUCOSE 94 mg/dL (75-110); POTASSIUM 4.5 mmol/L (3.6-5.0); SODIUM 133.5 mmol/L (137-145)
[2018-07-02] MEDS: CLONIDINE HCL 0.2 MG TABLET PO SCH (11:39)
[2018-07-02] MEDS: FUROSEMIDE 40 MG TABLET PO SCH (11:40)
[2018-07-02] MEDS: CARVEDILOL 12.5 MG TABLET PO SCH (11:40)
[2018-07-02] MEDS: FAMOTIDINE 20 MG TABLET PO SCH (11:40)
[2018-07-02] MEDS: AMLODIPINE BESYLATE 10 MG TABLET PO SCH (11:40)
--- NOTE | 2018-07-02 13:43 | PDOC DISCHARGE SUMMARY ---
General - Admit/Disc Date/PCP Admission Date/Primary Care Provider: 06/23/18 07:44 RUDY DELMAR Discharge Date: 07/02/18 - Discharge Diagnosis (1) Pleural effusion, left Is this a current diagnosis for this admission?: Yes (2) Anemia in CKD (chronic kidney disease) Is this a current diagnosis for this admission?: Yes (3) Chest pain Is this a current diagnosis for this admission?: Yes (4) ESRD on hemodialysis Is this a current diagnosis for this admission?: Yes (5) Hypertension Is this a current diagnosis for this admission?: Yes (6) Chronic diastolic CHF (congestive heart failure), NYHA class 3 Is this a current diagnosis for this admission?: Yes (7) HLD (hyperlipidemia) Is this a current diagnosis for this admission?: Yes (8) Pain in left thigh Is this a current diagnosis for this admission?: Yes - Additional Information Resuscitation Status: Full Code Home Medications: Amlodipine Besylate [Norvasc 10 mg Tablet] 10 mg PO DAILY 06/23/18 Carvedilol [Coreg 12.5 mg Tablet] 12.5 mg PO BID 06/23/18 Furosemide [Lasix 40 mg Tablet] 40 mg PO DAILY 06/23/18 Pravastatin Sodium [Pravachol] 40 mg PO QHS 06/23/18 Promethazine HCl 12.5 mg PO Q4HP PRN 06/23/18 Ranitidine HCl [Zantac 150 mg Tablet] 150 mg PO DAILY 06/23/18 Clonidine HCl [Catapres 0.3 mg Tablet] 0.3 mg PO BID #0 07/02/18 History of Present Illness Patient complains of: Worsening shortness of breath History of Present Illness: ANY STRONG is a 57 year old male patient known to my practice who presented to the ED with worsening shortness of breath and difficulty laying down to sleep. He reported worsening cough and orthopnea over last couple of days due to difficulty even with ambulation in his home from shortness of breath he decided to seek further evaluation in the ED. He has ESRD on hemodialysis and had a session at [facility] [place] a day prior to his presentation. He denied any palpitation but reported chest discomfort with coughing earlier that has minimally improved. He reported compliance with his medication ad dietary restrictions. He denied cigarette smoking or alcohol abuse. He denied any significant sputum production, fever or chills. No nausea, vomiting or abdominal pain. His urine output remain fairly stable. His initial ED evaluation was significant for tachypnea, bilateral pleural effusion, left >> right on his chest x ray, anemia, elevated NT Pro-BNP and elevated serum creatinine related to his ESRD on hemodialysis support. His morbidities include chronic CHF, Hypertension, Hyperlipidemia, ESRD on dialysis, and GERD. He was advised hospitalization to observation bed for further evaluation and management. Hospital Course Hospital Course: Patient was admitted for significant left pleural effusion and associated orthopnea and tachypnea. He was found to be significantly anemia necessitating transfusion of total 4 units of PRBC at hemodialysis sessions. He was initially managed with IV Lasix along with his other anti CHF medications. He had initial left thoracentesis with removal of about 900 ml f pleural fluid.Due to persistence of pleural fluid and symptoms including tachypnea, he eventually had chest tube placement. About 3 liters of pleural fluid was drained out. His stay was further complicated by complain of pain in his thigh and due to lack of adequate response to conservative management he had left lower extremity CT scan completed that was unrevealing except for mild degenerative changes in his left hip joint. He participated in physical therapy sessions and has been able to ambulate on the floor with assistance and satisfactorily. He was seen in consultation by Drs. Chen and Timi, catheter finisher and inspector, for his ESRD and hemodialysis management during this hospitalization. He will be discharged home today and follow up in the office as instructed upon discharge. He will follow up with Dr Urbano,catheter finisher and inspector, for his kidney disease management. Physical Exam Vital Signs: Temp Pulse Resp BP Pulse Ox 98.2 F 67 16 115/55 L 90 L 07/02/18 03:27 07/02/18 07:00 07/02/18 03:27 07/02/18 03:27 07/02/18 03:27 Intake & Output 07/01/18 07/02/18 07/03/18 06:59 06:59 06:59 Intake Total 1053 1500 Output Total 1400 20 1400 Balance -347 1480 -1400 Weight 106.4 kg 106.4 kg Physical Exam: General appearance: PRESENT: no acute distress, obese Head exam: PRESENT: atraumatic, normocephalic Eye exam: PRESENT: pallor ABSENT: pallor, scleral icterus Ear exam: PRESENT: normal external ear exam Mouth exam: PRESENT: moist Respiratory exam: PRESENT: clear to auscultation lew, decreased breath sounds - at lung bases. Cardiovascular exam: PRESENT: RRR, +S1, +S2. ABSENT: diastolic murmur, rubs, systolic murmur GI/Abdominal exam: PRESENT: normal bowel sounds, soft. ABSENT: distended, guarding, mass, organomegaly, rebound, tenderness Extremities exam: ABSENT: pedal edema Neurological exam: PRESENT: alert, awake, oriented to person, oriented to place, oriented to time, oriented to situation, CN II-XII grossly intact. ABSENT: motor sensory deficit Psychiatric exam: PRESENT: appropriate affect, normal mood. ABSENT: homicidal ideation, suicidal ideation Skin exam: PRESENT: dry, warm Results Laboratory Results: 07/01/18 04:42 07/02/18 06:20 07/02/18 06:20 Sodium 133.5 L Potassium 4.5 Chloride 94 L Carbon Dioxide 26 Anion Gap 14 BUN 51 H Creatinine 10.30 H Est GFR ( Amer) 6 L Est GFR (Non-Af Amer) 5 L Glucose 94 Calcium 9.0 06/22/18 06:17 Troponin I 0.046 NT-Pro-B Natriuret Pep 44361 H Impressions: Thoracentesis Ultrasound 06/24/18 08:03 IMPRESSION: SUCCESSFUL PLACEMENT OF A LEFT SIDED CHEST TUBE USING ULTRASOUND GUIDANCE. Pelvis X-Ray 06/26/18 00:00 IMPRESSION: No acute findings. Venous Doppler Study 06/26/18 00:00 IMPRESSION: NO EVIDENCE DVT OR SVT IN THE LEFT LEG. Lower Extremity CT 06/27/18 00:00 IMPRESSION: Mild degenerative changes without evidence of acute injury. Chest X-Ray 07/01/18 00:00 IMPRESSION: NO ACUTE RADIOGRAPHIC FINDING IN THE CHEST. Qualifiers - * PATIENT BEING DISCHARGED WITH ANY OF THE FOLLOWING DIAGNOSIS: No Plan Discharge Plan: D/C home today with follow up in the office as instructed upon discharge. Time Spent: Less than 30 Minutes
[2018-07-02 13:56] VITALS: BP 137/61
--- NOTE | 2018-07-02 16:49 | PDOC PROGRESS REPORT ---
Subjective Progress Note for:: 07/02/18 Reason For Visit: Patient seen earlier today on dialysis. He is undergoing dialysis without any issues. Vital signs are stable. Chest tube has been removed couple of days ago and is feeling a whole lot better. No complaints of any fever or chills. Labs and medications were reviewed. Dialysis orders were reviewed with the treating dialysis nurse. Physical Exam Vital Signs: Temp Pulse Resp BP Pulse Ox 98.2 F 67 16 137/61 H 90 L 07/02/18 13:54 07/02/18 13:54 07/02/18 13:54 07/02/18 13:54 07/02/18 13:54 Intake & Output 07/01/18 07/02/18 07/03/18 06:59 06:59 06:59 Intake Total 1053 1500 480 Output Total 1400 20 1400 Balance -347 1480 -920 Weight 106.4 kg 106.4 kg General appearance: PRESENT: no acute distress Respiratory exam: PRESENT: clear to auscultation lew. ABSENT: crackles Cardiovascular exam: PRESENT: RRR, +S1, +S2 GI/Abdominal exam: PRESENT: normal bowel sounds, soft. ABSENT: distended, organomegaly, tenderness Neurological exam: PRESENT: alert, awake, oriented to person, oriented to place, oriented to time Results Laboratory Results: 07/01/18 04:42 07/02/18 06:20 07/02/18 06:20 Sodium 133.5 L Potassium 4.5 Chloride 94 L Carbon Dioxide 26 Anion Gap 14 BUN 51 H Creatinine 10.30 H Est GFR ( Amer) 6 L Est GFR (Non-Af Amer) 5 L Glucose 94 Calcium 9.0 06/22/18 06:17 Troponin I 0.046 NT-Pro-B Natriuret Pep 14330 H Impressions: Thoracentesis Ultrasound 06/24/18 08:03 IMPRESSION: SUCCESSFUL PLACEMENT OF A LEFT SIDED CHEST TUBE USING ULTRASOUND GUIDANCE. Pelvis X-Ray 06/26/18 00:00 IMPRESSION: No acute findings. Venous Doppler Study 06/26/18 00:00 IMPRESSION: NO EVIDENCE DVT OR SVT IN THE LEFT LEG. Lower Extremity CT 06/27/18 00:00 IMPRESSION: Mild degenerative changes without evidence of acute injury. Chest X-Ray 07/01/18 00:00 IMPRESSION: NO ACUTE RADIOGRAPHIC FINDING IN THE CHEST. Assessment & Plan - Diagnosis (1) ESRD (end stage renal disease) on dialysis Is this a current diagnosis for this admission?: Yes Plan: Patient seen on dialysis. He is undergoing dialysis without any issues. Vital signs are stable. Dialysis is being supervised to ensure safe and smooth procedure. Plan to remove between 1 and 1.5 L as tolerated. Dialysis orders were reviewed with the treating dialysis nurse. (2) Pleural effusion on left Is this a current diagnosis for this admission?: Yes Plan: Status post chest tube placement on the left with marked improvement in his breathing.His chest tube has been removed couple of days ago and is doing very well. Hopefully he will be discharged home later today. (3) Hyperkalemia Plan: Resolved. Advised on low potassium diet. (4) Hypertension Qualifiers: Hypertension type: unspecified Qualified Code(s): I10 - Essential (primary) hypertension Is this a current diagnosis for this admission?: Yes Plan: Well-controlled. (5) Chronic diastolic CHF (congestive heart failure), NYHA class 3 Is this a current diagnosis for this admission?: Yes Plan: Stable. (6) Anemia Qualifiers: Anemia type: unspecified type Qualified Code(s): D64.9 - Anemia, unspecified Plan: Status post transfusion stable. On erythropoietin.
[2018-07-06 16:37] LABS: A/G RATIO 0.9 (0.7-1.7); ALBUMIN 2 2.8 g/dL (2.9-4.4); ALPHA-2-GLOBULIN 2 0.8 g/dL (0.4-1.0); BETA GLOBULINS 0.8 g/dL (0.7-1.3); GAMMA GLOBULIN 1.1 g/dL (0.4-1.8); GLOBULIN TOTAL 3.1 g/dL (2.2-3.9); MONOCLONAL SPIKE Not Observed g/dL (Not Observ); PROTEIN TOTAL SERUM 5.9 g/dL (6.0-8.5)
== END 2018-07-02 15:07 | disposition home or self-care (01) | DRG 291 ==
LOC: ER 05:37 → EH 07:50 → 4W 09:41 → OBSVTOIN 06-23 07:44 → 4N 06-25 01:29
PROVIDERS: ADMIT Internal Medicine Geriatric Medicine; ATTEND Internal Medicine Geriatric Medicine
PROC: 0W9B3ZX Drainage of Left Pleural Cavity, Percutaneous Approach, Diagnostic (ICD-10-PCS; principal; 2018-06-22)
PROC: 30233N1 Transfusion of Nonautologous Red Blood Cells into Peripheral Vein, Percutaneous Approach (ICD-10-PCS; 2018-06-23)
PROC: 0W9B30Z Drainage of Left Pleural Cavity with Drainage Device, Percutaneous Approach (ICD-10-PCS; 2018-06-24)
PROC: 5A1D70Z Performance of Urinary Filtration, Intermittent, Less than 6 Hours Per Day (ICD-10-PCS; 2018-06-25)
PROC: 30233N1 Transfusion of Nonautologous Red Blood Cells into Peripheral Vein, Percutaneous Approach (ICD-10-PCS; 2018-06-28)
PROC: 5A1D70Z Performance of Urinary Filtration, Intermittent, Less than 6 Hours Per Day (ICD-10-PCS; 2018-06-28)
PROC: 30233N1 Transfusion of Nonautologous Red Blood Cells into Peripheral Vein, Percutaneous Approach (ICD-10-PCS; 2018-06-29)
PROC: 5A1D70Z Performance of Urinary Filtration, Intermittent, Less than 6 Hours Per Day (ICD-10-PCS; 2018-06-30)
PROC: 5A1D70Z Performance of Urinary Filtration, Intermittent, Less than 6 Hours Per Day (ICD-10-PCS; 2018-07-02)
DX: I13.0 Hypertensive heart and chronic kidney disease with heart failure and stage 1 through stage 4 chronic kidney disease, or unspecified chronic kidney disease (principal); N18.6 End stage renal disease; I50.32 Chronic diastolic (congestive) heart failure; J91.8 Pleural effusion in other conditions classified elsewhere; D63.1 Anemia in chronic kidney disease; K21.9 Gastro-esophageal reflux disease without esophagitis; E78.5 Hyperlipidemia, unspecified; E83.39 Other disorders of phosphorus metabolism; E87.5 Hyperkalemia; Z90.49 Acquired absence of other specified parts of digestive tract; Z79.899 Other long term (current) drug therapy; Z99.2 Dependence on renal dialysis
CPT/HCPCS: 32555; 32557; 36415; 36430; 71045; 71046; 72170; 80048; 80053; 82150; 82607; 82728; 82746; 82945; 83540; 83550; 83615; 83735; 83880; 84100; 84157; 84165; 84484; 85025; 85027; 85045; 85610; 85730; 86850; 86900; 86901; 86920; 87070; 87075; 87205; 89050; 93005; 93010; 93306; 93971; 94667; 94799; 96374; 99285; C1894; G0378; J1940; J2270; P9016; Q4081

== ENCOUNTER 2018-07-24 09:45 | Emergency (ER) | payer MEDICARE, MEDICAID ==
--- NOTE | 2018-07-24 10:15 | ER Document Report ---
ED Medical Screen (RME) - General Chief Complaint: Abdominal Pain Stated Complaint: STOMACH PAIN/DIARRHEA Time Seen by Provider: 07/24/18 10:07 Primary Care Provider: RUDY JACOBSEN MD [Primary Care Provider] - Follow up as needed Mode of Arrival: Ambulatory Information source: Patient TRAVEL OUTSIDE OF THE [place] IN LAST 30 DAYS: No - HPI Patient complains to provider of: ABDO PAIN Notes: 07/24/18 10:13 Patient here with complaints of abdominal pain with nausea vomiting and decreased bowel movements since . Patient is a dialysis patient. He goes Thursday, Thursday, Thursday and had dialysis yesterday without difficulty. No fevers. He has had an appendectomy and cholecystectomy in the past. No history of bowel obstruction. States that anytime he eats or drinks anything, he typically vomits it back up. Exam No distress, nontoxic-appearing. Heart rate and regular. Lungs clear and equal throughout. Diffuse abdominal tenderness on limited triage abdominal exam. Plan CBC, CMP, lipase. The patient does not make urine, therefore have not ordered a urinalysis. Saline lock. EKG for irregular heart rate. Patient will likely require CT imaging of the abdomen. I will allow the provider in the back to determine if they would like the CT with or without contrast. An initial examination was made on the patient as part of the triage process, and it was determined a more comprehensive evaluation was necessary. Initial labs were ordered and patient was transferred to another provider in the ED who assumed care and finished evaluation and plan. - Related Data Allergies/Adverse Reactions: No Known Allergies Allergy (Verified 07/24/18 09:49) Past Medical History - Past Medical History Cardiac Medical History: Reports: Hx Congestive Heart Failure, Hx Hyperchole sterolemia, Hx Hypertension Endocrine Medical History: Denies: Hx Diabetes Mellitus Type 1 Renal/ Medical History: Reports: Hx End Stage Renal Disease. Denies: Hx Peritoneal Dialysis GI Medical History: Reports: Hx Gastroesophageal Reflux Disease Past Surgical History: Reports: Hx Appendectomy, Hx Cholecystectomy - Immunizations Hx Diphtheria, Pertussis, Tetanus Vaccination: Yes History of Influenza Vaccine for 12/2016 - 05/2017 Season: Yes Physical Exam - Vital signs Vitals: Temp Pulse Resp BP Pulse Ox 97.7 F 65 16 184/64 H 99 07/24/18 09:54 07/24/18 09:54 07/24/18 09:54 07/24/18 09:54 07/24/18 09:54 Course - Vital Signs Vital signs: Temp Pulse Resp BP Pulse Ox 97.7 F 65 16 184/64 H 99 07/24/18 09:54 07/24/18 09:54 07/24/18 09:54 07/24/18 09:54 07/24/18 09:54 Doctor's Discharge - Discharge Referrals: RUDY JACOBSEN MD [Primary Care Provider] - Follow up as needed
[2018-07-24 11:01] LABS: ALANINE AMINOTRANSFERASE 26 U/L (21-72); ALBUMIN 3.8 g/dL (3.5-5.0); ALKALINE PHOSPHATASE 74 U/L (38-126); ASPARTATE AMINO TRANSFERASE 11 U/L (17-59); BILIRUBIN,DIRECT 0.5 mg/dL (0.0-0.4); BILIRUBIN,TOTAL 0.5 mg/dL (0.2-1.3); CALCIUM 7.8 mg/dL (8.4-10.2); GLUCOSE 104 mg/dL (75-110); LIPASE 610.6 U/L (23-300); POTASSIUM 3.4 mmol/L (3.6-5.0); TOTAL PROTEIN 6.8 g/dL (6.3-8.2)
[2018-07-24 11:07] LABS: CARBON DIOXIDE 13 mmol/L (22-30); CHLORIDE 101 mmol/L (98-107); SODIUM 143.1 mmol/L (137-145)
[2018-07-24 11:09] LABS: ABSOLUTE BASOPHILS # (AUTO) 0.1 10^3/uL (0.0-0.2); ABSOLUTE EOSINOPHILS # (AUTO) 0.1 10^3/uL (0.0-0.6); ABSOLUTE LYMPHOCYTES (AUTO) 0.5 10^3/uL (0.5-4.7); ABSOLUTE MONOCYTES (AUTO) 0.4 10^3/uL (0.1-1.4); BASOPHILS % (AUTO) 0.9 % (0-2); EOSINOPHILS % (AUTO) 1.7 % (0-6); HEMATOCRIT 20.5 % (37.9-51.0); LYMPHOCYTES % (AUTO) 6.7 % (13-45); MEAN CORPUSCULAR HEMOGLOBIN 27.6 pg (27.0-33.4); MEAN CORPUSCULAR HGB CONC 32.8 g/dL (32.0-36.0); PLATELET COUNT 173 10^3/uL (150-450); RED BLOOD COUNT 2.44 10^6/uL (4.35-5.55); RED CELL DISTRIBUTION WIDTH 17.8 % (11.5-14.0); SEGMENTED NEUTROPHILS % (AUTO) 84.7 % (42-78); TOTAL CELLS COUNTED % (AUTO) 100 %; WHITE BLOOD COUNT 7.1 10^3/uL (4.0-10.5)
[2018-07-24 11:22] LABS: ANION GAP 29 (5-19); BLOOD UREA NITROGEN 150 mg/dL (7-20)
[2018-07-24 11:37] LABS: HEMOGLOBIN 6.7 g/dL (13.5-17.0); MEAN CORPUSCULAR VOLUME 84 fl (80-97)
--- NOTE | 2018-07-24 12:27 | ER Document Report ---
ED General - General Mode of Arrival: Ambulatory TRAVEL OUTSIDE OF THE [place] IN LAST 30 DAYS: No <HARSH KEITH - Last Filed: 07/25/18 20:22> <JAYDEN HARDIN - Last Filed: 07/26/18 15:49> - General Chief Complaint: Abdominal Pain Stated Complaint: STOMACH PAIN/DIARRHEA Time Seen by Provider: 07/24/18 10:07 Primary Care Provider: RUDY JACOBSEN MD [Primary Care Provider] - Follow up as needed Notes: 57-year-old male with hypertension and end-stage renal disease on dialysis Thursday/Thursday/Thursday presents to the emergency department with nausea, vomiting, diarrhea, decreased bowel movement since . He says that he will have a bowel movement and about the size of his fingernail and then he will pass a little bit a gas periodically. Abdominal pain is lower quadrant across right and left. Patient states he has had no appetite and when he takes a large drink of water he vomits. He denies fevers, chills, shortness of breath or chest pain. Denies dizziness or lightheadedness. Denies weakness. His last dialysis was yesterday and he completed full treatment. (HARSH KEITH) - Related Data Allergies/Adverse Reactions: No Known Allergies Allergy (Verified 07/24/18 09:49) Past Medical History - General Information source: Patient - Social History Smoking Status: Never Smoker Chew tobacco use (# tins/day): No Frequency of alcohol use: None Drug Abuse: None Family History: Reviewed & Not Pertinent Patient has suicidal ideation: No Patient has homicidal ideation: No - Past Medical History Cardiac Medical History: Reports: Hx Congestive Heart Failure, Hx Hypercholesterolemia, Hx Hypertension Endocrine Medical History: Denies: Hx Diabetes Mellitus Type 1 Renal/ Medical History: Reports: Hx End Stage Renal Disease. Denies: Hx Peritoneal Dialysis GI Medical History: Reports: Hx Gastroesophageal Reflux Disease Past Surgical History: Reports: Hx Appendectomy, Hx Cholecystectomy - Immunizations Hx Diphtheria, Pertussis, Tetanus Vaccination: Yes <HARSH KEITH - Last Filed: 07/25/18 20:22> Review of Systems - Review of Systems Constitutional: See HPI EENT: No symptoms reported Cardiovascular: See HPI Respiratory: See HPI Gastrointestinal: See HPI Genitourinary: See HPI Male Genitourinary: No symptoms reported Musculoskeletal: No symptoms reported Skin: No symptoms reported Hematologic/Lymphatic: No symptoms reported Neurological/Psychological: See HPI <HARSH KEITH - Last Filed: 07/25/18 20:22> Physical Exam <HARSH KEITH - Last Filed: 07/25/18 20:22> - Vital signs Vitals: Temp Pulse Resp BP Pulse Ox 97.7 F 65 16 184/64 H 99 07/24/18 09:54 07/24/18 09:54 07/24/18 09:54 07/24/18 09:54 07/24/18 09:54 - Notes Notes: PHYSICAL EXAMINATION: Reviewed vital signs and charting by RN GENERAL: Alert, interacts well. No acute distress. HEAD: Normocephalic, atraumatic. EYES: Pupils equal and round. Extraocular movements intact. ENT: Oral mucosa moist, tongue midline. NECK: Full range of motion. Supple. Trachea midline. LUNGS: Clear to auscultation bilaterally, no wheezes, rales, or rhonchi. No respiratory distress. HEART: Regular rate and rhythm. No murmur ABDOMEN: soft, tender to palpation right lower quadrant and left lower quadrant, a small mass felt in the right lower quadrant. Non-distended. Hypoactive and high-pitched. no McBurney's point tenderness, no Sorensen sign. EXTREMITIES: Moves all 4 extremities spontaneously. No edema, No cyanosis. AV fistula right proximal arm with good bruit normal distal neurovascular exam NEUROLOGIC: Oriented and appropriate. Normal speech. PSYCH: Normal affect, normal mood. SKIN: Warm, dry, normal turgor. No rashes or lesions noted. (HARSH KEITH) Course - Laboratory Result Diagrams: 07/24/18 10:27 07/24/18 10:27 <HARSH KEITH - Last Filed: 07/25/18 20:22> - Laboratory Result Diagrams: 07/24/18 10:27 07/24/18 10:27 <JAYDEN HARDIN - Last Filed: 07/26/18 15:49> - Re-evaluation Re-evalutation: 07/24/18 12:28 Patient presents in no acute distress. Hemoglobin 6.7, trace positive occult blood stool. Patient acidotic bicarb 13, creatinine 30 and BUN 150. Plan to give patient 2 units of blood and I will call his safety and occupational health manager at [facility] t. 07/24/18 12:29 07/24/18 12:[address] to [address] a [address] abdomen pelvis without as he cannot get contrast per institution policy. Discussed case with Dr. Hardin, will give 2 units of packed red blood cells. 07/24/18 13:57 I called [facility] to initiate transfer, awaiting call from Dr. Chi, hospitalist. 07/24/18 14:29 My supervising physician, Dr. Hardin, spoke with the hospitalist at [facility], Dr. Yap, who accepted the patient for transfer. CT abdomen completed and did not identify a SBO, perforation, or any other GI pathology to explain bleed. VBG showed a pH of 7.19. Lactate less than 2. 07/24/18 20:07 [facility] arriving at 2014 to provide transfer to [facility]. I went and assessed patient at the bedside and he is alert and oriented vital signs blood pressure 160/82 heart rate 95 respiratory rate 15 and breathing comfortably in no acute distress. Patient did receive 2 units of packed red blood cells and are complete. Patient is stable for transfer at this time (HARSH KEITH) 07/26/18 15:48 Patient was seen and evaluated as requested by [facility]. Mr. Osorio is a 57-year-old male with end-stage renal disease that undergoes dialysis. States that he underwent dialysis yesterday. Patient found to have a hemoglobin of 6.7. His BUN and creatinine have more than doubled when compared to previous labs performed recently. Patient is occult stool positive. Plan [facility] to [facility] his safety and occupational health manager is and to see gastroenterology. PHYSICAL EXAMINATION: GENERAL: Deconditioned HEAD: Atraumatic, normocephalic. EYES: Pupils equal round extraocular movements intact, conjunctiva are normal. ENT: Nares patent NECK: Normal range of motion LUNGS: No respiratory distress Musculoskeletal: Normal range of motion NEUROLOGICAL: Normal speech, PSYCH: Normal mood, normal affect. SKIN: Warm, Dry, normal turgor, no rashes or lesions noted. (JAYDEN HARDIN) - Vital Signs Vital signs: Temp Pulse Resp BP Pulse Ox 98.4 F 88 19 172/78 H 100 05/04/19 20:16 07/24/18 17:00 07/24/18 20:01 07/24/18 20:01 07/24/18 20:01 - Laboratory Laboratory results interpreted by me: 07/24/18 07/24/18 07/24/18 10:27 10:27 12:10 RBC 2.44 L Hgb 6.7 L Hct 20.5 L RDW 17.8 H Seg Neutrophils % 84.7 H Lymphocytes % 6.7 L VBG pH VBG pCO2 VBG HCO3 Potassium 3.4 L Carbon Dioxide 13 L Anion Gap 29 H BUN 150 H Creatinine 31.17 H Est GFR ( Amer) 2 L Est GFR (Non-Af Amer) 1 L Lactic Acid Calcium 7.8 L Direct Bilirubin 0.5 H AST 11 L Lipase 610.6 H Crossmatch See Detail 07/24/18 07/24/18 15:13 15:13 RBC Hgb Hct RDW Seg Neutrophils % Lymphocytes % VBG pH 7.19 L* VBG pCO2 32.3 L VBG HCO3 12.1 L Potassium Carbon Dioxide Anion Gap BUN Creatinine Est GFR ( Amer) Est GFR (Non-Af Amer) Lactic Acid 0.5 L Calcium Direct Bilirubin AST Lipase Crossmatch Critical Care Note - Critical Care Note Total time excluding time spent on procedures (mins): 30 <HARSH KEITH - Last Filed: 07/25/18 20:22> - Critical Care Note Comments: Critical care time spent for the treatment of acute anemia requiring blood transfusion, gastrointestinal bleed, and the need for emergent dialysis obtaining history from patient or surrogate, discussions with consultants, development of treatment plan with patient or surrogate, evaluation of patient's response to treatment, examination of patient, ordering and performing treatments and interventions, ordering and review of laboratory studies, re- evaluation of patient's condition, ordering and review of radiographic studies and review of old charts (HARSH KEITH) Discharge <HARSH KEITH - Last Filed: 07/25/18 20:22> <JAYDEN HARDIN - Last Filed: 07/26/18 15:49> - Discharge Clinical Impression: Acute anemia, Metabolic acidosis, Uremia GI bleed Qualifiers: GI bleed type/associated pathology: unspecified gastrointestinal hemorrhage type Qualified Code(s): K92.2 - Gastrointestinal hemorrhage, unspecified Condition: Stable Disposition: [facility] Referrals: RUDY JACOBSEN MD [Primary Care Provider] - Follow up as needed
[2018-07-24] MEDS ORDERED: NORMAL SALINE 250 ML IV PRN (12:41)
--- NOTE | 2018-07-24 13:55 | RADIOLOGY REPORT (SQ) ---
EXAM DESCRIPTION: CT ABD/PELVIS NO ORAL OR IV COMPLETED DATE/TIME: 07/24/2018 1:27 pm REASON FOR STUDY: concern for SBO COMPARISON: 04/03/2018 TECHNIQUE: CT scan of the abdomen and pelvis performed without intravenous or oral contrast. Images reviewed with lung, soft tissue, and bone windows. Reconstructed coronal and sagittal MPR images revi ewed. All images stored on PACS. All CT scanners at this facility use dose modulation, iterative reconstruction, and/or weight based d osing when appropriate to reduce radiation dose to as low as reasonably achievable (ALARA). [facility]: Dose Right [facility]: CareDose [facility]: Dose Right [facility]: Teradose 4D [facility]: [employer] RADIATION DOSE: CT Rad equipment meets quality standard of care and radiation dose reduction techniq ues were employed. CTDIvol: 17.5 mGy. DLP: 1001 mGy-cm.mGy. LIMITATIONS: None. FINDINGS: LOWER CHEST: Trace bilateral pleural effusions. Left lower lobe and lingular confluent pe ripheral airspace disease -atelectasis. Trace patchy ground-glass opacities in the medial- posterior aspect of the right lower lobe. NON-CONTRASTED LIVER, SPLEEN, ADRENALS: Evaluation limited by lack of IV contrast. No identified sign ificant masses. PANCREAS: No masses. No ductal dilatation. GALLBLADDER: Surgically absent. RIGHT KIDNEY AND URETER: Fat stranding in the right pararenal space and pericolic gutter, nonspecific . Atrophic kidney. Multiple small Cysts identified. No solid masses. No calcified stones. No hydron ephrosis or hydroureter. LEFT KIDNEY AND URETER: Atrophic kidney. Multiple cysts identified. No solid masses. No calcified st ones. No hydronephrosis or hydroureter. AORTA AND RETROPERITONEUM: No aneurysm. No retroperitoneal masses or adenopathy. BOWEL AND PERITONEAL CAVITY: No bowel dilatation or obvious focal inflammatory changes. Sigmoid dive rticulosis. APPENDIX: Surgically absent. PELVIS, BLADDER, AND ABDOMINAL WALL:Trace free fluid. Unremarkable bladder. BONES: No acute findings. OTHER: No other significant finding. IMPRESSION: Trace bilateral pleural effusions. Left lower lobe and lingular confluent peripheral ai rspace disease -atelectasis. Trace patchy ground-glass opacities in the medial- posterior aspect of the right lower lobe. Fat stranding in the right pararenal space and pericolic gutter, nonspecific. No bowel dilatation or obvious focal inflammatory changes.Trace pelvic free fluid. Atrophic kidneys bilaterally with multiple cysts. TECHNICAL DOCUMENTATION: JOB ID: [id number] Quality ID # [id number]: Final reports with documentation of one or more dose reduction techniques (e.g., Au tomated exposure control, adjustment of the mA and/or kV according to patient size, use of iterative reconstruction technique) 2010 [employer]- All Rights Reserved Reading location - IP/workstation name: [email or web address]
[2018-07-24] MEDS ORDERED: ONDANSETRON HCL INJ/PF 4 MG/2 ML SDV IV ONE (13:58)
[2018-07-24] MEDS ORDERED: AMLODIPINE BESYLATE 10 MG TABLET PO ONE (14:13)
[2018-07-24 15:19] LABS: VENOUS BLOOD BASE EXCESS -14.7 mmol/L; VENOUS BLOOD HCO3 12.1 mmol/L (20-32); VENOUS BLOOD PCO2 32.3 mmHg (35-63)
[2018-07-24 15:21] LABS: VENOUS BLOOD PH 7.19 (7.30-7.42)
[2018-07-24 20:12] VITALS: BP 172/78
--- NOTE | 2018-07-24 23:03 | EKG REPORT ---
SEVERITY:- ABNORMAL ECG - SINUS RHYTHM ATRIAL PREMATURE COMPLEX PROBABLE LEFT ATRIAL ABNORMALITY NONSPECIFIC INTRAVENTRICULAR CONDUCTION DELAY : Confirmed by: Ryann Varner 24-Jul-2018 23:02:45
== END 2018-07-24 20:16 | disposition short-term general hospital (02) ==
LOC: ER 09:45
DX: K92.2 Gastrointestinal hemorrhage, unspecified (principal); I12.0 Hypertensive chronic kidney disease with stage 5 chronic kidney disease or end stage renal disease; N18.6 End stage renal disease; E10.22 Type 1 diabetes mellitus with diabetic chronic kidney disease; D63.1 Anemia in chronic kidney disease; Z99.2 Dependence on renal dialysis; R11.2 Nausea with vomiting, unspecified; R19.7 Diarrhea, unspecified; R10.31 Right lower quadrant pain; R10.32 Left lower quadrant pain; R63.0 Anorexia; Z87.19 Personal history of other diseases of the digestive system; Z90.49 Acquired absence of other specified parts of digestive tract
CPT/HCPCS: 93005; 99291; 96374; 86900; 86901; 36415; 36430; 86850; 83605; 83690; 85025; 80053; 86920; 82803; 74176; 93010; P9016; J2405; A9270

== ENCOUNTER 2018-09-22 11:33 | Emergency (ER) | payer MEDICARE, MEDICAID ==
[2018-09-22] MEDS ORDERED: IPRATROPIUM/ALBUTEROL 0.5-2.5 MG/3 ML AMPUL NEB ONE (12:26)
--- NOTE | 2018-09-22 12:31 | ER Document Report ---
ED Medical Screen (RME) - General Chief Complaint: Shortness Of Breath Stated Complaint: SHORTNESS OF BREATH Time Seen by Provider: 09/22/18 12:22 Primary Care Provider: RUDY JACOBSEN MD [Primary Care Provider] - Follow up as needed Mode of Arrival: Ambulatory Information source: Patient TRAVEL OUTSIDE OF THE [place] IN LAST 30 DAYS: No - HPI Notes: 09/22/18 12:26 Patient is a 57 yr old male with a history of hypertension, congestive heart failure, dialysis patient that presents to the emergency department for chief complaint of shortness of breath, dyspnea for the last week, has become progressively worse. Patient did miss dialysis today to come to the emergency room. Denies any fevers or chills, denies any nausea vomiting or diarrhea. Reports some bilateral ankle swelling. No [id number] medications have been tried, states non-smoker, no history of CHF or asthma. Has not tried any breathing treatments. Denies any recent URI ROS: Other than noted above, the 12 point review of systems was reviewed with the patient and were negative, all pertinent findings are included in the HPI. PHYSICAL EXAMINATION: Vital signs reviewed. GENERAL: Well-appearing, well-nourished and in no acute distress. HEAD: Atraumatic, normocephalic. NECK: Normal range of motion CV: Heart regular rate and rhythm LUNGS:wheezing Musculoskeletal: Normal range of motion NEUROLOGICAL: Normal speech PSYCH: Normal mood, normal affect. MDM: Patient seen and examined for rapid initial assessment. Vital signs reviewed. A comprehensive ED assessment and evaluation of the patient, analysis of test results and completion of the medical decision making process will be conducted by additional ED providers. *Note is created using voice recognition software and may contain spelling, syntax or grammatical errors. - Related Data Allergies/Adverse Reactions: No Known Allergies Allergy (Verified 09/22/18 11:34) Past Medical History - Past Medical History Cardiac Medical History: Reports: Hx Congestive Heart Failure, Hx Hypercholesterolemia, Hx Hypertension Endocrine Medical History: Denies: Hx Diabetes Mellitus Type 1 Renal/ Medical History: Reports: Hx End Stage Renal Disease. Denies: Hx Peritoneal Dialysis GI Medical History: Reports: Hx Gastroesophageal Reflux Disease Past Surgical History: Reports: Hx Appendectomy, Hx Cholecystectomy - Immunizations Hx Diphtheria, Pertussis, Tetanus Vaccination: Yes History of Influenza Vaccine for 12/2016 - 05/2017 Season: Yes Physical Exam - Vital signs Vitals: Temp Pulse Resp BP Pulse Ox 97.7 F 92 20 190/92 H 91 L 09/22/18 11:38 09/22/18 11:38 09/22/18 11:38 09/22/18 11:38 09/22/18 11:38 Course - Vital Signs Vital signs: Temp Pulse Resp BP Pulse Ox 97.7 F 92 20 188/91 H 91 L 09/22/18 11:38 09/22/18 11:38 09/22/18 11:38 09/22/18 11:40 09/22/18 11:38 Doctor's Discharge - Discharge Referrals: RUDY JACOBSEN MD [Primary Care Provider] - Follow up as needed
--- NOTE | 2018-09-22 13:08 | RADIOLOGY REPORT (SQ) ---
EXAM DESCRIPTION: CHEST 2 VIEWS COMPLETED DATE/TIME: 09/22/2018 12:51 pm REASON FOR STUDY: sob and wheezing COMPARISON: Chest films 07/01/2018, 06/28/2018, 06/25/2018 CT chest 04/03/2018 EXAM PARAMETERS: NUMBER OF VIEWS: two views TECHNIQUE: Digital Frontal and Lateral radiographic views of the chest acquired. RADIATION DOSE: NA LIMITATIONS: none FINDINGS: LUNGS AND PLEURA: Mild fluid overload or congestive failure, with trace fluid in the minor fissure and left lateral costophrenic sulcus. Mild pulmonary vascular prominence with few Martha li elliott from interstitial edema. No dense lung consolidation worrisome for pneumonia. No pneumothorax. MEDIASTINUM AND HILAR STRUCTURES: Prominent central pulmonary arteries worrisome for pulmonary hypert ension. HEART AND VASCULAR STRUCTURES: Moderate cardiomegaly. BONES: No acute findings. HARDWARE: Clips right upper quadrant post cholecystectomy OTHER: No other significant finding. IMPRESSION: Findings worrisome for mild fluid overload or congestive failure with pulmonary vascular congestion and mild interstitial edema. Trace left pleural fluid. TECHNICAL DOCUMENTATION: JOB ID: [id number] [employer]- All Rights Reserved Reading location - IP/workstation name: [email or web address]
[2018-09-22 13:23] LABS: ABSOLUTE BASOPHILS # (AUTO) 0.1 10^3/uL (0.0-0.2); ABSOLUTE EOSINOPHILS # (AUTO) 0.1 10^3/uL (0.0-0.6); ABSOLUTE LYMPHOCYTES (AUTO) 0.6 10^3/uL (0.5-4.7); ABSOLUTE MONOCYTES (AUTO) 0.6 10^3/uL (0.1-1.4); ABSOLUTE NEUT (AUTO) 4.6 10^3/uL (1.7-8.2); BASOPHILS % (AUTO) 0.8 % (0-2); EOSINOPHILS % (AUTO) 1.9 % (0-6); HEMATOCRIT 24.3 % (37.9-51.0); LYMPHOCYTES % (AUTO) 9.5 % (13-45); MEAN CORPUSCULAR HEMOGLOBIN 28.9 pg (27.0-33.4); MEAN CORPUSCULAR HGB CONC 32.4 g/dL (32.0-36.0); MEAN CORPUSCULAR VOLUME 90 fl (80-97); MONOCYTES % (AUTO) 10.8 % (3-13); PLATELET COUNT 123 10^3/uL (150-450); RED BLOOD COUNT 2.71 10^6/uL (4.35-5.55); RED CELL DISTRIBUTION WIDTH 16.9 % (11.5-14.0); TOTAL CELLS COUNTED % (AUTO) 100 %
[2018-09-22 13:27] LABS: HEMOGLOBIN 7.9 g/dL (13.5-17.0)
[2018-09-22 13:39] LABS: ALANINE AMINOTRANSFERASE 32 U/L (21-72); ALBUMIN 4.4 g/dL (3.5-5.0); ALKALINE PHOSPHATASE 86 U/L (38-126); ASPARTATE AMINO TRANSFERASE 19 U/L (17-59); BILIRUBIN,DIRECT 0.5 mg/dL (0.0-0.4); BILIRUBIN,TOTAL 0.5 mg/dL (0.2-1.3); CALCIUM 8.3 mg/dL (8.4-10.2); CREATINE KINASE 121 U/L (55-170); GLUCOSE 98 mg/dL (75-110); POTASSIUM 5.7 mmol/L (3.6-5.0); TOTAL PROTEIN 8.1 g/dL (6.3-8.2)
[2018-09-22 13:44] LABS: CARBON DIOXIDE 18 mmol/L (22-30); CHLORIDE 98 mmol/L (98-107); SODIUM 140.8 mmol/L (137-145)
[2018-09-22 13:47] LABS: ANION GAP 25 (5-19); BLOOD UREA NITROGEN 134 mg/dL (7-20)
[2018-09-22 13:51] LABS: CREATINE KINASE MB 3.96 ng/mL (<4.55)
[2018-09-22 14:17] LABS: TROPONIN I 0.235 ng/mL
--- NOTE | 2018-09-22 14:46 | ER Document Report ---
ED General <TROY CABRERA - Last Filed: 09/22/18 22:00> - General Mode of Arrival: Ambulatory TRAVEL OUTSIDE OF THE [place] IN LAST 30 DAYS: No - HPI Onset: Last week Onset/Duration: Persistent Quality of pain: No pain Severity: None Associated symptoms: None Exacerbated by: Walking, Coughing Relieved by: Denies Similar symptoms previously: Yes Recently seen / treated by doctor: No <HERMES CARL - Last Filed: 09/23/18 10:52> - General Chief Complaint: Shortness Of Breath Stated Complaint: SHORTNESS OF BREATH Time Seen by Provider: 09/22/18 12:22 Primary Care Provider: RUDY JACOBSEN MD [Primary Care Provider] - Follow up as needed Notes: Patient presents to the emergency department with complaints of shortness of breath for the past week. Patient reports that he has had increased cough. Increase shortness of breath with exertion reports he cannot breathe with any exertion. Patient reports he is been sleeping in the recliner. He reports he is a dialysis patient but he has not gone to dialysis since last Thursday. He missed Thursday because he had to work he missed today because he had to come to the emergency department. He reports he does not produce very much urine. He denies fever vomiting diarrhea. Denies chest pain. (HERMES CARL) - Related Data Allergies/Adverse Reactions: No Known Allergies Allergy (Verified 09/22/18 11:34) Past Medical History - General Information source: Patient - Social History Smoking Status: Former Smoker Cigarette use (# per day): No Chew tobacco use (# tins/day): No Frequency of alcohol use: None Drug Abuse: None Lives with: Family Family History: Reviewed & Not Pertinent Patient has suicidal ideation: No Patient has homicidal ideation: No - Past Medical History Cardiac Medical History: Reports: Hx Congestive Heart Failure, Hx Hypercholesterolemia, Hx Hypertension Endocrine Medical History: Denies: Hx Diabetes Mellitus Type 1 Renal/ Medical History: Reports: Hx End Stage Renal Disease. Denies: Hx Peritoneal Dialysis GI Medical History: Reports: Hx Gastroesophageal Reflux Disease Past Surgical History: Reports: Hx Appendectomy, Hx Cholecystectomy - Immunizations Hx Diphtheria, Pertussis, Tetanus Vaccination: Yes <HERMES CARL - Last Filed: 09/23/18 10:52> Review of Systems <HERMES CARL - Last Filed: 09/23/18 10:52> - Review of Systems Notes: Review HPI for review of systems., All other systems negative (HERMES CARL) Physical Exam - General General appearance: Alert In distress: None - HEENT Head: Normocephalic, Atraumatic Eyes: Pale conjunctiva Conjunctiva: Normal Pharynx: Normal Neck: Normal, Supple. No: Lymphadenopathy - Respiratory Respiratory status: No respiratory distress Chest status: Nontender Breath sounds: Decreased air movement - left decreased more than right Chest palpation: Normal - Cardiovascular Rhythm: Regular - Abdominal Inspection: Morbidly Obese Distension: No distension Bowel sounds: Normal Tenderness: Nontender Organomegaly: No organomegaly - Back Back: Normal, Nontender - Extremities General upper extremity: Normal ROM General lower extremity: Normal ROM, Normal weight bearing - Neurological Neuro grossly intact: Yes Cognition: Normal Orientation: AAOx4 Yue Coma Scale Eye Opening: Spontaneous [place] Coma Scale Verbal: Oriented Yue Coma Scale Motor: Obeys Commands [place] Coma Scale Total: 15 Speech: Normal Sensory: Normal <HERMES CARL - Last Filed: 09/23/18 10:52> - Vital signs Vitals: Temp Pulse Resp BP Pulse Ox 97.7 F 92 20 190/92 H 91 L 09/22/18 11:38 09/22/18 11:38 09/22/18 11:38 09/22/18 11:38 09/22/18 11:38 Course - Laboratory Result Diagrams: 09/22/18 13:05 09/22/18 13:05 <TROY CABRERA - Last Filed: 09/22/18 22:00> - Laboratory Result Diagrams: 09/22/18 13:05 09/22/18 13:05 - Diagnostic Test Radiology reviewed: Image reviewed, Reports reviewed - EXAM DESCRIPTION: CHEST 2 VIEWS COMPLETED DATE/TIME: 09/22/2018 12:51 pm REASON FOR STUDY: sob and wheezing COMPARISON: Chest films 07/01/2018, 06/28/2018, 06/25/2018 CT chest 04/03/2018 EXAM PARAMETERS: NUMBER OF VIEWS: two views TECHNIQUE: Digital Frontal and Lateral radiographic views of the chest acquired. RADIATION DOSE: NA LIMITATIONS: none FINDINGS: LUNGS AND PLEURA: Mild fluid overload or congestive failure, with trace fluid in the minor fissure and left lateral costophrenic sulcus. Mild pulmonary vascular prominence with few Martha lines from interstitial edema. No dense lung consolidation worrisome for pneumonia. No pneumothorax. MEDIASTINUM AND HILAR STRUCTURES: Prominent central pulmonary arteries worrisome for pulmonary hypertension. HEART AND VASCULAR STRUCTURES: Moderate cardiomegaly. BONES: No acute findings. HARDWARE: Clips right upper quadrant post cholecystectomy OTHER: No other significant finding. IMPRESSION: Findings worrisome for mild fluid overload or congestive failure with pulmonary vascular congestion and mild interstitial edema. Trace left pleural fluid. TECHNICAL DOCUMENTATION: JOB ID: [id number] [employer]- All Rights Reserved Reading location - IP/workstation name: [email or web address] Dictated by: TAMMI BROWN MD [id number] CC: CECY LONG-C > - EKG Interpretation by Ms EKG shows normal: Sinus rhythm Telford/QRS: RBBB <HERMES CARL - Last Filed: 09/23/18 10:52> - Re-evaluation Re-evalutation: 09/22/18 22:00 Transport at bedside. Patient is stable for transfer. Patient denies pain. (TROY CONSTANTINO) 09/22/18 13:30 Checked chest x-ray returned. Shows mild fluid overload congestive heart failure pulmonary vascular congestion mild interstitial edema trace left pleural fluid. Potassium 5.7, troponin 0.235. Discussed all results with patient. I contacted the nursing pbx supervisor Vaishali and she reports that we do not have dialysis beds. Discussed need for transport with the patient and his . Patient does not wish to be transported he wishes to discuss this with his . 09/22/18 14:00 Dr. Leija consulted. Reviewed patient can plate. Reviewed chest x-ray labs EKG. Dr. Leija into talk with patient for the need for transport. Patient's has non-Hodgkin's lymphoma. She gets dizzy driving. This is why he does not want to be transferred. 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 09/22/18 14:15 I contacted [facility] for transfer. They report they are holding patients in the emergency department they are under surge protocol no beds available at this time. 09/22/18 14:20 I discussed last of bed space at [place] with patient. He agrees to be transferred somewhere else. I contacted [facility] in [place]. They also report they are on 24-hour wait time for beds. [facility] contacted for transfer, waiting for return call. Patient updated on details. 09/22/18 14:59 Dr. Collado from [facility] returned call patient accepted. Requesting 80 mg of IV Lasix. Patient informed of transfer. 09/22/18 15:[address], restaurant host/hostess from [facility], on the phone. He reports he believes the patient may be stable to be discharged to [facility] dialysis [facility]. As I was talking on the phone with dr way the patient went into SVT. I went into the patients room. Th patient reports he got up to the bathroom and started having trouble breathing. Patient is going in and out of atrial flutter. o2sat decreased, pt placed on 02 2l/nc O2sat increased to 98 Patient reports shortness of breath. denies chest pain. I re-contacted Dr. Way to update him on pt status and request patient continued to be transferred to [facility]. I consulted Dr. Leija hand he advised start patient on Cardizem drip after a bolus of 20 mg and drip of 10 mg/hr. Pt aware of plan. Stress test from mar 2018 shows ER 48-49% 09/22/18 16:25 HR continues to be elevated ST. BP 185/103. Dr Leija advises 5 mg IV lopressor. 09/22/18 20:37 Patient resting quietly waiting for transport to [facility]. Bed obtained transfer should be here by 2129. Report given to Troy Cabrera NP. (HERMES CARL) - Vital Signs Vital signs: Temp Pulse Resp BP Pulse Ox 98.2 F 92 22 H 184/112 H 100 09/22/18 14:27 09/22/18 11:38 09/22/18 19:01 09/22/18 19:01 09/22/18 19:01 - Laboratory Laboratory results interpreted by me: 09/22/18 09/22/18 09/22/18 13:05 13:05 13:05 RBC 2.71 L Hgb 7.9 L Hct 24.3 L RDW 16.9 H Plt Count 123 L Lymphocytes % 9.5 L Potassium 5.7 H Carbon Dioxide 18 L Anion Gap 25 H BUN 134 H Creatinine 21.92 H Est GFR ( Amer) 3 L Est GFR (Non-Af Amer) 2 L Calcium 8.3 L Direct Bilirubin 0.5 H NT-Pro-B Natriuret Pep 222080 H - EKG Interpretation by Me Additional EKG results interpreted by me: 09/22/18 12:55 Prolonged QT C at 508 no peaked T waves no T wave inversion no ST elevation (HERMES CARL) Discharge <TROY CABRERA - Last Filed: 09/22/18 22:00> <HERMES CARL - Last Filed: 09/23/18 10:52> - Discharge Clinical Impression: Hyperkalemia, ESRD (end stage renal disease) Congestive heart failure Qualifiers: Heart failure type: unspecified Heart failure chronicity: acute on chronic Qualified Code(s): I50.9 - Heart failure, unspecified Condition: Stable Disposition: [facility] Referrals: RUDY JACOBSEN MD [Primary Care Provider] - Follow up as needed
[2018-09-22] MEDS ORDERED: FUROSEMIDE INJ/PF 100 MG/10 ML SDV IV ONE (14:57)
[2018-09-22] MEDS ORDERED: DILTIAZEM HCL INJ 25 MG/5 ML VIAL IV ONE ×2 (15:59→17:39)
[2018-09-22] MEDS ORDERED: DILTIAZEM HCL/D5W 125 MG/125 ML RTUINJ IV PRN (16:03)
[2018-09-22] MEDS ORDERED: METOPROLOL TARTRATE PF/INJ 5 MG/5 ML SDV IV ONE (16:25)
--- NOTE | 2018-09-22 17:59 | EKG REPORT ---
SEVERITY:- ABNORMAL ECG - SINUS RHYTHM INCOMPLETE RIGHT BUNDLE BRANCH BLOCK BORDERLINE R WAVE PROGRESSION, ANTERIOR LEADS : Confirmed by: Ryann Varner 22-Sep-2018 17:58:27
[2018-09-22 19:05] VITALS: BP 184/112
== END 2018-09-22 22:21 | disposition short-term general hospital (02) ==
LOC: ER 11:33
DX: E87.5 Hyperkalemia (principal); I13.2 Hypertensive heart and chronic kidney disease with heart failure and with stage 5 chronic kidney disease, or end stage renal disease; N18.6 End stage renal disease; I50.9 Heart failure, unspecified; R06.02 Shortness of breath; R05 Cough; Z87.891 Personal history of nicotine dependence
CPT/HCPCS: 93005; 96376; 99285; 96375; 96365; 96366; 36415; 82553; 82550; 85025; 80053; 84484; 83880; 71046; 93010; J1940; J3490 ×3; A9270; J7620

== ENCOUNTER 2018-12-15 15:06 | Emergency (ER) | payer MEDICARE, MEDICAID ==
--- NOTE | 2018-12-15 15:16 | ER Document Report ---
ED Medical Screen (RME) - General Chief Complaint: Bloody Stools Stated Complaint: BLOODY STOOLS Time Seen by Provider: 12/15/18 15:09 Primary Care Provider: RUDY JACOBSEN MD [Primary Care Provider] - Follow up as needed Mode of Arrival: Ambulatory Information source: Patient Notes: 58-year-old resents emergency department with complaints of rectal bleed on and off since Thursday. Reports he tripped going up the steps on Thursday. Then he started having bloody diarrhea off and on. Reports history of hemorrhoids. Also complains of some low abdominal pain that comes and goes. Denies fever and vomiting. Patient denies history of GI bleed. Reports history of high blood pressure and patient is a dialysis patient. Reports he supposed to have dialysis on Thursday. He skipped dialysis today to come to the emergency department because his girlfriend is also in the emergency department. I have greeted and performed a rapid initial assessment of this patient. A comprehensive ED assessment and evaluation of the patient, analysis of test results and completion of the medical decision making process will be conducted by additional ED providers. Dictation of this chart was performed using voice recognition software; therefore, there may be some unintended grammatical errors. TRAVEL OUTSIDE OF THE [place]. IN LAST 30 DAYS: No - Related Data Allergies/Adverse Reactions: No Known Allergies Allergy (Verified 12/15/18 15:14) Past Medical History - Social History Chew tobacco use (# tins/day): No Frequency of alcohol use: None Drug Abuse: None - Past Medical History Cardiac Medical History: Reports: Hx Congestive Heart Failure, Hx Hypercholesterolemia, Hx Hypertension Endocrine Medical History: Denies: Hx Diabetes Mellitus Type 1 Renal/ Medical History: Reports: Hx End Stage Renal Disease. Denies: Hx Peritoneal Dialysis GI Medical History: Reports: Hx Gastroesophageal Reflux Disease Past Surgical History: Reports: Hx Appendectomy, Hx Cholecystectomy - Immunizations Hx Diphtheria, Pertussis, Tetanus Vaccination: Yes History of Influenza Vaccine for 12/2016 - 05/2017 Season: Yes Doctor's Discharge - Discharge Referrals: RUDY JACOBSEN MD [Primary Care Provider] - Follow up as needed
[2018-12-15 15:41] LABS: ABSOLUTE BASOPHILS # (AUTO) 0.1 10^3/uL (0.0-0.2); ABSOLUTE EOSINOPHILS # (AUTO) 0.2 10^3/uL (0.0-0.6); ABSOLUTE LYMPHOCYTES (AUTO) 0.7 10^3/uL (0.5-4.7); ABSOLUTE MONOCYTES (AUTO) 0.5 10^3/uL (0.1-1.4); ABSOLUTE NEUT (AUTO) 2.8 10^3/uL (1.7-8.2); BASOPHILS % (AUTO) 2.5 % (0-2); EOSINOPHILS % (AUTO) 3.7 % (0-6); HEMATOCRIT 28.8 % (37.9-51.0); HEMOGLOBIN 8.9 g/dL (13.5-17.0); LYMPHOCYTES % (AUTO) 16.8 % (13-45); MEAN CORPUSCULAR HGB CONC 30.9 g/dL (32.0-36.0); MEAN CORPUSCULAR VOLUME 94 fl (80-97); PLATELET COUNT 101 10^3/uL (150-450); RED BLOOD COUNT 3.07 10^6/uL (4.35-5.55); RED CELL DISTRIBUTION WIDTH 17.3 % (11.5-14.0); TOTAL CELLS COUNTED % (AUTO) 100 %; WHITE BLOOD COUNT 4.2 10^3/uL (4.0-10.5)
[2018-12-15 15:58] LABS: ALBUMIN 4.3 g/dL (3.5-5.0); ALKALINE PHOSPHATASE 83 U/L (38-126); ANION GAP 19 (5-19); ASPARTATE AMINO TRANSFERASE 17 U/L (17-59); BILIRUBIN,DIRECT 0.4 mg/dL (0.0-0.4); BILIRUBIN,TOTAL 0.4 mg/dL (0.2-1.3); BLOOD UREA NITROGEN 112 mg/dL (7-20); CALCIUM 8.5 mg/dL (8.4-10.2); CARBON DIOXIDE 22 mmol/L (22-30); CHLORIDE 100 mmol/L (98-107); GLUCOSE 107 mg/dL (75-110); INTERNATIONAL RATION (INR) 1.21; PROTHROMBIN TIME 15.4 SEC (11.4-15.4); TOTAL PROTEIN 7.5 g/dL (6.3-8.2)
[2018-12-15 16:05] LABS: POTASSIUM 6.6 mmol/L (3.6-5.0)
--- NOTE | 2018-12-15 17:28 | ER Document Report ---
Doctor's Note Notes: 12/15/18 17:28 Patient eloped before I was able to see the patient. Labs recorded with an elevated potassium and hemoglobin which is around baseline. We attempted to call the patient by phone x2 and have been unsuccessful. We have left messages.
== END 2018-12-15 18:01 | disposition left against medical advice (07) ==
LOC: ER 15:06
DX: R19.5 Other fecal abnormalities (principal); R19.7 Diarrhea, unspecified; E87.5 Hyperkalemia; I50.9 Heart failure, unspecified; I11.0 Hypertensive heart disease with heart failure
CPT/HCPCS: 36415; 80053; 85025; 85610; 85730; 99281

== ENCOUNTER 2019-01-24 11:44 | Emergency (ER) | payer MEDICARE, MEDICAID ==
[2019-01-24 12:02] VITALS: BP 191/78
== END 2019-01-24 13:13 | disposition left against medical advice (07) ==
LOC: ER 11:44
DX: Z53.21 Procedure and treatment not carried out due to patient leaving prior to being seen by health care provider (principal)

== ENCOUNTER 2019-01-26 10:14 | Emergency (ER) | payer MEDICARE, MEDICAID ==
--- NOTE | 2019-01-26 10:29 | ER Document Report ---
ED Medical Screen (RME) - General Chief Complaint: Abscess Stated Complaint: POSSIBLE ABSCESS Time Seen by Provider: 01/26/19 10:27 Primary Care Provider: VANDANA TREJO PA-C [Primary Care Provider] - Follow up as needed Mode of Arrival: Ambulatory Information source: Patient Notes: 58-year-old male presented to ED for 2 lumps in his groin area one on the right one in the left. He states he is noticed one about a month the second 1 about a week. They are not red or inflamed. He states they are painful. He denies smoking drinking or use of any alcohol. He states he has never had lumps like this in the past. Has a history of high blood pressure high cholesterol. He is alert oriented respirations regular nonlabored speaking in full sentences. I have greeted and performed a rapid initial assessment of this patient. A comprehensive ED assessment and evaluation of the patient, analysis of test results and completion of medical decision making process will be conducted by an additional ED providers. TRAVEL OUTSIDE OF THE [place]. IN LAST 30 DAYS: No - Related Data Allergies/Adverse Reactions: No Known Allergies Allergy (Verified 01/26/19 10:25) Past Medical History - Past Medical History Cardiac Medical History: Reports: Hx Congestive Heart Failure, Hx Hypercholesterolemia, Hx Hypertension Endocrine Medical History: Denies: Hx Diabetes Mellitus Type 1 Renal/ Medical History: Reports: Hx End Stage Renal Disease - hemodialysis. Denies: Hx Peritoneal Dialysis GI Medical History: Reports: Hx Gastroesophageal Reflux Disease Past Surgical History: Reports: Hx Appendectomy, Hx Cholecystectomy - Immunizations Hx Diphtheria, Pertussis, Tetanus Vaccination: Yes Physical Exam - Vital signs Vitals: Temp Pulse Resp BP Pulse Ox 97.5 F 73 24 H 145/67 H 100 01/26/19 10:19 01/26/19 10:19 01/26/19 10:19 01/26/19 10:19 01/26/19 10:19 Course - Vital Signs Vital signs: Temp Pulse Resp BP Pulse Ox 97.5 F 73 24 H 145/67 H 100 01/26/19 10:19 01/26/19 10:19 01/26/19 10:19 01/26/19 10:19 01/26/19 10:19 Doctor's Discharge - Discharge Referrals: VANDANA TREJO PA-C [Primary Care Provider] - Follow up as needed
[2019-01-26 11:05] LABS: ABSOLUTE BASOPHILS # (AUTO) 0.1 10^3/uL (0.0-0.2); ABSOLUTE EOSINOPHILS # (AUTO) 0.2 10^3/uL (0.0-0.6); ABSOLUTE LYMPHOCYTES (AUTO) 0.6 10^3/uL (0.5-4.7); ABSOLUTE MONOCYTES (AUTO) 0.5 10^3/uL (0.1-1.4); ABSOLUTE NEUT (AUTO) 3.5 10^3/uL (1.7-8.2); BASOPHILS % (AUTO) 1.7 % (0-2); EOSINOPHILS % (AUTO) 4.7 % (0-6); HEMATOCRIT 22.2 % (37.9-51.0); LYMPHOCYTES % (AUTO) 12.7 % (13-45); MEAN CORPUSCULAR HEMOGLOBIN 29.8 pg (27.0-33.4); MEAN CORPUSCULAR VOLUME 93 fl (80-97); PLATELET COUNT 181 10^3/uL (150-450); RED BLOOD COUNT 2.38 10^6/uL (4.35-5.55); RED CELL DISTRIBUTION WIDTH 15.3 % (11.5-14.0); SEGMENTED NEUTROPHILS % (AUTO) 70.9 % (42-78); TOTAL CELLS COUNTED % (AUTO) 100 %
[2019-01-26 11:09] LABS: HEMOGLOBIN 7.1 g/dL (13.5-17.0)
[2019-01-26 11:22] LABS: ALBUMIN 4.2 g/dL (3.5-5.0); ALKALINE PHOSPHATASE 78 U/L (38-126); ASPARTATE AMINO TRANSFERASE 13 U/L (17-59); BILIRUBIN,DIRECT 0.6 mg/dL (0.0-0.4); BILIRUBIN,TOTAL 0.6 mg/dL (0.2-1.3); BLOOD UREA NITROGEN 115 mg/dL (7-20); CALCIUM 8.4 mg/dL (8.4-10.2); GLUCOSE 159 mg/dL (75-110); TOTAL PROTEIN 7.6 g/dL (6.3-8.2)
[2019-01-26 11:28] LABS: CARBON DIOXIDE 16 mmol/L (22-30); CHLORIDE 102 mmol/L (98-107)
[2019-01-26 11:42] LABS: ANION GAP 24 (5-19)
[2019-01-26 11:45] LABS: POTASSIUM 6.7 mmol/L (3.6-5.0)
[2019-01-26] MEDS ORDERED: NORMAL SALINE 1000 ML 1,000 ML IV ONE (11:47)
--- NOTE | 2019-01-26 11:57 | RADIOLOGY REPORT (SQ) ---
EXAM DESCRIPTION: U/S NON-OB PELVIS LTD W/O DOP COMPLETED DATE/TIME: 01/26/2019 11:42 am REASON FOR STUDY: Bilateral lumps in the groin area COMPARISON: None. TECHNIQUE: Dynamic and static grayscale images acquired of the localized site of clinical concern an d recorded on PACS. Additional selected color Doppler and spectral images recorded. SITE OF CONCERN: Right and left groins LIMITATIONS: None. FINDINGS: SKIN AND SUBCUTANEOUS TISSUES: There are subcutaneous cystic fluid collections in both the right and left groins. On the right this measures 6.3 x 5.4 x 2.8 cm. On the left it measures 3.3 x 2.6 x 1.7 cm. DEEP SOFT TISSUES/MUSCLES: No masses. No fluid collections. No edema. VASCULAR: No increased or decreased vascularity. No occlusions. OTHER: The patient does have ascites. Review of a CT done in July of this year demonstrated a fluid c ollection in the adductor muscles of the left hip. IMPRESSION: Bilateral fluid collections as described. This could what present ascitic fluid the pat ient does have bilateral inguinal hernias. On prior CT views containing omental fat only. On prior CT the patient also had a fluid collection within the left hip adductor muscles. Repeat CT scan may be beneficial for further evaluation. TECHNICAL DOCUMENTATION: JOB ID: [id number] [employer]- All Rights Reserved Reading location - IP/workstation name: [email or web address]
--- NOTE | 2019-01-26 13:37 | ER Document Report ---
ED General - General Chief Complaint: Groin Pain Stated Complaint: POSSIBLE ABSCESS Time Seen by Provider: 01/26/19 10:27 Primary Care Provider: VANDANA TREJO PA-C [ALLIED HEALTH PROFESSIONAL] - Follow up as needed Mode of Arrival: Ambulatory TRAVEL OUTSIDE OF THE [place] IN LAST 30 DAYS: No - HPI Notes: 58-year-old male with history of CHF and end-stage renal disease on dialysis complaining of bilateral groin pain and swelling.. Patient denies missing dialysis. He reports that over the last 2 weeks he is developed some increased swelling in his abdomen and along with this he is developed fullness and discomfort in the inguinal area bilaterally. He says that the discomfort keeps him awake at night. He denies breathing difficulties. He has a history of bilateral inguinal hernias. Severity: Pain 05/30. - Related Data Allergies/Adverse Reactions: No Known Allergies Allergy (Verified 01/26/19 10:25) Past Medical History - General Information source: Patient, Relative - Social History Smoking Status: Former Smoker Chew tobacco use (# tins/day): No Frequency of alcohol use: None Drug Abuse: None Family History: Reviewed & Not Pertinent Patient has suicidal ideation: No Patient has homicidal ideation: No - Past Medical History Cardiac Medical History: Reports: Hx Congestive Heart Failure, Hx H ypercholesterolemia, Hx Hypertension Endocrine Medical History: Denies: Hx Diabetes Mellitus Type 1 Renal/ Medical History: Reports: Hx End Stage Renal Disease - hemodialysis. Denies: Hx Peritoneal Dialysis GI Medical History: Reports: Hx Gastroesophageal Reflux Disease Past Surgical History: Reports: Hx Appendectomy, Hx Cholecystectomy - Immunizations Hx Diphtheria, Pertussis, Tetanus Vaccination: Yes Review of Systems - Review of Systems Notes: Constitutional: Negative for fever. HENT: Negative for sore throat. Eyes: Negative for visual changes. Cardiovascular: Negative for chest pain. Respiratory: Negative for shortness of breath. Gastrointestinal: Negative for abdominal pain, vomiting or diarrhea. Genitourinary: Negative for dysuria. Musculoskeletal: Negative for back pain. Skin: Negative for rash. Neurological: Negative for headaches, weakness or numbness. 10 point ROS negative except as marked above and in HPI. Physical Exam - Vital signs Vitals: Temp Pulse Resp BP Pulse Ox 97.5 F 73 24 H 145/67 H 100 01/26/19 10:19 01/26/19 10:19 01/26/19 10:19 01/26/19 10:19 01/26/19 10:19 Notes: GENERAL: Well-developed well-nourished appearing in no acute distress. SKIN: Sallow complexion. Good turgor no rashes. HEAD: Normocephalic atraumatic. EYES: PERRLA. Conjunctivae and sclerae clear. EARS: CANALS AND TMS CLEAR. NOSE: CLEAR. MOUTH: Moist mucosa. Good dentition. No stridor or edema. No drooling. NECK: Supple. No masses or thyromegaly. No adenopathy. Carotids 2+ without bruits. No JVD. BACK: Symmetrical without tenderness. CHEST: Respirations unlabored. Breath sounds clear and symmetrical. HEART: Regular rhythm. No murmur gallop or rub. ABDOMEN: Small amount of ascites present. Soft nontender without masses, organomegaly or rebound. Bowel sounds normally active. No bruits. GENITALIA: Bilateral inguinal hernias which are easily reducible. Patient has mild tenderness in the inguinal area bilaterally. EXTREMITIES: Patient has an AV fistula in the right upper arm with positive thrill and bruit. No edema. No calf tenderness. Cap refill less than 1.5 seconds. Dorsalis pedis and posterior tibial pulses 3+ and symmetrical. NEUROLOGICAL: GCS 15. Alert and oriented x3. Normal gait. Fluent speech. Cranial nerves II through XII intact. Sensorimotor and cerebellar normal. Normal tone. Course - Re-evaluation Re-evalutation: 01/26/19 13:40 This man appears to have chronic ascites related to his fluid overload with CHF and end-stage renal disease. He also has bilateral inguinal hernias and I think he has some accumulation of fluid in the inguinal canal bilaterally as has been documented today by ultrasound. I am going to treat him symptomatically with tramadol at home and advised that he discuss his volume status with his nephrolo gist at his next dialysis session. He may return here as needed for new or worsening symptoms. - Vital Signs Vital signs: Temp Pulse Resp BP Pulse Ox 97.5 F 73 15 133/75 H 100 01/26/19 10:19 01/26/19 10:19 01/26/19 12:09 01/26/19 12:09 01/26/19 12:09 - Laboratory Result Diagrams: 01/26/19 10:38 01/26/19 10:38 Laboratory results interpreted by me: 01/26/19 01/26/19 10:38 10:38 RBC 2.38 L Hgb 7.1 L Hct 22.2 L RDW 15.3 H Lymph % (Auto) 12.7 L Potassium 6.7 H* Carbon Dioxide 16 L Anion Gap 24 H BUN 115 H Creatinine 21.94 H Est GFR ( Amer) 3 L Est GFR (MDRD) Non-Af 2 L Glucose 159 H Direct Bilirubin 0.6 H AST 13 L - Diagnostic Test Radiology reviewed: Reports reviewed Discharge - Discharge Clinical Impression: End stage renal disease Inguinal hernia bilateral, non-recurrent Qualifiers: Obstruction and gangrene presence: without obstruction or gangrene Recurrence: not specified as recurrent Qualified Code(s): K40.20 - Bilateral inguinal hernia, without obstruction or gangrene, not specified as recurrent Condition: Stable Disposition: HOME, SELF-CARE Additional Instructions: Return here as needed for new or worsening symptoms. Follow-up with your medical science liaison at earliest convenience. Prescriptions: Tramadol HCl [Ultram 50 mg Tablet] 50 mg PO Q4HP PRN #12 tab PRN Reason: Referrals: VANDANA TREJO PA-C [ALLIED HEALTH PROFESSIONAL] - Follow up as needed
[2019-01-26 14:12] VITALS: BP 130/75
== END 2019-01-26 14:24 | disposition home or self-care (01) ==
LOC: ER 10:14
DX: K40.20 Bilateral inguinal hernia, without obstruction or gangrene, not specified as recurrent (principal); R10.30 Lower abdominal pain, unspecified; I13.2 Hypertensive heart and chronic kidney disease with heart failure and with stage 5 chronic kidney disease, or end stage renal disease; N18.6 End stage renal disease; I50.9 Heart failure, unspecified; Z99.2 Dependence on renal dialysis; Z90.49 Acquired absence of other specified parts of digestive tract
CPT/HCPCS: 99284; 96360; 86900; 86901; 36415; 86850; 85025; 80053; 76857; J7030

== ENCOUNTER 2019-02-27 00:36 | Emergency (ER) | payer MEDICARE, MEDICAID ==
[2019-02-27] MEDS ORDERED: IPRATROPIUM/ALBUTEROL 0.5-2.5 MG/3 ML AMPUL NEB ONE (01:14)
[2019-02-27] MEDS ORDERED: DIPH/PERTUSS(ACELL)/TETANUS VAC/PF 0.5 ML SYR (>=10YO) IM ONE (01:17)
--- NOTE | 2019-02-27 01:20 | ER Document Report ---
ED Fall - General Chief Complaint: Fall Stated Complaint: WEAKNESS Time Seen by Provider: 02/27/19 01:07 Primary Care Provider: RUDY JACOBSEN MD [Primary Care Provider] - Follow up as needed Notes: Mr. Osorio is a 58-year-old male with past medical history of hypertension, hyperlipidemia, end-stage renal disease on dialysis Thursday brought in by EMS after a fall. Patient states over the past 2 to 3 days, he has been significantly weak in bilateral legs and this evening he went to get out of bed and fell out of bed. He states that he was so weak yesterday, that he was unable to go to dialysis and missed his Thursday session of dialysis, therefore his last session was on Thursday. Patient endorses shortness of breath and worsening lower extremity edema. He says is not atypical for his edema to worsen when he misses dialysis. Patient is unsure when his last tetanus shot was but believes it was greater than 10 years. He endorses a mild headache but is unclear if he had LOC. He states that he makes very little urine if any. He also endorses feeling short of breath and having wheezing. Patient states he used to smoke 2 to 3 cigars daily for approximately 30 to 40 years but quit several years ago. He denies any chest pain, abdominal pain, vomiting or diarrhea. However he did feel nauseated in route with EMS who was given a Zofran ODT. TRAVEL OUTSIDE OF THE [place] IN LAST 30 DAYS: No - Related data Allergies/Adverse Reactions: ketorolac [From Toradol] Allergy (Verified 02/27/19 04:09) tramadol Allergy (Verified 02/27/19 04:09) Past Medical History - Social History Smoking Status: Unknown if Ever Smoked Family History: Reviewed & Not Pertinent Patient has suicidal ideation: No Patient has homicidal ideation: No - Past Medical History Cardiac Medical History: Reports: Hx Congestive Heart Failure, Hx Hypercholester olemia, Hx Hypertension Endocrine Medical History: Denies: Hx Diabetes Mellitus Type 1 Renal/ Medical History: Reports: Hx End Stage Renal Disease - hemodialysis. Denies: Hx Peritoneal Dialysis GI Medical History: Reports: Hx Gastroesophageal Reflux Disease Past Surgical History: Reports: Hx Appendectomy, Hx Cholecystectomy - Immunizations Hx Diphtheria, Pertussis, Tetanus Vaccination: Yes Review of Systems - Review of Systems Constitutional: See HPI EENT: No symptoms reported Cardiovascular: No symptoms reported Respiratory: See HPI Gastrointestinal: No symptoms reported Genitourinary: No symptoms reported Male Genitourinary: No symptoms reported Musculoskeletal: No symptoms reported Skin: No symptoms reported Hematologic/Lymphatic: See HPI Neurological/Psychological: No symptoms reported Physical Exam - Vital signs Vitals: Resp 19 02/27/19 00:51 Interpretation: Hypertensive, Tachycardic - General General appearance: Appears well, Alert - HEENT Head: Normocephalic Eyes: Normal Pupils: PERRL Notes: 3.5 cm round hematoma above the right eyebrow with ecchymosis. - Respiratory Respiratory status: No respiratory distress, Tachypnea Chest status: Nontender, Prolonged expirations Breath sounds: Decreased air movement, Rales, Wheezing, Other - Bilateral lower lobe rales. Diffuse faint expiratory wheezes. Chest palpation: Normal - Cardiovascular Rhythm: Regular Heart sounds: Normal auscultation Murmur: No - Abdominal Inspection: Normal Distension: No distension Bowel sounds: Normal Tenderness: Nontender Organomegaly: No organomegaly - Back Back: Normal, Nontender - Extremities General upper extremity: Normal inspection, Nontender, Normal color, Normal ROM, Normal temperature General lower extremity: Normal inspection, Nontender, Normal color, Normal ROM, Normal temperature, Normal weight bearing. No: Vreito's sign - Neurological Neuro grossly intact: Yes Cognition: Normal Orientation: AAOx4 [place] Coma Scale Eye Opening: Spontaneous [place] Coma Scale Verbal: Oriented Yue Coma Scale Motor: Obeys Commands [place] Coma Scale Total: 15 Speech: Normal Motor strength normal: LUE, RUE, LLE, RLE Sensory: Normal - Psychological Associated symptoms: Normal affect, Normal mood - Skin Skin Temperature: Warm Skin Moisture: Dry Skin Color: Normal Location of irregularity: Extremities - Patient has a total of 3 skin tears. 2 of which are on his right forearm: one on the proximal dorsal forearm approximately 2.5 cm and round the other one on the distal dorsal forearm which is smaller approximately 1 cm in size. The third skin tears on the mid left dorsal forearm., Other - Bilateral lower extremity edema 2+ below the knee. Course - Re-evaluation Re-evalutation: Patient is ill-appearing but nontoxic. He is not normally on oxygen and on nasal cannula currently however he was difficult to obtain a good Pleth on. Initial vitals notable for mild tachycardia and mildly elevated blood pressure. Differential diagnosis includes volume overload, hyperkalemia, electrolyte abnormality, COPD exacerbation, pneumonia, ICH (less likely), scalp hematoma 02/27/19 01:23 Patient has lower extremity edema as well as tachypnea and some mild wheezing on physical examination as well as rales. All consistent with volume overload however the patient could also have undiagnosed COPD. Will administer DuoNeb and obtain labs. Patient does not make much urine therefore Lasix is not indicated at this point in time. Patient likely needs dialysis given his missed dose yesterday. Given that the dialysis will not be able to be performed this evening here, the patient request that he be transferred to [facility] if necessary. EKG is nonischemic and does not show evidence of significantly peaked T waves. However there are T wave inversions in V1 through V4. Will reassess with prior to compare. Patient will be ordered for tetanus shot as he is unclear when his last one was. Skin tears to forearms do not require any rep air, will be cleaned applied bacitracin to and Xeroform dressings. T wave inversions are significantly deeper than prior. Patient's potassium is critically high at 8. Patient ordered for high-dose albuterol, 10 units of insulin IV push, D50 and calcium gluconate. Patient states he produces very little urine and already appears volume overloaded therefore IV fluids were not ordered. CBC shows critical H&H of 6.4/20.3. Patient's troponin is also elevated at 0.141 however the patient troponin appears to be chronically elevated, likely related is very poor kidney function. GFR is quite low at 2. Patient's BMP is also significant elevated 165,000. 02/27/19 01:52 Spoke to transfer center at [facility] with transfer provider Williams. Will discuss with hospitalist and call back for transfer for emergent dialysis. Nursing, patient's H/H is 6.4/20.3. 02/27/19 02:17 Sees call from Williams in the transfer center. Patient accepted by Dr. Roger Barrett to [facility]. However beds are tight. Patient ordered for Kayexalate. 02/27/19 05:53 Patient's transport team was pushed back to 730. Patient has had at least 5 episodes of stooling while here in the ED. Begin improvement in shortness of breath after BiPAP. - Vital Signs Vital signs: Temp Pulse Resp BP Pulse Ox 97.8 F 18 158/84 H 100 02/27/19 06:44 02/27/19 06:44 02/27/19 06:44 02/27/19 06:43 - Laboratory Result Diagrams: 02/27/19 01:01 02/27/19 01:01 Laboratory results interpreted by me: 02/27/19 02/27/19 02/27/19 01:01 01:01 01:01 RBC 2.17 L Hgb 6.4 L Hct 20.3 L MCHC 31.6 L RDW 15.3 H Seg Neuts % (Manual) 88 H Lymphocytes % (Manual) 6 L Abs Neuts (Manual) 8.4 H PT 16.6 H Potassium 8.0 H* Carbon Dioxide 15 L Anion Gap 27 H BUN 146 H Creatinine 25.04 H Est GFR ( Amer) 2 L Est GFR (MDRD) Non-Af 2 L POC Glucose Calcium 7.8 L Direct Bilirubin 0.6 H NT-Pro-B Natriuret Pep 02/27/19 02/27/19 01:01 02:37 RBC Hgb Hct MCHC RDW Seg Neuts % (Manual) Lymphocytes % (Manual) Abs Neuts (Manual) PT Potassium Carbon Dioxide Anion Gap BUN Creatinine Est GFR ( Amer) Est GFR (MDRD) Non-Af POC Glucose 176 H Calcium Direct Bilirubin NT-Pro-B Natriuret Pep 800999 H - EKG Interpretation by Me EKG shows normal: Sinus rhythm, Mays Rate: Normal Rhythm: NSR Mays/QRS: RBBB Heart block present: 1st Degree When compared to previous EKG there are: Changes noted - Prior EKG was done on September 222018. In comparison to the one today, the T wave inversions in V1 through VT are deeper. In addition, the patient had an incomplete right bundle branch previously and today it is a complete right bundle branch block. Patient did not previously have T wave inversions in V3 and V4, these are new. Critical Care Note - Critical Care Note Total time excluding time spent on procedures (mins): 60 - Patient required multiple re-evaluations, multiple critical high values and labs including potassium and hemoglobin. Required BiPAP use as well as multiple stabilizing agent for his hyperkalemia and other electrolyte abnormalities. Will require emergent dialysis and therefore transfer. Discharge - Discharge Clinical Impression: End-stage renal disease on hemodialysis, Hyperkalemia, Elevated troponin, Volume overload Anemia Qualifiers: Anemia type: due to chronic kidney disease Condition: Fair Disposition: [facility] Admitting Provider: Debbie Referrals: RUDY JACOBSEN MD [Primary Care Provider] - Follow up as needed
[2019-02-27 01:27] LABS: INTERNATIONAL RATION (INR) 1.34; PROTHROMBIN TIME 16.6 SEC (11.4-15.4)
[2019-02-27 01:29] LABS: HEMATOCRIT 20.3 % (37.9-51.0); MEAN CORPUSCULAR HEMOGLOBIN 29.5 pg (27.0-33.4); MEAN CORPUSCULAR HGB CONC 31.6 g/dL (32.0-36.0); MEAN CORPUSCULAR VOLUME 94 fl (80-97); PLATELET COUNT 172 10^3/uL (150-450); RED BLOOD COUNT 2.17 10^6/uL (4.35-5.55); RED CELL DISTRIBUTION WIDTH 15.3 % (11.5-14.0); WHITE BLOOD COUNT 9.5 10^3/uL (4.0-10.5)
[2019-02-27 01:31] LABS: ALBUMIN 4.2 g/dL (3.5-5.0); ALKALINE PHOSPHATASE 78 U/L (38-126); ASPARTATE AMINO TRANSFERASE 26 U/L (17-59); BILIRUBIN,DIRECT 0.6 mg/dL (0.0-0.4); BILIRUBIN,TOTAL 0.6 mg/dL (0.2-1.3); CALCIUM 7.8 mg/dL (8.4-10.2); GLUCOSE 98 mg/dL (75-110); TOTAL PROTEIN 7.7 g/dL (6.3-8.2)
[2019-02-27 01:39] LABS: BLOOD UREA NITROGEN 146 mg/dL (7-20); CARBON DIOXIDE 15 mmol/L (22-30); CHLORIDE 100 mmol/L (98-107)
[2019-02-27 01:41] LABS: ANION GAP 27 (5-19)
[2019-02-27] MEDS ORDERED: DEXTROSE 50%-WATER 25 GM/50 ML DISP.SYRIN IV ONE ×2 (01:46→04:29)
[2019-02-27] MEDS ORDERED: ALBUTEROL SULFATE 0.083% NEB 2.5 MG/3 ML AMPUL NEB ONE (01:46)
[2019-02-27] MEDS ORDERED: INSULIN REG, HUMAN 100 UNIT/ML 3 ML VIAL (PYX) IV ONE (01:46)
[2019-02-27 01:57] LABS: HEMOGLOBIN 6.4 g/dL (13.5-17.0)
[2019-02-27 02:00] LABS: ABSOLUTE LYMPHOCYTES# (MANUAL) 0.6 10^3/uL (0.5-4.7); ABSOLUTE MONOCYTES # (MANUAL) 0.4 10^3/uL (0.1-1.4); BASOPHILS % (MANUAL) 0 % (0-2); EOSINOPHILS % (MANUAL) 2 % (0-6); LYMPHOCYTES % (MANUAL) 6 % (13-45); MONOCYTES % (MANUAL) 4 % (3-13); SEGMENTED NEUTROPHILS % (MAN) 88 % (42-78); TOTAL CELLS COUNTED 100
[2019-02-27 02:01] LABS: ANISOCYTOSIS SLIGHT; OVALOCYTES 2+; PLATELET COMMENT ADEQUATE; POIKILOCYTOSIS 1+
[2019-02-27] MEDS ORDERED: SODIUM POLYSTYRENE SULFONATE 15 GM/60 ML PO ONE (02:15)
--- NOTE | 2019-02-27 02:23 | RADIOLOGY REPORT (SQ) ---
CT head without contrast on 02/27/2019 at 1:43 AM CLINICAL INDICATION: Fall, per protocol for mechanism of injury TECHNIQUE: Multiple axial images are obtained throughout the head without the administration of contrast. This exam was performed according to our departmental dose-optimization program, which includes automated exposure control, adjustment of the mA and/or kV according to patient size and/or use of iterative reconstruction technique. Total DLP is 954.23 mGy*cm. COMPARISON: None FINDINGS: There is right frontal scalp soft tissue swelling/small hematoma. There is no hydrocephalus. There is no CT evidence of acute infarct. There is no hemorrhage. There are no abnormal extra-axial fluid collections. There is no mass, mass effect or midline shift. No bony abnormality is noted. IMPRESSION: No acute intracranial abnormality.
[2019-02-27 02:24] LABS: TROPONIN I 0.141 ng/mL
[2019-02-27] MEDS ORDERED: ACETAMINOPHEN 325 MG TABLET PO ONE (02:26)
--- NOTE | 2019-02-27 02:31 | RADIOLOGY REPORT (SQ) ---
XR CHEST 1 VIEW EXAM DATE: 02/27/2019 1:15 AM TRAINING AND DOCUMENTATION SPECIALIST HISTORY: Fall. COMPARISON: 09/22/2018 FINDINGS: The cardiac silhouette is enlarged. Mild pulmonary edema is seen. No focal consolidation, pleural effusion, or pneumothorax. No acute bony findings are seen. The right hemidiaphragm is elevated. IMPRESSION: Cardiomegaly with mild pulmonary edema. No pleural effusions are seen.
[2019-02-27] MEDS ORDERED: CALCIUM GLUCONATE 1000 MG/10 ML INJ IV ONE (06:49)
[2019-02-27] MEDS ORDERED: ASPIRIN 81 MG TABLET, CHEWABLE PO ONE (06:54)
[2019-02-27 07:50] VITALS: BP 160/79
--- NOTE | 2019-02-27 12:06 | EKG REPORT ---
SEVERITY:- ABNORMAL ECG - SINUS RHYTHM FIRST DEGREE AV BLOCK RIGHT BUNDLE BRANCH BLOCK : Confirmed by: Oanh Valdivia MD 27-Feb-2019 12:06:20
== END 2019-02-27 08:12 | disposition short-term general hospital (02) ==
LOC: ER 00:36
DX: I13.2 Hypertensive heart and chronic kidney disease with heart failure and with stage 5 chronic kidney disease, or end stage renal disease (principal); D63.1 Anemia in chronic kidney disease; E87.70 Fluid overload, unspecified; R53.1 Weakness; R79.89 Other specified abnormal findings of blood chemistry; R51 Headache; S51.811A Laceration without foreign body of right forearm, initial encounter; S51.812A Laceration without foreign body of left forearm, initial encounter; W06.XXXA Fall from bed, initial encounter; N18.6 End stage renal disease; I50.9 Heart failure, unspecified; E78.5 Hyperlipidemia, unspecified; Z99.2 Dependence on renal dialysis; Z23 Encounter for immunization; Z90.49 Acquired absence of other specified parts of digestive tract
CPT/HCPCS: 93005; 96376; 94640 ×2; 99291; 90471; 96374; 96375; 36415; 82962; 83605; 85025; 85610; 80053; 84484; 83880; 71045; 70450; 90715; 93010; 94660; A9270 ×6; J0610; J3490; J1815; J7620

== ENCOUNTER → 2019-04-21 | Outpatient (CLI) | payer MEDICARE, MEDICAID ==
--- NOTE | 2019-04-21 10:48 | RADIOLOGY REPORT (SQ) ---
EXAM DESCRIPTION: CHEST SINGLE VIEW COMPLETED DATE/TIME: 04/21/2019 9:30 am REASON FOR STUDY: SOB COMPARISON: 02/27/2019. FINDINGS: One-view chest, PA image. Cardiomegaly and vascular congestion. Chronic blunting left lateral costophrenic angle, small effusion. Slightly more conspicuous but persistently small right pleural effusion. No pneumothorax. TECHNICAL DOCUMENTATION: JOB ID: [id number] Reading location - IP/workstation name: [email or web address]
== END ==
LOC: RAD 09:13
PROVIDERS: ATTEND Physician Assistant Medical
DX: I50.9 Heart failure, unspecified (principal); R06.02 Shortness of breath
CPT/HCPCS: 71045

== ENCOUNTER → 2019-04-29 | Day surgery (SDC) | payer MEDICARE, MEDICAID ==
[2019-04-26 09:58] LABS: HEMATOCRIT 23.8 % (37.9-51.0); MEAN CORPUSCULAR HGB CONC 32.3 g/dL (32.0-36.0); MEAN CORPUSCULAR VOLUME 90 fl (80-97); PLATELET COUNT 186 10^3/uL (150-450); RED BLOOD COUNT 2.66 10^6/uL (4.35-5.55); RED CELL DISTRIBUTION WIDTH 17.5 % (11.5-14.0); WHITE BLOOD COUNT 5.5 10^3/uL (4.0-10.5)
[2019-04-26 10:07] LABS: HEMOGLOBIN 7.7 g/dL (13.5-17.0)
--- NOTE | 2019-04-26 10:17 | RADIOLOGY REPORT (SQ) ---
EXAM DESCRIPTION: CHEST PA/LATERAL COMPLETED DATE/TIME: 04/26/2019 10:05 am REASON FOR STUDY: PRE OP COMPARISON: 04/21/2019 EXAM PARAMETERS: NUMBER OF VIEWS: two views TECHNIQUE: Digital Frontal and Lateral radiographic views of the chest acquired. RADIATION DOSE: NA LIMITATIONS: none FINDINGS: LUNGS AND PLEURA: No new airspace disease. Unchanged chronic blunting of the bilateral co stophrenic angles, likely small effusions versus pleural thickening. No pneumothorax. MEDIASTINUM AND HILAR STRUCTURES: No masses or contour abnormalities. HEART AND VASCULAR STRUCTURES: Enlarged cardiac silhouette, stable. Central vascular congestion. No overt edema. Aortic atherosclerosis. BONES: No acute findings. HARDWARE: None in the chest. OTHER: No other significant finding. IMPRESSION: Stable enlarged cardiac silhouette and central vascular congestion . Unchanged blunting of the bilateral costophrenic angles, likely small effusions. TECHNICAL DOCUMENTATION: JOB ID: [id number] [employer]- All Rights Reserved Reading location - IP/workstation name: [email or web address]
[2019-04-26 10:24] LABS: ANION GAP 18 (5-19); BLOOD UREA NITROGEN 97 mg/dL (7-20); CALCIUM 8.7 mg/dL (8.4-10.2); CARBON DIOXIDE 24 mmol/L (22-30); CHLORIDE 100 mmol/L (98-107); GLUCOSE 85 mg/dL (75-110)
[2019-04-26 10:41] LABS: POTASSIUM 6.2 mmol/L (3.6-5.0)
--- NOTE | 2019-04-26 16:24 | EKG REPORT ---
SEVERITY:- ABNORMAL ECG - SINUS RHYTHM IVCD, CONSIDER ATYPICAL RBBB : Confirmed by: Oanh Valdivia MD 26-Apr-2019 16:23:10
[~2019-04-29] MED LIST: ACETAMINOPHEN 1,000 MG/100 ML RTUPB IV PRN; CEFAZOLIN SODIUM 2 GM in DEXTROSE 5%-WATER 100 ML IV PRN; DEXAMETHASONE SOD PHOSPHATE INJ 4 MG/1 ML VIAL ONE; FENTANYL CITRATE INJ/PF 100 MCG/2 ML AMPUL ONE; FENTANYL CITRATE INJ/PF 250 MCG/5 ML AMPULE ONE; IBUPROFEN 800 MG in NORMAL SALINE 250 ML IV PRN; MIDAZOLAM 2 MG/2 ML INJ ONE; NORMAL SALINE 1000 ML (RENAL PATIENTS) IV PRN; ONDANSETRON HCL INJ/PF 4 MG/2 ML SDV ONE; PROPOFOL INJ 200 MG/20 ML VIAL IV ONE; SUGAMMADEX SODIUM 200 MG/2 ML SDV IV ONE
--- NOTE | 2019-04-29 06:19 | RADIOLOGY REPORT (SQ) ---
EXAM DESCRIPTION: XR CHEST 1 VIEW COMPLETED DATE/TME: 04/29/2019 00:00 CLINICAL HISTORY: preop COMPARISON: 04/26/2019 FINDINGS: Single frontal view of the chest. Cardiomediastinal silhouette: Cardiomegaly. Lungs: Small bilateral pleural effusions. No pneumothorax. Bones: Degenerative change of the spine and shoulders. Upper abdomen: No abnormality identified. IMPRESSION: 1. Cardiomegaly. 2. Small bilateral pleural effusions.
[2019-04-29 06:29] LABS: ABSOLUTE BASOPHILS # (AUTO) 0.1 10^3/uL (0.0-0.2); ABSOLUTE EOSINOPHILS # (AUTO) 0.2 10^3/uL (0.0-0.6); ABSOLUTE LYMPHOCYTES (AUTO) 0.8 10^3/uL (0.5-4.7); ABSOLUTE MONOCYTES (AUTO) 0.4 10^3/uL (0.1-1.4); BASOPHILS % (AUTO) 2.1 % (0-2); EOSINOPHILS % (AUTO) 3.5 % (0-6); HEMATOCRIT 22.1 % (37.9-51.0); LYMPHOCYTES % (AUTO) 13.7 % (13-45); MEAN CORPUSCULAR HEMOGLOBIN 28.8 pg (27.0-33.4); MEAN CORPUSCULAR HGB CONC 32.1 g/dL (32.0-36.0); MEAN CORPUSCULAR VOLUME 90 fl (80-97); MONOCYTES % (AUTO) 7.6 % (3-13); PLATELET COUNT 150 10^3/uL (150-450); RED BLOOD COUNT 2.46 10^6/uL (4.35-5.55); RED CELL DISTRIBUTION WIDTH 17.4 % (11.5-14.0); SEGMENTED NEUTROPHILS % (AUTO) 73.1 % (42-78); TOTAL CELLS COUNTED % (AUTO) 100 %; WHITE BLOOD COUNT 5.5 10^3/uL (4.0-10.5)
[2019-04-29 06:39] LABS: HEMOGLOBIN 7.1 g/dL (13.5-17.0)
[2019-04-29 06:42] LABS: BLOOD UREA NITROGEN 113 mg/dL (7-20); CALCIUM 8.5 mg/dL (8.4-10.2); CARBON DIOXIDE 19 mmol/L (22-30); CHLORIDE 101 mmol/L (98-107); GLUCOSE 90 mg/dL (75-110)
[2019-04-29 06:50] LABS: ANION GAP 22 (5-19)
[2019-04-29 07:02] LABS: POTASSIUM 6.1 mmol/L (3.6-5.0)
[2019-04-29 08:23] VITALS: BP 148/77
== END ==
LOC: OROUT 05:16
PROVIDERS: ATTEND Surgery
DX: K40.20 Bilateral inguinal hernia, without obstruction or gangrene, not specified as recurrent (principal); Z79.899 Other long term (current) drug therapy; I12.0 Hypertensive chronic kidney disease with stage 5 chronic kidney disease or end stage renal disease; N18.6 End stage renal disease; Z01.818 Encounter for other preprocedural examination; E78.00 Pure hypercholesterolemia, unspecified; I77.0 Arteriovenous fistula, acquired; I51.7 Cardiomegaly; J90 Pleural effusion, not elsewhere classified
CPT/HCPCS: 36415; 71045; 71046; 80048; 85025; 85027; 93005; 93010; J0690; J1100; J1741; J2250; J2405; J2704; J3010; J3490; J7050; J7060

== ENCOUNTER 2019-05-01 09:37 | Emergency (ER) | payer MEDICARE, MEDICAID ==
[2019-05-01] MEDS ORDERED: PANTOPRAZOLE SODIUM 40 MG VIAL IV ONE (10:24)
--- NOTE | 2019-05-01 10:24 | ER Document Report ---
ED General - General Chief Complaint: Breathing Difficulty Stated Complaint: DIFFICULTY BREATHING Time Seen by Provider: 05/01/19 09:46 Primary Care Provider: RUDY JACOBSEN MD [Primary Care Provider] - Follow up as needed Notes: HPI: Patient is a 58-year-old male that presents today with multiple complaints. Patient states starting last week he had some diarrhea. He states he had around 3-4 bouts a day. No recent trips or travel or antibiotics. He denies any and all abdominal pain or cramping. He had no nausea and vomiting at that time. He did miss his dialysis on Thursday and Thursday secondary to diarrhea. Patient states that he has been having some shortness of breath, worse when laying flat for the last 2 weeks. He does have a history supposedly of congestive heart failure. Patient also states for 2 days he has had some blood in his stools. Very intermittent diarrhea. He again denies any abdominal pain. He was seen at the surgical center here at this facility on Thursday secondary to bilateral inguinal hernia repair that was scheduled. They told him however that his hemoglobin was low and potassium was high according to patient's report. He did then go from there to dialysis and did complete dialysis on Thursday. Patient states [facility] to GI bleeding with cauterization of a gastric ulcer. Patient denies any chest pain, lightheadedness or dizziness. ROS: See HPI All other review of systems reviewed and otherwise negative Reviewed vital signs and nursing note as charted by RN. PHYSICAL EXAM: CONSTITUTIONAL: Alert and oriented and responds appropriately to questions. Well-appearing; well-nourished HEAD: Normocephalic; atraumatic EYES: Sclerae is not pale or icteric ENT: Normal nose; no rhinorrhea; moist mucous membranes; pharynx without lesions noted NECK: Supple without meningismus; non-tender; no cervical lymphadenopathy, no masses CARD: Regular rate and rhythm; no murmurs; symmetric distal pulses RESP: Normal chest excursion without splinting or tachypnea; breath sounds clear and equal bilaterally; no wheezes, no rhonchi. Minimal bilateral rales ABD/GI: Normal bowel sounds; very elevated BMI; soft, non-tender to deep palpation of all 4 quadrants of the abdomen; no palpable organomegaly or masses GI/: Patient has no perirectal lesions or hemorrhoids present. No gross bloo d. Hemoccult positive stool BACK: The back appears normal and is non-tender to palpation EXT: Normal ROM in all joints; non-tender to palpation; 1+ bilateral pitting edema SKIN: No acute lesions noted NEURO: CN 2-12 intact; 5/5 bilateral upper and lower extremity strength with sensation intact to light touch PSYCH: The patient's mood and manner are appropriate. Grooming and personal hygiene are appropriate. TRAVEL OUTSIDE OF THE [place] IN LAST 30 DAYS: No - Related Data Allergies/Adverse Reactions: ketorolac [From Toradol] Allergy (Verified 05/01/19 10:20) tramadol Allergy (Verified 05/01/19 10:20) Past Medical History - Social History Smoking Status: Unknown if Ever Smoked Family History: Reviewed & Not Pertinent - Past Medical History Cardiac Medical History: Reports: Hx Congestive Heart Failure, Hx Hypercholesterolemia, Hx Hypertension Denies: Hx Coronary Artery Disease, Hx Heart Attack Pulmonary Medical History: Denies: Hx Asthma, Hx Bronchitis, Hx COPD, Hx Pneumonia Neurological Medical History: Denies: Hx Cerebrovascular Accident, Hx Seizures Endocrine Medical History: Denies: Hx Diabetes Mellitus Type 1 Renal/ Medical History: Reports: Hx End Stage Renal Disease - hemodialysis. Denies: Hx Peritoneal Dialysis GI Medical History: Reports: Hx Gastroesophageal Reflux Disease Musculoskeletal Medical History: Denies Hx Arthritis Past Surgical History: Reports: Hx Appendectomy, Hx Cholecystectomy - Immunizations Hx Diphtheria, Pertussis, Tetanus Vaccination: Yes Physical Exam - Vital signs Vitals: Temp 98.0 F 05/01/19 09:38 Course - Re-evaluation Re-evalutation: 05/01/19 10:24 Given the above history and physical examination I will order basic labs, hemoglobin level, coagulation profile, EKG, x-ray of the chest, troponin. I would like to assess for the possibility of acute blood loss anemia, hypokalemia, cardiac etiology for the worsening shortness of breath, and tach possibility of fluid overload. We do not have nephrology or gastroenterology currently here at this time. Type and cross has been ordered. 05/01/19 11:12 Patient's hemoglobin as recorded. I have started a Protonix bolus and drip. Patient still denies any pain. Some mild fluid congestion. Potassium as recorded. I will provide 1 unit of packed red blood cells given that I do not want to fluid overload the patient since we do not have dialysis capabilities currently at this facility. We will attempt to transfer the patient given the need for possibly endoscopy and cauterization. 05/01/19 11:46 EKG shows heart of 78, normal sinus rhythm, nonspecific conduction delay with no peak T waves. No obvious ST elevation or depression. - Vital Signs Vital signs: Temp Pulse Resp BP Pulse Ox 98.0 F 18 169/79 H 100 05/01/19 09:38 05/01/19 11:02 05/01/19 11:02 05/01/19 11:02 - Laboratory Result Diagrams: 05/01/19 10:00 05/01/19 10:00 Laboratory results interpreted by me: 05/01/19 05/01/19 05/01/19 10:00 10:00 10:00 RBC 2.50 L Hgb 7.2 L Hct 22.6 L MCHC 31.9 L RDW 17.3 H Plt Count 139 L Potassium 5.1 H BUN 71 H Creatinine 12.27 H Est GFR ( Amer) 5 L Est GFR (MDRD) Non-Af 4 L Direct Bilirubin 0.6 H Crossmatch See Detail Critical Care Note - Critical Care Note Total time excluding time spent on procedures (mins): 35 Discharge - Discharge Clinical Impression: Pulmonary vascular congestion, Rectal bleeding, Acute blood loss anemia GI bleed Qualifiers: GI bleed type/associated pathology: unspecified gastrointestinal hemorrhage type Qualified Code(s): K92.2 - Gastrointestinal hemorrhage, unspecified Condition: Fair Disposition: [facility] Referrals: RUDY JACOBSEN MD [Primary Care Provider] - Follow up as needed
[2019-05-01 10:34] LABS: INTERNATIONAL RATION (INR) 1.17
[2019-05-01 10:38] LABS: ALKALINE PHOSPHATASE 66 U/L (38-126); ANION GAP 16 (5-19); ASPARTATE AMINO TRANSFERASE 25 U/L (17-59); BILIRUBIN,DIRECT 0.6 mg/dL (0.0-0.4); BILIRUBIN,TOTAL 0.6 mg/dL (0.2-1.3); BLOOD UREA NITROGEN 71 mg/dL (7-20); CALCIUM 8.8 mg/dL (8.4-10.2); CARBON DIOXIDE 25 mmol/L (22-30); CHLORIDE 101 mmol/L (98-107); GLUCOSE 85 mg/dL (75-110); POTASSIUM 5.1 mmol/L (3.6-5.0); TOTAL PROTEIN 7.8 g/dL (6.3-8.2)
[2019-05-01 10:55] LABS: ABSOLUTE BASOPHILS # (AUTO) 0.1 10^3/uL (0.0-0.2); ABSOLUTE EOSINOPHILS # (AUTO) 0.1 10^3/uL (0.0-0.6); ABSOLUTE LYMPHOCYTES (AUTO) 0.7 10^3/uL (0.5-4.7); ABSOLUTE MONOCYTES (AUTO) 0.4 10^3/uL (0.1-1.4); ABSOLUTE NEUT (AUTO) 3.3 10^3/uL (1.7-8.2); BASOPHILS % (AUTO) 1.9 % (0-2); EOSINOPHILS % (AUTO) 2.1 % (0-6); HEMATOCRIT 22.6 % (37.9-51.0); LYMPHOCYTES % (AUTO) 14.2 % (13-45); MEAN CORPUSCULAR HEMOGLOBIN 28.9 pg (27.0-33.4); MEAN CORPUSCULAR HGB CONC 31.9 g/dL (32.0-36.0); MEAN CORPUSCULAR VOLUME 90 fl (80-97); MONOCYTES % (AUTO) 9.5 % (3-13); PLATELET COUNT 139 10^3/uL (150-450); RED CELL DISTRIBUTION WIDTH 17.3 % (11.5-14.0); SEGMENTED NEUTROPHILS % (AUTO) 72.3 % (42-78); TOTAL CELLS COUNTED % (AUTO) 100 %; WHITE BLOOD COUNT 4.6 10^3/uL (4.0-10.5)
--- NOTE | 2019-05-01 10:58 | RADIOLOGY REPORT (SQ) ---
EXAM DESCRIPTION: CHEST 2 VIEWS COMPLETED DATE/TIME: 05/01/2019 10:40 am REASON FOR STUDY: 11; sob COMPARISON: 04/29/2019 NUMBER OF VIEWS: Two views. TECHNIQUE: Frontal and lateral radiographic views of the chest acquired. LIMITATIONS: None. FINDINGS: LUNGS AND PLEURA: Low lung volumes. Small bilateral pleural effusions. No consolidation. MEDIASTINUM AND HILAR STRUCTURES: Stable. HEART AND VASCULAR STRUCTURES: Cardiac enlargement. Vascular congestion. BONES: No acute findings. HARDWARE: None in the chest. OTHER: No other significant finding. IMPRESSION: CARDIAC ENLARGEMENT. VASCULAR CONGESTION. TECHNICAL DOCUMENTATION: JOB ID: [id number] [employer]- All Rights Reserved Reading location - IP/workstation name: [email or web address]
[2019-05-01 11:06] LABS: HEMOGLOBIN 7.2 g/dL (13.5-17.0)
[2019-05-01] MEDS ORDERED: NORMAL SALINE 250 ML IV PRN (11:09)
[2019-05-01] MEDS ORDERED: PANTOPRAZOLE SODIUM 40 MG VIAL IV PRN (11:17)
[2019-05-01] MEDS ORDERED: HYDROCODONE/ACETAMINOPHEN 5-325 MG TABLET PO ONE (11:50)
[2019-05-01 15:16] VITALS: BP 179/91
--- NOTE | 2019-05-03 07:22 | EKG REPORT ---
SEVERITY:- ABNORMAL ECG - SINUS RHYTHM NONSPECIFIC INTRAVENTRICULAR CONDUCTION DELAY : Confirmed by: Fabian Dominguez MD 03-May-2019 07:22:06
== END 2019-05-01 15:19 | disposition short-term general hospital (02) ==
LOC: ER 09:37
DX: D62 Acute posthemorrhagic anemia (principal); K62.5 Hemorrhage of anus and rectum; R19.7 Diarrhea, unspecified; I12.0 Hypertensive chronic kidney disease with stage 5 chronic kidney disease or end stage renal disease; E10.22 Type 1 diabetes mellitus with diabetic chronic kidney disease; N18.6 End stage renal disease; Z99.2 Dependence on renal dialysis; Z91.15 Patient's noncompliance with renal dialysis; R09.89 Other specified symptoms and signs involving the circulatory and respiratory systems; R06.02 Shortness of breath; Z88.8 Allergy status to other drugs, medicaments and biological substances
CPT/HCPCS: 93005; 96376; 99291; 96374; 86900; 86901; 36415; 36430; 86850; 85025; 85610; 80053; 84484; 86920; 71046; 93010; P9016; C9113; J7050; A9270

== ENCOUNTER 2019-06-26 14:44 | Inpatient (IN) | payer MEDICARE, MEDICAID ==
--- NOTE | 2019-06-26 15:01 | ER Document Report ---
ED Medical Screen (RME) - General Chief Complaint: Rectal Bleeding Stated Complaint: RECTAL BLEEDING Time Seen by Provider: 06/26/19 14:54 Primary Care Provider: RUDY JACOBSEN MD [Primary Care Provider] - Follow up as needed Notes: HPI: 58-year-old male presenting to the emergency department complaining of rectal bleeding over the last 5 days. States it is happening every 1-2 hours and not with bowel movements. States it is bright red blood. Patient states he has also missed his last 2 dialysis appointments because he did not want to go there with a rectal bleeding issue. Patient normally goes to dialysis Thursday and Thursday did have a full dialysis last Thursday. Denies chest pain shortness of breath or dizziness. Does complain of a bloating sensation in the abdomen I have greeted and performed a rapid initial assessment of this patient. A comprehensive ED assessment and evaluation of the patient, analysis of test results and completion of the medical decision making process will be conducted by additional ED providers PHYSICAL EXAMINATION: Shunt in the right upper arm with intact thrill and bruit. No definitive pain on palpation of the abdomen TRAVEL OUTSIDE OF THE [place] IN LAST 30 DAYS: No - Related Data Allergies/Adverse Reactions: ketorolac [From Toradol] Allergy (Verified 06/26/19 14:55) tramadol Allergy (Verified 06/26/19 14:55) Past Medical History - Social History Chew tobacco use (# tins/day): No Frequency of alcohol use: None Drug Abuse: None - Past Medical History Cardiac Medical History: Reports: Hx Congestive Heart Failure, Hx H ypercholesterolemia, Hx Hypertension Denies: Hx Coronary Artery Disease, Hx Heart Attack Pulmonary Medical History: Denies: Hx Asthma, Hx Bronchitis, Hx COPD, Hx Pneumonia Neurological Medical History: Denies: Hx Cerebrovascular Accident, Hx Seizures Endocrine Medical History: Denies: Hx Diabetes Mellitus Type 1 Renal/ Medical History: Reports: Hx End Stage Renal Disease - hemodialysis. Denies: Hx Peritoneal Dialysis GI Medical History: Reports: Hx Gastroesophageal Reflux Disease Musculoskeltal Medical History: Denies Hx Arthritis Past Surgical History: Reports: Hx Appendectomy, Hx Cholecystectomy, Hx Vascular Surgery - RT AV Fistula - Immunizations Hx Diphtheria, Pertussis, Tetanus Vaccination: Yes Physical Exam - Vital signs Vitals: Temp Pulse Resp BP Pulse Ox 98.0 F 83 18 190/90 H 96 04/05/20 14:50 06/26/19 14:50 06/26/19 14:50 06/26/19 14:50 06/26/19 14:50 Course - Vital Signs Vital signs: Temp Pulse Resp BP Pulse Ox 98.0 F 83 18 190/90 H 96 06/26/19 14:50 06/26/19 14:50 06/26/19 14:50 06/26/19 14:50 06/26/19 14:50 Doctor's Discharge - Discharge Referrals: RUDY JACOBSEN MD [Primary Care Provider] - Follow up as needed
[2019-06-26 16:20] LABS: INTERNATIONAL RATION (INR) 1.15; PROTHROMBIN TIME 14.8 SEC (11.4-15.4)
[2019-06-26 16:21] LABS: PARTIAL THROMBOPLASTIN TIME 27.2 SEC (23.5-35.8)
[2019-06-26 16:26] LABS: ABSOLUTE BASOPHILS # (AUTO) 0.1 10^3/uL (0.0-0.2); ABSOLUTE EOSINOPHILS # (AUTO) 0.1 10^3/uL (0.0-0.6); ABSOLUTE LYMPHOCYTES (AUTO) 0.6 10^3/uL (0.5-4.7); ABSOLUTE MONOCYTES (AUTO) 0.4 10^3/uL (0.1-1.4); BASOPHILS % (AUTO) 1.4 % (0-2); EOSINOPHILS % (AUTO) 2.1 % (0-6); HEMATOCRIT 27.2 % (37.9-51.0); HEMOGLOBIN 9.1 g/dL (13.5-17.0); LYMPHOCYTES % (AUTO) 11.2 % (13-45); MEAN CORPUSCULAR HEMOGLOBIN 29.3 pg (27.0-33.4); MEAN CORPUSCULAR HGB CONC 33.4 g/dL (32.0-36.0); MEAN CORPUSCULAR VOLUME 88 fl (80-97); MONOCYTES % (AUTO) 7.6 % (3-13); PLATELET COUNT 171 10^3/uL (150-450); RED BLOOD COUNT 3.09 10^6/uL (4.35-5.55); RED CELL DISTRIBUTION WIDTH 18.4 % (11.5-14.0); SEGMENTED NEUTROPHILS % (AUTO) 77.7 % (42-78); TOTAL CELLS COUNTED % (AUTO) 100 %; WHITE BLOOD COUNT 5.1 10^3/uL (4.0-10.5)
--- NOTE | 2019-06-26 16:34 | RADIOLOGY REPORT (SQ) ---
EXAM DESCRIPTION: CHEST SINGLE VIEW IMAGES COMPLETED DATE/TIME: 06/26/2019 3:12 pm REASON FOR STUDY: renal failure/shortness of breath COMPARISON: 05/01/2019 EXAM PARAMETERS: NUMBER OF VIEWS: One view. TECHNIQUE: Single frontal radiographic view of the chest acquired. RADIATION DOSE: NA LIMITATIONS: None. FINDINGS: LUNGS AND PLEURA: No opacities, masses or pneumothorax. No pleural effusion. MEDIASTINUM AND HILAR STRUCTURES: No masses. Contour normal. HEART AND VASCULAR STRUCTURES: Moderate cardiomegaly. No pulmonary vascular congestion. BONES: No acute findings. HARDWARE: None in the chest. OTHER: No other significant finding. IMPRESSION: No acute cardiopulmonary disease. TECHNICAL DOCUMENTATION: JOB ID: [id number] [employer]- All Rights Reserved Reading location - IP/workstation name: [email or web address]
[2019-06-26 16:44] LABS: ALBUMIN 4.4 g/dL (3.5-5.0); ALKALINE PHOSPHATASE 70 U/L (38-126); ANION GAP 15 (5-19); ASPARTATE AMINO TRANSFERASE 14 U/L (17-59); BILIRUBIN,DIRECT 0.6 mg/dL (0.0-0.4); BILIRUBIN,TOTAL 0.6 mg/dL (0.2-1.3); CARBON DIOXIDE 26 mmol/L (22-30); CHLORIDE 95 mmol/L (98-107); GLUCOSE 114 mg/dL (75-110); TOTAL PROTEIN 8.4 g/dL (6.3-8.2)
[2019-06-26 16:53] LABS: BLOOD UREA NITROGEN 131 mg/dL (7-20)
[2019-06-26] MEDS ORDERED: CALCIUM GLUCONATE 1000 MG/10 ML INJ IV ONE (16:58)
[2019-06-26] MEDS ORDERED: SODIUM BICARBONATE 8.4% INJ 50 MEQ/50 ML DISP.SYRIN IV ONE (16:59)
[2019-06-26 17:03] LABS: TROPONIN I 0.048 ng/mL
[2019-06-26] MEDS ORDERED: DEXTROSE 50%-WATER 25 GM/50 ML DISP.SYRIN IV ONE (17:06)
[2019-06-26] MEDS ORDERED: INSULIN REG, HUMAN 100 UNIT/ML 3 ML VIAL (PYX) IV ONE (17:08)
[2019-06-26] MEDS ORDERED: NITROGLYCERIN 2% OINTMENT 1 GM PACKET TP ONE (18:39)
[2019-06-26] MEDS ORDERED: HYDRALAZINE HCL INJ/PF 20 MG/1 ML SDV IV ONE (18:40)
--- NOTE | 2019-06-26 18:51 | RADIOLOGY REPORT (SQ) ---
EXAM DESCRIPTION: CTA ABDOMEN/PELVIS W WO IMAGES COMPLETED DATE/TIME: 06/26/2019 6:22 pm REASON FOR STUDY: lower gi bleed COMPARISON: 2018 TECHNIQUE: CT scan of the abdomen and pelvis performed with and without intravenous contrast using h elical scanning technique with dynamic intravenous contrast injection. Images reviewed with lung, sof t tissue, and bone windows. Reconstructed coronal and sagittal MPR images reviewed. All images stored on PACS. Advanced 3D imaging as volume rendering, MIPS, SSD performed? No All CT scanners at this facility use dose modulation, iterative reconstruction, and/or weight based d osing when appropriate to reduce radiation dose to as low as reasonably achievable (ALARA). [facility]: Dose Right [facility]: CareDose [facility]: Dose Right [facility]: Teradose 4D [facility]: sliceX CONTRAST TYPE AND DOSE: contrast/concentration: Isovue 300.00 mg/ml; Total Contrast Delivered: 100.0 ml; Total Saline Delivered: 90.0 ml RENAL FUNCTION: On dialysis LIMITATIONS: None. FINDINGS: NON-CONTRASTED IMAGING: No significant renal or bladder calcifications. No other significa nt organ calcifications. POST-CONTRAST IMAGING: AORTA AND VESSELS: No aneurysm. No dissection. Renal arteries, SMA, celiac without stenosis. LUNG BASES: Bilateral pleural effusions with compressive atelectasis at the lung bases. LIVER: Normal size. No masses or dilated ducts. SPLEEN: Normal size. No focal lesions. PANCREAS: No masses. No significant calcifications. No adjacent inflammation or peripancreatic fluid collections. Pancreatic duct not dilated. GALLBLADDER: Surgically absent. ADRENAL GLANDS: No significant masses or asymmetry. RIGHT KIDNEY AND URETER: Atrophic LEFT KIDNEY AND URETER: Atrophic stable hemorrhagic cyst. RETROPERITONEUM: No retroperitoneal adenopathy, hemorrhage or masses. BOWEL AND PERITONEAL CAVITY: No masses or inflammatory changes. No free fluid or peritoneal masses. No active bleeding site identified. No contrast collection on delayed imaging. APPENDIX: Not visualized. ABDOMINAL WALL: Massive ascites. Bilateral inguinal hernias. The right contains fluid. The left co ntains nonobstructed bowel fluid. BONY STRUCTURES: No significant or acute findings. 3-D IMAGING: Confirms the above findings. OTHER: No other significant finding. IMPRESSION: No active bleeding site identified. Massive ascites. Bilateral pleural effusions with basilar atelectasis. Bilateral inguinal hernias. The left contains nonobstructed bowel. The right contains ascites. TECHNICAL DOCUMENTATION: JOB ID: [id number] Quality ID # [id number]: Final reports with documentation of one or more dose reduction techniques (e.g., Au tomated exposure control, adjustment of the mA and/or kV according to patient size, use of iterative reconstruction technique) 2010 [employer]- All Rights Reserved Reading location - IP/workstation name: [email or web address]
[2019-06-26] MEDS ORDERED: HYDROCORTISONE ACETATE 25 MG SUPP.RECT PR ONE (19:47)
--- NOTE | 2019-06-26 20:38 | ER Document Report ---
Entered by ROSEMARIE PATINO SCRIBE 06/26/19 1522 Acting as scribe for:TOREY BRUAN MD ED General - General Chief Complaint: Rectal Bleeding Stated Complaint: RECTAL BLEEDING Time Seen by Provider: 06/26/19 14:54 Primary Care Provider: RUDY JACOBSEN MD [Primary Care Provider] - Follow up as needed Information source: Patient Notes: This 58 year old male patient presents to the emergency department today with rectal bleeding for the past x6 days. Patient states the bleeding started x5 days ago and has increased since. Patient states his abdomen feels bloated with gas and has to constantly use the bathroom. Patient states there is blood even when there is no bowel movement. Patient states the blood is bright red and there is not any clots. Patient states he visited x2 months ago for rectal bleeding and was sent to [facility]. Patient states he is a hemodialysis patient and his last dialysis was x6 days ago. TRAVEL OUTSIDE OF THE [place] IN LAST 30 DAYS: No - Related Data Allergies/Adverse Reactions: ketorolac [From Toradol] Allergy (Verified 06/26/19 14:55) tramadol Allergy (Verified 06/26/19 14:55) Past Medical History - General Information source: Patient - Social History Smoking Status: Former Smoker Chew tobacco use (# tins/day): No Frequency of alcohol use: None Drug Abuse: None Family History: Reviewed & Not Pertinent Patient has suicidal ideation: No Patient has homicidal ideation: No - Past Medical History Cardiac Medical History: Reports: Hx Congestive Heart Failure, Hx Hypercholesterolemia, Hx Hypertension Renal/ Medical History: Reports: Hx End Stage Renal Disease - hemodialysis GI Medical History: Reports: Hx Gastroesophageal Reflux Disease Past Surgical History: Reports: Hx Appendectomy, Hx Cholecystectomy, Hx Vascular Surgery - RT AV Fistula - Immunizations Hx Diphtheria, Pertussis, Tetanus Vaccination: Yes Review of Systems - Review of Systems Constitutional: No symptoms reported EENT: No symptoms reported Cardiovascular: No symptoms reported Respiratory: No symptoms reported Gastrointestinal: See HPI, Rectal bleeding Genitourinary: No symptoms reported Male Genitourinary: No symptoms reported Musculoskeletal: No symptoms reported Skin: No symptoms reported Hematologic/Lymphatic: No symptoms reported Neurological/Psychological: No symptoms reported -: Yes All other systems reviewed and negative Physical Exam - Vital signs Vitals: Temp Pulse Resp BP Pulse Ox 98.0 F 83 18 190/90 H 96 06/26/19 14:50 06/26/19 14:50 06/26/19 14:50 06/26/19 14:50 06/26/19 14:50 - General General appearance: Alert In distress: Moderate - HEENT Head: Normocephalic, Atraumatic Eyes: Normal Pupils: PERRL - Respiratory Respiratory status: No respiratory distress Chest status: Nontender Breath sounds: Normal Chest palpation: Normal - Cardiovascular Rhythm: Regular Murmur: Yes Systolic murmur grade 1-6: 4 - Abdominal Inspection: Normal Distension: Distended Bowel sounds: Normal Tenderness: Nontender. No: Rebound Organomegaly: No organomegaly - Rectal Tenderness: Yes Stool: Heme positive Hemorrhoids: Internal, External - Extremities General upper extremity: Normal inspection. No: Edema General lower extremity: Normal inspection. No: Edema - Neurological Neuro grossly intact: Yes Cognition: Normal Orientation: AAOx4 - Psychological Associated symptoms: Normal affect, Normal mood - Skin Skin Temperature: Warm Skin Moisture: Dry Skin Color: Normal Course - Re-evaluation Re-evalutation: 06/26/19 20:16 Patient resting comfortably not showing any distress at this time no active bleeding going on for the past hour or so. CTA of abdomen and pelvis did not show any active bleed. Patient has hypertension secondary to noncompliance of taking home medications. Therefore patient has been placed on nitroglycerin 1 g to skin as well as hydralazine IV medications to lower blood pressure. 06/26/19 20:[address] Jacobsen center consult to Dr. Chen, wire strander. - Vital Signs Vital signs: Temp Pulse Resp BP Pulse Ox 98.0 F 83 15 199/91 H 99 06/26/19 14:50 06/26/19 14:50 06/26/19 20:17 06/26/19 20:17 06/26/19 20:17 - Laboratory Result Diagrams: 06/26/19 15:58 06/26/19 15:58 Laboratory results interpreted by me: 06/26/19 06/26/19 06/26/19 15:58 15:58 15:58 RBC 3.09 L Hgb 9.1 L Hct 27.2 L RDW 18.4 H Lymph % (Auto) 11.2 L Sodium 136.4 L Potassium 7.0 H* Chloride 95 L BUN 131 H Creatinine 16.84 H Est GFR ( Amer) 4 L Est GFR (MDRD) Non-Af 3 L Glucose 114 H Direct Bilirubin 0.6 H AST 14 L NT-Pro-B Natriuret Pep 901350 H Total Protein 8.4 H Lipase 443.3 H Most recent blood pressure is 197/92 Patient's potassium is 7.0. Hemoglobin 9.1 hematocrit 27. Patient has been treated for hyperkalemia with insulin D50, bicarb, calcium, and [place]. Case discussed with Dr. Jacobsen who accepted patient to be admitted to the hospital in IMCU bed. - Diagnostic Test Radiology reviewed: Image reviewed, Reports reviewed Radiology results interpreted by me: 06/26/19 20:18 Chest x-ray shows cardiomegaly and congestive heart failure state no acute in filtrate. CT angiogram of abdomen and pelvis did not disclose any active bleeding there was diverticulosis without diverticulitis. - EKG Interpretation by Me Additional EKG results interpreted by me: 06/26/19 18:30 12-lead EKG done at 1624 shows normal sinus rhythm rate of 75. First-degree AV block. Intraventricular conduction delay. And consider an atypical right bundle branch block Critical Care Note - Critical Care Note Total time excluding time spent on procedures (mins): 49 - . Discharge - Discharge Clinical Impression: Chronic renal failure, ESRD (end stage renal disease), ESRD on hemodialysis, Hypertension, Hyperkalemia, Elevated troponin, Bleeding hemorrhoids Disposition: ADMITTED INPATIENT Admitting Provider: [facility] Admitted: [facility] Referrals: RUDY JACOBSEN MD [Primary Care Provider] - Follow up as needed I personally performed the services described in the documentation, reviewed and edited the documentation which was dictated to the scribe in my presence, and it accurately records my words and actions.
[2019-06-26] MEDS ORDERED: PANTOPRAZOLE SODIUM 40 MG VIAL IV ONE (20:41)
[2019-06-26] MEDS ORDERED: PATIROMER 8.4 GM SUSP PACKET ONE (20:43)
[2019-06-26] MEDS: PATIROMER 8.4 GM SUSP PACKET PO SCH (20:55)
[2019-06-26] MEDS ORDERED: ACETAMINOPHEN 325 MG TABLET PO ONE (21:31)
[2019-06-26] MEDS ORDERED: AMLODIPINE BESYLATE 10 MG TABLET PO ONE (23:03)
[2019-06-27] MEDS: ONDANSETRON HCL INJ/PF 4 MG/2 ML SDV IV PRN ×4 (00:10→21:12)
[2019-06-27] MEDS: HYDRALAZINE HCL INJ/PF 20 MG/1 ML SDV IV PRN ×2 (00:10→06:20)
--- NOTE | 2019-06-27 00:16 | EKG REPORT ---
SEVERITY:- ABNORMAL ECG - SINUS RHYTHM FIRST DEGREE AV BLOCK IVCD, CONSIDER ATYPICAL RBBB : Confirmed by: Ryann Varner 27-Jun-2019 00:15:51
[2019-06-27] MEDS: ACETAMINOPHEN 1,000 MG/100 ML RTUPB IV PRN ×3 (02:20→22:26)
[2019-06-27 05:52] LABS: ABSOLUTE BASOPHILS # (AUTO) 0.1 10^3/uL (0.0-0.2); ABSOLUTE LYMPHOCYTES (AUTO) 0.5 10^3/uL (0.5-4.7); ABSOLUTE MONOCYTES (AUTO) 0.3 10^3/uL (0.1-1.4); ABSOLUTE NEUT (AUTO) 4.9 10^3/uL (1.7-8.2); BASOPHILS % (AUTO) 0.9 % (0-2); EOSINOPHILS % (AUTO) 0.3 % (0-6); HEMOGLOBIN 8.3 g/dL (13.5-17.0); LYMPHOCYTES % (AUTO) 7.8 % (13-45); MEAN CORPUSCULAR HEMOGLOBIN 29.2 pg (27.0-33.4); MEAN CORPUSCULAR HGB CONC 33.4 g/dL (32.0-36.0); MEAN CORPUSCULAR VOLUME 88 fl (80-97); MONOCYTES % (AUTO) 5.8 % (3-13); PLATELET COUNT 148 10^3/uL (150-450); RED BLOOD COUNT 2.86 10^6/uL (4.35-5.55); RED CELL DISTRIBUTION WIDTH 17.7 % (11.5-14.0); SEGMENTED NEUTROPHILS % (AUTO) 85.2 % (42-78); TOTAL CELLS COUNTED % (AUTO) 100 %; WHITE BLOOD COUNT 5.8 10^3/uL (4.0-10.5)
[2019-06-27 06:13] LABS: AMYLASE 122 U/L (30-110); ANION GAP 17 (5-19); CALCIUM 8.9 mg/dL (8.4-10.2); CARBON DIOXIDE 24 mmol/L (22-30); CHLORIDE 95 mmol/L (98-107); GLUCOSE 95 mg/dL (75-110)
[2019-06-27 06:24] LABS: BLOOD UREA NITROGEN 129 mg/dL (7-20)
[2019-06-27 06:26] LABS: POTASSIUM 7.1 mmol/L (3.6-5.0)
[2019-06-27] MEDS ORDERED: INSULIN REG, HUMAN 100 UNIT/ML 3 ML VIAL (PYX) IV ONE (07:30)
[2019-06-27] MEDS ORDERED: DEXTROSE 50%-WATER 25 GM/50 ML DISP.SYRIN IV ONE (07:30)
[2019-06-27] MEDS ORDERED: CALCIUM GLUCONATE 1 GM/NS 50 ML RTU IV ONE (07:30)
[2019-06-27] MEDS ORDERED: EPOETIN ALFA-EPBX 30,000 UNIT in SYRINGE, DISPOSABLE, 1 EACH IV PRN (08:00)
[2019-06-27 09:10] LABS: HEMATOCRIT 24.5 % (37.9-51.0); HEMOGLOBIN 8.2 g/dL (13.5-17.0); MEAN CORPUSCULAR HEMOGLOBIN 29.3 pg (27.0-33.4); MEAN CORPUSCULAR HGB CONC 33.5 g/dL (32.0-36.0); MEAN CORPUSCULAR VOLUME 88 fl (80-97); PLATELET COUNT 161 10^3/uL (150-450); RED CELL DISTRIBUTION WIDTH 18.1 % (11.5-14.0); WHITE BLOOD COUNT 5.7 10^3/uL (4.0-10.5)
[2019-06-27 09:31] LABS: CALCIUM 8.8 mg/dL (8.4-10.2); CARBON DIOXIDE 24 mmol/L (22-30); CHLORIDE 94 mmol/L (98-107); GLUCOSE 167 mg/dL (75-110)
[2019-06-27 09:39] LABS: ANION GAP 18 (5-19)
[2019-06-27 09:41] LABS: BLOOD UREA NITROGEN 126 mg/dL (7-20)
[2019-06-27] MEDS ORDERED: AMLODIPINE BESYLATE 10 MG TABLET PO ONE ×2 (10:45→14:30)
--- NOTE | 2019-06-27 11:36 | PDOC CONSULTATION ---
Consultation Consult Date: 06/27/19 Provider Consulted: Terrance ROSALES Consult reason:: ESRD for dialysis in the background of hematochezia, severe hypertension History of Present Illness Admission Date/PCP: 06/26/19 20:45 RUDY JACOBSEN History of Present Illness: ANY STRONG is a 58 year old male with a history of ESRD on hemodialysis, hypertension, renal osteodystrophy with a history of severe noncompliance with diet medications and ESRD/dialysis was admitted with history of progressive and continuing hematochezia. He gives a history of this bright red blood per rectum since around 10 days ago. Is associated with left lower abdominal pains with unsure history of any fever or chills. No history of orthostasis. He also gives history of some nausea and vomiting for the last few days without any hematemesis. He is also seen some progressive abdominal distention. His appetite is not so good. However he still been trying to eat and drink resulting in persistent nausea and vomiting. He is known to have bilateral inguinal hernia and that he had been referred to surgery for repair of these about 3 to 4 weeks ago. However patient mentions that he was seen by the surgeon for surgery but was found to have severe hyperkalemia and therefore surgery was postponed.This patient is unfortunately known to skip multiple hemodialysis treatments and many times he he has just shown for just 2-3 dialysis treatments in the whole month. He admits this time to the fact that his last dialysis was approximately 2 weeks ago. He has been told numerous times about the potential complications including sudden cardiac arrest or heart failure stemming from his hyperkalemia which is become more common these days for obvious reasons.Unfortunately patient has not realized the implications and consequences in spite of numerous advised. Evaluations in the ER and in the hospital revealed that the patient was hemodynamically stable. In fact he was having severe hypertension.His labs and medications were reviewed. His hemoglobin on admission was 9.1 and today is 8.2. His white count and platelets were normal. This time when he presented his potassium was 7.1 and he was treated appropriately in the ER and placerd for dialysis this morning. His EKG did not show any changes of hyperkalemia fortunately. Patient had a CT angiogram of his abdomen and pelvis which was reviewed. It shows bilateral inguinal hernia with nonobstructed bowels in his left inguinal hernia. No bleeding points were detected. No mention of diverticulitis. He was also found to have massive ascites. Patient mentions that he has not been referred to surgeon since his admission here yesterday for the b leeding and abdominal pains. He says he had presented in a similar fashion in April of this year and was transferred to [facility] where he had both colonoscopy and upper GI endoscopy. He mentions that he was found to have apparent stomach ulcer which was cauterized. He does not know what were exactly the results of the colonoscopy or whether it was mentioned that he had diverticulosis. Patient is currently being seen while undergoing dialysis. He is comfortable and his vital signs show blood pressure is quite elevated. He denies any history of chest pain or shortness of breath. No history of any fever or chills. Dialysis orders were reviewed with the treating dialysis nurse. Past Medical History Cardiac Medical History: Reports: Hyperlipidemia, Hypertension-primary Denies: Coronary Artery Disease, Myocardial Infarction Pulmonary Medical History: Denies: Asthma, Bronchitis, Chronic Obstructive Pulmonary Disease (COPD), Pneumonia Neurological Medical History: Denies: Seizures Endocrine Medical History: Denies: Diabetes Mellitus Type 1 Renal/ Medical History: Reports: End Stage Renal Disease - hemodialysis, Hyperphosphatemia, Secondary Hyperparathyroidism GI Medical History: Reports: Gastroesophageal Reflux Disease Musculoskeltal Medical History: Denies: Arthritis Hematology Medical History: Reports Anemia of Chronic Kidney Disease Past Surgical History Past Surgical History: Reports: Appendectomy, Cholecystectomy, Dialysis Access Surgery AVF, Vascular Surgery - RT AV Fistula Social History Smoking Status: Former Smoker Electronic Cigarette use?: No Number of Years Smokin Last Time Smoked: 2012 Frequency of Alcohol Use: None Hx Recreational Drug Use: No Drugs: None Hx Prescription Drug Abuse: No Family History Parental Family History Reviewed: Yes - Negative for ESRD Children Family History Reviewed: No Sibling(s) Family History Reviewed.: No Medication/Allergy Home Medications: Pravastatin Sodium [Pravachol] 40 mg PO QHS 06/23/18 Amlodipine Besylate [Norvasc 10 mg Tablet] 10 mg PO DAILY 04/26/19 Metoprolol Succinate [Toprol Xl 50 mg Tab.sr] 50 mg PO BID 04/26/19 Pantoprazole Sodium 40 mg PO BID 04/26/19 Sevelamer Carbonate 800 mg PO QID 04/26/19 Vit B Comp No.3/Folic/C/Biotin [Nephro-Julius Rx Tablet] 1 each PO DAILY 04/26/19 Allergies/Adverse Reactions: ketorolac [From Toradol] Allergy (Verified 06/26/19 14:55) tramadol Allergy (Verified 06/26/19 14:55) Review of Systems Constitutional: PRESENT: anorexia, fatigue, weakness. ABSENT: chills, fever(s), headache(s), night sweats Nose, Mouth, and Throat: ABSENT: mouth pain, sore throat Cardiovascular: ABSENT: edema, orthropnea, palpitations Respiratory: ABSENT: dyspnea, hemoptysis Gastrointestinal: PRESENT: abdominal pain - Left lower quadrant., bloating, hematochezia, nausea, vomiting. ABSENT: coffee ground emesis, dysphagia, heartburn, hematemesis Genitourinary: ABSENT: dysuria, hematuria Musculoskeletal: ABSENT: deformity, joint swelling Integumentary: ABSENT: lesions Neurological: ABSENT: abnormal gait, abnormal movements, abnormal speech, confusion, convulsions, dizziness, focal weakness Hematologic/Lymphatic: ABSENT: easy bleeding, easy bruising, lymphadenopathy Physical Exam Vital Signs: Temp Pulse Resp BP Pulse Ox 97.8 F 72 20 178/80 H 94 06/27/19 03:22 06/27/19 07:00 06/27/19 03:22 06/27/19 03:22 06/27/19 03:22 Intake & Output 06/26/19 06/27/19 06/28/19 06:59 06:59 06:59 Intake Total 475 Output Total 0 Balance 475 Weight 102.7 kg General appearance: PRESENT: no acute distress Eye exam: PRESENT: EOMI, PERRLA. ABSENT: scleral icterus Ear exam: PRESENT: normal external ear exam Mouth exam: PRESENT: moist, neck supple Neck exam: ABSENT: meningismus, tenderness, thyromegaly, tracheal deviation Respiratory exam: PRESENT: clear to auscultation lew, decreased breath sounds. ABSENT: crackles Cardiovascular exam: PRESENT: +S1, +S2 GI/Abdominal exam: PRESENT: ascites, distended, normal bowel sounds, soft, tenderness - Generalized but mainly in the left lower quadrant.. ABSENT: firm, guarding, organomegaly Extremities exam: PRESENT: pedal edema Neurological exam: PRESENT: alert, awake, oriented to person, oriented to place Psychiatric exam: PRESENT: appropriate affect Skin exam: ABSENT: cyanosis, erythema, mottled, rash Results Laboratory Results: 06/27/19 08:20 06/27/19 08:20 06/26/19 06/26/19 06/26/19 15:58 15:58 15:58 WBC 5.1 RBC 3.09 L Hgb 9.1 L Hct 27.2 L MCV 88 MCH 29.3 MCHC 33.4 RDW 18.4 H Plt Count 171 Seg Neutrophils % 77.7 Sodium 136.4 L Potassium 7.0 H* Chloride 95 L Carbon Dioxide 26 Anion Gap 15 BUN 131 H Creatinine 16.84 H Est GFR ( Amer) 4 L Glucose 114 H Lactic Acid Calcium 9.0 Total Bilirubin 0.6 AST 14 L Alkaline Phosphatase 70 Total Protein 8.4 H Albumin 4.4 Amylase Lipase 443.3 H Blood Type A POSITIVE Antibody Screen NEGATIVE 06/26/19 06/27/19 06/27/19 17:55 04:39 04:39 WBC 5.8 RBC 2.86 L Hgb 8.3 L Hct 25.0 L MCV 88 MCH 29.2 MCHC 33.4 RDW 17.7 H Plt Count 148 L Seg Neutrophils % 85.2 H Sodium 135.8 L Potassium 7.1 H* Chloride 95 L Carbon Dioxide 24 Anion Gap 17 BUN 129 H Creatinine 16.95 H Est GFR ( Amer) 4 L Glucose 95 Lactic Acid 0.7 Calcium 8.9 Total Bilirubin AST Alkaline Phosphatase Total Protein Albumin Amylase 122 H Lipase 424.5 H Blood Type Antibody Screen 06/27/19 06/27/19 08:20 08:20 WBC 5.7 RBC 2.80 L Hgb 8.2 L Hct 24.5 L MCV 88 MCH 29.3 MCHC 33.5 RDW 18.1 H Plt Count 161 Seg Neutrophils % Sodium 135.8 L Potassium 6.0 H* D Chloride 94 L Carbon Dioxide 24 Anion Gap 18 BUN 126 H Creatinine 17.87 H Est GFR ( Amer) 3 L Glucose 167 H Lactic Acid Calcium 8.8 Total Bilirubin AST Alkaline Phosphatase Total Protein Albumin Amylase Lipase Blood Type Antibody Screen 06/26/19 15:58 Troponin I 0.048 NT-Pro-B Natriuret Pep [id number] H Impressions: Chest X-Ray 06/26/19 15:59 IMPRESSION: No acute cardiopulmonary disease. Abdomen/Pelvis CTA 06/26/19 16:01 IMPRESSION: No active bleeding site identified. Massive ascites. Bilateral pleural effusions with basilar atelectasis. Bilateral inguinal hernias. The left contains nonobstructed bowel. The right contains ascites. Assessment & Plan - Diagnosis (1) Hyperkalemia Plan: Severe. Patient being dialyzed urgently on a 1K bath for 2 hours followed by 2K bath. Patient unfortunately with ESRD has had severe compliance issues with diet and getting his regular dialysis treatments. His last dialysis was approximately 2 weeks ago. He is already been treated conservatively in the ER. Follow-up with labs again. I again discussed the severe consequences of hypertension including cardiac arrest. (2) Hematochezia Plan: Associated with the left lower quadrant pain. Recurrent. He has had similar episode in April of this year according to patient where and when he was transferred to [facility] and had a colonoscopy and upper GI endoscopy and at that time was found to have a bleeding stomach ulcer according to the patient.Differentials here includes again upper GI bleed/acute diverticulitis /other lower GI lesions including rectal ulcers. Given his history and clinical examination, I would recommend starting the patient on IV antibiotics and placing a surgical consult.I have placed a surgical consult.Will discussed with Dr. Jacobsen for serial monitoring of his blood counts. (3) Abdominal pain Plan: Clinically it looks like the patient might be having acute diverticulitis. Discussed with Dr. Jacobsen first initiation of empirical antibiotics. As mentioned earlier recommend surgical consult and evaluation. (4) Acute anemia Plan: Admission hemoglobin was 9.1 early yesterday and today is 8.2. Recommend serial monitoring of his blood counts to see any rapid drop in his hemoglobin given the unstable nature of his continuing hematochezia. Surgical consult has been placed by me. (5) ESRD on hemodialysis Plan: Patient currently undergoing dialysis. Vital signs are stable and the blood pressure is hif=gh. We will see response to fluid removal and then I am adding amlodipine 10 mg that he was supposed to have been taking at home. He admits to the fact that he is noncompliant with his medications. Dialysis is being supervised to ensure safe and smooth procedure. Dialysis orders were reviewed with the treating dialysis nurse. (6) Inguinal hernia bilateral, non-recurrent Plan: Shows nonobstructed bowels in his left inguinal hernia. Currently no obvious evidences of obstruction or incarceration. (7) Hypertension Qualifiers: Plan: Uncontrolled. Severe noncompliance with diet, medications and dialysis. See response to fluid removal on dialysis. I am adding back his amlodipine that he was supposed be taking at home. Further titration to be done in due course. (8) Ascites Plan: Massive as per CT angiogram done earlier. Recommend both diagnostic/therapeutic paracentesis. Discussed with Dr. Jacobsen. (9) Non-compliant behavior Plan: Unfortunate.
--- NOTE | 2019-06-27 12:52 | PDOC CONSULTATION ---
Consultation Consult Date: 06/27/19 Attending physician:: RUDY JACOBSEN Provider Consulted: BISI REYES Consult reason:: Acute GI bleed History of Present Illness Admission Date/PCP: 06/26/19 20:45 RUDY JACOBSEN History of Present Illness: ANY STRONG is a 58 year old male Presents to the emergency department yesterday via ground rescue complaining of a week history of rectal bleeding, bright red blood. Patient had a previous episode 1 month ago, reportedly taken to [facility] where he underwent upper and lower endoscopy, findings included a ulcer that was cauterized in the stomach, diverticulosis. In the emergency department patient remained hemodynamically stable, was admitted to the medical service with nephrology consulting. Patient has a long history of noncompliance, skipping scheduled dialyses. Patient received blood transfusion last month by his report. Formal hospital records pending. Patient underwent dialysis today, still having bleeding per rectum bright red blood. He denies history of abdominal trauma. Past Medical History Cardiac Medical History: Reports: Congestive Heart Failure, Hyperlipidema, Hypertension Denies: Coronary Artery Disease, Myocardial Infarction Pulmonary Medical History: Denies: Asthma, Bronchitis, Chronic Obstructive Pulmonary Disease (COPD), Pneumonia Neurological Medical History: Denies: Seizures Endocrine Medical History: Denies: Diabetes Mellitus Type 1 Renal/ Medical History: Reports: End Stage Renal Disease - hemodialysis GI Medical History: Reports: Gastroesophageal Reflux Disease Musculoskeltal Medical History: Denies: Arthritis Hematology: Denies: Anemia Past Surgical History Past Surgical History: Status post right upper extremity AV fistula Past Surgical History: Reports: Appendectomy, Cholecystectomy, Vascular Surgery - RT AV Fistula Social History Smoking Status: Former Smoker Electronic Cigarette use?: No Number of Years Smokin Last Time Smoked: 2012 Frequency of Alcohol Use: None Hx Recreational Drug Use: No Drugs: None Hx Prescription Drug Abuse: No Family History Family History: None, Reviewed & Not Pertinent Parental Family History Reviewed: No Children Family History Reviewed: No Sibling(s) Family History Reviewed.: No Medication/Allergy Home Medications: Pravastatin Sodium [Pravachol] 40 mg PO QHS 06/23/18 Amlodipine Besylate [Norvasc 10 mg Tablet] 10 mg PO DAILY 04/26/19 Metoprolol Succinate [Toprol Xl 50 mg Tab.sr] 50 mg PO BID 04/26/19 Pantoprazole Sodium 40 mg PO BID 04/26/19 Sevelamer Carbonate 800 mg PO QID 04/26/19 Vit B Comp No.3/Folic/C/Biotin [Nephro-Julius Rx Tablet] 1 each PO DAILY 04/26/19 Allergies/Adverse Reactions: ketorolac [From Toradol] Allergy (Verified 06/26/19 14:55) tramadol Allergy (Verified 06/26/19 14:55) Review of Systems Constitutional: PRESENT: other - Chronic headache, reflux symptoms. Weakness Eyes: ABSENT: visual disturbances Ears: ABSENT: hearing changes Cardiovascular: PRESENT: orthropnea Gastrointestinal: PRESENT: as per HPI, heartburn, hematochezia Genitourinary: PRESENT: other - Known bilateral inguinal hernias, chronic Psychiatric: PRESENT: as per HPI - Some confusion. ABSENT: anxiety, depression, homidical ideation, suicidal ideation Physical Exam Vital Signs: Temp Pulse Resp BP Pulse Ox 97.8 F 72 20 178/80 H 94 06/27/19 03:22 06/27/19 07:00 06/27/19 03:22 06/27/19 03:22 06/27/19 03:22 Intake & Output 06/26/19 06/27/19 06/28/19 06:59 06:59 06:59 Intake Total 475 Output Total 0 Balance 475 Weight 102.7 kg General appearance: PRESENT: other - Patient just came out of the commode room 318 on the floor. Some shortness of breath Head exam: PRESENT: atraumatic Eye exam: PRESENT: EOMI Mouth exam: PRESENT: dry mucosa Neck exam: PRESENT: full ROM Respiratory exam: PRESENT: rhonchi Cardiovascular exam: PRESENT: tachycardia Pulses: PRESENT: normal carotid pulses, normal radial pulses, normal femoral pulses Vascular exam: PRESENT: pallor GI/Abdominal exam: PRESENT: other - Distended abdomen; scars consistent with previous surgery; no peritoneal signs no rigidity. Large bilateral incompletely reducible inguinal hernias. Rectal exam: PRESENT: deferred Gentrourinary exam: PRESENT: other - Hernias bilaterally Extremities exam: PRESENT: full ROM Musculoskeletal exam: PRESENT: other - Pedal edema x2 Neurological exam: PRESENT: oriented to person, oriented to place, oriented to time, oriented to situation Psychiatric exam: PRESENT: other - Answered most questions appropriately. Results Laboratory Results: 06/27/19 08:20 06/27/19 08:20 06/26/19 06/26/19 06/26/19 15:58 15:58 15:58 WBC 5.1 RBC 3.09 L Hgb 9.1 L Hct 27.2 L MCV 88 MCH 29.3 MCHC 33.4 RDW 18.4 H Plt Count 171 Seg Neutrophils % 77.7 Sodium 136.4 L Potassium 7.0 H* Chloride 95 L Carbon Dioxide 26 Anion Gap 15 BUN 131 H Creatinine 16.84 H Est GFR ( Amer) 4 L Glucose 114 H Lactic Acid Calcium 9.0 Total Bilirubin 0.6 AST 14 L Alkaline Phosphatase 70 Total Protein 8.4 H Albumin 4.4 Amylase Lipase 443.3 H Blood Type A POSITIVE Antibody Screen NEGATIVE 06/26/19 06/27/19 06/27/19 17:55 04:39 04:39 WBC 5.8 RBC 2.86 L Hgb 8.3 L Hct 25.0 L MCV 88 MCH 29.2 MCHC 33.4 RDW 17.7 H Plt Count 148 L Seg Neutrophils % 85.2 H Sodium 135.8 L Potassium 7.1 H* Chloride 95 L Carbon Dioxide 24 Anion Gap 17 BUN 129 H Creatinine 16.95 H Est GFR ( Amer) 4 L Glucose 95 Lactic Acid 0.7 Calcium 8.9 Total Bilirubin AST Alkaline Phosphatase Total Protein Albumin Amylase 122 H Lipase 424.5 H Blood Type Antibody Screen 06/27/19 06/27/19 08:20 08:20 WBC 5.7 RBC 2.80 L Hgb 8.2 L Hct 24.5 L MCV 88 MCH 29.3 MCHC 33.5 RDW 18.1 H Plt Count 161 Seg Neutrophils % Sodium 135.8 L Potassium 6.0 H* D Chloride 94 L Carbon Dioxide 24 Anion Gap 18 BUN 126 H Creatinine 17.87 H Est GFR ( Amer) 3 L Glucose 167 H Lactic Acid Calcium 8.8 Total Bilirubin AST Alkaline Phosphatase Total Protein Albumin Amylase Lipase Blood Type Antibody Screen 06/26/19 15:58 Troponin I 0.048 NT-Pro-B Natriuret Pep [id number] H Impressions: Chest X-Ray 06/26/19 15:59 IMPRESSION: No acute cardiopulmonary disease. Abdomen/Pelvis CTA 06/26/19 16:01 IMPRESSION: No active bleeding site identified. Massive ascites. Bilateral pleural effusions with basilar atelectasis. Bilateral inguinal hernias. The left contains nonobstructed bowel. The right contains ascites. Assessment & Plan - Diagnosis (1) Acute GI bleeding Is this a current diagnosis for this admission?: Yes Plan: Impression: Acute GI bleeding, second episode in 1-1/2 months; current presentation most consistent with a lower GI bleed, likely due to diverticulosi s. Other etiologies under consideration. Patient hemodynamically stable, poor deconditioned state due to noncompliance and multiple chronic medical problems. Recommendations: 1. Stop regular diet, placed on clear liquids 2. Obtain past medical records from [facility] in [facility] to confirm upper and lower endoscopy scopic findings. 3. I spoke with Dr. Cristo Capellan this afternoon. We have agreed to start patient on DDAVP. Dr. Capellan also believes patient's erratic dialysis may be contributing to his platelet dysfunction, and bleeding diathesis. Patient will likely require blood transfusion. 4. We will follow patient closely with you. (3) ESRD (end stage renal disease) Is this a current diagnosis for this admission?: Yes (4) Hyperkalemia Is this a current diagnosis for this admission?: Yes (5) Hypertension Qualifiers: - Time Time Spent: 30 to 50 Minutes Smoking Cessation Education: over 10 minutes Medications reviewed and adjusted accordingly: Yes Anticipated discharge: Home - Inpatient Certification Based on my medical assessment, after consideration of the patient's comorbidities, presenting symptoms, or acuity I expect that the services needed warrant INPATIENT care.: Yes I certify that my determination is in accordance with my understanding of Medicare's requirements for reasonable and necessary INPATIENT services [42 CFR 412.3e].: Yes Medical Necessity: Risk of Complication if Not Cared For in Hospital
[2019-06-27] MEDS ORDERED: HYDRALAZINE HCL INJ/PF 20 MG/1 ML SDV IV PRN (14:07)
--- NOTE | 2019-06-27 14:32 | PDOC H&P ---
History of Present Illness Admission Date/PCP: 06/26/19 20:45 RUDY JACOBSEN History of Present Illness: ANY STRONG is a 58 year old male patient known to my practice who presented to the ED with complain of rectal bleeding for about 6 days.. Patient reported episodes pf bloating and abdominal discomfort and thereafter moved his bowel with significant amount of bright red blood in the bowl. He denied any associated nausea, vomiting or diarrhea. No fever or chills. No chest pain or difficulty with breathing. He reported missing his hemodialysis session for about 1 week. He claimed compliance with his medication, dietary and fluid restrictions. Patient reported that he was referred to [facility] about 2 months ago but nothing was done. His initial evaluation in the ED was significant for his ESRD with hyperkalemia and CT abdomen and pelvis suggestive of bilateral inguinal hernias and significant ascites. His medical morbidities are listed below. Past Medical History Cardiac Medical History: Reports: Congestive Heart Failure, Hyperlipidema, Hypertension Denies: Coronary Artery Disease, Myocardial Infarction Pulmonary Medical History: Denies: Asthma, Bronchitis, Chronic Obstructive Pulmonary Disease (COPD), Pneumonia Neurological Medical History: Denies: Seizures Endocrine Medical History: Denies: Diabetes Mellitus Type 1 Renal/ Medical History: Reports: End Stage Renal Disease - hemodialysis GI Medical History: Reports: Gastroesophageal Reflux Disease Musculoskeltal Medical History: Denies: Arthritis Hematology: Denies: Anemia Past Surgical History Past Surgical History: Reports: Appendectomy, Cholecystectomy, Vascular Surgery - RT AV Fistula Social History Smoking Status: Former Smoker Electronic Cigarette use?: No Number of Years Smokin Last Time Smoked: 2012 Frequency of Alcohol Use: None Hx Recreational Drug Use: No Drugs: None Hx Prescription Drug Abuse: No - Advance Directive Resuscitation Status: Full Code Family History Family History: Reviewed & Not Pertinent Parental Family History Reviewed: Yes Children Family History Reviewed: Yes Sibling(s) Family History Reviewed.: Yes Medication/Allergy Home Medications: Pravastatin Sodium [Pravachol] 40 mg PO QHS 06/23/18 Amlodipine Besylate [Norvasc 10 mg Tablet] 10 mg PO DAILY 04/26/19 Metoprolol Succinate [Toprol Xl 50 mg Tab.sr] 50 mg PO BID 04/26/19 Pantoprazole Sodium 40 mg PO BID 04/26/19 Sevelamer Carbonate 800 mg PO QID 04/26/19 Vit B Comp No.3/Folic/C/Biotin [Nephro-Julius Rx Tablet] 1 each PO DAILY 04/26/19 Allergies/Adverse Reactions: ketorolac [From Toradol] Allergy (Verified 06/26/19 14:55) tramadol Allergy (Verified 06/26/19 14:55) Review of Systems Constitutional: ABSENT: chills, fever(s), headache(s), weight gain, weight loss Eyes: ABSENT: visual disturbances Ears: ABSENT: hearing changes Cardiovascular: ABSENT: chest pain, dyspnea on exertion, edema, orthropnea, palpitations Respiratory: ABSENT: cough, hemoptysis Gastrointestinal: PRESENT: abdominal pain - left groin region, bloating - intermittent with excess gas, hematochezia - with subsequent bowel movement a fter feeling of bloating. ABSENT: constipation, diarrhea, hematemesis, nausea, vomiting Genitourinary: ABSENT: dysuria, hematuria Musculoskeletal: ABSENT: joint swelling Integumentary: ABSENT: rash, wounds Neurological: ABSENT: abnormal gait, abnormal speech, confusion, dizziness, focal weakness, syncope Psychiatric: ABSENT: anxiety, depression, homidical ideation, suicidal ideation Endocrine: ABSENT: cold intolerance, heat intolerance, polydipsia, polyuria Hematologic/Lymphatic: ABSENT: easy bleeding, easy bruising, lymphadenopathy Allergic/Immunologic: ABSENT: seasonal rhinorrhea Physical Exam Vital Signs: Temp Pulse Resp BP Pulse Ox 97.7 F 80 23 H 187/82 H 95 06/26/19 21:11 06/26/19 21:11 06/26/19 21:11 06/26/19 21:11 06/26/19 21:11 Intake & Output 06/25/19 06/26/19 06/27/19 06:59 06:59 06:59 Weight 104.4 kg General appearance: PRESENT: no acute distress, obese Head exam: PRESENT: atraumatic, normocephalic Eye exam: PRESENT: conjunctiva pink, EOMI, PERRLA. ABSENT: scleral icterus Ear exam: PRESENT: normal external ear exam Mouth exam: PRESENT: moist, tongue midline Neck exam: PRESENT: full ROM. ABSENT: carotid bruit, JVD, lymphadenopathy, thyromegaly Respiratory exam: PRESENT: clear to auscultation lew, decreased breath sounds - at lung bases bilaterally Cardiovascular exam: PRESENT: RRR, +S1, +S2. ABSENT: diastolic murmur, rubs, systolic murmur Pulses: PRESENT: normal dorsalis pedis pul, +2 pedal pulses bilateral Vascular exam: PRESENT: normal capillary refill. ABSENT: pallor GI/Abdominal exam: PRESENT: ascites - severe, distended, hernia - inguinal type bilaterally, normal bowel sounds, soft, tenderness - left groin region. ABSENT: guarding, mass, organolmegaly, rebound Rectal exam: PRESENT: deferred Extremities exam: ABSENT: pedal edema Musculoskeletal exam: PRESENT: ambulatory Neurological exam: PRESENT: alert, awake, oriented to person, oriented to place, oriented to time, oriented to situation, CN II-XII grossly intact. ABSENT: motor sensory deficit Psychiatric exam: PRESENT: appropriate affect, normal mood. ABSENT: homicidal ideation, suicidal ideation Skin exam: PRESENT: dry, intact, warm. ABSENT: cyanosis, rash Results Laboratory Results: 06/26/19 15:58 06/26/19 15:58 06/26/19 06/26/19 06/26/19 15:58 15:58 15:58 WBC 5.1 RBC 3.09 L Hgb 9.1 L Hct 27.2 L MCV 88 MCH 29.3 MCHC 33.4 RDW 18.4 H Plt Count 171 Seg Neutrophils % 77.7 Sodium 136.4 L Potassium 7.0 H* Chloride 95 L Carbon Dioxide 26 Anion Gap 15 BUN 131 H Creatinine 16.84 H Est GFR ( Amer) 4 L Glucose 114 H Lactic Acid Calcium 9.0 Total Bilirubin 0.6 AST 14 L Alkaline Phosphatase 70 Total Protein 8.4 H Albumin 4.4 Lipase 443.3 H Blood Type A POSITIVE Antibody Screen NEGATIVE 06/26/19 17:55 WBC RBC Hgb Hct MCV MCH MCHC RDW Plt Count Seg Neutrophils % Sodium Potassium Chloride Carbon Dioxide Anion Gap BUN Creatinine Est GFR ( Amer) Glucose Lactic Acid 0.7 Calcium Total Bilirubin AST Alkaline Phosphatase Total Protein Albumin Lipase Blood Type Antibody Screen 06/26/19 15:58 Troponin I 0.048 NT-Pro-B Natriuret Pep [id number] H Impressions: Chest X-Ray 06/26/19 15:59 IMPRESSION: No acute cardiopulmonary disease. Abdomen/Pelvis CTA 06/26/19 16:01 IMPRESSION: No active bleeding site identified. Massive ascites. Bilateral pleural effusions with basilar atelectasis. Bilateral inguinal hernias. The left contains nonobstructed bowel. The right contains ascites. Assessment & Plan - Diagnosis (1) Bleeding hemorrhoids Is this a current diagnosis for this admission?: Yes Plan: See admitting attending physician orders for details about care plan. (2) ESRD on hemodialysis Is this a current diagnosis for this admission?: Yes Plan: See admitting attending physician orders for details about care plan. (3) Hyperkalemia Is this a current diagnosis for this admission?: Yes Plan: See admitting attending physician orders for details about care plan. (4) Elevated troponin Is this a current diagnosis for this admission?: Yes Plan: See admitting attending physician orders for details about care plan. (5) Uncontrolled hypertension Is this a current diagnosis for this admission?: Yes Plan: See admitting attending physician orders for details about care plan. (6) Chronic diastolic CHF (congestive heart failure), NYHA class 3 Is this a current diagnosis for this admission?: Yes Plan: See admitting attending physician orders for details about care plan. (7) Colonic diverticulum Is this a current diagnosis for this admission?: Yes Plan: See admitting attending physician orders for details about care plan. (8) Hypertension Qualifiers: Hypertension type: essential hypertension Is this a current diagnosis for this admission?: Yes Plan: See admitting attending physician orders for details about care plan. (9) Dialysis-associated ascites Is this a current diagnosis for this admission?: Yes Plan: See admitting attending physician orders for details about care plan. (10) Inguinal hernia bilateral, non-recurrent Qualifiers: Obstruction and gangrene presence: without obstruction or gangrene Recurrence: non-recurrent Qualified Code(s): K40.20 - Bilateral inguinal hernia, without obstruction or gangrene, not specified as recurrent (11) Anemia in CKD (chronic kidney disease) Qualifiers: Chronic kidney disease stage: on chronic dialysis Qualified Code(s): N18.6 - End stage renal disease; D63.1 - Anemia in chronic kidney disease; D63.1 - Anemia in chronic kidney disease; Z99.2 - Dependence on renal dialysis; Z99.2 - Dependence on renal dialysis; Z99.2 - Dependence on renal dialysis; Z99.2 - Dependence on renal dialysis Is this a current diagnosis for this admission?: Yes (12) GERD (gastroesophageal reflux disease) Qualifiers: Esophagitis presence: without esophagitis Qualified Code(s): K21.9 - Gastro-esophageal reflux disease without esophagitis Is this a current diagnosis for this admission?: Yes Plan: See admitting attending physician orders for details about care plan. (13) HLD (hyperlipidemia) Qualifiers: Hyperlipidemia type: unspecified Qualified Code(s): E78.5 - Hyperlipidemia, unspecified Is this a current diagnosis for this admission?: Yes Plan: See admitting attending physician orders for details about care plan. - Time Time Spent: 50 to 70 Minutes Medications reviewed and adjusted accordingly: Yes Anticipated discharge: Home with Homehealth Within: Other - Inpatient Certification Based on my medical assessment, after consideration of the patient's comorbidities, presenting symptoms, or acuity I expect that the services needed warrant INPATIENT care.: Yes I certify that my determination is in accordance with my understanding of Medicare's requirements for reasonable and necessary INPATIENT services [42 CFR 412.3e].: Yes Medical Necessity: Significant Comorbidiites Make Outpatient Treatment Too Risky, Need Close Monitoring Due to Risk of Patient Decompensation, Need For Continuous Telemetry Monitoring, Risk of Complication if Not Cared For in Hosp ital Post Hospital Care: D/C [employer] Documentation - Plan Summary Plan Summary: See admitting attending physician orders for details about care plan.
--- NOTE | 2019-06-27 14:48 | PDOC PROGRESS REPORT ---
Subjective Progress Note for:: 06/27/19 Subjective:: Patient had hemodialysis earlier today for his hyperkalemia and fluid overload with ascites. No recurrent bloody stool since admission. He continue to experience and expressed left groin region discomfort. No fever or chills. Abdomen remain distended. No belching or flatulence. No recurrent nausea or vomiting since last night. No chest pain. Patient was seen in consultation by Dr. Basurto, general surgeon, in view of his bilateral inguinal hernia. As noted in Dr. Capellan consultation note, he had colonoscopy and upper endoscopy in April during his visit to [facility]. Patient reported that his last hemodialysis was 1 week ago although his dialysis record revealed about 2 weeks without dialysis. Reason For Visit: CHRONIC RENAL FAILURE,ESRD,ESRD ON HEMODIALYSIS, Physical Exam Vital Signs: Temp Pulse Resp BP Pulse Ox 97.2 F 77 18 165/72 H 96 06/27/19 13:17 06/27/19 13:17 06/27/19 13:17 06/27/19 13:17 06/27/19 13:17 Intake & Output 06/26/19 06/27/19 06/28/19 06:59 06:59 06:59 Intake Total 475 Output Total 0 Balance 475 Weight 102.7 kg General appearance: PRESENT: no acute distress, obese Head exam: PRESENT: atraumatic, normocephalic Eye exam: PRESENT: conjunctiva pink. ABSENT: scleral icterus Mouth exam: PRESENT: moist - fairly moist Respiratory exam: PRESENT: clear to auscultation lew, decreased breath sounds - at lung bases Cardiovascular exam: PRESENT: RRR, +S1, +S2. ABSENT: diastolic murmur, rubs, systolic murmur Vascular exam: ABSENT: pallor GI/Abdominal exam: PRESENT: ascites, distended, normal bowel sounds, tenderness - LLQ region. ABSENT: rigid Extremities exam: ABSENT: pedal edema Musculoskeletal exam: PRESENT: ambulatory Neurological exam: PRESENT: alert, awake, oriented to person, oriented to place, oriented to time, oriented to situation, CN II-XII grossly intact. ABSENT: motor sensory deficit Psychiatric exam: PRESENT: appropriate affect, normal mood. ABSENT: homicidal ideation, suicidal ideation Skin exam: PRESENT: dry, warm Results Laboratory Results: 06/27/19 08:20 06/27/19 08:20 06/26/19 06/26/1906/25/20 15:58 15:58 15:58 WBC 5.1 RBC 3.09 L Hgb 9.1 L Hct 27.2 L MCV 88 MCH 29.3 MCHC 33.4 RDW 18.4 H Plt Count 171 Seg Neutrophils % 77.7 Sodium 136.4 L Potassium 7.0 H* Chloride 95 L Carbon Dioxide 26 Anion Gap 15 BUN 131 H Creatinine 16.84 H Est GFR ( Amer) 4 L Glucose 114 H Lactic Acid Calcium 9.0 Total Bilirubin 0.6 AST 14 L Alkaline Phosphatase 70 Total Protein 8.4 H Albumin 4.4 Amylase Lipase 443.3 H Blood Type A POSITIVE Antibody Screen NEGATIVE 06/26/19 06/27/19 06/27/19 17:55 04:39 04:39 WBC 5.8 RBC 2.86 L Hgb 8.3 L Hct 25.0 L MCV 88 MCH 29.2 MCHC 33.4 RDW 17.7 H Plt Count 148 L Seg Neutrophils % 85.2 H Sodium 135.8 L Potassium 7.1 H* Chloride 95 L Carbon Dioxide 24 Anion Gap 17 BUN 129 H Creatinine 16.95 H Est GFR ( Amer) 4 L Glucose 95 Lactic Acid 0.7 Calcium 8.9 Total Bilirubin AST Alkaline Phosphatase Total Protein Albumin Amylase 122 H Lipase 424.5 H Blood Type Antibody Screen 06/27/19 06/27/19 08:20 08:20 WBC 5.7 RBC 2.80 L Hgb 8.2 L Hct 24.5 L MCV 88 MCH 29.3 MCHC 33.5 RDW 18.1 H Plt Count 161 Seg Neutrophils % Sodium 135.8 L Potassium 6.0 H* D Chloride 94 L Carbon Dioxide 24 Anion Gap 18 BUN 126 H Creatinine 17.87 H Est GFR ( Amer) 3 L Glucose 167 H Lactic Acid Calcium 8.8 Total Bilirubin AST Alkaline Phosphatase Total Protein Albumin Amylase Lipase Blood Type Antibody Screen 06/26/19 15:58 Troponin I 0.048 NT-Pro-B Natriuret Pep [id number] H Impressions: Chest X-Ray 06/26/19 15:59 IMPRESSION: No acute cardiopulmonary disease. Abdomen/Pelvis CTA 06/26/19 16:01 IMPRESSION: No active bleeding site identified. Massive ascites. Bilateral pleural effusions with basilar atelectasis. Bilateral inguinal hernias. The left contains nonobstructed bowel. The right contains ascites. Assessment & Plan - Diagnosis (1) Bleeding hemorrhoids Is this a current diagnosis for this admission?: Yes (2) ESRD on hemodialysis Is this a current diagnosis for this admission?: Yes (3) Hyperkalemia Is this a current diagnosis for this admission?: Yes (4) Elevated troponin Is this a current diagnosis for this admission?: Yes (5) Uncontrolled hypertension Is this a current diagnosis for this admission?: Yes (6) Chronic diastolic CHF (congestive heart failure), NYHA class 3 Is this a current diagnosis for this admission?: Yes (7) Colonic diverticulum Is this a current diagnosis for this admission?: Yes (8) Hypertension Qualifiers: Hypertension type: essential hypertension Is this a current diagnosis for this admission?: Yes (9) Dialysis-associated ascites Is this a current diagnosis for this admission?: Yes (10) Inguinal hernia bilateral, non-recurrent Qualifiers: Obstruction and gangrene presence: without obstruction or gangrene Recurrence: non-recurrent Qualified Code(s): K40.20 - Bilateral inguinal hernia, without obstruction or gangrene, not specified as recurrent Is this a current diagnosis for this admission?: Yes (11) Anemia in CKD (chronic kidney disease) Qualifiers: Chronic kidney disease stage: on chronic dialysis Qualified Code(s): N18.6 - End stage renal disease; D63.1 - Anemia in chronic kidney disease; D63.1 - Anemia in chronic kidney disease; Z99.2 - Dependence on renal dialysis; Z99.2 - Dependence on renal dialysis; Z99.2 - Dependence on renal dialysis; Z99.2 - Dependence on renal dialysis Is this a current diagnosis for this admission?: Yes (12) GERD (gastroesophageal reflux disease) Qualifiers: Esophagitis presence: without esophagitis Qualified Code(s): K21.9 - Gastro-esophageal reflux disease without esophagitis Is this a current diagnosis for this admission?: Yes (13) HLD (hyperlipidemia) Qualifiers: Hyperlipidemia type: unspecified Qualified Code(s): E78.5 - Hyperlipidemia, unspecified Is this a current diagnosis for this admission?: Yes - Time Time Spent with patient: 25-34 minutes Level of Care: IMCU Medications reviewed and adjusted accordingly: Yes Anticipated discharge: Home with Homehealth Within: Other - Inpatient Certification Based on my medical assessment, after consideration of the patient's comorbidities, presenting symptoms, or acuity I expect that the services needed warrant INPATIENT care.: Yes I certify that my determination is in accordance with my understanding of Medicare's requirements for reasonable and necessary INPATIENT services [42 CFR 412.3e].: Yes Medical Necessity: Significant Comorbidiites Make Outpatient Treatment Too Risky, Need Close Monitoring Due to Risk of Patient Decompensation, Need For Co ntinuous Telemetry Monitoring, Need for IV Antibiotics, Risk of Complication if Not Cared For in Hospital, Risk of Diagnosis Which Will Require Inpatient Eval/Care/Monitoring 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 Request for paracentesis for ascetic fluid culture and cell count and chemistry analysis. increase IV Hydralazine to 20 mg q6 hours for blood pressure management. follow up with surgical input. Obtain CBC with diff, BMP in AM.
[2019-06-27] MEDS ORDERED: CEFEPIME 1 GM/D5W RTU 1 GM/50 ML RTUPB IV ONE (15:00)
--- NOTE | 2019-06-27 16:04 | RADIOLOGY REPORT (SQ) ---
EXAM DESCRIPTION: U/S ABD PARACENTESIS IMAGES COMPLETED DATE/TIME: 06/27/2019 3:56 pm REASON FOR STUDY: Massive ascites, abdominal pain r/o infection COMPARISON None. LIMITATIONS: None. PROCEDURE: After obtaining informed consent, the patient was brought to the ultrasound suite. The p rocedure was performed with the patient on a gurney. Ultrasound was used to identify a prominent poc ket of ascites in the left lower quadrant. An appropriate access site was selected. The patient was prepped and draped in usual sterile fashion. The access site was anesthetized with 10 mL 1% lidoca ine. A Rlmx-H-Pebxliiv needle was advanced into the fluid. After aspiration of fluid the needle, th e catheter was advanced off the needle into the fluid. A total of 6,000 mL of clear, straw-colored f luid was removed. The patient tolerated the procedure well left the department in satisfactory condit ion. IMPRESSION: Successful ultrasound-guided paracentesis COMMENT: Patient medication list reviewed: Yes- Quality ID# [id number]:Eligible professional attests to doc umenting in the medical record they obtained, updated, or reviewed the patient's current medications. TECHNICAL DOCUMENTATION: JOB ID: [id number] 2010 [employer]- All Rights Reserved Reading location - IP/workstation name: [email or web address]
[2019-06-27] MEDS: PATIROMER 8.4 GM SUSP PACKET PO SCH (16:21)
[2019-06-27 17:38] LABS: INTERNATIONAL RATION (INR) 1.11; PROTHROMBIN TIME 14.4 SEC (11.4-15.4)
[2019-06-27 17:38] LABS: FLUID SOURCE ASCITES; FLUID TYPE PERITONEAL
[2019-06-27 17:39] LABS: PARTIAL THROMBOPLASTIN TIME 30.6 SEC (23.5-35.8)
[2019-06-27 17:39] LABS: FLUID APPEARANCE SLIGHTLY HAZY; FLUID COLOR YELLOW; FLUID VISCOSITY SLIGHTLY VISCOUS
[2019-06-27] MEDS ORDERED: DESMOPRESSIN ACETATE 20 MCG in NORMAL SALINE 50 ML IV ONE (21:00)
[2019-06-27] MEDS: CARVEDILOL 12.5 MG TABLET PO SCH (22:26)
[2019-06-28 05:28] LABS: ABSOLUTE EOSINOPHILS # (AUTO) 0.1 10^3/uL (0.0-0.6); ABSOLUTE LYMPHOCYTES (AUTO) 0.5 10^3/uL (0.5-4.7); ABSOLUTE MONOCYTES (AUTO) 0.4 10^3/uL (0.1-1.4); ABSOLUTE NEUT (AUTO) 2.5 10^3/uL (1.7-8.2); BASOPHILS % (AUTO) 1.4 % (0-2); EOSINOPHILS % (AUTO) 1.7 % (0-6); HEMATOCRIT 23.3 % (37.9-51.0); LYMPHOCYTES % (AUTO) 13.7 % (13-45); MEAN CORPUSCULAR HEMOGLOBIN 29.2 pg (27.0-33.4); MEAN CORPUSCULAR HGB CONC 33.1 g/dL (32.0-36.0); MEAN CORPUSCULAR VOLUME 88 fl (80-97); MONOCYTES % (AUTO) 12.5 % (3-13); PLATELET COUNT 148 10^3/uL (150-450); RED BLOOD COUNT 2.64 10^6/uL (4.35-5.55); RED CELL DISTRIBUTION WIDTH 18.2 % (11.5-14.0); SEGMENTED NEUTROPHILS % (AUTO) 70.7 % (42-78); TOTAL CELLS COUNTED % (AUTO) 100 %; WHITE BLOOD COUNT 3.5 10^3/uL (4.0-10.5)
[2019-06-28 05:37] LABS: HEMOGLOBIN 7.7 g/dL (13.5-17.0)
[2019-06-28 05:47] LABS: ANION GAP 9 (5-19); CARBON DIOXIDE 30 mmol/L (22-30); CHLORIDE 94 mmol/L (98-107); GLUCOSE 85 mg/dL (75-110); PHOSPHORUS 4.9 mg/dL (2.5-4.5); POTASSIUM 5.3 mmol/L (3.6-5.0)
[2019-06-28 06:02] LABS: BLOOD UREA NITROGEN 74 mg/dL (7-20)
[2019-06-28 09:35] LABS: PATH REVIEW PATHOLOGIST REVIEWED
[2019-06-28] MEDS: CARVEDILOL 12.5 MG TABLET PO SCH ×2 (09:47→21:45)
[2019-06-28] MEDS: AMLODIPINE BESYLATE 10 MG TABLET PO SCH (09:47)
[2019-06-28] MEDS ORDERED: CEFEPIME 1 GM/D5W RTU 1 GM/50 ML RTUPB IV SCH (10:00)
[2019-06-28] MEDS ORDERED: (PENDING PHARMACY ID) (Warfarin Sodium 7.5 MG) PO SCH (10:00)
[2019-06-28] MEDS: CEFEPIME HCL 0.5 GM in DEXTROSE 5%-WATER 50 ML IV SCH (11:37)
[2019-06-28] MEDS: CALCITRIOL 0.25 MCG CAPSULE PO SCH (11:37)
--- NOTE | 2019-06-28 11:52 | PDOC PROGRESS REPORT ---
Subjective Progress Note for:: 06/28/19 Subjective:: 58-year-old male with renal failure and GI bleeding. His GI bleeding appears to have stopped. Overnight, he had 1 small bowel movement, but did not notice any blood. The patient denies nausea, vomiting, or hematemesis. Currently he denies headache, chest pain, blurry vision or shortness of breath. The patient has end-stage renal disease, and is undergoing dialysis. Reason For Visit: CHRONIC RENAL FAILURE,ESRD,ESRD ON HEMODIALYSIS, Physical Exam Vital Signs: Temp Pulse Resp BP Pulse Ox 98.0 F 63 16 128/60 H 94 06/28/19 08:14 06/28/19 08:14 06/28/19 08:14 06/28/19 08:14 06/28/19 08:14 Intake & Output 06/27/19 06/28/19 06/29/19 06:59 06:59 06:59 Intake Total 475 1741 Output Total 0 3100 Balance 475 -1359 Weight 102.7 kg 95.7 kg General appearance: PRESENT: no acute distress, cooperative, disheveled Head exam: PRESENT: atraumatic Eye exam: PRESENT: EOMI, PERRLA. ABSENT: scleral icterus Mouth exam: PRESENT: moist, neck supple Neck exam: ABSENT: meningismus, tenderness, thyromegaly, tracheal deviation Respiratory exam: PRESENT: unlabored. ABSENT: tachypnea, wheezes Cardiovascular exam: ABSENT: tachycardia GI/Abdominal exam: PRESENT: soft. ABSENT: distended, tenderness Rectal exam: PRESENT: deferred Neurological exam: PRESENT: alert, awake, oriented to person, oriented to place, oriented to time, oriented to situation Psychiatric exam: ABSENT: agitated, anxious, depressed Focused psych exam: ABSENT: delusional Skin exam: PRESENT: pallor. ABSENT: erythema, jaundice Results Laboratory Results: 06/28/19 05:13 06/28/19 05:13 06/27/19 06/28/19 06/28/19 14:53 05:13 05:13 WBC RBC Hgb Hct MCV MCH MCHC RDW Plt Count Seg Neutrophils % Sodium 132.5 L Potassium 5.3 H Chloride 94 L Carbon Dioxide 30 Anion Gap 9 BUN 74 H D Creatinine 11.30 H Est GFR ( Amer) 6 L Glucose 85 Calcium 8.0 L Phosphorus 4.9 H PTH Intact 420.8 H Fluid Type PERITONEAL Fluid Source ASCITES Fluid Color YELLOW Fluid Appearance SLIGHTLY HAZY Fluid Viscosity SLIGHTLY VISCOUS Fluid WBC 42 Fluid RBC 88 06/28/19 05:13 WBC 3.5 L RBC 2.64 L Hgb 7.7 L Hct 23.3 L MCV 88 MCH 29.2 MCHC 33.1 RDW 18.2 H Plt Count 148 L Seg Neutrophils % 70.7 Sodium Potassium Chloride Carbon Dioxide Anion Gap BUN Creatinine Est GFR ( Amer) Glucose Calcium Phosphorus PTH Intact Fluid Type Fluid Source Fluid Color Fluid Appearance Fluid Viscosity Fluid WBC Fluid RBC 06/26/19 15:58 Troponin I 0.048 NT-Pro-B Natriuret Pep [id number] H Impressions: Chest X-Ray 06/26/19 15:59 IMPRESSION: No acute cardiopulmonary disease. Abdomen/Pelvis CTA 06/26/19 16:01 IMPRESSION: No active bleeding site identified. Massive ascites. Bilateral pleural effusions with basilar atelectasis. Bilateral inguinal hernias. The left contains nonobstructed bowel. The right contains ascites. Paracentesis Ultrasound 06/27/19 00:00 IMPRESSION: Successful ultrasound-guided paracentesis Assessment & Plan - Diagnosis (1) Acute GI bleeding Is this a current diagnosis for this admission?: Yes - Plan Summary Plan Summary: This is a 58-year-old male with GI bleeding. The patient recently had upper and lower scopes at another facility. Per report, the patient had a gastric ulcer. The patient denies any bleeding overnight. He did receive DDAVP yesterday, to combat any platelet dysfunction due to his uremia. His hemoglobin is relatively stable at 7.7 this morning. He does not appear to be in any distress at this time. I would continue to manage the patient expectantly, as long as his ble eding has stopped. Surgery will continue to follow this patient very closely. If rebleeding is noted, he may require endoscopic or surgical intervention.
--- NOTE | 2019-06-28 14:12 | PDOC PROGRESS REPORT ---
Subjective Progress Note for:: 06/28/19 Subjective:: Patient is s/p US guided paracentesis with 6 liters of ascites fluid removed. he reported no abdominal pain, nausea or vomiting. Requesting for food. No chest pain or difficulty with breathing. No fever or chills although his blood culture grew gram positive cocci in chains. Reason For Visit: CHRONIC RENAL FAILURE,ESRD,ESRD ON HEMODIALYSIS, Physical Exam Vital Signs: Temp Pulse Resp BP Pulse Ox 97.8 F 64 20 116/60 96 06/28/19 03:27 06/28/19 07:00 06/28/19 03:27 06/28/19 03:27 06/28/19 03:27 Intake & Output 06/27/19 06/28/19 06/29/19 06:59 06:59 06:59 Intake Total 475 1741 Output Total 0 3100 Balance 475 -1359 Weight 102.7 kg 95.7 kg Physical Exam: General appearance: PRESENT: no acute distress, obese Head exam: PRESENT: atraumatic, normocephalic Eye exam: PRESENT: conjunctiva pink. ABSENT: pallor, scleral icterus Mouth exam: PRESENT: moist - fairly moist Respiratory exam: PRESENT: clear to auscultation lew, decreased breath sounds - at lung bases Cardiovascular exam: PRESENT: RRR, +S1, +S2. ABSENT: diastolic murmur, rubs, systolic murmur Vascular exam: ABSENT: pallor GI/Abdominal exam: PRESENT: normal bowel sounds, soft. ABSENT: ascites, tenderness, mass, organomegaly, rigid Extremities exam: ABSENT: pedal edema Musculoskeletal exam: PRESENT: ambulatory Neurological exam: PRESENT: alert, awake, oriented to person, oriented to place, oriented to time, oriented to situation, CN II-XII grossly intact. ABSENT: motor sensory deficit Psychiatric exam: PRESENT: appropriate affect, normal mood. ABSENT: homicidal ideation, suicidal ideation Skin exam: PRESENT: dry, warm Results Laboratory Results: 06/28/19 05:13 06/28/19 05:13 06/27/19 06/27/19 06/27/19 08:20 08:20 14:53 WBC 5.7 RBC 2.80 L Hgb 8.2 L Hct 24.5 L MCV 88 MCH 29.3 MCHC 33.5 RDW 18.1 H Plt Count 161 Seg Neutrophils % Sodium 135.8 L Potassium 6.0 H* D Chloride 94 L Carbon Dioxide 24 Anion Gap 18 BUN 126 H Creatinine 17.87 H Est GFR ( Amer) 3 L Glucose 167 H Calcium 8.8 Phosphorus PTH Intact Fluid Type PERITONEAL Fluid Source ASCITES Fluid Color YELLOW Fluid Appearance SLIGHTLY HAZY Fluid Viscosity SLIGHTLY VISCOUS Fluid WBC 42 Fluid RBC 88 06/28/19 06/28/19 06/28/19 05:13 05:13 05:13 WBC 3.5 L RBC 2.64 L Hgb 7.7 L Hct 23.3 L MCV 88 MCH 29.2 MCHC 33.1 RDW 18.2 H Plt Count 148 L Seg Neutrophils % 70.7 Sodium 132.5 L Potassium 5.3 H Chloride 94 L Carbon Dioxide 30 Anion Gap 9 BUN 74 H D Creatinine 11.30 H Est GFR ( Amer) 6 L Glucose 85 Calcium 8.0 L Phosphorus 4.9 H PTH Intact 420.8 H Fluid Type Fluid Source Fluid Color Fluid Appearance Fluid Viscosity Fluid WBC Fluid RBC 06/26/19 15:58 Troponin I 0.048 NT-Pro-B Natriuret Pep [id number] H Impressions: Chest X-Ray 06/26/19 15:59 IMPRESSION: No acute cardiopulmonary disease. Abdomen/Pelvis CTA 06/26/19 16:01 IMPRESSION: No active bleeding site identified. Massive ascites. Bilateral pleural effusions with basilar atelectasis. Bilateral inguinal hernias. The left contains nonobstructed bowel. The right contains ascites. Paracentesis Ultrasound 06/27/19 00:00 IMPRESSION: Successful ultrasound-guided paracentesis Assessment & Plan - Diagnosis (1) Bleeding hemorrhoids Is this a current diagnosis for this admission?: Yes (2) ESRD on hemodialysis Is this a current diagnosis for this admission?: Yes (3) Hyperkalemia Is this a current diagnosis for this admission?: Yes (4) Elevated troponin Is this a current diagnosis for this admission?: Yes (5) Uncontrolled hypertension Is this a current diagnosis for this admission?: Yes (6) Chronic diastolic CHF (congestive heart failure), NYHA class 3 Is this a current diagnosis for this admission?: Yes (7) Colonic diverticulum Is this a current diagnosis for this admission?: Yes (8) Hypertension Qualifiers: Hypertension type: essential hypertension Qualified Code(s): I10 - Essential (primary) hypertension Is this a current diagnosis for this admission?: Yes (9) Dialysis-associated ascites Is this a current diagnosis for this admission?: Yes (10) Inguinal hernia bilateral, non-recurrent Qualifiers: Obstruction and gangrene presence: without obstruction or gangrene Recurrence: non-recurrent Qualified Code(s): K40.20 - Bilateral inguinal hernia, without obstruction or gangrene, not specified as recurrent Is this a current diagnosis for this admission?: Yes (11) Anemia in CKD (chronic kidney disease) Qualifiers: Chronic kidney disease stage: on chronic dialysis Qualified Code(s): N18.6 - End stage renal disease; D63.1 - Anemia in chronic kidney disease; D63.1 - Anemia in chronic kidney disease; Z99.2 - Dependence on renal dialysis; Z99.2 - Dependence on renal dialysis; Z99.2 - Dependence on renal dialysis; Z99.2 - Dependence on renal dialysis Is this a current diagnosis for this admission?: Yes (12) GERD (gastroesophageal reflux disease) Qualifiers: Esophagitis presence: without esophagitis Qualified Code(s): K21.9 - Gastro-esophageal reflux disease without esophagitis Is this a current diagnosis for this admission?: Yes (13) HLD (hyperlipidemia) Qualifiers: Hyperlipidemia type: unspecified Qualified Code(s): E78.5 - Hyperlipidemia, unspecified Is this a current diagnosis for this admission?: Yes - Time Time Spent with patient: 35 or more minutes Level of Care: IMCU Medications reviewed and adjusted accordingly: Yes Anticipated discharge: Home with Homehealth Within: Other - Inpatient Certification Based on my medical assessment, after consideration of the patient's comorbidities, presenting symptoms, or acuity I expect that the services needed warrant INPATIENT care.: Yes I certify that my determination is in accordance with my understanding of Medicare's requirements for reasonable and necessary INPATIENT services [42 CFR 412.3e].: Yes Medical Necessity: Significant Comorbidiites Make Outpatient Treatment Too Risky, Need Close Monitoring Due to Risk of Patient Decompensation, Need For Continuous Telemetry Monitoring, Need for IV Antibiotics, Risk of Complication if Not Cared For in Hospital, Risk of Diagnosis Which Will Require Inpatient Eval/Care/Monitoring 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 Advance food consistency to full liquid. Maintain on all other current medication management. Obtain CBC with diff, CMP in am.
[2019-06-28] MEDS: PATIROMER 8.4 GM SUSP PACKET PO SCH (17:05)
[2019-06-29] MEDS ORDERED: EPOETIN ALFA-EPBX 2,000 UNIT, EPOETIN ALFA-EPBX 3,000 UNIT, EPOETIN ALFA-EPBX 20,000 UN... IV PRN ×4 (05:00)
[2019-06-29 05:48] LABS: ALBUMIN 3.3 g/dL (3.5-5.0); ALKALINE PHOSPHATASE 54 U/L (38-126); ANION GAP 15 (5-19); ASPARTATE AMINO TRANSFERASE 9 U/L (17-59); BILIRUBIN,DIRECT 0.4 mg/dL (0.0-0.4); BILIRUBIN,TOTAL 0.4 mg/dL (0.2-1.3); BLOOD UREA NITROGEN 81 mg/dL (7-20); CALCIUM 7.9 mg/dL (8.4-10.2); CARBON DIOXIDE 26 mmol/L (22-30); CHLORIDE 91 mmol/L (98-107); GLUCOSE 89 mg/dL (75-110); POTASSIUM 5.3 mmol/L (3.6-5.0); TOTAL PROTEIN 6.3 g/dL (6.3-8.2)
[2019-06-29 09:04] LABS: HEMATOCRIT 22.9 % (37.9-51.0); MEAN CORPUSCULAR HEMOGLOBIN 29.4 pg (27.0-33.4); MEAN CORPUSCULAR HGB CONC 33.1 g/dL (32.0-36.0); MEAN CORPUSCULAR VOLUME 89 fl (80-97); PLATELET COUNT 140 10^3/uL (150-450); RED BLOOD COUNT 2.58 10^6/uL (4.35-5.55); RED CELL DISTRIBUTION WIDTH 18.1 % (11.5-14.0); WHITE BLOOD COUNT 4.8 10^3/uL (4.0-10.5)
[2019-06-29 09:10] LABS: HEMOGLOBIN 7.6 g/dL (13.5-17.0)
--- NOTE | 2019-06-29 09:58 | PDOC PROGRESS REPORT ---
Subjective Progress Note for:: 06/29/19 Subjective:: 58-year-old male with renal failure and GI bleeding. His GI bleeding appears to have stopped. He denies any bleeding overnight. The patient denies nausea, vomiting, or hematemesis. Currently he denies headache, chest pain, blurry vision or shortness of breath. The patient has end-stage renal disease, and is actively receiving dialysis. Reason For Visit: CHRONIC RENAL FAILURE,ESRD,ESRD ON HEMODIALYSIS, Physical Exam Vital Signs: Temp Pulse Resp BP Pulse Ox 98.1 F 62 20 115/59 L 90 L 06/29/19 03:14 06/29/19 07:00 06/29/19 03:14 06/29/19 03:14 06/29/19 03:14 Intake & Output 06/28/19 06/29/19 06/30/19 06:59 06:59 06:59 Intake Total 1741 3049 Output Total 3100 Balance -1359 3049 Weight 95.7 kg 96.6 kg General appearance: PRESENT: no acute distress, cooperative Head exam: PRESENT: atraumatic, normocephalic Eye exam: PRESENT: EOMI, PERRLA Mouth exam: PRESENT: moist Teeth exam: PRESENT: poor dentation Neck exam: ABSENT: meningismus, tenderness, thyromegaly Respiratory exam: PRESENT: unlabored. ABSENT: tachypnea, wheezes Cardiovascular exam: ABSENT: tachycardia Vascular exam: PRESENT: pallor GI/Abdominal exam: PRESENT: soft. ABSENT: rebound, rigid, tenderness Rectal exam: PRESENT: deferred Neurological exam: PRESENT: alert, awake, oriented to person, oriented to place, oriented to time, oriented to situation Psychiatric exam: ABSENT: agitated, anxious, depressed Skin exam: ABSENT: cyanosis, jaundice Results Laboratory Results: 06/29/19 04:39 06/29/19 04:39 06/29/19 06/29/19 04:39 04:39 WBC 4.8 RBC 2.58 L Hgb 7.6 L Hct 22.9 L MCV 89 MCH 29.4 MCHC 33.1 RDW 18.1 H Plt Count 140 L Sodium 131.9 L Potassium 5.3 H Chloride 91 L Carbon Dioxide 26 Anion Gap 15 BUN 81 H Creatinine 12.23 H Est GFR ( Amer) 5 L Glucose 89 Calcium 7.9 L Total Bilirubin 0.4 AST 9 L Alkaline Phosphatase 54 Total Protein 6.3 Albumin 3.3 L 06/26/19 15:58 Troponin I 0.048 NT-Pro-B Natriuret Pep [id number] H Impressions: Chest X-Ray 06/26/19 15:59 IMPRESSION: No acute cardiopulmonary disease. Abdomen/Pelvis CTA 06/26/19 16:01 IMPRESSION: No active bleeding site identified. Massive ascites. Bilateral pleural effusions with basilar atelectasis. Bilateral inguinal hernias. The left contains nonobstructed bowel. The right contains ascites. Paracentesis Ultrasound 06/27/19 00:00 IMPRESSION: Successful ultrasound-guided paracentesis Assessment & Plan - Diagnosis (1) Acute GI bleeding Is this a current diagnosis for this admission?: Yes - Plan Summary Plan Summary: This is a 58-year-old male with GI bleeding. The patient recently had upper and lower scopes at another facility. Per report, the patient had a gastric ulcer. The patient denies any bleeding overnight. He did receive DDAVP, to combat any platelet dysfunction due to his uremia. This appears to have been successful. His hemoglobin level stable this morning. He does not appear to be in any distress at this time. The patient will require repeat upper endoscopy in 4 to 6 weeks to ensure healing of his gastric ulcer. At this time, I would not recommend any further intervention unless there is evidence of continued bleeding. Surgery will sign off at this time. Please renotify with any questi ons or concerns.
--- NOTE | 2019-06-29 11:20 | PDOC PROGRESS REPORT ---
Subjective Progress Note for:: 06/29/19 Reason For Visit: Patient currently undergoing dialysis while being seen by me this morning. He feels a whole lot better with no further history of any nausea vomiting or dark emesis. He says he has even eaten breakfast this morning and doing well. No history of any bleeding down below as well. No history of any orthostasis. No complaints of any chest pain or shortness of breath. Labs and medications were reviewed that show stable hemoglobin. Potassium is a bit high. Dialysis orders were reviewed with the treating dialysis nurse. Physical Exam Vital Signs: Temp Pulse Resp BP Pulse Ox 97.9 F 59 L 19 109/59 L 95 06/29/19 07:33 06/29/19 07:33 06/29/19 07:33 06/29/19 07:33 06/29/19 07:33 Intake & Output 06/28/19 06/29/19 06/30/19 06:59 06:59 06:59 Intake Total 1741 3049 Output Total 3100 Balance -1359 3049 Weight 95.7 kg 96.6 kg General appearance: PRESENT: no acute distress Respiratory exam: PRESENT: clear to auscultation lew. ABSENT: crackles Cardiovascular exam: PRESENT: +S1, +S2 GI/Abdominal exam: PRESENT: ascites, distended, normal bowel sounds, soft, tenderness - Generalized but mainly in the left lower quadrant.. ABSENT: firm, guarding, organomegaly Extremities exam: PRESENT: pedal edema Neurological exam: PRESENT: alert, awake, oriented to person, oriented to place Results Laboratory Results: 06/29/19 04:39 06/29/19 04:39 06/29/19 06/29/19 04:39 04:39 WBC 4.8 RBC 2.58 L Hgb 7.6 L Hct 22.9 L MCV 89 MCH 29.4 MCHC 33.1 RDW 18.1 H Plt Count 140 L Sodium 131.9 L Potassium 5.3 H Chloride 91 L Carbon Dioxide 26 Anion Gap 15 BUN 81 H Creatinine 12.23 H Est GFR ( Amer) 5 L Glucose 89 Calcium 7.9 L Total Bilirubin 0.4 AST 9 L Alkaline Phosphatase 54 Total Protein 6.3 Albumin 3.3 L 06/26/19 15:58 Troponin I 0.048 NT-Pro-B Natriuret Pep [id number] H Impressions: Chest X-Ray 06/26/19 15:59 IMPRESSION: No acute cardiopulmonary disease. Abdomen/Pelvis CTA 06/26/19 16:01 IMPRESSION: No active bleeding site identified. Massive ascites. Bilateral pleural effusions with basilar atelectasis. Bilateral inguinal hernias. The left contains nonobstructed bowel. The right contains ascites. Paracentesis Ultrasound 06/27/19 00:00 IMPRESSION: Successful ultrasound-guided paracentesis Assessment & Plan - Diagnosis (1) Hyperkalemia Is this a current diagnosis for this admission?: Yes Plan: Mild and will respond to dialysis.Advised on watching diet. (2) Hematochezia Plan: No further episodes along with resolution of his abdominal pain. Most likely acute diverticulitis which seems to have responded to conservative measures. (3) Abdominal pain Plan: Currently resolved. Continue antibiotics which is being given at intravenously now and as p.o. once he is discharged. (4) Acute anemia Plan: Presently stable. Looks like his hematochezia has stopped. He was administered intravenous DDAVP yesterday and looks like it is helping. Monitor. Adjust erythropoietin. (5) ESRD on hemodialysis Is this a current diagnosis for this admission?: Yes Plan: Patient currently undergoing dialysis. Vital signs are stable. Dialysis being supervised to ensure safe and smooth procedure. Dialysis orders were reviewed with the treating dialysis nurse. Advised patient noncompliance with dialysis in the future for lots of reasons (6) Inguinal hernia bilateral, non-recurrent Qualifiers: Obstruction and gangrene presence: without obstruction or gangrene R ecurrence: non-recurrent Qualified Code(s): K40.20 - Bilateral inguinal hernia, without obstruction or gangrene, not specified as recurrent Is this a current diagnosis for this admission?: Yes Plan: Presently stable with no evidences of any obstruction. Needs to be evaluated by surgery again as an outpatient (7) Hypertension Qualifiers: Hypertension type: essential hypertension Qualified Code(s): I10 - Essential (primary) hypertension Is this a current diagnosis for this admission?: Yes Plan: Controlled (8) Ascites Plan: Status post large-volume paracentesis successfully the other day. (9) Non-compliant behavior Plan: Unfortunate.
[2019-06-29] MEDS: AMLODIPINE BESYLATE 10 MG TABLET PO SCH (12:10)
[2019-06-29] MEDS: CALCITRIOL 0.25 MCG CAPSULE PO SCH (12:10)
[2019-06-29] MEDS: CARVEDILOL 12.5 MG TABLET PO SCH ×2 (12:10→21:21)
[2019-06-29] MEDS: CEFEPIME HCL 0.5 GM in DEXTROSE 5%-WATER 50 ML IV SCH (12:11)
--- NOTE | 2019-06-29 15:15 | PDOC PROGRESS REPORT ---
Subjective Progress Note for:: 06/29/19 Subjective:: Patient denied any chest pain or difficulty with breathing. Completed HD earlier tpday and feeling fine. No abdominal pain, nausea or vomiting. No fever or chills. Reason For Visit: CHRONIC RENAL FAILURE,ESRD,ESRD ON HEMODIALYSIS, Physical Exam Vital Signs: Temp Pulse Resp BP Pulse Ox 97.9 F 60 18 150/64 H 94 06/29/19 12:01 06/29/19 12:01 06/29/19 12:01 06/29/19 12:01 06/29/19 12:01 Intake & Output 06/28/19 06/29/19 06/30/19 06:59 06:59 06:59 Intake Total 1741 3049 290 Output Total 3100 Balance -1359 3049 290 Weight 95.7 kg 96.6 kg Physical Exam: General appearance: PRESENT: no acute distress, obese Head exam: PRESENT: atraumatic, normocephalic Eye exam: PRESENT: conjunctiva pink. ABSENT: pallor, scleral icterus Mouth exam: PRESENT: moist - fairly moist Respiratory exam: PRESENT: clear to auscultation lew, decreased breath sounds - at lung bases Cardiovascular exam: PRESENT: RRR, +S1, +S2. ABSENT: diastolic murmur, rubs, systolic murmur Vascular exam: ABSENT: pallor GI/Abdominal exam: PRESENT: normal bowel sounds, soft. ABSENT: ascites, tenderness, mass, organomegaly, rigid Extremities exam: ABSENT: pedal edema Musculoskeletal exam: PRESENT: ambulatory Neurological exam: PRESENT: alert, awake, oriented to person, oriented to place, oriented to time, oriented to situation, CN II-XII grossly intact. ABSENT: motor sensory deficit Psychiatric exam: PRESENT: appropriate affect, normal mood. ABSENT: homicidal ideation, suicidal ideation Skin exam: PRESENT: dry, warm Results Laboratory Results: 06/29/19 04:39 06/29/19 04:39 06/29/19 06/29/19 04:39 04:39 WBC 4.8 RBC 2.58 L Hgb 7.6 L Hct 22.9 L MCV 89 MCH 29.4 MCHC 33.1 RDW 18.1 H Plt Count 140 L Sodium 131.9 L Potassium 5.3 H Chloride 91 L Carbon Dioxide 26 Anion Gap 15 BUN 81 H Creatinine 12.23 H Est GFR ( Amer) 5 L Glucose 89 Calcium 7.9 L Total Bilirubin 0.4 AST 9 L Alkaline Phosphatase 54 Total Protein 6.3 Albumin 3.3 L 06/26/19 15:58 Troponin I 0.048 NT-Pro-B Natriuret Pep [id number] H Impressions: Chest X-Ray 06/26/19 15:59 IMPRESSION: No acute cardiopulmonary disease. Abdomen/Pelvis CTA 06/26/19 16:01 IMPRESSION: No active bleeding site identified. Massive ascites. Bilateral pleural effusions with basilar atelectasis. Bilateral inguinal hernias. The left contains nonobstructed bowel. The right contains ascites. Paracentesis Ultrasound 06/27/19 00:00 IMPRESSION: Successful ultrasound-guided paracentesis Assessment & Plan - Diagnosis (1) Bleeding hemorrhoids Is this a current diagnosis for this admission?: Yes (2) ESRD on hemodialysis Is this a current diagnosis for this admission?: Yes (3) Hyperkalemia Is this a current diagnosis for this admission?: Yes (4) Elevated troponin Is this a current diagnosis for this admission?: Yes (5) Uncontrolled hypertension Is this a current diagnosis for this admission?: Yes (6) Chronic diastolic CHF (congestive heart failure), NYHA class 3 Is this a current diagnosis for this admission?: Yes (7) Colonic diverticulum Is this a current diagnosis for this admission?: Yes (8) Hypertension Qualifiers: Hypertension type: essential hypertension Qualified Code(s): I10 - [place] (primary) hypertension Is this a current diagnosis for this admission?: Yes (9) Dialysis-associated ascites Is this a current diagnosis for this admission?: Yes (10) Inguinal hernia bilateral, non-recurrent Qualifiers: Obstruction and gangrene presence: without obstruction or gangrene Recurrence: non-recurrent Qualified Code(s): K40.20 - Bilateral inguinal hernia, without obstruction or gangrene, not specified as recurrent Is this a current diagnosis for this admission?: Yes (11) Anemia in CKD (chronic kidney disease) Qualifiers: Chronic kidney disease stage: on chronic dialysis Qualified Code(s): N18.6 - End stage renal disease; D63.1 - Anemia in chronic kidney disease; D63.1 - Anemia in chronic kidney disease; Z99.2 - Dependence on renal dialysis; Z99.2 - Dependence on renal dialysis; Z99.2 - Dependence on renal dialysis; Z99.2 - Dependence on renal dialysis Is this a current diagnosis for this admission?: Yes (12) GERD (gastroesophageal reflux disease) Qualifiers: Esophagitis presence: without esophagitis Qualified Code(s): K21.9 - Gastro-esophageal reflux disease without esophagitis Is this a current diagnosis for this admission?: Yes (13) HLD (hyperlipidemia) Qualifiers: Hyperlipidemia type: unspecified Qualified Code(s): E78.5 - Hyperlipidemia, unspecified Is this a current diagnosis for this admission?: Yes (14) Anaerobic bacterial infection Is this a current diagnosis for this admission?: Yes Plan: Sensitivity report revealed sensitivity to penicillins, cephalosporins 3rd generation, quinolones and Flagyl. He is currently on adjusted IV Cefepime coverage. - Time Time Spent with patient: 25-34 minutes Smoking Cessation Education: 3 to 10 minutes Medications reviewed and adjusted accordingly: Yes Anticipated discharge: Home with Homehealth Within: Other - Inpatient Certification Based on my medical assessment, after consideration of the patient's comorbidities, presenting symptoms, or acuity I expect that the services needed warrant INPATIENT care.: Yes I certify that my determination is in accordance with my understanding of Medicare's requirements for reasonable and necessary INPATIENT services [42 CFR 412.3e].: Yes Medical Necessity: Significant Comorbidiites Make Outpatient Treatment Too Risky, Need Close Monitoring Due to Risk of Patient Decompensation, Need for IV Antibiotics, Risk of Complication if Not Cared For in Hospital, Risk of Diagn osis Which Will Require Inpatient Eval/Care/Monitoring Post 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 Start on Ciprofloxacin 250 mg po daily from tomorrow. D/c Zofran. Continue on all other current medication management.
[2019-06-29] MEDS: PATIROMER 8.4 GM SUSP PACKET PO SCH (17:48)
[2019-06-30] MEDS: CARVEDILOL 12.5 MG TABLET PO SCH ×2 (10:22→21:55)
[2019-06-30] MEDS: CALCITRIOL 0.25 MCG CAPSULE PO SCH (10:22)
[2019-06-30] MEDS: CIPROFLOXACIN HCL 500 MG TABLET PO SCH (10:22)
[2019-06-30] MEDS: AMLODIPINE BESYLATE 10 MG TABLET PO SCH (10:22)
--- NOTE | 2019-06-30 15:10 | PDOC PROGRESS REPORT ---
Subjective Progress Note for:: 06/30/19 Subjective:: Patient denied any chest pain or difficulty with breathing. No abdominal pain, nausea or vomiting. No fever or chills. Reason For Visit: CHRONIC RENAL FAILURE,ESRD,ESRD ON HEMODIALYSIS, Physical Exam Vital Signs: Temp Pulse Resp BP Pulse Ox 98.2 F 61 14 124/66 92 06/30/19 03:49 06/30/19 03:49 06/30/19 03:49 06/30/19 03:49 06/30/19 03:49 Intake & Output 06/29/19 06/30/19 07/01/19 06:59 06:59 06:59 Intake Total 3049 770 Output Total 3500 Balance 3049 -2730 Weight 96.6 kg 94.5 kg Physical Exam: General appearance: PRESENT: no acute distress, obese Head exam: PRESENT: atraumatic, normocephalic Eye exam: PRESENT: conjunctiva pink. ABSENT: pallor, scleral icterus Mouth exam: PRESENT: moist Respiratory exam: PRESENT: clear to auscultation lew Cardiovascular exam: PRESENT: RRR, +S1, +S2. ABSENT: diastolic murmur, rubs, systolic murmur GI/Abdominal exam: PRESENT: normal bowel sounds, soft. ABSENT: ascites, tenderness, mass, organomegaly, rigid Extremities exam: ABSENT: pedal edema Neurological exam: PRESENT: alert, awake, oriented to person, oriented to place, oriented to time, oriented to situation, CN II-XII grossly intact. ABSENT: motor sensory deficit Psychiatric exam: PRESENT: appropriate affect, normal mood. ABSENT: homicidal ideation, suicidal ideation Skin exam: PRESENT: dry, warm Results Laboratory Results: 06/29/19 04:39 06/29/19 04:39 06/29/19 04:39 WBC 4.8 RBC 2.58 L Hgb 7.6 L Hct 22.9 L MCV 89 MCH 29.4 MCHC 33.1 RDW 18.1 H Plt Count 140 L 06/26/19 15:58 Troponin I 0.048 NT-Pro-B Natriuret Pep [id number] H Impressions: Chest X-Ray 06/26/19 15:59 IMPRESSION: No acute cardiopulmonary disease. Abdomen/Pelvis CTA 06/26/19 16:01 IMPRESSION: No active bleeding site identified. Massive ascites. Bilateral pleural effusions with basilar atelectasis. Bilateral inguinal hernias. The left contains nonobstructed bowel. The right contains ascites. Paracentesis Ultrasound 06/27/19 00:00 IMPRESSION: Successful ultrasound-guided paracentesis Assessment & Plan - Diagnosis (1) Bleeding hemorrhoids Is this a current diagnosis for this admission?: Yes (2) ESRD on hemodialysis Is this a current diagnosis for this admission?: Yes (3) Hyperkalemia Is this a current diagnosis for this admission?: Yes (4) Elevated troponin Is this a current diagnosis for this admission?: Yes (5) Uncontrolled hypertension Is this a current diagnosis for this admission?: Yes (6) Chronic diastolic CHF (congestive heart failure), NYHA class 3 Is this a current diagnosis for this admission?: Yes (7) Colonic diverticulum Is this a current diagnosis for this admission?: Yes (8) Hypertension Qualifiers: Hypertension type: essential hypertension Qualified Code(s): I10 - Essential (primary) hypertension Is this a current diagnosis for this admission?: Yes (9) Dialysis-associated ascites Is this a current diagnosis for this admission?: Yes (10) Inguinal hernia bilateral, non-recurrent Qualifiers: Obstruction and gangrene presence: without obstruction or gangrene Recurrence: non-recurrent Qualified Code(s): K40.20 - Bilateral inguinal hernia, without obstruction or gangrene, not specified as recurrent Is this a current diagnosis for this admission?: Yes (11) Anemia in CKD (chronic kidney disease) Qualifiers: Chronic kidney disease stage: on chronic dialysis Qualified Code(s): N18.6 - End stage renal disease; D63.1 - Anemia in chronic kidney disease; D63.1 - Anemia in chronic kidney disease; Z99.2 - Dependence on renal dialysis; Z99.2 - Dependence on renal dialysis; Z99.2 - Dependence on renal dialysis; Z99.2 - Dependence on renal dialysis Is this a current diagnosis for this admission?: Yes (12) GERD (gastroesophageal reflux disease) Qualifiers: Esophagitis presence: without esophagitis Qualified Code(s): K21.9 - Gastro-esophageal reflux disease without esophagitis Is this a current diagnosis for this admission?: Yes (13) HLD (hyperlipidemia) Qualifiers: Hyperlipidemia type: unspecified Qualified Code(s): E78.5 - Hyperlipidemia, unspecified Is this a current diagnosis for this admission?: Yes (14) Anaerobic bacterial infection Is this a current diagnosis for this admission?: Yes - Time Time Spent with patient: 25-34 minutes Level of Care: IMCU Medications reviewed and adjusted accordingly: Yes Anticipated discharge: Home with Homehealth Within: Other - Inpatient Certification Based on my medical assessment, after consideration of the patient's comorbidities, presenting symptoms, or acuity I expect that the services needed warrant INPATIENT care.: Yes I certify that my determination is in accordance with my understanding of Medicare's requirements for reasonable and necessary INPATIENT services [42 CFR 412.3e].: Yes Medical Necessity: Significant Comorbidiites Make Outpatient Treatment Too Risky, Need Close Monitoring Due to Risk of Patient Decompensation, Need For Continuous Telemetry Monitoring, Risk of Complication if Not Cared For in Hospital, Risk of Diagnosis Which Will Require Inpatient Eval/Care/Monitoring 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 Possible discharge home with oral ciprofloxacin in next 24 hours after HD tomorrow.
[2019-06-30] MEDS: PATIROMER 8.4 GM SUSP PACKET PO SCH (17:15)
[2019-07-01] MEDS ORDERED: EPOETIN ALFA-EPBX 30,000 UNIT in SYRINGE, DISPOSABLE, 1 EACH IV PRN (05:00)
[2019-07-01 05:35] LABS: HEMATOCRIT 22.8 % (37.9-51.0); MEAN CORPUSCULAR HEMOGLOBIN 29.2 pg (27.0-33.4); MEAN CORPUSCULAR HGB CONC 33.2 g/dL (32.0-36.0); MEAN CORPUSCULAR VOLUME 88 fl (80-97); PLATELET COUNT 147 10^3/uL (150-450); RED CELL DISTRIBUTION WIDTH 17.5 % (11.5-14.0); WHITE BLOOD COUNT 5.6 10^3/uL (4.0-10.5)
[2019-07-01 05:37] LABS: HEMOGLOBIN 7.6 g/dL (13.5-17.0)
[2019-07-01 05:51] LABS: ANION GAP 11 (5-19); BLOOD UREA NITROGEN 58 mg/dL (7-20); CALCIUM 7.7 mg/dL (8.4-10.2); CARBON DIOXIDE 27 mmol/L (22-30); CHLORIDE 93 mmol/L (98-107); GLUCOSE 83 mg/dL (75-110); POTASSIUM 5.4 mmol/L (3.6-5.0)
[2019-07-01] MEDS: CIPROFLOXACIN HCL 500 MG TABLET PO SCH (10:21)
[2019-07-01] MEDS: CALCITRIOL 0.25 MCG CAPSULE PO SCH (10:22)
[2019-07-01] MEDS: AMLODIPINE BESYLATE 10 MG TABLET PO SCH (10:23)
[2019-07-01] MEDS: CARVEDILOL 12.5 MG TABLET PO SCH (10:24)
--- NOTE | 2019-07-01 11:07 | PDOC PROGRESS REPORT ---
Subjective Progress Note for:: 07/01/19 Subjective:: I saw the patient during dialysis this morning. He was thinking that he can go home today. He said he feels fine. He denies any nausea, vomiting, abdominal pain or hematochezia. He is currently tolerating dialysis without any problems nor complaints. Reason For Visit: CHRONIC RENAL FAILURE,ESRD,ESRD ON HEMODIALYSIS, Physical Exam Vital Signs: Temp Pulse Resp BP Pulse Ox 97.6 F 59 L 18 125/66 96 07/01/19 03:46 07/01/19 07:00 07/01/19 03:46 07/01/19 03:46 07/01/19 03:46 Intake & Output 06/30/19 07/01/19 07/02/19 06:59 06:59 06:59 Intake Total 770 2206 Output Total 3500 Balance -2730 2206 Weight 94.5 kg 96.7 kg Vitals during dialysis: Blood pressure 132/71, heart rate of 53, blood flow rate of 450 mL/min and dialysate flow rate of 800 mL/min. Exam: General appearance: PRESENT: no acute distress, cooperative, well-developed, well-nourished Head exam: PRESENT: atraumatic, normocephalic Eye exam: PRESENT: conjunctiva pale, PERRLA. ABSENT: scleral icterus Neck exam: ABSENT: JVD Respiratory exam: PRESENT: Diminished breath sounds. ABSENT: crackles, rales, rhonchi, unlabored, wheezes Cardiovascular exam: PRESENT: Regular rate rhythm -+S1, +S2. Grade 3/6 systolic murmur GI/Abdominal exam: PRESENT: normal bowel sounds, soft. ABSENT: guarding, mass, tenderness Extremities exam: ABSENT: No edema Neurological exam: PRESENT: alert, awake, oriented to person, place and time. Skin exam: PRESENT: dry, warm, Cardiovascular exam: PRESENT: +S1, +S2 GI/Abdominal exam: PRESENT: ascites, distended, normal bowel sounds, soft, tenderness - Generalized but mainly in the left lower quadrant.. ABSENT: firm, guarding, organomegaly Results Laboratory Results: 07/01/19 04:35 07/01/19 04:35 07/01/19 07/01/19 04:35 04:35 WBC 5.6 RBC 2.60 L Hgb 7.6 L Hct 22.8 L MCV 88 MCH 29.2 MCHC 33.2 RDW 17.5 H Plt Count 147 L Sodium 131.2 L Potassium 5.4 H Chloride 93 L Carbon Dioxide 27 Anion Gap 11 BUN 58 H Creatinine 9.39 H Est GFR ( Amer) 7 L Glucose 83 Calcium 7.7 L 06/27/19 14:53 Abdominal Fluid Gram Stain - Final 06/27/19 14:53 Abdominal Fluid Body Fluid Culture - Final NO AEROBIC OR ANAEROBIC ORGANISMS RECOVERED 06/26/19 17:55 Blood Blood Culture - Final Anaerococcus (Peptostrep) Sp. No Aerobic Organisms 06/26/19 15:58 Troponin I 0.048 NT-Pro-B Natriuret Pep [id number] H Impressions: Chest X-Ray 06/26/19 15:59 IMPRESSION: No acute cardiopulmonary disease. Abdomen/Pelvis CTA 06/26/19 16:01 IMPRESSION: No active bleeding site identified. Massive ascites. Bilateral pleural effusions with basilar atelectasis. Bilateral inguinal hernias. The left contains nonobstructed bowel. The right contains ascites. Paracentesis Ultrasound 06/27/19 00:00 IMPRESSION: Successful ultrasound-guided paracentesis Assessment & Plan - Diagnosis (1) ESRD on hemodialysis Is this a current diagnosis for this admission?: Yes Plan: We will do dialysis today for 3 hours, using the patient's AV fistula, with 2 potassium bath, blood flow rate of 450 mL per minute, dialysate flow rate of 800 mL per minute, ultrafiltration 2 L as tolerated, no heparin and Procrit with 30,000 units during dialysis intravenously. Patient is being monitored throughout dialysis treatment. (2) Hyperkalemia Is this a current diagnosis for this admission?: Yes Plan: Mild. Low potassium bath is being used during dialysis. (3) Anemia in CKD (chronic kidney disease) Qualifiers: Chronic kidney disease stage: on chronic dialysis Qualified Code(s): N18.6 - End stage renal disease; D63.1 - Anemia in chronic kidney disease; D63.1 - Anemia in chronic kidney disease; Z99.2 - Dependence on renal dialysis; Z99.2 - Dependence on renal dialysis; Z99.2 - Dependence on renal dialysis; Z99.2 - Dependence on renal dialysis Is this a current diagnosis for this admission?: Yes Plan: Patient is being given Retacrit as above on dialysis. (4) Acute anemia Is this a current diagnosis for this admission?: Yes Plan: Likely worsened by the acute hematochezia from bleeding hemorrhoids. Currently hemoglobin has been stable. (5) Abdominal pain Is this a current diagnosis for this admission?: Yes Plan: Resolved. (6) Bleeding hemorrhoids Is this a current diagnosis for this admission?: Yes Plan: No evidence of active bleeding currently. (7) Hypertension Qualifiers: Hypertension type: essential hypertension Qualified Code(s): I10 - [place] l (primary) hypertension Is this a current diagnosis for this admission?: Yes Plan: Acceptably controlled. (8) Ascites Is this a current diagnosis for this admission?: Yes Plan: Status post large-volume paracentesis. (9) Inguinal hernia bilateral, non-recurrent Qualifiers: Obstruction and gangrene presence: without obstruction or gangrene Recurrence: non-recurrent Qualified Code(s): K40.20 - Bilateral inguinal hernia, without obstruction or gangrene, not specified as recurrent Is this a current diagnosis for this admission?: Yes Plan: Needs outpatient follow-up. (10) Non-compliant behavior Is this a current diagnosis for this admission?: Yes - Notes Notes: From nephrology standpoint I think patient can be discharged home safely if there are no other issues. Patient to continue with his outpatient dialysis at [facility] as scheduled routinely. - Time Time with patient: 15-25 minutes
[2019-07-01 12:26] VITALS: BP 141/63
--- NOTE | 2019-07-01 18:45 | PDOC DISCHARGE SUMMARY ---
Impression - Admit/DC Date/PCP Admission Date/Primary Care Provider: 06/26/19 20:45 RUDY JACOBSEN Discharge Date: 07/01/19 - Discharge Diagnosis (1) Bleeding hemorrhoids Is this a current diagnosis for this admission?: Yes (2) ESRD on hemodialysis Is this a current diagnosis for this admission?: Yes (3) Hyperkalemia Is this a current diagnosis for this admission?: Yes (4) Elevated troponin Is this a current diagnosis for this admission?: Yes (5) Uncontrolled hypertension Is this a current diagnosis for this admission?: Yes (6) Chronic diastolic CHF (congestive heart failure), NYHA class 3 Is this a current diagnosis for this admission?: Yes (7) Colonic diverticulum Is this a current diagnosis for this admission?: Yes (8) Hypertension Is this a current diagnosis for this admission?: Yes (9) Dialysis-associated ascites Is this a current diagnosis for this admission?: Yes (10) Inguinal hernia bilateral, non-recurrent Is this a current diagnosis for this admission?: Yes (11) Anemia in CKD (chronic kidney disease) Is this a current diagnosis for this admission?: Yes (12) GERD (gastroesophageal reflux disease) Is this a current diagnosis for this admission?: Yes (13) HLD (hyperlipidemia) Is this a current diagnosis for this admission?: Yes (14) Anaerobic bacterial infection Is this a current diagnosis for this admission?: Yes (15) Medical non-compliance Is this a current diagnosis for this admission?: Yes - Assessment Summary: Patient was admitted for ESRD on hemodialysis with severe hyperkalemia. He presented with claim about rectal bleeding that did not recurred during this hospitalization. Also, he presented with severe ascites and bilateral inguinal hernia on CT scan. He was seen in consultation by Dr Cristo Capellan, repeat photocomposing machine operator, who initiated his hemodialysis. There was concern about his severe ascites and diverticulitis. He was adequately covered with empiric antibiotic. He had US guided paracentesis with about 6000 mL of straw color ascetic fluid removed. Culture and analysis of his ascetic fluid did not reveal any significant infection but his blood culture revealed anaerococcus species. He was transition to renal dose adjusted oral Ciprofloxacin. His associated left lower quadrant abdominal pain was evaluated by the surgicalist group and did revolved post paracentesis for massive ascites without need for surgical intervention at this time. Patient signed out against medical advised earlier today. He is very noncompliant with medical care, missed his hemodialysis for two weeks before presenting to the ED with rectal bleeding that did not recur while on admission. His abdominal pain was due to worsening inguinal hernia from his massive ascites. In view of his noncompliance with medical care and self imposed disruptive care, I am discharging patient from my practice and service. I will provide necessary service and care if requested by the patient over the next 30 days. Patient should seek another primary care need within the next 30 days. - Additional Information Resuscitation Status: Full Code Referrals: RUDY JACOBSEN MD [Primary Care Provider] - Follow up as needed Home Medications: Amlodipine Besylate [Norvasc 10 mg Tablet] 10 mg PO DAILY 04/26/19 Carvedilol [Coreg] 25 mg PO Q12 06/27/19 Metoprolol Succinate [Toprol Xl 25 mg Tab.sr] 25 mg PO Q12 06/27/19 Warfarin Sodium [Coumadin 2.5 mg Tablet] 2.5 mg PO WE@1000 06/27/19 Warfarin Sodium [Coumadin 7.5 mg Tablet] 7.5 mg PO DAILY 06/27/19 History of Present Illiness History of Present Illness: ANY STRONG is a 58 year old male patient known to my practice who presented to the ED with complain of rectal bleeding for about 6 days. Patient reported episodes of bloating and abdominal discomfort and thereafter moved his bowel with significant amount of bright red blood in the bowl. He denied any associated nausea, vomiting or diarrhea. No fever or chills. No chest pain or difficulty with breathing. He reported missing his hemodialysis session for about 1 week. He claimed compliance with his medication, dietary and fluid restrictions. Patient reported that he was referred to [facility] about 2 months ago but nothing was done. His initial evaluation in the ED was significant for his ESRD with hyperkalemia and CT abdomen and pelvis suggestive of bilateral inguinal hernias and significant ascites. His medical morbidities are listed below. Hospital Course Hospital Course: Patient was admitted for ESRD on hemodialysis with severe hyperkalemia. He presented with claim about rectal bleeding that did not recurred during this hospitalization. Also, he presented with severe ascites and bilateral inguinal hernia on CT scan. He was seen in consultation by Dr Cristo Capelaln, repeat photocomposing machine operator, who initiated his hemodialysis. There was concern about his severe ascites and diverticulitis. He was adequately covered with empiric antibiotic. He had US guided paracentesis with about 6000 mL of straw color ascetic fluid removed. Culture and analysis of his ascetic fluid did not reveal any significant infection but his blood culture revealed anaerococcus species. He was transition to renal dose adjusted oral Ciprofloxacin. His associated left lower quadrant abdominal pain was evaluated by the surgicalist group and did revolved post paracentesis for massive ascites without need for surgical intervention at this time. Patient signed out against medical advised earlier today. He is very noncompliant with medical care, missed his hemodialysis for two weeks before presenting to the ED with rectal bleeding that did not recur while on admission. His abdominal pain was due to worsening inguinal hernia from his massive ascites. In view of his noncompliance with medical care and self imposed disruptive care, I am discharging patient from my practice and service. I will provide necessary service and care if requested by the patient over the next 30 days. Patient should seek another primary care need within the next 30 days. Physical Exam Vital Signs: Temp Pulse Resp BP Pulse Ox 97.5 F 58 L 18 141/63 H 97 07/01/19 11:44 07/01/19 11:44 07/01/19 11:44 07/01/19 11:44 07/01/19 11:44 Intake & Output 06/30/19 07/01/19 07/02/19 06:59 06:59 06:59 Intake Total 770 2206 1240 Output Total 3500 3000 Balance -2730 2206 -1760 Weight 94.5 kg 96.7 kg PATIENT SIGNED OUT AGAINST MEDICAL ADVISED. See my examination for 06/30/2019. Results Laboratory Results: WBC 5.6 10^3/uL (4.0-10.5) 07/01/19 04:35 RBC 2.60 10^6/uL (4.35-5.55) L 07/01/19 04:35 Hgb 7.6 g/dL (13.5-17.0) L 07/01/19 04:35 Hct 22.8 % (37.9-51.0) L 07/01/19 04:35 MCV 88 fl (80-97) 07/01/19 04:35 MCH 29.2 pg (27.0-33.4) 07/01/19 04:35 MCHC 33.2 g/dL (32.0-36.0) 07/01/19 04:35 RDW 17.5 % (11.5-14.0) H 07/01/19 04:35 Plt Count 147 10^3/uL (150-450) L 07/01/19 04:35 Lymph % (Auto) 13.7 % (13-45) 06/28/19 05:13 [place] % (Auto) 12.5 % (3-13) 06/28/19 05:13 Eos % (Auto) 1.7 % (0-6) 06/28/19 05:13 Baso % (Auto) 1.4 % (0-2) 06/28/19 05:13 Absolute Neuts (auto) 2.5 10^3/uL (1.7-8.2) 06/28/19 05:13 Absolute Lymphs (auto) 0.5 10^3/uL (0.5-4.7) 06/28/19 05:13 Absolute Monos (auto) 0.4 10^3/uL (0.1-1.4) 06/28/19 05:13 Absolute Eos (auto) 0.1 10^3/uL (0.0-0.6) 06/28/19 05:13 Absolute Basos (auto) 0.0 10^3/uL (0.0-0.2) 06/28/19 05:13 Seg Neutrophils % 70.7 % (42-78) 06/28/19 05:13 PT 14.4 SEC (11.4-15.4) 06/27/19 17:20 INR 1.11 06/27/19 17:20 APTT 30.6 SEC (23.5-35.8) 06/27/19 17:20 Sodium 131.2 mmol/L (137-145) L 07/01/19 04:35 Potassium 5.4 mmol/L (3.6-5.0) H 07/01/19 04:35 Chloride 93 mmol/L (98-107) L 07/01/19 04:35 Carbon Dioxide 27 mmol/L (22-30) 07/01/19 04:35 Anion Gap 11 (5-19) 07/01/19 04:35 BUN 58 mg/dL (7-20) H 07/01/19 04:35 Creatinine 9.39 mg/dL (0.52-1.25) H 07/01/19 04:35 Est GFR ( Amer) 7 (>60) L 07/01/19 04:35 Est GFR (MDRD) Non-Af 6 (>60) L 07/01/19 04:35 Glucose 83 mg/dL (75-110) 07/01/19 04:35 POC Glucose 70 mg/dL (70-110) 06/26/19 21:27 Lactic Acid 0.7 mmol/L (0.7-2.1) 06/26/19 17:55 Calcium 7.7 mg/dL (8.4-10.2) L 07/01/19 04:35 Phosphorus 4.9 mg/dL (2.5-4.5) H 06/28/19 05:13 Total Bilirubin 0.4 mg/dL (0.2-1.3) 06/29/19 04:39 Direct Bilirubin 0.4 mg/dL (0.0-0.4) 06/29/19 04:39 Neonat Total Bilirubin Not Reportable 06/29/19 04:39 Neonat Direct Bilirubin Not Reportable 06/29/19 04:39 Neonat Indirect Bili Not Reportable 06/29/19 04:39 AST 9 U/L (17-59) L 06/29/19 04:39 ALT 6 U/L (<50) 06/29/19 04:39 Alkaline Phosphatase 54 U/L (38-126) 06/29/19 04:39 Troponin I 0.048 ng/mL 06/26/19 15:58 NT-Pro-B Natriuret Pep [id number] pg/mL (<125) H 06/26/19 15:58 Total Protein 6.3 g/dL (6.3-8.2) 06/29/19 04:39 Albumin 3.3 g/dL (3.5-5.0) L 06/29/19 04:39 Amylase 122 U/L (30-110) H 06/27/19 04:39 Lipase 424.5 U/L (23-300) H 06/27/19 04:39 PTH Intact 420.8 pg/mL (10.0-65.0) H 06/28/19 05:13 Fluid Type PERITONEAL 06/27/19 14:53 Fluid Source ASCITES 04/06/20 14:53 Fluid Color YELLOW 06/27/19 14:53 Fluid Appearance SLIGHTLY HAZY 06/27/19 14:53 Fluid Viscosity SLIGHTLY VISCOUS 06/27/19 14:53 Fluid WBC 42 /uL 06/27/19 14:53 Fluid RBC 88 /uL 06/27/19 14:53 Fluid Seg Neutrophils 45 % 06/27/19 14:53 Fluid Lymphocytes 55 % 06/27/19 14:53 Fluid Monocytes 0 % 06/27/19 14:53 Fluid Eosinophils 0 % 06/27/19 14:53 Fluid Basophils 0 % 06/27/19 14:53 Slides for Path Review PATHOLOGIST REVIEWED 06/27/19 14:53 Blood Type A POSITIVE 06/26/19 15:58 Antibody Screen NEGATIVE 06/26/19 15:58 06/26/19 15:58 Troponin I 0.048 NT-Pro-B Natriuret Pep [id number] H Impressions: Chest X-Ray 06/26/19 15:59 IMPRESSION: No acute cardiopulmonary disease. Abdomen/Pelvis CTA 06/26/19 16:01 IMPRESSION: No active bleeding site identified. Massive ascites. Bilateral pleural effusions with basilar atelectasis. Bilateral inguinal hernias. The left contains nonobstructed bowel. The right contains ascites. Paracentesis Ultrasound 06/27/19 00:00 IMPRESSION: Successful ultrasound-guided paracentesis Plan Health Concerns: Very high risk for readmission. Patient is very non-compliant with medical care. Plan of Treatment: Patient signed out against medical advise. Goals: Hopefully he will seek medical care and service as necessary in the future. Stroke Is this a Stroke Patient?: No Acute Heart Failure - Is this a Heart Failure Patient?: No
== END 2019-07-01 14:00 | disposition left against medical advice (07) | DRG 291 ==
LOC: ER 14:44 → EH 20:45 → 3W 22:40
PROVIDERS: ADMIT Internal Medicine Geriatric Medicine; ATTEND Internal Medicine Geriatric Medicine
PROC: 5A1D70Z Performance of Urinary Filtration, Intermittent, Less than 6 Hours Per Day (ICD-10-PCS; principal; 2019-06-27)
PROC: 0W9G3ZZ Drainage of Peritoneal Cavity, Percutaneous Approach (ICD-10-PCS; 2019-06-27)
DX: I13.2 Hypertensive heart and chronic kidney disease with heart failure and with stage 5 chronic kidney disease, or end stage renal disease (principal); N18.6 End stage renal disease; K57.91 Diverticulosis of intestine, part unspecified, without perforation or abscess with bleeding; R18.8 Other ascites; I50.32 Chronic diastolic (congestive) heart failure; K92.1 Melena; E87.5 Hyperkalemia; K64.9 Unspecified hemorrhoids; D63.1 Anemia in chronic kidney disease; E78.00 Pure hypercholesterolemia, unspecified; K25.9 Gastric ulcer, unspecified as acute or chronic, without hemorrhage or perforation; K21.9 Gastro-esophageal reflux disease without esophagitis; K40.20 Bilateral inguinal hernia, without obstruction or gangrene, not specified as recurrent; Z99.2 Dependence on renal dialysis; Z91.15 Patient's noncompliance with renal dialysis; Z91.14 Patient's other noncompliance with medication regimen; Z91.11 Patient's noncompliance with dietary regimen
CPT/HCPCS: 36415; 49083; 71045; 74174; 80048; 80053; 82150; 82962; 83605; 83690; 83880; 83970; 84100; 84484; 85025; 85027; 85610; 85730; 86850; 86900; 86901; 87040; 87070; 87075; 87077; 87150; 87205; 89050; 93005; 93010; 96374; 96375; 99291; J0610; C9113; J0131; J0360; J0692; J1815; J2405; J2597; J3490; J7060; Q5105

== ENCOUNTER 2019-07-06 08:45 | Emergency (ER) | payer MEDICARE, MEDICAID ==
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
[2019-07-06 09:29] LABS: ABSOLUTE BASOPHILS # (AUTO) 0.1 10^3/uL (0.0-0.2); ABSOLUTE EOSINOPHILS # (AUTO) 0.1 10^3/uL (0.0-0.6); ABSOLUTE LYMPHOCYTES (AUTO) 0.6 10^3/uL (0.5-4.7); ABSOLUTE MONOCYTES (AUTO) 0.5 10^3/uL (0.1-1.4); ABSOLUTE NEUT (AUTO) 4.5 10^3/uL (1.7-8.2); BASOPHILS % (AUTO) 1.1 % (0-2); EOSINOPHILS % (AUTO) 1.9 % (0-6); HEMATOCRIT 24.5 % (37.9-51.0); HEMOGLOBIN 8.1 g/dL (13.5-17.0); LYMPHOCYTES % (AUTO) 10.9 % (13-45); MEAN CORPUSCULAR HEMOGLOBIN 29.9 pg (27.0-33.4); MEAN CORPUSCULAR HGB CONC 32.9 g/dL (32.0-36.0); MEAN CORPUSCULAR VOLUME 91 fl (80-97); MONOCYTES % (AUTO) 8.9 % (3-13); PLATELET COUNT 183 10^3/uL (150-450); RED CELL DISTRIBUTION WIDTH 18.2 % (11.5-14.0); SEGMENTED NEUTROPHILS % (AUTO) 77.2 % (42-78); TOTAL CELLS COUNTED % (AUTO) 100 %; WHITE BLOOD COUNT 5.9 10^3/uL (4.0-10.5)
--- NOTE | 2019-07-06 09:57 | RADIOLOGY REPORT (SQ) ---
EXAM DESCRIPTION: CHEST SINGLE VIEW IMAGES COMPLETED DATE/TIME: 07/06/2019 9:47 am REASON FOR STUDY: missed dialysis COMPARISON: 06/26/2019 NUMBER OF VIEWS: One view. TECHNIQUE: Single frontal radiographic image of the chest acquired. LIMITATIONS: None. FINDINGS: LUNGS AND PLEURA: Persistent bilateral pleural effusions mild basilar atelectasis. MEDIASTINUM AND HILAR STRUCTURES: Stable heart size and mediastinal structures. HEART AND VASCULAR STRUCTURES: Stable cardiomegaly. BONES: No acute findings. HARDWARE: None in the chest. OTHER: No other significant finding. IMPRESSION: STABLE APPEARANCE OF THE CHEST. TECHNICAL DOCUMENTATION: JOB ID: [id number] 2010 [employer]- All Rights Reserved Reading location - IP/workstation name: [email or web address]
[2019-07-06 10:18] LABS: ALKALINE PHOSPHATASE 76 U/L (38-126); ANION GAP 11 (5-19); ASPARTATE AMINO TRANSFERASE 38 U/L (17-59); BILIRUBIN,DIRECT 0.3 mg/dL (0.0-0.4); BILIRUBIN,TOTAL 0.6 mg/dL (0.2-1.3); BLOOD UREA NITROGEN 97 mg/dL (7-20); CALCIUM 8.7 mg/dL (8.4-10.2); CARBON DIOXIDE 26 mmol/L (22-30); CHLORIDE 100 mmol/L (98-107); GLUCOSE 85 mg/dL (75-110); TOTAL PROTEIN 7.5 g/dL (6.3-8.2)
[2019-07-06 10:25] LABS: POTASSIUM 7.6 mmol/L (3.6-5.0)
[2019-07-06] MEDS ORDERED: DEXTROSE 50%-WATER 25 GM/50 ML DISP.SYRIN IV ONE ×3 (10:32→10:52)
[2019-07-06] MEDS ORDERED: CALCIUM GLUCONATE 1000 MG/10 ML INJ IV ONE (10:33)
[2019-07-06] MEDS ORDERED: INSULIN REG, HUMAN 100 UNIT/ML 3 ML VIAL (PYX) IV ONE (10:33)
[2019-07-06] MEDS ORDERED: NORMAL SALINE 1000 ML 1,000 ML IV PRN (12:23)
[2019-07-06] MEDS ORDERED: EPOETIN ALFA-EPBX 20,000 UNIT in SYRINGE, DISPOSABLE, 1 EACH IV PRN (12:23)
--- NOTE | 2019-07-06 13:12 | EKG REPORT ---
SEVERITY:- ABNORMAL ECG - SINUS RHYTHM FIRST DEGREE AV BLOCK RIGHT BUNDLE BRANCH BLOCK : Confirmed by: Fabian Dominguez MD 06-Jul-2019 13:12:01
[2019-07-06 18:42] VITALS: BP 178/86
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
== END 2019-07-06 18:47 | disposition home or self-care (01) ==
LOC: ER 08:45
DX: K92.2 Gastrointestinal hemorrhage, unspecified (principal); E87.5 Hyperkalemia; D63.1 Anemia in chronic kidney disease; K64.9 Unspecified hemorrhoids; E78.00 Pure hypercholesterolemia, unspecified; I13.2 Hypertensive heart and chronic kidney disease with heart failure and with stage 5 chronic kidney disease, or end stage renal disease; N18.6 End stage renal disease; I50.9 Heart failure, unspecified; Z99.2 Dependence on renal dialysis; Z91.15 Patient's noncompliance with renal dialysis; Z88.6 Allergy status to analgesic agent; Z90.49 Acquired absence of other specified parts of digestive tract
CPT/HCPCS: 93005; 99285; 96374; 96375; 86900; 86901; 36415; 86850; 85025; 82270; 80053; 71045; 93010; G0257; J0610; J3490 ×2; A9270; Q5105; J1815

== ENCOUNTER 2019-09-24 20:14 | Emergency (ER) | payer MEDICARE, MEDICAID ==
--- NOTE | 2019-09-24 21:18 | ER Document Report ---
ED Extremity Problem, Lower - General Stated Complaint: RIGHT KNEE PAIN Time Seen by Provider: 09/24/19 20:57 Primary Care Provider: YOUSIF DAMICO MD [ACTIVE PROVISIONAL STAFF] - Follow up as needed VANDANA TREJO PA-C [ALLIED HEALTH PROFESSIONAL] - Follow up as needed Notes: CHIEF COMPLAINT: Right lateral knee pain today HPI: 58-year-old male who is a dialysis patient states that he has pain to the lateral aspect of the right knee today. Patient states he went to bed last night woke up this morning with some pain to the lateral aspect of the knee took no medications for his symptoms. States he has pain with flexing and extending the knee. Denies any acute trauma or injury. Denies calf pain. Denies other injuries or complaints ROS: See HPI - all other systems were reviewed and are otherwise negative Constitutional: no fever Integumentary: + rash Allergy: no hives Musculoskeletal: + extremity pain or swelling Neurological: no numbness/tingling, no weakness MEDICATIONS: I agree with the patient medications as charted by the RN. ALLERGIES: I agree with the allergies as charted by the RN. PAST MEDICAL HISTORY/PAST SURGICAL HISTORY: Reviewed and agree as charted by RN. SOCIAL HISTORY: Reviewed and agree as charted by RN. FAMILY HISTORY: No significant familial comorbid conditions directly related to patient complaint EXAM: Reviewed vital signs as charted by RN. CONSTITUTIONAL: Alert and oriented and responds appropriately to questions. Well-appearing; well-nourished HEAD: Normocephalic; atraumatic EYES: Conjunctivae clear, sclerae non-icteric ENT: normal nose; no rhinorrhea; moist mucous membranes NECK: Supple without meningismus CARD: RRR; no murmurs, no clicks, no rubs, no gallops; symmetric distal pulses RESP: Normal chest excursion without splinting or tachypnea ABD/GI: non-distended BACK: The back appears normal EXT: Slightly limited flexion extension of the right leg at the knee secondary to complaints of pain. There is mild soft tissue swelling with erythema over the lateral and superior aspect of the right knee. Mild tenderness on palpation of this region. No ballottement of the patella. Negative anterior drawer sign. Dialysis shunt in the right upper extremity with intact thrill and bruit SKIN: Normal color for age and race; warm; dry; good turgor; no acute lesions noted NEURO: Moves all extremities equally; Motor and sensory function intact PSYCH: The patient's mood and manner are appropriate. Grooming and personal hygiene are appropriate. MDM: 58-year-old male with what is likely a mild preseptal bursitis. As he is a dialysis patient cannot take anti-inflammatories. Will give a course of Decadron, short course of pain medication orthopedic follow-up TRAVEL OUTSIDE OF THE [place] IN LAST 30 DAYS: No - Related Data Allergies/Adverse Reactions: ketorolac [From Toradol] Allergy (Verified 06/26/19 14:55) tramadol Allergy (Verified 06/26/19 14:55) Past Medical History - Social History Smoking Status: Former Smoker Chew tobacco use (# tins/day): No Frequency of alcohol use: None Drug Abuse: None Family History: Reviewed & Not Pertinent Patient has homicidal ideation: No - Past Medical History Cardiac Medical History: Reports: Hx Congestive Heart Failure, Hx Hypercholesterolemia, Hx Hypertension Denies: Hx Coronary Artery Disease, Hx Heart Attack Pulmonary Medical History: Denies: Hx Asthma, Hx Bronchitis, Hx COPD, Hx Pneumonia Neurological Medical History: Denies: Hx Cerebrovascular Accident, Hx Seizures Endocrine Medical History: Denies: Hx Diabetes Mellitus Type 1 Renal/ Medical History: Reports: Hx End Stage Renal Disease - hemodialysis. Denies: Hx Peritoneal Dialysis GI Medical History: Reports: Hx Gastroesophageal Reflux Disease Musculoskeletal Medical History: Denies Hx Arthritis Past Surgical History: Reports: Hx Appendectomy, Hx Cholecystectomy, Hx Vascular Surgery - RT AV Fistula - Immunizations Hx Diphtheria, Pertussis, Tetanus Vaccination: Yes Physical Exam - Vital signs Vitals: Temp Pulse Resp BP Pulse Ox 98.2 F 88 20 184/77 H 97 09/24/19 20:19 09/24/19 20:19 09/24/19 20:19 09/24/19 20:19 09/24/19 20:19 Course - Vital Signs Vital signs: Temp Pulse Resp BP Pulse Ox 97.7 F 88 20 184/77 H 97 09/24/19 21:02 09/24/19 20:19 09/24/19 20:19 09/24/19 20:19 09/24/19 20:19 Discharge - Discharge Clinical Impression: Bursitis Qualifiers: Bursitis location: knee Knee bursitis location: suprapatellar bursitis Laterality: right Qualified Code(s): M70.51 - Other bursitis of knee, right knee Condition: Stable Disposition: HOME, SELF-CARE Additional Instructions: Continue the Decadron as prescribed. Follow-up closely with orthopedics and your primary care provider or cycle counter for further evaluation of the knee pain. X-ray imaging showed arthritic changes. Prescriptions: Dexamethasone [Decadron 4 Mg Tablet] 4 mg PO DAILY #5 tablet Referrals: VANDANA TREJO PA-C [ALLIED HEALTH PROFESSIONAL] - Follow up as needed YOUSIF DAMICO MD [ACTIVE PROVISIONAL STAFF] - Follow up as needed
[2019-09-24] MEDS ORDERED: HYDROCODONE/ACETAMINOPHEN 5-325 MG (6 TAB/ER DISP) PO PRN (21:20)
[2019-09-24] MEDS ORDERED: DEXAMETHASONE 4 MG TABLET PO ONE (21:20)
--- NOTE | 2019-09-24 21:35 | RADIOLOGY REPORT (SQ) ---
CLINICAL INDICATION: pain. . TECHNIQUE: 4 view(s) were obtained of the right knee. COMPARISON: None. FINDINGS: No acute displaced fracture is identified of the knee. Alignment appears anatomic. Tricompartment osteoarthritis. No significant joint effusion. Vascular calcification. IMPRESSION: No evidence of acute displaced fracture of the knee.
[2019-09-24 21:52] VITALS: BP 140/70
== END 2019-09-24 21:52 | disposition home or self-care (01) ==
LOC: ER 20:14
DX: M70.51 Other bursitis of knee, right knee (principal); M25.561 Pain in right knee; R21 Rash and other nonspecific skin eruption; I12.0 Hypertensive chronic kidney disease with stage 5 chronic kidney disease or end stage renal disease; N18.6 End stage renal disease; Z99.2 Dependence on renal dialysis
CPT/HCPCS: 99283; 73564; A9270 ×2; J8540

== ENCOUNTER 2019-10-17 08:34 | Emergency (ER) | payer MEDICARE, MEDICAID ==
--- NOTE | 2019-10-17 09:24 | ER Document Report ---
ED General - General Chief Complaint: Mouth Problem Stated Complaint: FACIAL SWELLING Time Seen by Provider: 10/17/19 09:02 Primary Care Provider: WILL WANG MD [Primary Care Provider] - Follow up as needed Mode of Arrival: Ambulatory Information source: Patient TRAVEL OUTSIDE OF THE [place] IN LAST 30 DAYS: No - HPI Notes: Patient presents with left-sided facial pain. He states that he is noticed for the last 4 days the left side of his face has been tender and swollen. He has had no trouble breathing or swallowing. No fevers. He states he has noticed that his pain has radiated down into his left jaw and part of his left jaw is also tender. It is a constant severe ache. The only thing that is relieved it is ice and it is worse with any type of touch or movement. He states he does not feel that he has any teeth that are tender. He states he does know that he has a "rotten" tooth on the top left however. States he does not have a dentist and has not seen a dentist recently. He states he is a hemodialysis patient and was due to dialyze today. He states he called them and told them about his tooth pain and they have arranged for him to dialyze tomorrow. - Related Data Allergies/Adverse Reactions: ketorolac [From Toradol] Allergy (Verified 10/17/19 08:48) tramadol Allergy (Verified 10/17/19 08:48) Home Medications: norvasc. nephrovite. pravastatin. ranitidine. renvela. benzonatate. clonidine Past Medical History - General Information source: Patient - Social History Smoking Status: Former Smoker Chew tobacco use (# tins/day): No Frequency of alcohol use: None Drug Abuse: None Family History: Reviewed & Not Pertinent Patient has homicidal ideation: No - Past Medical History Cardiac Medical History: Reports: Hx Congestive Heart Failure, Hx Hyp ercholesterolemia, Hx Hypertension Denies: Hx Coronary Artery Disease, Hx Heart Attack Pulmonary Medical History: Denies: Hx Asthma, Hx Bronchitis, Hx COPD, Hx Pneumonia Neurological Medical History: Denies: Hx Cerebrovascular Accident, Hx Seizures Endocrine Medical History: Denies: Hx Diabetes Mellitus Type 1 Renal/ Medical History: Reports: Hx End Stage Renal Disease - hemodialysis. Denies: Hx Peritoneal Dialysis GI Medical History: Reports: Hx Gastroesophageal Reflux Disease Musculoskeletal Medical History: Denies Hx Arthritis Past Surgical History: Reports: Hx Appendectomy, Hx Cholecystectomy, Hx Vascular Surgery - RT AV Fistula - Immunizations Hx Diphtheria, Pertussis, Tetanus Vaccination: Yes Review of Systems - Review of Systems Constitutional: denies: Chills, Fever Cardiovascular: denies: Chest pain, Palpitations Respiratory: denies: Cough, Short of breath -: Yes All other systems reviewed and negative Physical Exam - Vital signs Vitals: Temp Pulse Resp BP Pulse Ox 98.4 F 86 18 178/80 H 97 10/17/19 08:47 10/17/19 08:47 10/17/19 08:47 10/17/19 08:47 10/17/19 08:47 Interpretation: Hypertensive - General General appearance: Appears well, Alert In distress: None - HEENT Head: Atraumatic, Other - Patient's face is slightly swollen about the left zygomatic arch as well as the left buccal area and some of the left jawline. There is no significant induration or firmness. No heat or erythema. Eyes: Normal Pupils: PERRL Mouth/Lips: Normal Mucous membranes: Moist Teeth diagram: 1 - Patient has a exquisitely tender decayed and fractured tooth in the area diagrammed. Pharynx: Normal, Other - There is no swelling of the floor of the mouth. Patient has diffuse poor dentition with gingivitis. No abscess appreciated. - Respiratory Respiratory status: No respiratory distress Chest status: Nontender Breath sounds: Normal Chest palpation: Normal - Cardiovascular Rhythm: Regular Heart sounds: Normal auscultation Murmur: No - Abdominal Inspection: Normal Distension: No distension Bowel sounds: Normal Tenderness: Nontender Organomegaly: No organomegaly - Back Back: Normal, Nontender - Extremities General upper extremity: Normal inspection, Nontender, Normal color, Normal ROM, Normal temperature General lower extremity: Normal inspection, Nontender, Normal color, Normal ROM, Normal temperature, Normal weight bearing. No: Verito's sign - Neurological Neuro grossly intact: Yes Cognition: Normal Orientation: AAOx4 Yue Coma Scale Eye Opening: Spontaneous Raymond Coma Scale Verbal: Oriented Raymond Coma Scale Motor: Obeys Commands Yue Coma Scale Total: 15 Speech: Normal Motor strength normal: LUE, RUE, LLE, RLE Sensory: Normal - Psychological Associated symptoms: Normal affect, Normal mood - Skin Skin Temperature: Warm Skin Moisture: Dry Skin Color: Normal Course - Vital Signs Vital signs: Temp Pulse Resp BP Pulse Ox 98.4 F 86 18 178/80 H 97 10/17/19 08:48 10/17/19 08:47 10/17/19 08:47 10/17/19 08:47 10/17/19 08:47 Discharge - Discharge Clinical Impression: Dental infection Condition: Stable Disposition: HOME, SELF-CARE Instructions: Toothache (OM) Additional Instructions: Please go to a dentist as soon as possible. Please consider going to a 24-hour emergency dental clinic. Today you were treated with antibiotics and pain medicine for your tooth ache. However, this is only a temporary measure until you can see a dentist. For permanent and definitive treatment of your condition you need to see a dentist for possible extraction of the infected tooth. Please go to dialysis as scheduled. Prescriptions: Cefdinir 300 mg PO DAILY 10 Days #10 capsule Hydrocodone/Acetaminophen [[place] 5-325 mg Tablet] 1 tab PO Q8 PRN 3 Days #9 tablet PRN Reason: Referrals: WILL WANG MD [Primary Care Provider] - Follow up as needed
[2019-10-17] MEDS ORDERED: OXYCODONE-ACETAMINOPHEN 5-325 MG TABLET PO ONE (09:27)
[2019-10-17 10:05] VITALS: BP 190/81
== END 2019-10-17 10:03 | disposition home or self-care (01) ==
LOC: ER 08:34
DX: K04.7 Periapical abscess without sinus (principal); I50.9 Heart failure, unspecified; E11.22 Type 2 diabetes mellitus with diabetic chronic kidney disease; I13.2 Hypertensive heart and chronic kidney disease with heart failure and with stage 5 chronic kidney disease, or end stage renal disease; N18.6 End stage renal disease; E78.00 Pure hypercholesterolemia, unspecified; Z99.2 Dependence on renal dialysis
CPT/HCPCS: 99282; A9270

== ENCOUNTER 2019-10-28 13:47 | Emergency (ER) | payer MEDICARE, MEDICAID ==
--- NOTE | 2019-10-28 15:34 | ER Document Report ---
ED Medical Screen (RME) - General Chief Complaint: Abnormal Lab Results Stated Complaint: DR REFERRED - HIGH HEMOGLOBIN LABS Time Seen by Provider: 10/28/19 15:26 Primary Care Provider: WILL WANG MD [Primary Care Provider] - Follow up as needed TRAVEL OUTSIDE OF THE [place] IN LAST 30 DAYS: No - HPI Notes: 10/28/19 15:29 58-year-old male with a history of chronic kidney disease, hypertension and hyperlipidemia presents to the emergency room because he was advised by his doctor due to having a low hemoglobin complains of weakness and being tired. Denies any chest pain shortness of breath or fever chills. When asked if he had any black tarry stools, patient stood up from a seated position and yelled at me and then and called me and the nurse Radha, "dumb fucking bitches" and then stormed out of the triage and out of triage and then proceeded to continue to shout "you're all dumb fucking bitches" Asked patient to come sit back down to finish triage for further evaluation and examination and patient continued to walk of the emergency room. - Related Data Allergies/Adverse Reactions: ketorolac [From Toradol] Allergy (Verified 10/17/19 08:48) tramadol Allergy (Verified 10/17/19 08:48) Past Medical History - Past Medical History Cardiac Medical History: Reports: Hx Congestive Heart Failure, Hx Hypercholesterolemia, Hx Hypertension Denies: Hx Coronary Artery Disease, Hx Heart Attack Pulmonary Medical History: Denies: Hx Asthma, Hx Bronchitis, Hx COPD, Hx Pneumonia Neurological Medical History: Denies: Hx Cerebrovascular Accident, Hx Seizures Endocrine Medical History: Denies: Hx Diabetes Mellitus Type 1 Renal/ Medical History: Reports: Hx End Stage Renal Disease - hemodialysis. Denies: Hx Peritoneal Dialysis GI Medical History: Reports: Hx Gastroesophageal Reflux Disease Musculoskeltal Medical History: Denies Hx Arthritis Past Surgical History: Reports: Hx Appendectomy, Hx Cholecystectomy, Hx Vascular Surgery - RT AV Fistula - Immunizations Hx Diphtheria, Pertussis, Tetanus Vaccination: Yes Physical Exam - Vital signs Vitals: Temp Pulse Resp BP Pulse Ox 98.6 F 79 18 140/74 H 97 10/28/19 14:16 10/28/19 14:16 10/28/19 14:16 10/28/19 14:16 10/28/19 14:16 Course - Vital Signs Vital signs: Temp Pulse Resp BP Pulse Ox 98.6 F 79 18 140/74 H 97 10/28/19 14:16 10/28/19 14:16 10/28/19 14:16 10/28/19 14:16 10/28/19 14:16 Doctor's Discharge - Discharge Referrals: WILL WANG MD [Primary Care Provider] - Follow up as needed
--- NOTE | 2019-10-28 15:43 | ER Document Report ---
ED Medical Screen (RME) - General Chief Complaint: Abnormal Lab Results Stated Complaint: DR GEE - HIGH HEMOGLOBIN LABS Time Seen by Provider: 10/28/19 15:26 Primary Care Provider: WILL WANG MD [Primary Care Provider] - Follow up as needed TRAVEL OUTSIDE OF THE [place] IN LAST 30 DAYS: No - HPI Notes: 10/28/19 15:40 58-year-old male with a history of hypertension, hypercholesterolemia, kidney disease presents to the emergency room for evaluation after he was told his hemoglobin was around 6, but was unsure of the other values and he also states he feels weak and tired. Denies any chest pain shortness of breath fever chills. Patient states he did forget his blood pressure medications today. Reports he does have a bleeding hemorrhoid that has been bothersome to him. I have greeted and performed a rapid initial assessment of this patient. A comprehensive ED assessment and evaluation of the patient, analysis of test results and completion of the medical decision making process will be conducted by additional ED providers. PHYSICAL EXAMINATION: GENERAL: Well-appearing, well-nourished and in no acute distress. HEAD: Atraumatic, normocephalic. EYES: Pupils equal round extraocular movements intact, conjunctiva are normal. NECK: Normal range of motion CV: s1, s2 regular LUNGS: No respiratory distress - Related Data Allergies/Adverse Reactions: ketorolac [From Toradol] Allergy (Verified 10/17/19 08:48) tramadol Allergy (Verified 10/17/19 08:48) Past Medical History - Past Medical History Cardiac Medical History: Reports: Hx Congestive Heart Failure, Hx Hypercholesterolemia, Hx Hypertension Denies: Hx Coronary Artery Disease, Hx Heart Attack Pulmonary Medical History: Denies: Hx Asthma, Hx Bronchitis, Hx COPD, Hx Pneumonia Neurological Medical History: Denies: Hx Cerebrovascular Accident, Hx Seizures Endocrine Medical History: Denies: Hx Diabetes Mellitus Type 1 Renal/ Medical History: Reports: Hx End Stage Renal Disease - hemodialysis. Denies: Hx Peritoneal Dialysis GI Medical History: Reports: Hx Gastroesophageal Reflux Disease Musculoskeltal Medical History: Denies Hx Arthritis Past Surgical History: Reports: Hx Appendectomy, Hx Cholecystectomy, Hx Vascular Surgery - RT AV Fistula - Immunizations Hx Diphtheria, Pertussis, Tetanus Vaccination: Yes Physical Exam - Vital signs Vitals: Temp Pulse Resp BP Pulse Ox 98.6 F 79 18 140/74 H 97 08/07/20 14:16 10/28/19 14:16 10/28/19 14:16 10/28/19 14:16 10/28/19 14:16 Course - Vital Signs Vital signs: Temp Pulse Resp BP Pulse Ox 98.6 F 79 18 140/74 H 97 10/28/19 14:16 10/28/19 14:16 10/28/19 14:16 10/28/19 14:16 10/28/19 14:16 Doctor's Discharge - Discharge Referrals: WILL WANG MD [Primary Care Provider] - Follow up as needed
--- NOTE | 2019-10-28 16:11 | RADIOLOGY REPORT (SQ) ---
EXAM DESCRIPTION: CHEST SINGLE VIEW IMAGES COMPLETED DATE/TIME: 10/28/2019 3:59 pm REASON FOR STUDY: weakness, fatigue COMPARISON: 07/06/2019 EXAM PARAMETERS: NUMBER OF VIEWS: One view. TECHNIQUE: Single frontal radiographic view of the chest acquired. RADIATION DOSE: NA LIMITATIONS: Low lung volumes. FINDINGS: LUNGS AND PLEURA: Blunting of the costophrenic angles which is stable from prior study. T his may represent pleural thickening or small effusions. No consolidation. MEDIASTINUM AND HILAR STRUCTURES: No masses. Contour normal. HEART AND VASCULAR STRUCTURES: Heart remains enlarged. No failure. BONES: No acute findings. HARDWARE: None in the chest. OTHER: No other significant finding. IMPRESSION: Suspect residual pleural effusions. Stable cardiomegaly. TECHNICAL DOCUMENTATION: JOB ID: [id number] 2010 [employer]- All Rights Reserved Reading location - IP/workstation name: [email or web address]
[2019-10-28 18:30] LABS: ABSOLUTE BASOPHILS # (AUTO) 0.1 10^3/uL (0.0-0.2); ABSOLUTE EOSINOPHILS # (AUTO) 0.3 10^3/uL (0.0-0.6); ABSOLUTE LYMPHOCYTES (AUTO) 0.7 10^3/uL (0.5-4.7); ABSOLUTE MONOCYTES (AUTO) 0.8 10^3/uL (0.1-1.4); ABSOLUTE NEUT (AUTO) 8.5 10^3/uL (1.7-8.2); BASOPHILS % (AUTO) 0.8 % (0-2); EOSINOPHILS % (AUTO) 2.5 % (0-6); LYMPHOCYTES % (AUTO) 6.7 % (13-45); MEAN CORPUSCULAR HEMOGLOBIN 28.4 pg (27.0-33.4); MEAN CORPUSCULAR HGB CONC 31.9 g/dL (32.0-36.0); MEAN CORPUSCULAR VOLUME 89 fl (80-97); MONOCYTES % (AUTO) 7.9 % (3-13); PLATELET COUNT 198 10^3/uL (150-450); RED BLOOD COUNT 2.59 10^6/uL (4.35-5.55); RED CELL DISTRIBUTION WIDTH 17.5 % (11.5-14.0); SEGMENTED NEUTROPHILS % (AUTO) 82.1 % (42-78); TOTAL CELLS COUNTED % (AUTO) 100 %; WHITE BLOOD COUNT 10.3 10^3/uL (4.0-10.5)
[2019-10-28 18:32] LABS: HEMOGLOBIN 7.4 g/dL (13.5-17.0)
[2019-10-28 18:46] LABS: ALBUMIN 4.1 g/dL (3.5-5.0); ALKALINE PHOSPHATASE 60 U/L (38-126); ASPARTATE AMINO TRANSFERASE 22 U/L (17-59); BILIRUBIN,DIRECT 0.4 mg/dL (0.0-0.4); BILIRUBIN,TOTAL 0.5 mg/dL (0.2-1.3); BLOOD UREA NITROGEN 96 mg/dL (7-20); CALCIUM 7.7 mg/dL (8.4-10.2); GLUCOSE 98 mg/dL (75-110); POTASSIUM 5.4 mmol/L (3.6-5.0); TOTAL PROTEIN 7.5 g/dL (6.3-8.2)
[2019-10-28 18:52] LABS: CARBON DIOXIDE 22 mmol/L (22-30); CHLORIDE 96 mmol/L (98-107)
[2019-10-28 18:56] LABS: ANION GAP 19 (5-19)
--- NOTE | 2019-10-28 19:00 | ER Document Report ---
ED General - General Chief Complaint: Abnormal Lab Results Stated Complaint: DR GEE - HIGH HEMOGLOBIN LABS Time Seen by Provider: 10/28/19 15:26 Primary Care Provider: WILL WANG MD [Primary Care Provider] - Follow up as needed Mode of Arrival: Ambulatory Information source: Patient Notes: 10/28/19 18:12 - ED Nursing Note by CIERRA RONGAIL [facility] Num: [id number] : 1960 Patient Age: 58 Patient arrives to ED with c/o abnormal lab results. Pt reports he was called by his doctor and told his hemoglobin was around 6. Patient is unsure of the other values of labs. Pt reports increased fatigue. No acute distress noted, breathing is even and unlabored. Karla notes ED Medical Screen (RME) - General Chief Complaint: Abnormal Lab Results Stated Complaint: DR GEE - HIGH HEMOGLOBIN LABS Time Seen by Provider: 10/28/19 15:26 Primary Care Provider: WILL WANG MD [Primary Care Provider] - Follow up as needed TRAVEL OUTSIDE OF THE [place] IN LAST 30 DAYS: No - HPI Notes: 10/28/19 15:29 58-year-old male with a history of chronic kidney disease, hypertension and hyperlipidemia presents to the emergency room because he was advised by his doctor due to having a low hemoglobin complains of weakness and being tired. Denies any chest pain shortness of breath or fever chills. When asked if he had any black tarry stools, patient stood up from a seated position and yelled at me and then and called me and the nurse Radha, "dumb fucking bitches" and then stormed out of the triage and out of triage and then proceeded to continue to shout "you're all dumb fucking bitches" my notes 58-year-old male who gets dialysis for the last 7 years on Thursday with chief complaint of having fatigue and weakness and shortness of breath if he tries to walk more than 20 feet. Patient is a 7.4 hemoglobin today. He went to get dialysis on Thursday and got some blood drawn and they called him today to get seen. " Actually the knockup worker came to his home because they tried to call him by his cell phone and he reported the knockup worker that he left the phone in his truck and went and got it at that time today." Patient denies any fever chills cough cold does admit to some edema of his legs. He denies any black tarry stools or nausea or vomiting or skin rash or coronavirus exposure. TRAVEL OUTSIDE OF THE [place] IN LAST 30 DAYS: No - HPI Onset: Last week Onset/Duration: Gradual, Persistent Quality of pain: No pain Severity: Mild Pain Level: 1 Associated symptoms: Leg swelling, Weakness Exacerbated by: Denies Relieved by: Denies Similar symptoms previously: Yes Recently seen / treated by doctor: Yes - Related Data Allergies/Adverse Reactions: ketorolac [From Toradol] Allergy (Verified 10/17/19 08:48) tramadol Allergy (Verified 10/17/19 08:48) Past Medical History - Social History Smoking Status: Unknown if Ever Smoked Cigarette use (# per day): No Chew tobacco use (# tins/day): No Smoking Education Provided: No Frequency of alcohol use: None Drug Abuse: None Lives with: Family Family History: Reviewed & Not Pertinent Patient has suicidal ideation: No Patient has homicidal ideation: No - Past Medical History Cardiac Medical History: Reports: Hx Congestive Heart Failure, Hx Hypercholesterolemia, Hx Hypertension Denies: Hx Coronary Artery Disease, Hx Heart Attack Pulmonary Medical History: Denies: Hx Asthma, Hx Bronchitis, Hx COPD, Hx Pneumonia Neurological Medical History: Denies: Hx Cerebrovascular Accident, Hx Seizures Endocrine Medical History: Denies: Hx Diabetes Mellitus Type 1 Renal/ Medical History: Reports: Hx End Stage Renal Disease - hemodialysis. Denies: Hx Peritoneal Dialysis GI Medical History: Reports: Hx Gastroesophageal Reflux Disease Musculoskeletal Medical History: Denies Hx Arthritis Past Surgical History: Reports: Hx Appendectomy, Hx Cholecystectomy, Hx Vascular Surgery - RT AV Fistula - Immunizations Hx Diphtheria, Pertussis, Tetanus Vaccination: Yes Review of Systems - Review of Systems Constitutional: See HPI, Weakness EENT: No symptoms reported Cardiovascular: No symptoms reported Respiratory: No symptoms reported Gastrointestinal: No symptoms reported Genitourinary: No symptoms reported Male Genitourinary: No symptoms reported Musculoskeletal: No symptoms reported Skin: No symptoms reported Hematologic/Lymphatic: No symptoms reported Neurological/Psychological: No symptoms reported Physical Exam - Vital signs Vitals: Temp Pulse Resp BP Pulse Ox 98.6 F 79 18 140/74 H 97 10/28/19 14:16 10/28/19 14:16 10/28/19 14:16 10/28/19 14:16 10/28/19 14:16 Interpretation: Normal - General General appearance: Appears well - HEENT Head: Normocephalic, Atraumatic Eyes: Normal Pupils: PERRL Mouth/Lips: Normal Mucous membranes: Normal Pharynx: Normal Neck: Normal - Respiratory Respiratory status: No respiratory distress Chest status: Nontender Breath sounds: Normal Chest palpation: Normal - Cardiovascular Rhythm: Regular Heart sounds: Normal auscultation Murmur: No - Abdominal Inspection: Normal Distension: No distension Bowel sounds: Normal Tenderness: Nontender Organomegaly: No organomegaly - Rectal Prostate: Other - deferred - Genitourinary Scrotum: Other - deferred - Back Back: Normal - Extremities General upper extremity: Normal inspection General lower extremity: Edema - Neurological Neuro grossly intact: Yes Cognition: Normal Orientation: AAOx4 [place] Coma Scale Eye Opening: Spontaneous [place] Coma Scale Verbal: Oriented [place] Coma Scale Motor: Obeys Commands [place] Coma Scale Total: 15 Speech: Normal Motor strength normal: LUE, RUE, LLE, RLE Sensory: Normal - Psychological Associated symptoms: Normal affect - Skin Skin Temperature: Warm Skin Moisture: Dry Course - Vital Signs Vital signs: Temp Pulse Resp BP Pulse Ox 98.0 F 73 21 H 179/83 H 95 10/28/19 20:50 10/28/19 23:40 10/28/19 23:40 10/28/19 23:31 10/28/19 23:40 - Laboratory Result Diagrams: 10/28/19 18:00 10/28/19 18:00 Laboratory results interpreted by me: 10/28/19 10/28/19 10/28/19 18:00 18:00 18:00 RBC 2.59 L Hgb 7.4 L Hct 23.0 L MCHC 31.9 L RDW 17.5 H Lymph % (Auto) 6.7 L Absolute Neuts (auto) 8.5 H Seg Neutrophils % 82.1 H Sodium 136.9 L Potassium 5.4 H Chloride 96 L BUN 96 H Creatinine 17.49 H Est GFR ( Amer) 3 L Est GFR (MDRD) Non-Af 3 L Calcium 7.7 L Crossmatch See Detail - Diagnostic Test Radiology reviewed: Reports reviewed Discharge - Discharge Clinical Impression: Weakness, ESRD (end stage renal disease), ESRD (end stage renal disease) on dialysis, transfusion today Anemia Qualifiers: Anemia type: iron deficiency Iron deficiency anemia type: unspecified iron deficiency Qualified Code(s): D50.9 - Iron deficiency anemia, unspecified Condition: Good Disposition: HOME, SELF-CARE Additional Instructions: Follow-up with personal doctor this week return to ER as needed take medicines as directed encourage fluids and try to take iron tablets daily for your anemia. Referrals: WILL WANG MD [Primary Care Provider] - Follow up as needed
[2019-10-28] MEDS ORDERED: NORMAL SALINE 250 ML IV PRN ×2 (19:25)
--- NOTE | 2019-10-28 20:33 | EKG REPORT ---
SEVERITY:- ABNORMAL ECG - SINUS RHYTHM FIRST DEGREE AV BLOCK INCOMPLETE RIGHT BUNDLE BRANCH BLOCK : Confirmed by: Fabian Dominguez MD 28-Oct-2019 20:32:54
[2019-10-29 01:00] VITALS: BP 199/83
== END 2019-10-29 00:59 | disposition home or self-care (01) ==
LOC: ER 13:47
DX: I13.2 Hypertensive heart and chronic kidney disease with heart failure and with stage 5 chronic kidney disease, or end stage renal disease (principal); N18.6 End stage renal disease; I50.9 Heart failure, unspecified; Z99.2 Dependence on renal dialysis; D50.9 Iron deficiency anemia, unspecified; R53.1 Weakness; E78.00 Pure hypercholesterolemia, unspecified
CPT/HCPCS: 93005; 99284; 86900; 86901; 36415; 36430; 86850; 85025; 80053; 86920; 71045; 93010; P9016

== ENCOUNTER 2019-10-31 18:57 | Inpatient (IN) | payer MEDICARE, MEDICAID ==
--- NOTE | 2019-10-31 21:47 | ER Document Report ---
ED General - General Chief Complaint: Abnormal Lab Results Stated Complaint: HEMOGLOBIN ISSUE Time Seen by Provider: 10/31/19 21:27 Notes: Patient is a 58-year-old male with a history of end-stage renal disease on dialysis that comes emergency department for chief complaint of low hemoglobin. Patient states that occasionally gets lightheaded but he denies current symptoms including lightheadedness, shortness of breath, palpitations, or any pain. He denies abdominal pain. He states that this morning he had a bowel movement that looked bloody, however he states that he had another bowel movement in the afternoon that did not have any obvious blood. He is not on a blood thinner. He states he was at dialysis today, they rafa blood, his hemoglobin was reportedly 6.8 so he was referred to the emergency department. He was seen on 10/28/2019 and had a hemoglobin of 7.4, he was transfused at that time at this facility. Patient states he does have a history of GI bleed and about 6 months ago he was hospitalized in a different hospital, he had a negative endoscopy/colonoscopy at that time. He states that he was told he had a remote history of a peptic ulcer which was cauterized, he cannot recall when this was. Patient did complete dialysis today, dialysis is Thursday/Thursday/Thursday. Patient also reports a remote history of alcoholism and he therefore has ascites. TRAVEL OUTSIDE OF THE [place] IN LAST 30 DAYS: No - Related Data Allergies/Adverse Reactions: ketorolac [From Toradol] Allergy (Verified 10/17/19 08:48) tramadol Allergy (Verified 10/17/19 08:48) Home Medications: Norvasc, Nephro-shakir, pravastatin, Ranitidine, renvela, benzonate, clonidine, protonix. Past Medical History - General Information source: Patient - Social History Smoking Status: Former Smoker Frequency of alcohol use: None Drug Abuse: None Lives with: Family Family History: Reviewed & Not Pertinent Patient has homicidal ideation: No - Past Medical History Cardiac Medical History: Reports: Hx Congestive Heart Failure, Hx Hypercholesterolemia, Hx Hypertension Denies: Hx Coronary Artery Disease, Hx Heart Attack Pulmonary Medical History: Denies: Hx Asthma, Hx Bronchitis, Hx COPD, Hx Pneumonia Neurological Medical History: Denies: Hx Cerebrovascular Accident, Hx Seizures Endocrine Medical History: Denies: Hx Diabetes Mellitus Type 1 Renal/ Medical History: Reports: Hx End Stage Renal Disease - hemodialysis. Denies: Hx Peritoneal Dialysis GI Medical History: Reports: Hx Gastroesophageal Reflux Disease Musculoskeletal Medical History: Denies Hx Arthritis Past Surgical History: Reports: Hx Appendectomy, Hx Cholecystectomy, Hx Vascular Surgery - RT AV Fistula - Immunizations Hx Diphtheria, Pertussis, Tetanus Vaccination: Yes Review of Systems - Review of Systems Constitutional: See HPI EENT: No symptoms reported Cardiovascular: See HPI Respiratory: No symptoms reported Gastrointestinal: See HPI Genitourinary: No symptoms reported Male Genitourinary: No symptoms reported Musculoskeletal: No symptoms reported Skin: No symptoms reported Hematologic/Lymphatic: No symptoms reported Neurological/Psychological: No symptoms reported Physical Exam - Vital signs Vitals: Temp Pulse Resp BP Pulse Ox 99.4 F 88 16 133/64 H 98 10/31/19 19:22 10/31/19 19:22 10/31/19 19:22 10/31/19 19:22 10/31/19 19:22 - Notes Notes: GENERAL: Alert, interacts well. No acute distress. HEAD: Normocephalic, atraumatic. EYES: Pupils equal, round, and reactive to light. Extraocular movements intact. ENT: Oral mucosa moist, tongue midline. Oropharynx unremarkable. Airway patent. NECK: Full range of motion. Supple. Trachea midline. No lymphadenopathy. LUNGS: Clear to auscultation bilaterally, no wheezes, rales, or rhonchi. No respiratory distress. Non-tender chest wall. HEART: Regular rate and rhythm. No murmur ABDOMEN: Soft, non-tender. Non-distended. Bowel sounds present in all 4 quadrants. GENITOURINARY: Deferred RECTAL: No masses, tenderness, or gross blood. Hemoccult is positive however. Exam performed with Hussein GABRIEL at bedside. EXTREMITIES: Moves all 4 extremities spontaneously. No edema, normal radial and dorsalis pedis pulses bilaterally. No cyanosis. Dialysis fistula present in right upper arm. BACK: no cervical, thoracic, lumbar midline tenderness. No saddle anesthesia, normal distal neurovascular exam. Moves all extremities in full range of motion. NEUROLOGICAL: Alert and oriented x3. Normal speech. Cranial nerves II through XII grossly intact. Strength 5/5 in all extremities. PSYCH: Normal affect, normal mood. SKIN: Warm, dry, normal turgor. No rashes or lesions noted. Course - Re-evaluation Re-evalutation: Patient with intermittent dizziness but no hypotension, tachycardia, and no current symptoms. Abdomen is soft and benign. Rectal exam shows no gross bleeding or concerning findings but this was Hemoccult positive. CBC does show hemoglobin of 6.8 when it was 7.43 days ago. Patient has been transfused since then as well. I suspect patient has a slow lower gastrointestinal bleed. BUN is somewhat elevated but this is significantly lower compared to his previous. Patient has not had a bowel movement in multiple hours now. Discussed with Dr. Crespo. Patient will be transfused 1 unit of blood and he will be discussed with hospitalist for admission for lower GI bleed, symptomatic anemia. Patient states understanding and agreement. I discussed with Dr. Han, hospitalist, he requests that I confirm that there is a dialysis bed present first. I called Kassandra nursing joiners supervisor and she requested that I speak with Dr. Chen who is the on-call wholesale manager. 10/31/[address] Chen, she reports we have 1 dialysis bed, patient can be accepted. Discussed with Dr. Han again, patient accepted to hospitalist service on the medical floor for admission. - Vital Signs Vital signs: Temp Pulse Resp BP Pulse Ox 99.3 F 78 16 141/69 H 96 11/01/19 06:09 11/01/19 06:09 11/01/19 06:09 11/01/19 06:09 11/01/19 06:09 - Laboratory Result Diagrams: 10/31/19 21:57 10/31/19 21:57 Laboratory results interpreted by me: 10/31/19 10/31/19 10/31/19 21:57 21:57 21:57 RBC 2.36 L Hgb 6.8 L Hct 21.1 L RDW 16.4 H Lymph % (Auto) 7.4 L Seg Neutrophils % 79.0 H APTT BUN 53 H Creatinine 10.63 H Est GFR ( Amer) 6 L Est GFR (MDRD) Non-Af 5 L Calcium 7.8 L AST 75 H ALT 60 H Crossmatch See Detail 10/31/19 21:57 RBC Hgb Hct RDW Lymph % (Auto) Seg Neutrophils % APTT 36.3 H BUN Creatinine Est GFR ( Amer) Est GFR (MDRD) Non-Af Calcium AST ALT Crossmatch Discharge - Discharge Clinical Impression: Symptomatic anemia, Anemia requiring transfusions, Lower GI bleed Condition: Stable Disposition: ADMITTED INPATIENT Admitting Provider: Guille (Hospitalist) Unit Admitted: Medical Floor
[2019-10-31 22:15] LABS: ABSOLUTE BASOPHILS # (AUTO) 0.1 10^3/uL (0.0-0.2); ABSOLUTE EOSINOPHILS # (AUTO) 0.2 10^3/uL (0.0-0.6); ABSOLUTE LYMPHOCYTES (AUTO) 0.6 10^3/uL (0.5-4.7); ABSOLUTE MONOCYTES (AUTO) 0.7 10^3/uL (0.1-1.4); EOSINOPHILS % (AUTO) 3.3 % (0-6); HEMATOCRIT 21.1 % (37.9-51.0); LYMPHOCYTES % (AUTO) 7.4 % (13-45); MEAN CORPUSCULAR HEMOGLOBIN 28.8 pg (27.0-33.4); MEAN CORPUSCULAR HGB CONC 32.2 g/dL (32.0-36.0); MEAN CORPUSCULAR VOLUME 89 fl (80-97); MONOCYTES % (AUTO) 9.3 % (3-13); PLATELET COUNT 186 10^3/uL (150-450); RED BLOOD COUNT 2.36 10^6/uL (4.35-5.55); RED CELL DISTRIBUTION WIDTH 16.4 % (11.5-14.0); TOTAL CELLS COUNTED % (AUTO) 100 %; WHITE BLOOD COUNT 7.6 10^3/uL (4.0-10.5)
[2019-10-31 22:20] LABS: PARTIAL THROMBOPLASTIN TIME 36.3 SEC (23.5-35.8); PROTHROMBIN TIME 14.4 SEC (11.4-15.4)
[2019-10-31 22:25] LABS: HEMOGLOBIN 6.8 g/dL (13.5-17.0)
[2019-10-31 22:33] LABS: ALBUMIN 3.8 g/dL (3.5-5.0); ALKALINE PHOSPHATASE 59 U/L (38-126); ANION GAP 10 (5-19); ASPARTATE AMINO TRANSFERASE 75 U/L (17-59); BILIRUBIN,DIRECT 0.3 mg/dL (0.0-0.4); BILIRUBIN,TOTAL 0.4 mg/dL (0.2-1.3); BLOOD UREA NITROGEN 53 mg/dL (7-20); CALCIUM 7.8 mg/dL (8.4-10.2); CARBON DIOXIDE 29 mmol/L (22-30); CHLORIDE 100 mmol/L (98-107); GLUCOSE 108 mg/dL (75-110); POTASSIUM 4.2 mmol/L (3.6-5.0); TOTAL PROTEIN 7.3 g/dL (6.3-8.2)
[2019-10-31] MEDS ORDERED: NORMAL SALINE 250 ML IV PRN ×2 (23:32)
[2019-11-01] MEDS ORDERED: ONDANSETRON HCL INJ/PF 4 MG/2 ML SDV IV PRN (01:42)
[2019-11-01] MEDS ORDERED: MAGNESIUM HYDROXIDE SUSP 30 ML UDCUP PO PRN (01:42)
[2019-11-01] MEDS ORDERED: MAG HYDROX/AL HYDROX/SIMETH SUSP 30 ML UDCUP PO PRN (01:42)
[2019-11-01] MEDS ORDERED: MELATONIN 5 MG TABLET PO PRN (01:48)
[2019-11-01] MEDS ORDERED: ACETAMINOPHEN 325 MG TABLET PO PRN (01:48)
[2019-11-01] MEDS ORDERED: GUAIFENESIN SYRP 200 MG/10 ML UDC PO PRN (01:48)
[2019-11-01] MEDS ORDERED: MORPHINE SULFATE 10 MG/ML INJ IV PRN ×4 (01:48→02:35)
[2019-11-01] MEDS ORDERED: LORAZEPAM INJ 2 MG/1 ML VIAL IV PRN (01:48)
[2019-11-01] MEDS: HEPARIN SOD (PORCINE) 5,000 UNIT/ML 1 ML VIAL SUBCUT SCH ×3 (06:30→21:07)
--- NOTE | 2019-11-01 06:30 | PDOC H&P ---
History of Present Illness Admission Date/PCP: 11/01/19 00:34 Jesse Alvarez MD Patient complains of: Symptomatic anemia History of Present Illness: ANY STRONG is a 58 year old male who presented the emergency room from Dr. Cristo Capellan's office for evaluation of symptomatic anemia. He admits that he received a blood transfusion on 10/28/2019, which improved his hemoglobin to 7.4 and then when it was checked today it had fallen to 6.8. He has experienced intermittent lightheadedness with standing. He further admits that this morning he had blood in his stool. He denies other associated or accompanying signs and symptoms. He admits prior similar episodes. He is a chronic hemodialysis patient. He has not identified any additional aggravating or ameliorating factors for his symptomatic anemia. In the emergency room he was found to have a hemoglobin of 6.8 and a positive stool for occult blood. Due to his symptomatic anemia he was admitted to the hospital for transfusion and further evaluation. Past Medical History Cardiac Medical History: Reports: Congestive Heart Failure, Coronary Artery Disease, Myocardial Infarction - Non-STEMI, Hyperlipidema, Hypertension Denies: Atrial Fibrillation, DVT, Pulmonary Embolism Pulmonary Medical History: Denies: Asthma, Bronchitis, Chronic Obstructive Pulmonary Disease (COPD), Pneumonia EENT Medical History: Denies: Cataracts, Ears - Hearing aids Neurological Medical History: Denies: Hemorrhagic CVA, Ischemic CVA, Seizures Endocrine Medical History: Reports: Obesity Denies: Diabetes Mellitus Type 1, Diabetes Mellitus Type 2, Hyperthyroidism, Hypothyroidism Renal/ Medical History: Reports: End Stage Renal Disease - On hemodialysis MWF Denies: Nephrolithiasis Malignancy Medical History: Reports: None GI Medical History: Reports: Cirrhosis - Alcoholic cirrhosis with ascites, Gastroesophageal Reflux Disease, Peptic Ulcer Disease Denies: Crohn's Disease, Hepatitis, Ulcerative Colitis Musculoskeltal Medical History: Denies: Arthritis, Gout Skin Medical History: Denies: Eczema, Psoriasis Psychiatric Medical History: Reports: Alcohol Dependency, Tobacco Dependency Denies: Substance Abuse Traumatic Medical History: Reports: None Hematology: Reports: Anemia - Chronic anemia associated with ESRD Denies: Bleeding Tendencies Infectious Medical History: Reports: None Past Surgical History Past Surgical History: Reports: Appendectomy, Cholecystectomy, Vascular Surgery - RT AV Fistula Social History Information Source: Patient Lives with: Spouse/Significant other Smoking Status: Former Smoker Electronic Cigarette use?: No Frequency of Alcohol Use: None Hx Recreational Drug Use: No Drugs: None Hx Prescription Drug Abuse: No - Advance Directive Resuscitation Status: Full Code Surrogate healthcare decision maker:: Natasha Fam Family History Family History: Malignancy. denies: CAD, DM, Hypertension Parental Family History Reviewed: Yes Children Family History Reviewed: No Sibling(s) Family History Reviewed.: Yes Medication/Allergy Home Medications: Amlodipine Besylate [Norvasc 10 mg Tablet] 10 mg PO DAILY 04/26/19 Carvedilol [Coreg] 25 mg PO Q12 06/27/19 Metoprolol Succinate [Toprol Xl 25 mg Tab.sr] 25 mg PO Q12 06/27/19 Warfarin Sodium [Jantoven 2.5 mg Tablet] 2.5 mg PO WE@1000 06/27/19 Warfarin Sodium [Jantoven 7.5 mg Tablet] 7.5 mg PO DAILY 06/27/19 Dexamethasone [Decadron 4 Mg Tablet] 4 mg PO DAILY #5 tablet 09/24/19 Cefdinir 300 mg PO DAILY 10 Days #10 capsule 10/17/19 Hydrocodone/Acetaminophen [York 5-325 mg Tablet] 1 tab PO Q8 PRN 3 Days #9 tablet 10/17/19 Allergies/Adverse Reactions: ketorolac [From Toradol] Allergy (Verified 10/17/19 08:48) tramadol Allergy (Verified 10/17/19 08:48) Review of Systems Constitutional: ABSENT: chills, fever(s) Eyes: ABSENT: visual disturbances, other - Eye pain Ears: ABSENT: hearing changes, other - Ear pain Nose, Mouth, and Throat: ABSENT: headache(s), sore throat Cardiovascular: PRESENT: as per HPI, other - Lightheadedness with standing. ABSENT: chest pain, palpitations Respiratory: ABSENT: cough, dyspnea Gastrointestinal: PRESENT: hematochezia. ABSENT: abdominal pain, constipation, diarrhea, nausea, vomiting Musculoskeletal: ABSENT: back pain, joint swelling, muscle weakness Integumentary: ABSENT: pruritus, rash Neurological: ABSENT: confusion, convulsions, focal weakness, memory loss, syncope Psychiatric: ABSENT: anxiety, depression Endocrine: ABSENT: cold intolerance, heat intolerance Hematologic/Lymphatic: ABSENT: easy bleeding, easy bruising Allergic/Immunologic: ABSENT: seasonal rhinorrhea Physical Exam Vital Signs: Temp Pulse Resp BP Pulse Ox 98.9 F 76 17 138/69 H 97 10/31/19 20:51 10/31/19 20:51 10/31/19 22:08 10/31/19 22:08 10/31/19 22:08 Intake & Output 10/30/19 10/31/19 11/01/19 23:59 23:59 23:59 Weight 103.2 kg General appearance: PRESENT: no acute distress, cooperative, obese Head exam: PRESENT: atraumatic, normocephalic Eye exam: PRESENT: conjunctiva pale. ABSENT: conjunctival injection, scleral icterus Ear exam: PRESENT: normal external ear exam. ABSENT: bleeding, drainage Mouth exam: PRESENT: dry mucosa, neck supple Neck exam: ABSENT: thyromegaly, tracheal deviation Respiratory exam: PRESENT: clear to auscultation lew, symmetrical, unlabored Cardiovascular exam: PRESENT: RRR. ABSENT: clicks, gallop, rubs Pulses: ABSENT: normal radial pulses, normal dorsalis pedis pul Vascular exam: PRESENT: normal capillary refill. ABSENT: pallor GI/Abdominal exam: PRESENT: ascites, distended, normal bowel sounds, soft. ABSENT: tenderness Rectal exam: PRESENT: deferred Extremities exam: ABSENT: joint swelling, pedal edema Musculoskeletal exam: ABSENT: deformity, dislocation Neurological exam: PRESENT: alert, oriented to person, oriented to place, oriented to time, oriented to situation, CN II-XII grossly intact. ABSENT: motor sensory deficit Psychiatric exam: PRESENT: appropriate affect, normal mood Skin exam: PRESENT: dry, intact, warm. ABSENT: jaundice, rash, urticaria Results Laboratory Results: 10/31/19 21:57 10/31/19 21:57 10/31/19 10/31/19 10/31/19 21:57 21:57 21:57 WBC 7.6 RBC 2.36 L Hgb 6.8 L Hct 21.1 L MCV 89 MCH 28.8 MCHC 32.2 RDW 16.4 H Plt Count 186 Seg Neutrophils % 79.0 H Sodium 139.1 Potassium 4.2 Chloride 100 Carbon Dioxide 29 Anion Gap 10 BUN 53 H Creatinine 10.63 H Est GFR ( Amer) 6 L Glucose 108 Calcium 7.8 L Total Bilirubin 0.4 AST 75 H Alkaline Phosphatase 59 Total Protein 7.3 Albumin 3.8 Blood Type A POSITIVE Antibody Screen NEGATIVE Assessment and Plan - Diagnosis (1) Symptomatic anemia Is this a current diagnosis for this admission?: Yes (2) ESRD (end stage renal disease) on dialysis Is this a current diagnosis for this admission?: Yes (3) Chronic diastolic CHF (congestive heart failure), NYHA class 3 Is this a current diagnosis for this admission?: Yes (4) Occult blood positive stool Is this a current diagnosis for this admission?: Yes (5) HLD (hyperlipidemia) Qualifiers: Hyperlipidemia type: unspecified Qualified Code(s): E78.5 - Hyperlipidemia, unspecified Is this a current diagnosis for this admission?: Yes (6) GERD (gastroesophageal reflux disease) Qualifiers: Esophagitis presence: without esophagitis Qualified Code(s): K21.9 - Gastro-esophageal reflux disease without esophagitis Is this a current diagnosis for this admission?: Yes (7) Osteoarthritis involving multiple joints on both sides of body Is this a current diagnosis for this admission?: Yes - Plan Summary Summary: Patient will be admitted to the medical floor he will receive routine supportive and symptomatic cares. A 1 unit transfusion of packed red blood cells was initiated by the emergency room provider and will be finished during his hospital course. Serial H&H's will be obtained. A surgical consultation will be obtained with Dr. Basurto. Patient will use Ativan 1 mg IV every 4 hours as needed for anxiety or restlessness. He will use morphine 2 to 4 mg IV every 2 hours as needed pain. He will be seen in consultation by Dr. Chen for the possible need of dialysis here in the hospital on Thursday. He will be on a dialysis diet. He will be continued on his usual home medications, if a ppropriate, as soon as had medication list has been verified and reconciled. - Time Time Spent with patient: 15-24 minutes Medications reviewed and adjusted accordingly: Yes Anticipated Discharge Disposition: Home, Self Care Anticipated Discharge Timeframe: within 72 hours - Inpatient Certification Based on my medical assessment, after consideration of the patient's comorbidities, presenting symptoms, or acuity I expect that the services needed warrant INPATIENT care.: Yes I certify that my determination is in accordance with my understanding of Medicare's requirements for reasonable and necessary INPATIENT services [42 CFR 412.3e].: Yes Medical Necessity: Significant Comorbidiites Make Outpatient Treatment Too Risky, Need Close Monitoring Due to Risk of Patient Decompensation, Risk of Complication if Not Cared For in Hospital
--- NOTE | 2019-11-01 07:28 | PDOC CONSULTATION ---
Consultation Consult Date: 11/01/19 Attending physician:: OPAL LEMOS Provider Consulted: BISI REYES Consult reason:: GI bleed History of Present Illness Admission Date/PCP: 11/01/19 00:34 History of Present Illness: ANY STRONG is a 58 year old male Patient with known GI bleed readmitted to the hospital for persisting weakness, and anemia. Patient has a history of gastrointestinal bleeding several months ago, transferred to [facility] where he underwent upper and lower endoscopy, and found to have evidence of peptic ulcer disease, requiring c auterization. The above information provided by patient, not verified by medical record review due to nonavailability. Over the last several days patient was again found to be bleeding from his rectum intermittently. He was found to have a hemoglobin of 6.8, received a blood unit transfusion. He is now readmitted to the hospital for additional transfusion, and further evaluation. Patient is hemodynamically stable. Surgery was consulted, and patient admitted to the hospital service. Past Medical History Cardiac Medical History: Reports: Congestive Heart Failure, Coronary Artery Disease, Myocardial Infarction - Non-STEMI, Hyperlipidema, Hypertension Denies: Atrial Fibrillation, DVT, Pulmonary Embolism Pulmonary Medical History: Denies: Asthma, Bronchitis, Chronic Obstructive Pulmonary Disease (COPD), Pneumonia EENT Medical History: Denies: Cataracts, Ears - Hearing aids Neurological Medical History: Denies: Hemorrhagic CVA, Ischemic CVA, Seizures Endocrine Medical History: Reports: Obesity Denies: Diabetes Mellitus Type 1, Diabetes Mellitus Type 2, Hyperthyroidism, Hypothyroidism Renal/ Medical History: Reports: End Stage Renal Disease - On hemodialysis MWF Denies: Nephrolithiasis Malignancy Medical History: Reports: None GI Medical History: Reports: Cirrhosis - Alcoholic cirrhosis with ascites, Gastroesophageal Reflux Disease, Peptic Ulcer Disease Denies: Crohn's Disease, Hepatitis, Ulcerative Colitis Musculoskeltal Medical History: Denies: Arthritis, Gout Skin Medical History: Denies: Eczema, Psoriasis Psychiatric Medical History: Reports: Alcohol Dependency, Tobacco Dependency Denies: Depression, Substance Abuse Traumatic Medical History: Reports: None Hematology: Reports: Anemia - Chronic anemia associated with ESRD Denies: Bleeding Tendencies Infectious Medical History: Reports: None Past Surgical History Past Surgical History: Reports: Appendectomy, Cholecystectomy, Vascular Surgery - RT AV Fistula Social History Information Source: Patient Lives with: Spouse/Significant other Smoking Status: Former Smoker Electronic Cigarette use?: No Number of Years Smokin Last Time Smoked: 2013 Frequency of Alcohol Use: None Hx Recreational Drug Use: No Drugs: None Hx Prescription Drug Abuse: No - Advance Directive Resuscitation Status: Full Code Family History Family History: None, Malignancy. denies: CAD, DM, Hypertension Parental Family History Reviewed: No Children Family History Reviewed: No Sibling(s) Family History Reviewed.: No Medication/Allergy Home Medications: Amlodipine Besylate [Norvasc 10 mg Tablet] 10 mg PO DAILY 04/26/19 Carvedilol [Coreg] 25 mg PO Q12 06/27/19 Metoprolol Succinate [Toprol Xl 25 mg Tab.sr] 25 mg PO Q12 06/27/19 Warfarin Sodium [Jantoven 2.5 mg Tablet] 2.5 mg PO WE@1000 06/27/19 Warfarin Sodium [Jantoven 7.5 mg Tablet] 7.5 mg PO DAILY 06/27/19 Dexamethasone [Decadron 4 Mg Tablet] 4 mg PO DAILY #5 tablet 09/24/19 Cefdinir 300 mg PO DAILY 10 Days #10 capsule 10/17/19 Hydrocodone/Acetaminophen [[place] 5-325 mg Tablet] 1 tab PO Q8 PRN 3 Days #9 tablet 10/17/19 Allergies/Adverse Reactions: ketorolac [From Toradol] Allergy (Verified 10/17/19 08:48) tramadol Allergy (Verified 10/17/19 08:48) Review of Systems Constitutional: PRESENT: as per HPI Eyes: ABSENT: visual disturbances Ears: ABSENT: hearing changes Cardiovascular: PRESENT: as per HPI Gastrointestinal: PRESENT: other - GI bleed, sporadic rectal blood. Patient denies constipation. Physical Exam Vital Signs: Temp Pulse Resp BP Pulse Ox 99.3 F 78 16 141/69 H 96 11/01/19 06:09 11/01/19 06:09 11/01/19 06:09 11/01/19 06:09 11/01/19 06:09 Intake & Output 10/31/19 11/01/19 11/02/19 06:59 06:59 06:59 Intake Total 300 Balance 300 Weight 103.2 kg General appearance: PRESENT: no acute distress Head exam: PRESENT: normocephalic - Wilkes is a your bacteremia Respiratory exam: PRESENT: rhonchi Pulses: PRESENT: normal carotid pulses, normal radial pulses GI/Abdominal exam: PRESENT: other - Abdomen is distended, nontender; scars consistent with previous surgery. No peritoneal signs. Rectal exam: PRESENT: deferred Extremities exam: PRESENT: full ROM, +1 edema Musculoskeletal exam: PRESENT: ambulatory Neurological exam: PRESENT: oriented to person, oriented to place, oriented to time, oriented to situation Psychiatric exam: PRESENT: appropriate affect Results Laboratory Results: 10/31/19 21:57 10/31/19 21:57 10/31/19 10/31/19 10/31/19 21:57 21:57 21:57 WBC 7.6 RBC 2.36 L Hgb 6.8 L Hct 21.1 L MCV 89 MCH 28.8 MCHC 32.2 RDW 16.4 H Plt Count 186 Seg Neutrophils % 79.0 H Sodium 139.1 Potassium 4.2 Chloride 100 Carbon Dioxide 29 Anion Gap 10 BUN 53 H Creatinine 10.63 H Est GFR ( Amer) 6 L Glucose 108 Calcium 7.8 L Total Bilirubin 0.4 AST 75 H Alkaline Phosphatase 59 Total Protein 7.3 Albumin 3.8 Blood Type A POSITIVE Antibody Screen NEGATIVE Assessment & Plan - Diagnosis (1) Lower GI bleed Is this a current diagnosis for this admission?: Yes Plan: Impression: GI bleed, chronic, recurrent in 58-year-old white male with history end-stage renal failure, previous upper GI bleed several months ago requiring EGD, with cauterization. Recommendations Plan: 1. Admit, n.p.o., blood transfusion per medicine service 2. Rapid COVID test 3. We will set patient up for upper endoscopy by Dr. Bo, today, LMAC anesthesia. If negative, patient may require colonoscopy. (2) Symptomatic anemia Is this a current diagnosis for this admission?: Yes (3) ESRD (end stage renal disease) Is this a current diagnosis for this admission?: Yes - Time Time Spent: 30 to 50 Minutes Medications reviewed and adjusted accordingly: Yes Anticipated discharge: Home - Inpatient Certification Based on my medical assessment, after consideration of the patient's comorbidities, presenting symptoms, or acuity I expect that the services needed warrant INPATIENT care.: Yes I certify that my determination is in accordance with my understanding of Medicare's requirements for reasonable and necessary INPATIENT services [42 CFR 412.3e].: Yes Medical Necessity: Need For IV Fluids
[2019-11-01 09:47] LABS: ABSOLUTE BASOPHILS # (AUTO) 0.1 10^3/uL (0.0-0.2); ABSOLUTE EOSINOPHILS # (AUTO) 0.2 10^3/uL (0.0-0.6); ABSOLUTE LYMPHOCYTES (AUTO) 0.7 10^3/uL (0.5-4.7); ABSOLUTE MONOCYTES (AUTO) 0.9 10^3/uL (0.1-1.4); ABSOLUTE NEUT (AUTO) 5.2 10^3/uL (1.7-8.2); BASOPHILS % (AUTO) 1.2 % (0-2); EOSINOPHILS % (AUTO) 3.4 % (0-6); HEMATOCRIT 21.7 % (37.9-51.0); LYMPHOCYTES % (AUTO) 9.6 % (13-45); MEAN CORPUSCULAR HEMOGLOBIN 29.1 pg (27.0-33.4); MEAN CORPUSCULAR HGB CONC 32.9 g/dL (32.0-36.0); MEAN CORPUSCULAR VOLUME 89 fl (80-97); MONOCYTES % (AUTO) 12.9 % (3-13); PLATELET COUNT 170 10^3/uL (150-450); RED BLOOD COUNT 2.45 10^6/uL (4.35-5.55); RED CELL DISTRIBUTION WIDTH 15.8 % (11.5-14.0); SEGMENTED NEUTROPHILS % (AUTO) 72.9 % (42-78); TOTAL CELLS COUNTED % (AUTO) 100 %; WHITE BLOOD COUNT 7.1 10^3/uL (4.0-10.5)
[2019-11-01 09:52] LABS: HEMOGLOBIN 7.1 g/dL (13.5-17.0)
[2019-11-01] MEDS ORDERED: PANTOPRAZOLE SODIUM 40 MG VIAL IV SCH (10:00)
[2019-11-01] MEDS ORDERED: LIDOCAINE 2% INJ-PF (100 MG/5 ML) SYRINGE ONE ×2 (11:26→11:29)
[2019-11-01] MEDS ORDERED: PROPOFOL INJ 200 MG/20 ML VIAL IV ONE ×2 (11:26→11:29)
--- NOTE | 2019-11-01 12:12 | Operative Report ---
Nonrecallable Operative Report DATE OF SURGERY: 11/01/19 PREOPERATIVE DIAGNOSIS: gi bleed, anemia POSTOPERATIVE DIAGNOSIS: gi bleed, anemia OPERATION: esophagogastroduodenoscopy SURGEON: SWETHA HERNANDEZ ANESTHESIA: Moderate Sedation TISSUE REMOVED OR ALTERED: none COMPLICATIONS: none ESTIMATED BLOOD LOSS: 0 INTRAOPERATIVE FINDINGS: see note PROCEDURE: Patient was brought to the operating awake alert stable condition placed on the operating table in a supine position and given IV sedation. He was then placed in a left lateral decubitus position. After appropriate timeout site verification the procedure commenced. The Olympus gastroscope was passed into the posterior pharynx and easily traversed the upper esophageal sphincters into the esophagus and then easily passed into the stomach. The body the stomach was examined as well as the antrum and fundus. The scope was then manipulated to the pylorus which was easily cannulated into the duodenum. The duodenum was examined circumferentially to the second portion of the duodenum. There is no evidence of ulcer disease or active bleeding in the duodenum. The scope was slowly withdrawn through the duodenal bulb again there is no evidence of ulcerations. As the scope was withdrawn the antrum appeared to be normal as was the body the stomach the scope was then retroflexed the fundus was identified it was normal however he had a moderate to large hiatal hernia. Scope was then straightened and pulled through the lower esophageal sphincters into the distal esophagus there was evidence of erosions of the distal esophagus with some minimal amount of blood there was questionable mild distal esophageal varices. There was no active bleeding. The scope was then slowly withdrawn and removed. Impression no evidence of acute peptic ulcer. Mild distal distal esophageal erosions with early esophageal varices. Recommendations would start patient on high-dose proton pump inhibitors if the patient starts having upper GI bleeding again would require transfer to a tertiary facility that feels comfortable with esophageal varices.
--- NOTE | 2019-11-01 12:20 | Progress Note ---
Provider Note Provider Note: Patient underwent upper endoscopy this morning. Please see operative note. Please reconsult surgery if necessary.
[2019-11-01] MEDS ORDERED: FENTANYL CITRATE INJ/PF 100 MCG/2 ML AMPUL IV PRN ×2 (13:05)
[2019-11-01] MEDS ORDERED: PROMETHAZINE HCL INJ 25 MG/1 ML VIAL IV PRN (13:05)
[2019-11-01] MEDS ORDERED: DIPHENHYDRAMINE HCL 50 MG/ML VIAL IV PRN (13:05)
[2019-11-01] MEDS: DOCUSATE SODIUM 100 MG CAPSULE PO SCH ×2 (13:33→18:51)
--- NOTE | 2019-11-01 16:39 | PDOC PROGRESS REPORT ---
Subjective Progress Note for:: 11/01/19 Subjective:: ANY STRONG is a 58 year old male who presented the emergency room from Dr. Cristo Capellan's office for evaluation of symptomatic anemia. He admits that he received a blood transfusion on 10/28/2019, which improved his hemoglobin to 7.4 and then when it was checked today it had fallen to 6.8. He has experienced intermittent lightheadedness with standing. He further admits that this morning he had blood in his stool. He denies other associated or accompanying signs and symptoms. He admits prior similar episodes. He is a chronic hemodialysis patient. He has not identified any additional aggravating or ameliorating factors for his symptomatic anemia. In the emergency room he was found to have a hemoglobin of 6.8 and a positive stool for occult blood. Due to his symptomatic anemia he was admitted to the hospital for transfusion and further evaluation. 11/01/2019. Saw patient just after coming back from the OR, patient underwent successful endoscopy, however does not recall what they found, as per operative note by Dr. Bo no evidence of acute peptic ulcer, mild distal esophageal erosions with early esophageal varices. Patient denies any recurrence of hematochezia, denies any fever, chills, nausea, vomiting, diarrhea, constipation. Reason For Visit: SYMPTOMATIC ANEMIA,STOOL OCCULT BLOOD POSITIVE, Physical Exam Vital Signs: Temp Pulse Resp BP Pulse Ox 98.8 F 74 14 134/72 H 98 11/01/19 16:00 11/01/19 16:00 11/01/19 16:00 11/01/19 16:00 11/01/19 16:00 Intake & Output 10/31/19 11/01/19 11/02/19 06:59 06:59 06:59 Intake Total 300 100 Balance 300 100 Weight 103.2 kg General appearance: PRESENT: no acute distress, obese, well-developed, well- nourished Head exam: PRESENT: atraumatic, normocephalic Respiratory exam: PRESENT: clear to auscultation lew. ABSENT: rales, rhonchi, wheezes Cardiovascular exam: PRESENT: RRR. ABSENT: diastolic murmur, rubs, systolic murmur Neurological exam: PRESENT: alert, awake, oriented to person, oriented to place, oriented to time, oriented to situation, CN II-XII grossly intact. ABSENT: motor sensory deficit Results Laboratory Results: 11/01/19 09:33 10/31/19 21:57 10/31/19 10/31/19 10/31/19 21:57 21:57 21:57 WBC 7.6 RBC 2.36 L Hgb 6.8 L Hct 21.1 L MCV 89 MCH 28.8 MCHC 32.2 RDW 16.4 H Plt Count 186 Seg Neutrophils % 79.0 H Sodium 139.1 Potassium 4.2 Chloride 100 Carbon Dioxide 29 Anion Gap 10 BUN 53 H Creatinine 10.63 H Est GFR ( Amer) 6 L Glucose 108 Calcium 7.8 L Total Bilirubin 0.4 AST 75 H Alkaline Phosphatase 59 Total Protein 7.3 Albumin 3.8 Blood Type A POSITIVE Antibody Screen NEGATIVE 11/01/19 09:33 WBC 7.1 RBC 2.45 L Hgb 7.1 L Hct 21.7 L MCV 89 MCH 29.1 MCHC 32.9 RDW 15.8 H Plt Count 170 Seg Neutrophils % 72.9 Sodium Potassium Chloride Carbon Dioxide Anion Gap BUN Creatinine Est GFR ( Amer) Glucose Calcium Total Bilirubin AST Alkaline Phosphatase Total Protein Albumin Blood Type Antibody Screen Assessment and Plan - Diagnosis (1) Acute GI bleeding Is this a current diagnosis for this admission?: Yes Plan: Likely due to upper GI bleed. Status post upper GI endoscopy by Dr. Bo. No acute bleeding finding. No peptic ulcer found. Esophageal erosion and early esophageal varices. We will start on octreotide drip and pantoprazole drip. Monitor H&H and transfuse as necessary. (2) Chronic diastolic CHF (congestive heart failure), NYHA class 3 Is this a current diagnosis for this admission?: Yes Plan: Does not appear to be acutely exacerbated. Denies any anginal symptoms. Resume home meds. Adjust meds as needed. Outpatient PCP follow-up. (3) ESRD (end stage renal disease) on dialysis Is this a current diagnosis for this admission?: Yes Plan: On hemodialysis Thursday. Dr. Chen on board. Dialysis planned. (4) HLD (hyperlipidemia) Qualifiers: Hyperlipidemia type: unspecified Qualified Code(s): E78.5 - Hyperlipidemia, unspecified Is this a current diagnosis for this admission?: Yes Plan: Resume home meds. (5) Osteoarthritis involving multiple joints on both sides of body Is this a current diagnosis for this admission?: Yes Plan: Resume home meds. - Plan Summary Summary: Patient will be admitted to the medical floor he will receive routine supportive and symptomatic cares. A 1 unit transfusion of packed red blood cells was initiated by the emergency room provider and will be finished during his hospital course. Serial H&H's will be obtained. A surgical consultation will be obtained with Dr. Basurto. Patient will use Ativan 1 mg IV every 4 hours as needed for anxiety or restlessness. He will use morphine 2 to 4 mg IV every 2 hours as needed pain. He will be seen in consultation by Dr. Chen for the possible need of dialysis here in the hospital on Thursday. He will be on a di alysis diet. He will be continued on his usual home medications, if appropriate, as soon as had medication list has been verified and reconciled. - Time Time Spent with patient: 25-34 minutes Medications reviewed and adjusted accordingly: Yes Anticipated Discharge Disposition: Home with Home Health Anticipated Discharge Timeframe: within 48 hours
[2019-11-01 19:08] LABS: HEMATOCRIT 21.5 % (37.9-51.0); MEAN CORPUSCULAR HEMOGLOBIN 29.3 pg (27.0-33.4); MEAN CORPUSCULAR HGB CONC 32.4 g/dL (32.0-36.0); MEAN CORPUSCULAR VOLUME 90 fl (80-97); PLATELET COUNT 168 10^3/uL (150-450); RED BLOOD COUNT 2.38 10^6/uL (4.35-5.55); RED CELL DISTRIBUTION WIDTH 16.2 % (11.5-14.0); WHITE BLOOD COUNT 7.6 10^3/uL (4.0-10.5)
[2019-11-01] MEDS: CARVEDILOL 12.5 MG TABLET PO SCH (21:07)
--- NOTE | 2019-11-01 21:19 | PDOC CONSULTATION ---
Consultation Consult Date: 11/01/19 Provider Consulted: LATASHA WARNER Consult reason:: ESRD needing HD History of Present Illness Admission Date/PCP: 11/01/19 00:34 History of Present Illness: ANY STRONG is a 58 year old male with end-stage renal disease on maintenance hemodialysis followed by Dr. Capellan, coronary artery disease, hypertension, alcohol liver cirrhosis and hyperlipidemia admitted yesterday because of symptomatic anemia. The patient has been having low hemoglobin and has been sent to the emergency room previously before this admission but apparently has signed out AMA. He had blood transfusion in October 27, after which his hemoglobin improved only to 7.4. He was advised to go to the emergency room yesterday after dialysis due to persistent low hemoglobin. His postdialysis hemoglobin yesterday was 6.8. He admits that he has been seeing blood in the stool on and off for the past 2 weeks. He admits having shortness of breath on and off, feeling weak, having decreased energy, and feeling lightheaded at times. He denies any abdominal pain, hematemesis, diarrhea, constipation or fever. He was transfused 1 unit of packed RBC yesterday. Today he underwent EGD with Dr. Bo who found esophageal erosion and early esophageal varices. His repeat hemoglobin today was 7.1. He is COVID negative. Past Medical History Cardiac Medical History: Reports: Coronary Artery Disease, Hyperlipidemia, Hypertension-primary, Myocardial Infarction - Non-STEMI Endocrine Medical History: Reports: Obesity Renal/ Medical History: Reports: End Stage Renal Disease - On hemodialysis MWF, Hyperphosphatemia GI Medical History: Reports: Cirrhosis - Alcoholic cirrhosis with ascites, Gastroesophageal Reflux Disease, Peptic Ulcer Disease Psychiatric Medical History: Reports: Alcohol Dependency, Tobacco Dependency Hematology Medical History: Reports Anemia of Chronic Kidney Disease Past Surgical History Past Surgical History: Reports: Appendectomy, Cholecystectomy, Dialysis Access Surgery AVF, Vascular Surgery - RT AV Fistula Social History Information Source: Patient, [facility] Records Lives with: Spouse/Significant other Smoking Status: Former Smoker Electronic Cigarette use?: No Number of Years Smokin Last Time Smoked: 2013 Frequency of Alcohol Use: None Hx Recreational Drug Use: No Drugs: None Hx Prescription Drug Abuse: No - Advance Directive Resuscitation Status: Full Code Family History Family History: Hypertension - Sister, Malignancy - Mother and sister Parental Family History Reviewed: Yes Children Family History Reviewed: Unknown Sibling(s) Family History Reviewed.: Yes Medication/Allergy Home Medications: Amlodipine Besylate [Norvasc 10 mg Tablet] 10 mg PO DAILY 04/26/19 Carvedilol [Coreg] 25 mg PO Q12 06/27/19 Omeprazole Magnesium [Prilosec Otc] 20 mg PO DAILY 11/01/19 Pantoprazole Sodium [Protonix [address] Tablet] 40 mg PO DAILY 11/01/19 Allergies/Adverse Reactions: ketorolac [From Toradol] Allergy (Verified 10/17/19 08:48) tramadol Allergy (Verified 10/17/19 08:48) Review of Systems All systems: reviewed and no additional remarkable complaints except as stated Review of Systems: Constitutional: ABSENT: chills, fatigue, fever(s), headache(s), weight gain, we ight loss; admits feeling weak and decreased energy Eyes: ABSENT: visual disturbances Ears: ABSENT: hearing changes Cardiovascular: ABSENT: chest pain, dyspnea on exertion, edema, orthropnea, palpitations Respiratory: ABSENT: cough, hemoptysis; admits occasional shortness of breath Gastrointestinal: ABSENT: abdominal pain, constipation, diarrhea, hematemesis, hematochezia, nausea, vomiting Genitourinary: ABSENT: dysuria, hematuria Musculoskeletal: ABSENT: joint swelling Integumentary: ABSENT: rash, wounds Neurological: ABSENT: abnormal gait, abnormal speech, confusion, focal weakness, numbness, syncope; admits dizziness Psychiatric: ABSENT: anxiety, depression Endocrine: ABSENT: cold intolerance, heat intolerance, polydipsia, polyuria Hematologic/Lymphatic: ABSENT: easy bleeding, easy bruising, lymphadenopathy Physical Exam Vital Signs: Temp Pulse Resp BP Pulse Ox 98.8 F 78 16 130/73 H 96 11/01/19 13:45 11/01/19 13:45 11/01/19 13:45 11/01/19 13:45 11/01/19 13:45 Intake & Output 10/31/19 11/01/19 11/02/19 06:59 06:59 06:59 Intake Total 300 100 Balance 300 100 Weight 103.2 kg Exam: General appearance: No acute distress, cooperative, well-developed, well- nourished Head exam: PRESENT: atraumatic, normocephalic Eye exam: PRESENT: Conjunctiva pale, EOMI, PERRLA. ABSENT: conjunctival injection, scleral icterus Mouth exam: PRESENT: moist, neck supple, tongue midline Neck exam: PRESENT: full ROM. ABSENT: carotid bruit, JVD, lymphadenopathy, thy romegaly Respiratory exam: PRESENT: clear to auscultation bilaterally. ABSENT: rales, rhonchi, stridor, wheezes Cardiovascular exam: PRESENT: RRR, +S1, +S2. Grade 2/6 systolic murmur Pulses: PRESENT: normal radial pulses, normal dorsalis pedis pulses GI/Abdominal exam: PRESENT: normal bowel sounds, soft. ABSENT: guarding, mass, tenderness Rectal exam: Deferred Extremities exam: PRESENT: full ROM. ABSENT: calf tenderness, pedal edema Musculoskeletal: PRESENT: full ROM. ABSENT: deformity Neurological exam: PRESENT: alert, Awake, Oriented to person, Oriented to place, Oriented to time, reflexes normal, CN II-XII grossly intact. ABSENT: motor sensory deficit Psychiatric exam: PRESENT: appropriate affect, normal mood. ABSENT: homicidal ideation, suicidal ideation Skin exam: PRESENT: intact, dry, warm. ABSENT: rash Results Laboratory Results: 11/01/19 09:33 10/31/19 21:57 10/31/19 10/31/19 10/31/19 21:57 21:57 21:57 WBC 7.6 RBC 2.36 L Hgb 6.8 L Hct 21.1 L MCV 89 MCH 28.8 MCHC 32.2 RDW 16.4 H Plt Count 186 Seg Neutrophils % 79.0 H Sodium 139.1 Potassium 4.2 Chloride 100 Carbon Dioxide 29 Anion Gap 10 BUN 53 H Creatinine 10.63 H Est GFR ( Amer) 6 L Glucose 108 Calcium 7.8 L Total Bilirubin 0.4 AST 75 H Alkaline Phosphatase 59 Total Protein 7.3 Albumin 3.8 Blood Type A POSITIVE Antibody Screen NEGATIVE 11/01/19 09:33 WBC 7.1 RBC 2.45 L Hgb 7.1 L Hct 21.7 L MCV 89 MCH 29.1 MCHC 32.9 RDW 15.8 H Plt Count 170 Seg Neutrophils % 72.9 Sodium Potassium Chloride Carbon Dioxide Anion Gap BUN Creatinine Est GFR ( Amer) Glucose Calcium Total Bilirubin AST Alkaline Phosphatase Total Protein Albumin Blood Type Antibody Screen Assessment & Plan - Diagnosis (1) ESRD on hemodialysis Is this a current diagnosis for this admission?: Yes Plan: We will plan for hemodialysis tomorrow. (2) Symptomatic anemia Is this a current diagnosis for this admission?: Yes Plan: Status post EGD showing esophageal erosions and early esophageal varices which is consistent with his history of alcohol liver cirrhosis. Status post 1 unit of blood transfusion. I think he needs more blood transfusion so I will plan for 2 more units of blood transfusion tomorrow during dialysis. (3) Anemia in CKD (chronic kidney disease) Qualifiers: Chronic kidney disease stage: on chronic dialysis Qualified Code(s): N18.6 - End stage renal disease; D63.1 - Anemia in chronic kidney disease; D63.1 - Anemia in chronic kidney disease; Z99.2 - Dependence on renal dialysis; Z99.2 - Dependence on renal dialysis; Z99.2 - Dependence on renal dialysis; Z99.2 - Dependence on renal dialysis Is this a current diagnosis for this admission?: Yes Plan: I will give Retacrit during dialysis treatment. (4) Hypertension Qualifiers: Hypertension type: essential hypertension Qualified Code(s): I10 - Essential (primary) hypertension Is this a current diagnosis for this admission?: Yes Plan: Acceptable control. - Notes Notes: Thank you for consultation. - Time Time Spent: 50 to 70 Minutes
[2019-11-02] MEDS ORDERED: EPOETIN ALFA-EPBX 20,000 UNIT in SYRINGE, DISPOSABLE, 1 EACH IV PRN (05:00)
[2019-11-02] MEDS ORDERED: NORMAL SALINE 1000 ML 1,000 ML IV PRN (05:00)
[2019-11-02 05:34] LABS: HEMATOCRIT 21.2 % (37.9-51.0); MEAN CORPUSCULAR HEMOGLOBIN 29.2 pg (27.0-33.4); MEAN CORPUSCULAR HGB CONC 32.7 g/dL (32.0-36.0); MEAN CORPUSCULAR VOLUME 89 fl (80-97); PLATELET COUNT 166 10^3/uL (150-450); RED BLOOD COUNT 2.38 10^6/uL (4.35-5.55); RED CELL DISTRIBUTION WIDTH 16.2 % (11.5-14.0); WHITE BLOOD COUNT 7.4 10^3/uL (4.0-10.5)
[2019-11-02 05:39] LABS: HEMOGLOBIN 6.9 g/dL (13.5-17.0)
[2019-11-02] MEDS: HEPARIN SOD (PORCINE) 5,000 UNIT/ML 1 ML VIAL SUBCUT SCH ×3 (05:50→22:29)
[2019-11-02 06:00] LABS: ALKALINE PHOSPHATASE 50 U/L (38-126); ANION GAP 13 (5-19); ASPARTATE AMINO TRANSFERASE 40 U/L (17-59); BILIRUBIN,DIRECT 0.2 mg/dL (0.0-0.4); BILIRUBIN,TOTAL 0.4 mg/dL (0.2-1.3); BLOOD UREA NITROGEN 64 mg/dL (7-20); CALCIUM 7.3 mg/dL (8.4-10.2); CARBON DIOXIDE 25 mmol/L (22-30); CHLORIDE 99 mmol/L (98-107); GLUCOSE 99 mg/dL (75-110); PHOSPHORUS 7.8 mg/dL (2.5-4.5); POTASSIUM 4.7 mmol/L (3.6-5.0); TOTAL PROTEIN 6.1 g/dL (6.3-8.2)
[2019-11-02] MEDS ORDERED: PANTOPRAZOLE SODIUM 80 MG in NORMAL SALINE 100 ML IV ONE (08:15)
[2019-11-02] MEDS: NORMAL SALINE 500 ML with OCTREOTIDE ACETATE 500 MCG IV PRN ×4 (08:37→18:31)
[2019-11-02] MEDS: NORMAL SALINE 100 ML with PANTOPRAZOLE SODIUM 80 MG IV PRN ×4 (09:20→17:25)
[2019-11-02] MEDS ORDERED: NORMAL SALINE 250 ML IV PRN ×2 (09:53)
[2019-11-02] MEDS ORDERED: DIPHENHYDRAMINE HCL 25 MG CAPSULE PO PRN (09:53)
[2019-11-02] MEDS ORDERED: FUROSEMIDE INJ/PF 20 MG/2 ML SDV IV PRN (09:53)
[2019-11-02] MEDS: CARVEDILOL 12.5 MG TABLET PO SCH ×2 (10:47→22:30)
[2019-11-02] MEDS: AMLODIPINE BESYLATE 10 MG TABLET PO SCH (10:47)
[2019-11-02] MEDS: DOCUSATE SODIUM 100 MG CAPSULE PO SCH ×2 (10:49→17:33)
[2019-11-02] MEDS ORDERED: HYDROXYZINE PAMOATE 25 MG CAPSULE PO PRN (12:42)
--- NOTE | 2019-11-02 12:42 | PDOC PROGRESS REPORT ---
Subjective Progress Note for:: 11/02/19 Subjective:: ANY STRONG is a 58 year old male who presented the emergency room from Dr. Cristo Capellan's office for evaluation of symptomatic anemia. He admits that he received a blood transfusion on 10/28/2019, which improved his hemoglobin to 7.4 and then when it was checked today it had fallen to 6.8. He has experienced intermittent lightheadedness with standing. He further admits that this morning he had blood in his stool. He denies other associated or accompanying signs and symptoms. He admits prior similar episodes. He is a chronic hemodialysis patient. He has not identified any additional aggravating or ameliorating factors for his symptomatic anemia. In the emergency room he was found to have a hemoglobin of 6.8 and a positive stool for occult blood. Due to his symptomatic anemia he was admitted to the hospital for transfusion and further evaluation. 11/01/2019. Saw patient just after coming back from the OR, patient underwent successful endoscopy, however does not recall what they found, as per operative note by Dr. Bo no evidence of acute peptic ulcer, mild distal esophageal erosions with early esophageal varices. Patient denies any recurrence of hematochezia, denies any fever, chills, nausea, vomiting, diarrhea, constipation. 11/02/2019. Saw patient this morning getting a peripheral line placed, stating he could not get a good night sleep, however has not had any bloody bowel movement, denies any fever, chills, nausea, vomiting. Findings of endoscopy was explained to him and patient voiced understanding. Scheduled to receive 2 PRBC and hemodialysis today. Reason For Visit: SYMPTOMATIC ANEMIA,STOOL OCCULT BLOOD POSITIVE, Physical Exam Vital Signs: Temp Pulse Resp BP Pulse Ox 97.9 F 60 16 132/75 H 94 11/02/19 12:11 11/02/19 12:11 11/02/19 12:11 11/02/19 12:11 11/02/19 07:32 Intake & Output 11/01/19 11/02/19 11/03/19 06:59 06:59 06:59 Intake Total 300 928 300 Output Total 725 Balance 300 203 300 Weight 103.2 kg 103.5 kg General appearance: PRESENT: obese Head exam: PRESENT: atraumatic, normocephalic Respiratory exam: PRESENT: clear to auscultation lew. ABSENT: rales, rhonchi, wheezes Cardiovascular exam: PRESENT: RRR. ABSENT: diastolic murmur, rubs, systolic murmur GI/Abdominal exam: PRESENT: distended, normal bowel sounds, soft. ABSENT: guarding, mass, organolmegaly, rebound, tenderness Neurological exam: PRESENT: alert, awake, oriented to person, oriented to place, oriented to time, oriented to situation, CN II-XII grossly intact. ABSENT: motor sensory deficit Results Laboratory Results: 11/02/19 04:54 11/02/19 04:54 10/31/19 11/01/19 11/02/19 21:57 18:59 04:54 WBC 7.6 7.4 RBC 2.38 L 2.38 L Hgb 7.0 L 6.9 L Hct 21.5 L 21.2 L MCV 90 89 MCH 29.3 29.2 MCHC 32.4 32.7 RDW 16.2 H 16.2 H Plt Count 168 166 Sodium Potassium Chloride Carbon Dioxide Anion Gap BUN Creatinine Est GFR ( Amer) Glucose Calcium Phosphorus Magnesium Total Bilirubin AST Alkaline Phosphatase Total Protein Albumin Blood Type A POSITIVE Antibody Screen NEGATIVE 11/02/19 04:54 WBC RBC Hgb Hct MCV MCH MCHC RDW Plt Count Sodium 136.7 L Potassium 4.7 Chloride 99 Carbon Dioxide 25 Anion Gap 13 BUN 64 H Creatinine 11.94 H Est GFR ( Amer) 5 L Glucose 99 Calcium 7.3 L Phosphorus 7.8 H Magnesium 1.9 Total Bilirubin 0.4 AST 40 Alkaline Phosphatase 50 Total Protein 6.1 L Albumin 3.0 L Blood Type Antibody Screen Assessment and Plan - Diagnosis (1) Acute GI bleeding Is this a current diagnosis for this admission?: Yes Plan: Likely due to upper GI bleed. Patient has history of hepatic cirrhosis due to alcohol abuse. Status post upper GI endoscopy by Dr. Bo. No acute bleeding finding. No peptic ulcer found. Esophageal erosion and early esophageal varices. Continue octreotide drip and pantoprazole drip. Monitor H&H and transfuse as necessary. Scheduled to receive 2 PRBCs. (2) Chronic diastolic CHF (congestive heart failure), NYHA class 3 Is this a current diagnosis for this admission?: Yes Plan: Does not appear to be acutely exacerbated. Denies any anginal symptoms. Resume home meds. Adjust meds as needed. Outpatient PCP follow-up. (3) ESRD (end stage renal disease) on dialysis Is this a current diagnosis for this admission?: Yes Plan: On hemodialysis Thursday. Dr. Chen on board. Dialysis planned. (4) HLD (hyperlipidemia) Qualifiers: Hyperlipidemia type: unspecified Qualified Code(s): E78.5 - Hyperlipidemia, unspecified Is this a current diagnosis for this admission?: Yes Plan: Resume home meds. (5) Osteoarthritis involving multiple joints on both sides of body Is this a current diagnosis for this admission?: Yes Plan: Resume home meds. (6) Hepatic cirrhosis Qualifiers: Hepatic cirrhosis type: alcoholic cirrhosis Ascites presence: with ascites Qualified Code(s): K70.31 - Alcoholic cirrhosis of liver with ascites Is this a current diagnosis for this admission?: Yes Plan: History of alcoholic cirrhosis. Former alcoholic, quit 5 years ago. Mild thrombocytopenia and anemia. Mildly elevated PTT. Early-stage esophageal varices as per endoscopy on 11/01/2019. Plan as per 1 Outpatient gastroenterology follow-up. - Plan Summary Summary: Patient will be admitted to the medical floor he will receive routine supportive and symptomatic cares. A 1 unit transfusion of packed red blood cells was initiated by the emergency room provider and will be finished during his hospital course. Serial H&H's will be obtained. A surgical consultation will be obtained with Dr. Basurto. Patient will use Ativan 1 mg IV every 4 hours as needed for anxiety or restlessness. He will use morphine 2 to 4 mg IV every 2 hours as needed pain. He will be seen in consultation by Dr. Chen for the possible need of dialysis here in the hospital on Thursday. He will be on a dialysis diet. He will be continued on his usual home medications, if appropriate, as soon as had medication list has been verified and reconciled. - Time Time Spent with patient: 25-34 minutes Medications reviewed and adjusted accordingly: Yes Anticipated Discharge Disposition: Home with Home Health Anticipated Discharge Timeframe: within 72 hours
--- NOTE | 2019-11-02 14:16 | CDI QUERY ---
CDI Query CDI Review: We are seeking further clarification of documentation to reflect the severity of illness of your patient. Per H&P: presented the emergency room from Dr. Cristo Capellan's office for evaluation of symptomatic anemia. He admits that he received a blood transfusion on 10/28/2019, which improved his hemoglobin to 7.4 and then when it was checked today it had fallen to 6.8. Per Progress Notes: In the emergency room he was found to have a hemoglobin of 6.8 and a positive stool for occult blood. Labs: RBC: 2.36 2.45 2.38 2.38 H/H: 6.8 / 21.2 7.1 / 21.7 7.6 / 21.5 6.9 / 21.2 Transfused 1 unit PRBC in the Emergency Room Scheduled to receive 2 PRBCs. Based on your medical judgement, can you further clarify in the Progress Notes: Acute blood loss anemia Acute on chronic blood loss anemia Anemia of chronic disease with acute blood loss anemia Unable to determine Other Thank you for your consideration. LEVI Pollack RN Clinical [employer] Handler Physician Advisor
[2019-11-02 17:44] LABS: ABSOLUTE BASOPHILS # (AUTO) 0.1 10^3/uL (0.0-0.2); ABSOLUTE EOSINOPHILS # (AUTO) 0.2 10^3/uL (0.0-0.6); ABSOLUTE LYMPHOCYTES (AUTO) 0.5 10^3/uL (0.5-4.7); ABSOLUTE MONOCYTES (AUTO) 0.6 10^3/uL (0.1-1.4); ABSOLUTE NEUT (AUTO) 3.7 10^3/uL (1.7-8.2); BASOPHILS % (AUTO) 1.2 % (0-2); EOSINOPHILS % (AUTO) 4.6 % (0-6); HEMATOCRIT 30.7 % (37.9-51.0); LYMPHOCYTES % (AUTO) 10.6 % (13-45); MEAN CORPUSCULAR HGB CONC 32.3 g/dL (32.0-36.0); MEAN CORPUSCULAR VOLUME 90 fl (80-97); MONOCYTES % (AUTO) 11.8 % (3-13); PLATELET COUNT 178 10^3/uL (150-450); RED BLOOD COUNT 3.42 10^6/uL (4.35-5.55); RED CELL DISTRIBUTION WIDTH 15.7 % (11.5-14.0); SEGMENTED NEUTROPHILS % (AUTO) 71.8 % (42-78); TOTAL CELLS COUNTED % (AUTO) 100 %; WHITE BLOOD COUNT 5.1 10^3/uL (4.0-10.5)
[2019-11-02 17:45] LABS: HEMOGLOBIN 9.9 g/dL (13.5-17.0)
--- NOTE | 2019-11-02 22:38 | PDOC PROGRESS REPORT ---
Subjective Progress Note for:: 11/02/19 Subjective:: I am seeing the patient during dialysis this afternoon. He states that he has not seen any more blood in the stool since admission. He is so far stable on dialysis. I am transfusing him 2 units of packed RBC during dialysis. Reason For Visit: SYMPTOMATIC ANEMIA,STOOL OCCULT BLOOD POSITIVE, Physical Exam Vital Signs: Temp Pulse Resp BP Pulse Ox 97.9 F 61 17 118/64 94 11/02/19 07:32 11/02/19 07:32 11/02/19 07:32 11/02/19 07:32 11/02/19 07:32 Intake & Output 11/01/19 11/02/19 11/03/19 06:59 06:59 06:59 Intake Total 300 928 Output Total 725 Balance 300 203 Weight 103.2 kg 103.5 kg Vitals during dialysis: Blood pressure 143/72, heart rate of 61, blood flow rate of 450 mL/min and dialysate flow rate of 800 mL/min. Exam: General appearance: PRESENT: no acute distress, cooperative, well-developed, well-nourished Head exam: PRESENT: atraumatic, normocephalic Eye exam: PRESENT: conjunctiva slightly pale, PERRLA. ABSENT: scleral icterus Neck exam: ABSENT: JVD Respiratory exam: PRESENT: Normal breath sounds. ABSENT: crackles, rales, rhonchi, unlabored, wheezes Cardiovascular exam: PRESENT: Regular rate rhythm -+S1, +S2. Grade 2/6 systolic murmur GI/Abdominal exam: PRESENT: normal bowel sounds, soft. ABSENT: guarding, mass, tenderness Extremities exam: ABSENT: No edema Neurological exam: PRESENT: alert, awake, oriented to person, place and time. Skin exam: PRESENT: dry, warm, Results Laboratory Results: 11/02/19 04:54 11/02/19 04:54 10/31/19 11/01/19 11/02/19 21:57 18:59 04:54 WBC 7.6 7.4 RBC 2.38 L 2.38 L Hgb 7.0 L 6.9 L Hct 21.5 L 21.2 L MCV 90 89 MCH 29.3 29.2 MCHC 32.4 32.7 RDW 16.2 H 16.2 H Plt Count 168 166 Sodium Potassium Chloride Carbon Dioxide Anion Gap BUN Creatinine Est GFR ( Amer) Glucose Calcium Phosphorus Magnesium Total Bilirubin AST Alkaline Phosphatase Total Protein Albumin Blood Type A POSITIVE Antibody Screen NEGATIVE 11/02/19 04:54 WBC RBC Hgb Hct MCV MCH MCHC RDW Plt Count Sodium 136.7 L Potassium 4.7 Chloride 99 Carbon Dioxide 25 Anion Gap 13 BUN 64 H Creatinine 11.94 H Est GFR ( Amer) 5 L Glucose 99 Calcium 7.3 L Phosphorus 7.8 H Magnesium 1.9 Total Bilirubin 0.4 AST 40 Alkaline Phosphatase 50 Total Protein 6.1 L Albumin 3.0 L Blood Type Antibody Screen Assessment & Plan - Diagnosis (1) ESRD on hemodialysis Is this a current diagnosis for this admission?: Yes Plan: We will do dialysis today for [3] hours, using the patient's AV fistula, with 2 potassium bath, blood flow rate of [350-500] mL per minute, dialysate flow rate of 800 mL per minute, ultrafiltration 2 L as tolerated plus the blood volume, no heparin and Retacrit with 20,000 units during dialysis intravenously. Patient is being monitored closely during dialysis and blood transfusions. (2) Symptomatic anemia Is this a current diagnosis for this admission?: Yes Plan: Status post EGD with findings of esophageal erosions and early esophageal varices. Currently being transfused. (3) Acute blood loss anemia Is this a current diagnosis for this admission?: Yes (4) Anemia in CKD (chronic kidney disease) Qualifiers: Chronic kidney disease stage: on chronic dialysis Qualified Code(s): N18.6 - End stage renal disease; D63.1 - Anemia in chronic kidney disease; D63.1 - Anemia in chronic kidney disease; Z99.2 - Dependence on renal dialysis; Z99.2 - Dependence on renal dialysis; Z99.2 - Dependence on renal dialysis; Z99.2 - Dependence on renal dialysis Is this a current diagnosis for this admission?: Yes Plan: Retacrit on dialysis. (5) Hypertension Qualifiers: Hypertension type: essential hypertension Qualified Code(s): I10 - Essential (primary) hypertension Is this a current diagnosis for this admission?: Yes Plan: Controlled. - Time Time with patient: 15-25 minutes
[2019-11-03] MEDS: NORMAL SALINE 100 ML with PANTOPRAZOLE SODIUM 80 MG IV PRN ×4 (03:33→16:39)
[2019-11-03] MEDS: NORMAL SALINE 500 ML with OCTREOTIDE ACETATE 500 MCG IV PRN ×4 (04:39→16:40)
[2019-11-03] MEDS: HEPARIN SOD (PORCINE) 5,000 UNIT/ML 1 ML VIAL SUBCUT SCH ×3 (05:07→22:15)
[2019-11-03 06:59] LABS: ABSOLUTE BASOPHILS # (AUTO) 0.1 10^3/uL (0.0-0.2); ABSOLUTE EOSINOPHILS # (AUTO) 0.3 10^3/uL (0.0-0.6); ABSOLUTE LYMPHOCYTES (AUTO) 0.6 10^3/uL (0.5-4.7); ABSOLUTE NEUT (AUTO) 4.6 10^3/uL (1.7-8.2); BASOPHILS % (AUTO) 1.1 % (0-2); EOSINOPHILS % (AUTO) 4.2 % (0-6); HEMATOCRIT 27.5 % (37.9-51.0); LYMPHOCYTES % (AUTO) 9.1 % (13-45); MEAN CORPUSCULAR HEMOGLOBIN 29.4 pg (27.0-33.4); MEAN CORPUSCULAR HGB CONC 32.9 g/dL (32.0-36.0); MEAN CORPUSCULAR VOLUME 90 fl (80-97); MONOCYTES % (AUTO) 14.8 % (3-13); PLATELET COUNT 170 10^3/uL (150-450); RED BLOOD COUNT 3.06 10^6/uL (4.35-5.55); RED CELL DISTRIBUTION WIDTH 15.9 % (11.5-14.0); SEGMENTED NEUTROPHILS % (AUTO) 70.8 % (42-78); TOTAL CELLS COUNTED % (AUTO) 100 %; WHITE BLOOD COUNT 6.5 10^3/uL (4.0-10.5)
[2019-11-03 07:08] LABS: INTERNATIONAL RATION (INR) 1.15; PROTHROMBIN TIME 14.9 SEC (11.4-15.4)
[2019-11-03 07:15] LABS: ALBUMIN 3.2 g/dL (3.5-5.0); ALKALINE PHOSPHATASE 50 U/L (38-126); ANION GAP 11 (5-19); ASPARTATE AMINO TRANSFERASE 25 U/L (17-59); BILIRUBIN,DIRECT 0.2 mg/dL (0.0-0.4); BILIRUBIN,TOTAL 0.5 mg/dL (0.2-1.3); BLOOD UREA NITROGEN 42 mg/dL (7-20); CALCIUM 7.5 mg/dL (8.4-10.2); CARBON DIOXIDE 28 mmol/L (22-30); CHLORIDE 97 mmol/L (98-107); GLUCOSE 98 mg/dL (75-110); POTASSIUM 4.7 mmol/L (3.6-5.0); TOTAL PROTEIN 6.3 g/dL (6.3-8.2)
[2019-11-03] MEDS: CARVEDILOL 12.5 MG TABLET PO SCH ×2 (09:07→22:14)
[2019-11-03] MEDS: AMLODIPINE BESYLATE 10 MG TABLET PO SCH (09:07)
[2019-11-03] MEDS: DOCUSATE SODIUM 100 MG CAPSULE PO SCH ×2 (09:07→17:19)
--- NOTE | 2019-11-03 13:31 | PDOC PROGRESS REPORT ---
Subjective Progress Note for:: 11/03/19 Subjective:: ANY STRONG is a 58 year old male who presented the emergency room from Dr. Cristo Capellan's office for evaluation of symptomatic anemia. He admits that he received a blood transfusion on 10/28/2019, which improved his hemoglobin to 7.4 and then when it was checked today it had fallen to 6.8. He has experienced intermittent lightheadedness with standing. He further admits that this morning he had blood in his stool. He denies other associated or accompanying signs and symptoms. He admits prior similar episodes. He is a chronic hemodialysis patient. He has not identified any additional aggravating or ameliorating factors for his symptomatic anemia. In the emergency room he was found to have a hemoglobin of 6.8 and a positive stool for occult blood. Due to his symptomatic anemia he was admitted to the hospital for transfusion and further evaluation. 11/01/2019. Saw patient just after coming back from the OR, patient underwent successful endoscopy, however does not recall what they found, as per operative note by Dr. Bo no evidence of acute peptic ulcer, mild distal esophageal erosions with early esophageal varices. Patient denies any recurrence of hematochezia, denies any fever, chills, nausea, vomiting, diarrhea, constipation. 11/02/2019. Saw patient this morning getting a peripheral line placed, stating he could not get a good night sleep, however has not had any bloody bowel movement, denies any fever, chills, nausea, vomiting. Findings of endoscopy was explained to him and patient voiced understanding. Scheduled to receive 2 PRBC and hemodialysis today. 11/03/2019. Saw patient this morning, very pleasant and in good mood, comfortable resting in bed no apparent distress, has had multiple bowel movement has not noticed any melena or hematochezia, received hemodialysis yesterday, denies any fever, chills, nausea, vomiting, diarrhea, constipation or any urinary symptoms. Possible discharge home tomorrow. Reason For Visit: SYMPTOMATIC ANEMIA,STOOL OCCULT BLOOD POSITIVE, Physical Exam Vital Signs: Temp Pulse Resp BP Pulse Ox 98.2 F 57 L 18 115/64 97 11/03/19 11:02 11/03/19 11:02 11/03/19 11:02 11/03/19 11:02 11/03/19 11:02 Intake & Output 11/02/19 11/03/19 11/04/19 06:59 06:59 06:59 Intake Total 928 1776 600 Output Total 725 2800 Balance 203 -1024 600 Weight 103.5 kg 103.2 kg General appearance: PRESENT: no acute distress, obese, well-developed, well- nourished Head exam: PRESENT: atraumatic, normocephalic Respiratory exam: PRESENT: clear to auscultation lew. ABSENT: rales, rhonchi, wheezes Cardiovascular exam: PRESENT: RRR. ABSENT: diastolic murmur, rubs, systolic murmur GI/Abdominal exam: PRESENT: ascites, normal bowel sounds, soft. ABSENT: distended, guarding, mass, organolmegaly, rebound, tenderness Neurological exam: PRESENT: alert, awake, oriented to person, oriented to place, oriented to time, oriented to situation, CN II-XII grossly intact. ABSENT: motor sensory deficit Results Laboratory Results: 11/03/19 06:08 11/03/19 06:08 10/31/19 11/02/19 11/02/19 21:57 17:07 17:07 WBC Cancelled 5.1 RBC Cancelled 3.42 L Hgb Cancelled 9.9 L D Hct Cancelled 30.7 L MCV Cancelled 90 MCH Cancelled 29.0 MCHC Cancelled 32.3 RDW Cancelled 15.7 H Plt Count Cancelled 178 Seg Neutrophils % 71.8 Sodium Potassium Chloride Carbon Dioxide Anion Gap BUN Creatinine Est GFR ( Amer) Glucose Calcium Total Bilirubin AST Alkaline Phosphatase Total Protein Albumin Blood Type A POSITIVE Antibody Screen NEGATIVE 11/03/19 11/03/19 06:08 06:08 WBC 6.5 RBC 3.06 L Hgb 9.0 L Hct 27.5 L MCV 90 MCH 29.4 MCHC 32.9 RDW 15.9 H Plt Count 170 Seg Neutrophils % 70.8 Sodium 136.4 L Potassium 4.7 Chloride 97 L Carbon Dioxide 28 Anion Gap 11 BUN 42 H Creatinine 9.05 H Est GFR ( Amer) 7 L Glucose 98 Calcium 7.5 L Total Bilirubin 0.5 AST 25 Alkaline Phosphatase 50 Total Protein 6.3 Albumin 3.2 L Blood Type Antibody Screen Assessment and Plan - Diagnosis (1) Acute GI bleeding Is this a current diagnosis for this admission?: Yes Plan: Likely due to upper GI bleed. Patient has history of hepatic cirrhosis due to alcohol abuse. Status post upper GI endoscopy by Dr. Bo. No acute bleeding finding. No peptic ulcer found. Esophageal erosion and early esophageal varices. Continue octreotide drip and pantoprazole drip. Monitor H&H and transfuse as necessary. Status post 2 PRBC transfusion on 11/02/2019. Normal bowel movement. Denies any melena or hematochezia. (2) Chronic diastolic CHF (congestive heart failure), NYHA class 3 Is this a current diagnosis for this admission?: Yes Plan: Does not appear to be acutely exacerbated. Denies any anginal symptoms. Resume home meds. Adjust meds as needed. Outpatient PCP follow-up. (3) ESRD (end stage renal disease) on dialysis Is this a current diagnosis for this admission?: Yes Plan: On hemodialysis Thursday. Dr. Chen on board. Status post hemodialysis 11/02/2019. (4) HLD (hyperlipidemia) Qualifiers: Hyperlipidemia type: unspecified Qualified Code(s): E78.5 - Hyperlipidemia, unspecified Is this a current diagnosis for this admission?: Yes Plan: Resume home meds. (5) Osteoarthritis involving multiple joints on both sides of body Is this a current diagnosis for this admission?: Yes Plan: Resume home meds. (6) Hepatic cirrhosis Qualifiers: Hepatic cirrhosis type: alcoholic cirrhosis Ascites presence: with ascites Qualified Code(s): K70.31 - Alcoholic cirrhosis of liver with ascites Is this a current diagnosis for this admission?: Yes Plan: History of alcoholic cirrhosis. Former alcoholic, quit 5 years ago. Mild thrombocytopenia and anemia. Mildly elevated PTT. Early-stage esophageal varices as per endoscopy on 11/01/2019. Plan as per 1 Outpatient gastroenterology follow-up. - Plan Summary Summary: Patient will be admitted to the medical floor he will receive routine supportive and symptomatic cares. A 1 unit transfusion of packed red blood cells was initiated by the emergency room provider and will be finished during his hospital course. Serial H&H's will be obtained. A surgical consultation will be obtained with Dr. Basurto. Patient will use Ativan 1 mg IV every 4 hours as needed for anxiety or restlessness. He will use morphine 2 to 4 mg IV every 2 hours as needed pain. He will be seen in consultation by Dr. Chen for the possible need of dialysis here in the hospital on Thursday. He will be on a dialysis diet. He will be continued on his usual home medications, if appropriate, as soon as had medication list has been verified and reconciled. - Time Time Spent with patient: 25-34 minutes Anticipated Discharge Disposition: Home with Home Health Anticipated Discharge Timeframe: within 48 hours
--- NOTE | 2019-11-03 16:57 | PDOC PROGRESS REPORT ---
Subjective Progress Note for:: 11/03/19 Reason For Visit: Saw patient today. He is much more comfortable than when he came in with symptomatic anemia. He denies any more abdominal pains or hematochezia. Endoscopy shows esophageal varices cysts/early, erosions. He says he quit drinking alcohol 3 - 4 years ago. Patient is an extremely noncompliant patient with diet/medication/hemodialysis treatments and he has missed multiple treatments. He denies any abdominal pain though he has noted distention of his abdomen suggestive indicative of ascites. Labs and medications were reviewed. Physical Exam Vital Signs: Temp Pulse Resp BP Pulse Ox 98.0 F 58 L 18 120/72 96 11/03/19 15:08 11/03/19 15:08 11/03/19 15:08 11/03/19 15:08 11/03/19 15:08 Intake & Output 11/02/19 11/03/19 11/04/19 06:59 06:59 06:59 Intake Total 928 1776 1200 Output Total 725 2800 Balance 203 -1024 1200 Weight 103.5 kg 103.2 kg General appearance: PRESENT: no acute distress Respiratory exam: PRESENT: clear to auscultation lew, decreased breath sounds. ABSENT: crackles Cardiovascular exam: PRESENT: +S1, +S2 GI/Abdominal exam: PRESENT: ascites, distended, normal bowel sounds, soft. ABSENT: organomegaly, tenderness Extremities exam: PRESENT: pedal edema Neurological exam: PRESENT: alert, awake, oriented to person, oriented to place Psychiatric exam: PRESENT: appropriate affect Results Laboratory Results: 11/03/19 06:08 11/03/19 06:08 11/02/19 11/02/19 11/03/19 17:07 17:07 06:08 WBC Cancelled 5.1 6.5 RBC Cancelled 3.42 L 3.06 L Hgb Cancelled 9.9 L D 9.0 L Hct Cancelled 30.7 L 27.5 L MCV Cancelled 90 90 MCH Cancelled 29.0 29.4 MCHC Cancelled 32.3 32.9 RDW Cancelled 15.7 H 15.9 H Plt Count Cancelled 178 170 Seg Neutrophils % 71.8 70.8 Sodium Potassium Chloride Carbon Dioxide Anion Gap BUN Creatinine Est GFR ( Amer) Glucose Calcium Total Bilirubin AST Alkaline Phosphatase Total Protein Albumin 08/13/20 06:08 WBC RBC Hgb Hct MCV MCH MCHC RDW Plt Count Seg Neutrophils % Sodium 136.4 L Potassium 4.7 Chloride 97 L Carbon Dioxide 28 Anion Gap 11 BUN 42 H Creatinine 9.05 H Est GFR ( Amer) 7 L Glucose 98 Calcium 7.5 L Total Bilirubin 0.5 AST 25 Alkaline Phosphatase 50 Total Protein 6.3 Albumin 3.2 L Assessment & Plan - Diagnosis (1) Acute blood loss anemia Is this a current diagnosis for this admission?: Yes Plan: Status post transfusions. Now has had endoscopy and showed esophageal erosions/early esophageal varices. Has had no further hematochezia. Monitor. (2) Hepatic cirrhosis Qualifiers: Hepatic cirrhosis type: alcoholic cirrhosis Ascites presence: with ascites Qualified Code(s): K70.31 - Alcoholic cirrhosis of liver with ascites Is this a current diagnosis for this admission?: Yes Plan: History of severe alcoholism in the past. He used to drink at least 12 beers a day until he says 2- 3 years ago.We will also recheck his hepatitis serology (3) Lower GI bleed Is this a current diagnosis for this admission?: Yes Plan: Patient presented with hematochezia. No evidences of any variceal bleed even though he has early varices on upper GI endoscopy. However he had esophageal erosions. Apparently has had a history of hemorrhoidal bleed in the past. (4) Chronic diastolic heart failure Plan: Status quo presently compensated (5) ESRD (end stage renal disease) on dialysis Is this a current diagnosis for this admission?: Yes Plan: Plan for dialysis in the morning. Orders have been placed. (6) Hypertension Qualifiers: Hypertension type: essential hypertension Qualified Code(s): I10 - Essential (primary) hypertension Is this a current diagnosis for this admission?: Yes Plan: Controlled. (7) Non-compliant behavior Plan: History of severe noncompliance with diet/medication/missed dialysis treatments which is very unfortunate.
[2019-11-04] MEDS: NORMAL SALINE 100 ML with PANTOPRAZOLE SODIUM 80 MG IV PRN ×2 (03:01)
[2019-11-04] MEDS: NORMAL SALINE 500 ML with OCTREOTIDE ACETATE 500 MCG IV PRN ×2 (03:03)
[2019-11-04] MEDS ORDERED: EPOETIN ALFA-EPBX 2,000 UNIT, EPOETIN ALFA-EPBX 3,000 UNIT, EPOETIN ALFA-EPBX 20,000 UN... IV PRN ×4 (05:00)
[2019-11-04] MEDS: HEPARIN SOD (PORCINE) 5,000 UNIT/ML 1 ML VIAL SUBCUT SCH (05:10)
[2019-11-04 08:10] VITALS: BP 128/69
[2019-11-04] MEDS: DOCUSATE SODIUM 100 MG CAPSULE PO SCH (10:17)
[2019-11-04] MEDS: AMLODIPINE BESYLATE 10 MG TABLET PO SCH (10:17)
[2019-11-04] MEDS: CARVEDILOL 12.5 MG TABLET PO SCH (10:17)
--- NOTE | 2019-11-05 16:20 | PDOC DISCHARGE SUMMARY ---
Impression - Admit/DC Date/PCP Admission Date/Primary Care Provider: 11/01/19 00:34 Discharge Date: 11/05/19 - Discharge Diagnosis (1) Acute GI bleeding Is this a current diagnosis for this admission?: Yes (2) Chronic diastolic CHF (congestive heart failure), NYHA class 3 Is this a current diagnosis for this admission?: Yes (3) ESRD (end stage renal disease) on dialysis Is this a current diagnosis for this admission?: Yes (4) HLD (hyperlipidemia) Is this a current diagnosis for this admission?: Yes (5) Osteoarthritis involving multiple joints on both sides of body Is this a current diagnosis for this admission?: Yes (6) Hepatic cirrhosis Is this a current diagnosis for this admission?: Yes - Assessment Summary: Patient will be admitted to the medical floor he will receive routine supportive and symptomatic cares. A 1 unit transfusion of packed red blood cells was initiated by the emergency room provider and will be finished during his hospital course. Serial H&H's will be obtained. A surgical consultation will be obtained with Dr. Basurto. Patient will use Ativan 1 mg IV every 4 hours as needed for anxiety or restlessness. He will use morphine 2 to 4 mg IV every 2 hours as needed pain. He will be seen in consultation by Dr. Chen for the possible need of dialysis here in the hospital on Thursday. He will be on a dialysis diet. He will be continued on his usual home medications, if appropriate, as soon as had medication list has been verified and reconciled. - Additional Information Resuscitation Status: Full Code Referrals: [facility] [Outside] - 11/04/19 (m-w-f dialysis) Home Medications: Amlodipine Besylate [Norvasc 10 mg Tablet] 10 mg PO DAILY 04/26/19 Carvedilol [Coreg] 25 mg PO Q12 06/27/19 Omeprazole Magnesium [Prilosec Otc] 20 mg PO DAILY 11/01/19 Pantoprazole Sodium [Protonix [address] Tablet] 40 mg PO DAILY 11/01/19 History of Present Illiness History of Present Illness: ANY STRONG is a 58 year old male who presented the emergency room from Dr. Cristo Capellan's office for evaluation of symptomatic anemia. He admits that he received a blood transfusion on 10/28/2019, which improved his hemoglobin to 7.4 and then when it was checked today it had fallen to 6.8. He has experienced intermittent lightheadedness with standing. He further admits that this morning he had blood in his stool. He denies other associated or accompanying signs and symptoms. He admits prior similar episodes. He is a chronic hemodialysis patient. He has not identified any additional aggravating or ameliorating factors for his symptomatic anemia. In the emergency room he was found to have a hemoglobin of 6.8 and a positive stool for occult blood. Due to his symptomatic anemia he was admitted to the hospital for transfusion and further evaluation. Hospital Course Hospital Course: (1) Acute GI bleeding Likely due to upper GI bleed. Patient has history of hepatic cirrhosis due to alcohol abuse. Status post upper GI endoscopy by Dr. Bo. No acute bleeding finding. No peptic ulcer found. Esophageal erosion and early esophageal varices. Continue octreotide drip and pantoprazole drip. Monitor H&H and transfuse as necessary. Status post 2 PRBC transfusion on 11/02/2019. Normal bowel movement. Denies any melena or hematochezia. (2) Chronic diastolic CHF (congestive heart failure), NYHA class 3 Does not appear to be acutely exacerbated. Denies any anginal symptoms. Resume home meds. Adjust meds as needed. Outpatient PCP follow-up. (3) ESRD (end stage renal disease) on dialysis On hemodialysis Thursday. Dr. Chen on board. Status post hemodialysis 11/02/2019. (4) HLD (hyperlipidemia) Resume home meds. (5) Osteoarthritis involving multiple joints on both sides of body Resume home meds. (6) Hepatic cirrhosis History of alcoholic cirrhosis. Former alcoholic, quit 5 years ago. Mild thrombocytopenia and anemia. Mildly elevated PTT. Early-stage esophageal varices as per endoscopy on 11/01/2019. Plan as per 1 Outpatient gastroenterology follow-up. Physical Exam Vital Signs: Temp Pulse Resp BP Pulse Ox 98.3 F 58 L 16 128/69 H 99 11/04/19 06:17 11/04/19 06:17 11/04/19 06:17 11/04/19 06:17 11/04/19 06:17 Intake & Output 11/04/19 11/05/19 11/06/19 06:59 06:59 06:59 Intake Total 1800 Output Total 0 Balance 1800 Weight 103.2 kg General appearance: PRESENT: no acute distress, well-developed, well-nourished Head exam: PRESENT: atraumatic, normocephalic Respiratory exam: PRESENT: clear to auscultation lew. ABSENT: rales, rhonchi, wheezes GI/Abdominal exam: PRESENT: ascites, distended, normal bowel sounds, soft. ABSENT: guarding, mass, organolmegaly, rebound, tenderness Neurological exam: PRESENT: alert, awake, oriented to person, oriented to place, oriented to time, oriented to situation, CN II-XII grossly intact. ABSENT: motor sensory deficit Results Laboratory Results: WBC 6.5 10^3/uL (4.0-10.5) 11/03/19 06:08 RBC 3.06 10^6/uL (4.35-5.55) L 11/03/19 06:08 Hgb 9.0 g/dL (13.5-17.0) L 11/03/19 06:08 Hct 27.5 % (37.9-51.0) L 11/03/19 06:08 MCV 90 fl (80-97) 11/03/19 06:08 MCH 29.4 pg (27.0-33.4) 11/03/19 06:08 MCHC 32.9 g/dL (32.0-36.0) 11/03/19 06:08 RDW 15.9 % (11.5-14.0) H 11/03/19 06:08 Plt Count 170 10^3/uL (150-450) 11/03/19 06:08 Lymph % (Auto) 9.1 % (13-45) L 11/03/19 06:08 Crosby % (Auto) 14.8 % (3-13) H 11/03/19 06:08 Eos % (Auto) 4.2 % (0-6) 11/03/19 06:08 Baso % (Auto) 1.1 % (0-2) 11/03/19 06:08 Absolute Neuts (auto) 4.6 10^3/uL (1.7-8.2) 11/03/19 06:08 Absolute Lymphs (auto) 0.6 10^3/uL (0.5-4.7) 11/03/19 06:08 Absolute Monos (auto) 1.0 10^3/uL (0.1-1.4) 11/03/19 06:08 Absolute Eos (auto) 0.3 10^3/uL (0.0-0.6) 11/03/19 06:08 Absolute Basos (auto) 0.1 10^3/uL (0.0-0.2) 11/03/19 06:08 Seg Neutrophils % 70.8 % (42-78) 11/03/19 06:08 Platelet Estimate Cancelled 11/02/19 17:07 PT 14.9 SEC (11.4-15.4) 11/03/19 06:08 INR 1.15 11/03/19 06:08 APTT 36.3 SEC (23.5-35.8) H 10/31/19 21:57 Sodium 136.4 mmol/L (137-145) L 11/03/19 06:08 Potassium 4.7 mmol/L (3.6-5.0) 11/03/19 06:08 Chloride 97 mmol/L (98-107) L 11/03/19 06:08 Carbon Dioxide 28 mmol/L (22-30) 11/03/19 06:08 Anion Gap 11 (5-19) 11/03/19 06:08 BUN 42 mg/dL (7-20) H 11/03/19 06:08 Creatinine 9.05 mg/dL (0.52-1.25) H 11/03/19 06:08 Est GFR ( Amer) 7 (>60) L 11/03/19 06:08 Est GFR (MDRD) Non-Af 6 (>60) L 11/03/19 06:08 Glucose 98 mg/dL (75-110) 11/03/19 06:08 Calcium 7.5 mg/dL (8.4-10.2) L 11/03/19 06:08 Phosphorus 7.8 mg/dL (2.5-4.5) H 11/02/19 04:54 Magnesium 1.9 mg/dL (1.6-2.3) 11/02/19 04:54 Total Bilirubin 0.5 mg/dL (0.2-1.3) 11/03/19 06:08 Direct Bilirubin 0.2 mg/dL (0.0-0.4) 11/03/19 06:08 Neonat Total Bilirubin Not Reportable 11/03/19 06:08 Neonat Direct Bilirubin Not Reportable 11/03/19 06:08 Neonat Indirect Bili Not Reportable 11/03/19 06:08 AST 25 U/L (17-59) 11/03/19 06:08 ALT 27 U/L (<50) 11/03/19 06:08 Alkaline Phosphatase 50 U/L (38-126) 11/03/19 06:08 Total Protein 6.3 g/dL (6.3-8.2) 11/03/19 06:08 Albumin 3.2 g/dL (3.5-5.0) L 11/03/19 06:08 POC Stool Occult Blood POSITIVE (NEGATIVE) 10/31/19 21:41 SARS-CoV-2 (PCR) NEGATIVE (NEGATIVE) 11/01/19 07:15 Slides for Path Review Cancelled 11/02/19 17:07 Blood Type A POSITIVE 10/31/19 21:57 Blood Type Confirm A POSITIVE 10/31/19 21:57 Antibody Screen NEGATIVE 10/31/19 21:57 Crossmatch See Detail 10/31/19 21:57 Stroke Is this a Stroke Patient?: No Acute Heart Failure - Is this a Heart Failure Patient?: No
== END 2019-11-04 10:28 | disposition left against medical advice (07) | DRG 377 ==
LOC: ER 18:57 → EH 11-01 00:34 → 4S 11-01 02:55
PROVIDERS: ADMIT Emergency Medicine; ATTEND Internal Medicine
PROC: 30233N1 Transfusion of Nonautologous Red Blood Cells into Peripheral Vein, Percutaneous Approach (ICD-10-PCS; 2019-11-01)
PROC: 0DJ08ZZ Inspection of Upper Intestinal Tract, Via Natural or Artificial Opening Endoscopic (ICD-10-PCS; principal; 2019-11-01 11:30)
PROC: 30233N1 Transfusion of Nonautologous Red Blood Cells into Peripheral Vein, Percutaneous Approach (ICD-10-PCS; 2019-11-02)
PROC: 5A1D70Z Performance of Urinary Filtration, Intermittent, Less than 6 Hours Per Day (ICD-10-PCS; 2019-11-02)
DX: K92.2 Gastrointestinal hemorrhage, unspecified (principal); N18.6 End stage renal disease; I13.2 Hypertensive heart and chronic kidney disease with heart failure and with stage 5 chronic kidney disease, or end stage renal disease; I50.32 Chronic diastolic (congestive) heart failure; D62 Acute posthemorrhagic anemia; D69.6 Thrombocytopenia, unspecified; K70.31 Alcoholic cirrhosis of liver with ascites; D63.1 Anemia in chronic kidney disease; E78.5 Hyperlipidemia, unspecified; M15.9 Polyosteoarthritis, unspecified; I25.10 Atherosclerotic heart disease of native coronary artery without angina pectoris; I85.00 Esophageal varices without bleeding; E66.9 Obesity, unspecified; K21.9 Gastro-esophageal reflux disease without esophagitis; F10.20 Alcohol dependence, uncomplicated; Z99.2 Dependence on renal dialysis; Z79.899 Other long term (current) drug therapy; Z11.59 Encounter for screening for other viral diseases; I25.2 Old myocardial infarction; Z87.11 Personal history of peptic ulcer disease; Z87.891 Personal history of nicotine dependence; Z88.6 Allergy status to analgesic agent; Z79.02 Long term (current) use of antithrombotics/antiplatelets; Z91.15 Patient's noncompliance with renal dialysis; Z91.14 Patient's other noncompliance with medication regimen; Z91.11 Patient's noncompliance with dietary regimen; Z82.49 Family history of ischemic heart disease and other diseases of the circulatory system
CPT/HCPCS: 36415; 36430; 43235; 731; 80053; 82270; 83735; 84100; 85025; 85027; 85610; 85730; 86850; 86900; 86901; 86920; 87635; 99140; 99285; C9113; C9803; J2001; J2354; J2704; J3490; J7040; J7050; P9016; Q5105

== ENCOUNTER → 2020-01-02 | Outpatient (CLI) | payer MEDICARE, MEDICAID ==
--- NOTE | 2020-01-02 11:39 | RADIOLOGY REPORT (SQ) ---
EXAM DESCRIPTION: U/S ABDOMEN COMPLETE W/DOPPLER IMAGES COMPLETED DATE/TIME: 01/02/2020 7:52 am REASON FOR STUDY: OTHER ASCITES R18.8 OTHER ASCITES R01.1 CARDIAC MURMUR, UNSPECIFIED. GERD with esophagitis. COMPARISON: Abdominal ultrasound, 06/27/2019. CT angiography abdomen and pelvis, 06/26/2019. TECHNIQUE: Dynamic and static grayscale images acquired of the abdomen and recorded on PACS. Additio nal selected color Doppler and spectral images recorded. Note: Study does not meet criteria for complete doppler/duplex scan LIMITATIONS: None. FINDINGS: PANCREAS: Head and body have normal contour and appearance. The tail is obscured by overl tato bowel gas. No pancreatic ductal dilation. LIVER: Liver has shrunken nodular contour with diffuse increased echogenicity throughout. Coarse lilo kground echotexture. LIVER VASCULATURE: Normal directional flow of the main portal vein and hepatic veins. GALLBLADDER: Surgically absent. ULTRASOUND-DETECTED GRUBER'S SIGN: Negative. INTRAHEPATIC DUCTS AND COMMON DUCT: CBD and intrahepatic ducts normal caliber. No filling defects. INFERIOR VENA CAVA: Normal flow. AORTA: No aneurysm. RIGHT KIDNEY: Moderate atrophy with kidney measuring 8.1 cm. There is loss of the normal renal erica ex. Multiple anechoic cysts, the largest measures 2.6 x 2.6 x 2.3 cm. No hydronephrosis. No calc ifications. LEFT KIDNEY: Moderate atrophy with left kidney measuring 7.7 cm. Loss of the normal cortex. Loss of normal corticomedullary differentiation. There is an echogenic solid mass at the midpole left ki dney measuring 3.9 x 4.5 x 3.2 cm. Color Doppler imaging demonstrates some internal vascularity. Th is was previously thought to represent a stable hemorrhagic cyst. No hydronephrosis. No calcificat ions. SPLEEN: Normal size. No solid masses. PERITONEAL AND PLEURAL SPACES: Small amount of ascites, largest pocket in the left lower quadrant abd omen. OTHER: No other significant finding. IMPRESSION: 1. Solid mass left kidney suspicious for renal cortical neoplasm. Further evaluation with dedicated renal protocol MRI or CT is recommended. 2. Moderate bilateral renal cortical atrophy, stable. 3. Nodular contour of the liver is nonspecific, possibly indicating underlying hepatic cirrhosis. Cl inical correlation. 4. Small amount of ascites. TECHNICAL DOCUMENTATION: JOB ID: [id number] [employer]- All Rights Reserved Reading location - IP/workstation name: [email or web address]
--- NOTE | 2020-01-02 21:10 | XCELERA REPORT ---
[address] [address] Transthoracic Echocardiogram Report Name: ANY STRONG Age: 59 yrs Gender: Male : 1960 Patient Status: Outpatient Patient Location: RAD Study Date: 01/02/2020 08:58 AM Height: 70 in Weight: 210 lb BSA: 2.1 m2 Procedure: A complete two-dimensional transthoracic echocardiogram was performed (2D, M-mode, spectral and color flow Doppler). The study was technically difficult with many images being suboptimal in quality. Reason For Study: MURMUR Ordering Physician: WILL WANG Performed By: Giuliano Adams Interpretation Summary LEFT VENTRICLE: LV Systolic function: LVEF is felt to be mildly depressed. Best estimate is approximately LVEF is 45 %. LV Diastolic Function: Grade II diastolic dysfunction noted. Wall motion: mild diffuse diffuse hypokinesia noted. Regional wall motion cannot be accurately commented upon. Probable mild inferior wall hypokinesia. Left ventricular chamber size: WNL. Left ventricular wall thickness: is increased indicative of moderate LVH. RIGHT VENTRICLE: RV systolic function: cannot be accurately commented upon but is felt to be mildly depressed. Right Ventricle Size: mildly dilated. RVH noted. LEFT ATRIUM size: moderately dilated. RIGHT ATRIUM size: moderately dilated. INTER ATRIAL SEPTUM: No definite atrial septal defect noted however a small PFO could be missed. AORTIC ROOT: seems to be within normal limits. ASCENDING AORTA: is not well visualized. INFERIOR VENA CAVA: dilated without any respiratory variation. VALVES: MITRAL VALVE: heavily calcified with reduced mobility. Heavy annular calcification noted. Mitral Regurgitation: mild mitral regurgitation is noted. Mitral Stenosis: probable mild mitral stenosis noted. This is based on mobility. Mitral valve prolapse: none noted. AORTIC VALVE: seems to be trileaflet with mild thickening but adequate excursion. Aortic stenosis: No aortic stenosis noted. Aortic regurgitation: mild aortic incompetence noted. TRICUSPID VALVE: mobility and structures within normal limit. Tricuspid stenosis: no tricuspid stenosis noted. Tricuspid regurgitation: moderate tricuspid regurgitation noted. Estimated RVSP: best estimated at approximately 65-75 mmHg consistent with severe pulmonary hypertension . PULMONARY VALVE: was not well visualized but no significant abnormalities suspected. Pulmonary stenosis: no pulmonary stenosis noted. Pulmonary regurgitation: mild pulmonary regurgitation noted. MASSES AND THROMBUS: No definite intracardiac thrombus or masses are noted. PERICARDIUM: Minimal pericardial effusion was noted. IMPRESSION: 1. Mildly depressed LVEF best estimate being approximately 45 %. 2. Moderate LVH noted. 3. Moderate Diastolic Dysfunction noted. 4. Mild mitral, moderate tricuspid and mild aortic regurgitation noted. Probable mild mitral stenosis. 5. Right atrium, Right ventricle and left atrium dilated. 6. Severe pulmonary hypertension noted. 7. Left plural Effusion is noted. 8. IVC dilated without respiratory variation. MMode/2D Measurements & Calculations RVDd: 4.8 cm LVIDd: 5.1 cm FS: 21.5 % Ao root diam: 3.2 cm IVSd: 1.6 cm LVIDs: 4.0 cm EDV(Teich): 122.2 ml Ao root area: 7.8 cm2 LVPWd: 1.5 cm ESV(Teich): 69.2 ml LA dimension: 5.2 cm EF(Teich): 43.3 % Doppler Measurements & Calculations MV E max taye: MV P1/2t max taye: Ao V2 max: LV V1 max P.6 cm/sec 173.7 cm/sec 214.1 cm/sec 6.7 mmHg MV A max taye: MV P1/2t: 68.1 msec Ao max PG: LV V1 max: 132.7 cm/sec MVA(P1/2t): 3.2 cm2 18.3 mmHg 129.4 cm/sec MV E/A: 1.3 MV dec slope: LV dP/dt: 9088 mmHg/s 747.6 cm/sec2 MV dec time: 0.16 sec PA V2 max: PI end-d taye: TR max taye: MV P1/2t-pr_phl: 125.2 cm/sec 168.3 cm/sec 411.3 cm/sec 68.1 msec PA max P.3 mmHg TR max P.7 mmHg : WILL WANG Shyamal
== END ==
LOC: RAD 06:33
PROVIDERS: ATTEND Family Medicine Geriatric Medicine
DX: R18.8 Other ascites (principal); R01.1 Cardiac murmur, unspecified
CPT/HCPCS: 76700; 93306; 93976

== ENCOUNTER → 2020-01-04 | Outpatient (CLI) | payer MEDICARE, MEDICAID ==
--- NOTE | 2020-01-04 19:12 | RADIOLOGY REPORT (SQ) ---
EXAM DESCRIPTION: MRI ABDOMEN WITHOUT IMAGES COMPLETED DATE/TIME: 01/04/2020 6:31 pm REASON FOR STUDY: (N28.89)OTHER SPECIFIED DISORDERS OF KIDNEY AND URETER N28.89 OTHER SPECIFIED DIS ORDERS OF KIDNEY AND URETER R18.8 OTHER ASCITES COMPARISON: 06/26/2019 TECHNIQUE: Multiplanar multisequence imaging performed without contrast including sagittal, axial an d coronal T2, axial T1, axial gradient fat sat T1, axial, sagittal and coronal fat sat T1 post contra st. CONTRAST TYPE AND DOSE: None RENAL FUNCTION: Not indicated. LIMITATIONS: Mild motion artifact. Noncontrast technique. FINDINGS: LIVER: Normal size. No masses identified. No dilated ducts. CBD normal. SPLEEN: Normal size. PANCREAS: Pancreatic duct not dilated. GALLBLADDER: Surgically absent. ADRENAL GLANDS: No significant masses identified. RIGHT KIDNEY AND URETER: Similar polycystic appearance with diffuse cortical atrophy. Moderate right hydronephrosis. The right renal vein flow void is not well identified, possibly thrombosed. LEFT KIDNEY AND URETER: Similar polycystic appearance with diffuse cortical atrophy.. No hydronephros is. AORTA AND VESSELS: The right renal vein flow void is not well identified, possibly thrombosed, uncer tain chronicity. No aortic aneurysm. No dissection. Bilateral Renal arteries both show significantl y diminished flow voids. The SMA, celiac are patent. RETROPERITONEUM: Similar fatty mass-like proliferation throughout the right retroperitoneum -pararena l space which extends to the right lower quadrant. BOWEL: No visualized masses. No inflammation. No significant dilatation. ABDOMINAL WALL AND PERITONEUM: No significant hernias. Large amount of free fluid. BONES: Limited evaluation due to technique. No definite acute findings. OTHER: Small bilateral pleural effusions and basilar subsegmental atelectasis. IMPRESSION: Large amount of ascites. Similar polycystic appearance with diffuse cortical atrophy. M oderate right hydronephrosis. Bilateral Renal arteries both show significantly diminished flow voids and the right renal vein flow void is not well identified, possibly thrombosed, uncertain chronicity. Similar fatty mass-like proliferation throughout the right retroperitoneum -pararenal space which ex tends to the right lower quadrant. COMMENT: The findings were sent to the [facility]iology [facility] at 19:05 on 0 to be communicated to a licensed caregiver. TECHNICAL DOCUMENTATION: JOB ID: [id number] [place]-72 2010 [employer]- All Rights Reserved Reading location - IP/workstation name: [email or web address]
== END ==
LOC: RAD 16:20
PROVIDERS: ATTEND Family Medicine Geriatric Medicine
DX: N28.89 Other specified disorders of kidney and ureter (principal); R18.8 Other ascites
CPT/HCPCS: 74181

== ENCOUNTER → 2020-01-05 | Outpatient (CLI) | payer MEDICARE, MEDICAID ==
[2020-01-05 09:05] LABS: ABSOLUTE BASOPHILS # (AUTO) 0.1 10^3/uL (0.0-0.2); ABSOLUTE EOSINOPHILS # (AUTO) 0.1 10^3/uL (0.0-0.6); ABSOLUTE LYMPHOCYTES (AUTO) 0.7 10^3/uL (0.5-4.7); ABSOLUTE MONOCYTES (AUTO) 0.6 10^3/uL (0.1-1.4); ABSOLUTE NEUT (AUTO) 3.3 10^3/uL (1.7-8.2); BASOPHILS % (AUTO) 2.4 % (0-2); EOSINOPHILS % (AUTO) 2.3 % (0-6); HEMATOCRIT 35.6 % (37.9-51.0); HEMOGLOBIN 11.6 g/dL (13.5-17.0); MEAN CORPUSCULAR HGB CONC 32.6 g/dL (32.0-36.0); MEAN CORPUSCULAR VOLUME 89 fl (80-97); MONOCYTES % (AUTO) 11.7 % (3-13); PLATELET COUNT 154 10^3/uL (150-450); RED BLOOD COUNT 3.99 10^6/uL (4.35-5.55); SEGMENTED NEUTROPHILS % (AUTO) 68.6 % (42-78); TOTAL CELLS COUNTED % (AUTO) 100 %; WHITE BLOOD COUNT 4.9 10^3/uL (4.0-10.5)
[2020-01-05 09:28] LABS: ALBUMIN 4.5 g/dL (3.5-5.0); ALKALINE PHOSPHATASE 92 U/L (38-126); ANION GAP 18 (5-19); ASPARTATE AMINO TRANSFERASE 19 U/L (17-59); BILIRUBIN,DIRECT 0.7 mg/dL (0.0-0.4); BILIRUBIN,TOTAL 0.8 mg/dL (0.2-1.3); BLOOD UREA NITROGEN 56 mg/dL (7-20); CALCIUM 9.2 mg/dL (8.4-10.2); CARBON DIOXIDE 25 mmol/L (22-30); CHLORIDE 96 mmol/L (98-107); GLUCOSE 82 mg/dL (75-110); TOTAL PROTEIN 8.4 g/dL (6.3-8.2)
[2020-01-05 09:46] LABS: POTASSIUM 5.9 mmol/L (3.6-5.0)
[2020-01-05 10:26] LABS: CHOLESTEROL 143.27 mg/dL (0-200); TRIGLYCERIDES 89 mg/dL (<150)
[2020-01-05 10:37] LABS: DIRECT LDL 66 mg/dL (<100)
== END ==
LOC: OD 07:50
PROVIDERS: ATTEND Family Medicine Geriatric Medicine
DX: I12.0 Hypertensive chronic kidney disease with stage 5 chronic kidney disease or end stage renal disease (principal); N18.6 End stage renal disease; R18.8 Other ascites; E66.3 Overweight; Z79.899 Other long term (current) drug therapy
CPT/HCPCS: 36415; 80053; 80061; 84443; 85025

== ENCOUNTER → 2020-01-11 | Outpatient (CLI) | payer MEDICARE, MEDICAID ==
--- NOTE | 2020-01-11 13:34 | RADIOLOGY REPORT (SQ) ---
EXAM DESCRIPTION: CT ABDOMEN COMBO IMAGES COMPLETED DATE/TIME: 01/11/2020 8:09 am REASON FOR STUDY: LEFT RENAL NODULE N28.89 OTHER SPECIFIED DISORDERS OF KIDNEY AND URETER COMPARISON: CTA of the abdomen and pelvis from 06/26/2019. TECHNIQUE: CT scan of the abdomen performed with and without intravenous contrast, and without oral contrast. Contrasted imaging performed using helical scanning technique with dynamic intravenous cont rast injection. Images reviewed with lung, soft tissue, and bone windows. Reconstructed coronal and s agittal MPR images reviewed. Delayed images for evaluation of the urinary system also acquired and ev aluated. All images stored on PACS. All CT scanners at this facility use dose modulation, iterative reconstruction, and/or weight based d osing when appropriate to reduce radiation dose to as low as reasonably achievable (ALARA). [facility]: Dose Right [facility]: CareDose [facility]: Dose Right [facility]: Teradose 4D [facility]: PlaySight CONTRAST TYPE AND DOSE: Contrast/concentration: Isovue 350.00 mmol/ml; Total Contrast Delivered: 100 .0 ml; Total Saline Delivered: 90.0 ml RENAL FUNCTION: ESRD on hemodialysis. RADIATION DOSE: CT Rad equipment meets quality standard of care and radiation dose reduction techniq ues were employed. CTDIvol: 19.4 - 56.3 mGy. DLP: 3092 mGy-cm.. LIMITATIONS: None. FINDINGS: NONCONTRASTED IMAGING: No evidence of hepatic steatosis. No nephrolithiasis. POSTCONTRASTED IMAGING: LOWER CHEST: Cardiomegaly and atherosclerotic calcification of the coronary arteries and mitral annul us. There is no pericardial effusion. There is a trace amount of fluid in the right pleural space. The peripheral rounded opacities in the right lower lobe could represent round atelectasis. LIVER: There is no hepatic mass. SPLEEN: No splenomegaly or splenic mass. PANCREAS: No acute gross abnormality of the pancreas. GALLBLADDER: Surgically absent. ADRENAL GLANDS: No mass or asymmetry. RIGHT KIDNEY AND URETER: The kidney is atrophic consistent with history of end-stage renal disease. There are several nonenhancing cystic lesions in the kidney the largest of which is located in the lo wer pole and measures 2.6 x 2 cm ; these cystic lesions could represent acquired cystic kidney diseas e. There is no hydronephrosis or solid mass. LEFT KIDNEY AND URETER: The kidney is atrophic consistent with history of end-stage renal disease. T here is a solid exophytic mass in the interpolar portion of the kidney that measures 4.4 x 3.7 cm. T here are several other cystic lesions scattered throughout the kidney that could represent acquire cy stic kidney disease. There is no hydronephrosis. AORTA AND VESSELS: No aneurysm of the abdominal aorta. Evaluation of the renal veins is limited due to limited contrast enhancement of the venous vasculature. RETROPERITONEUM: No retroperitoneal adenopathy, hemorrhage or mass. BOWEL AND PERITONEAL CAVITY: Ascites. ABDOMINAL WALL: No mass or hernia. BONES: No significant or acute findings. OTHER: No other finding. IMPRESSION: 1. 4.4 x 3.7 cm solid enhancing exophytic mass in the interpolar portion of the left kid miguel concerning for a renal cell carcinoma. 2. Other findings as detailed above. TECHNICAL DOCUMENTATION: JOB ID: [id number] Quality ID # [id number]: Final reports with documentation of one or more dose reduction techniques (e.g., Au tomated exposure control, adjustment of the mA and/or kV according to patient size, use of iterative reconstruction technique) 2010 [employer]- All Rights Reserved Reading location - IP/workstation name: [email or web address]
== END ==
LOC: RAD 06:39
PROVIDERS: ATTEND Family Medicine Geriatric Medicine
DX: N18.6 End stage renal disease (principal); Z99.2 Dependence on renal dialysis
CPT/HCPCS: 74170

== ENCOUNTER 2020-01-17 05:26 | Day surgery (SDC) | payer MEDICARE, MEDICAID ==
--- NOTE | 2020-01-13 12:07 | RADIOLOGY REPORT (SQ) ---
EXAM DESCRIPTION: CHEST PA/LATERAL IMAGES COMPLETED DATE/TIME: 01/13/2020 11:57 am REASON FOR STUDY: PRE-OP COMPARISON: 10/28/2019 EXAM PARAMETERS: NUMBER OF VIEWS: two views TECHNIQUE: Digital Frontal and Lateral radiographic views of the chest acquired. RADIATION DOSE: NA LIMITATIONS: none FINDINGS: LUNGS AND PLEURA: Stable prominent interstitial markings. Suspect chronic interstitial ed sanford. Small effusions. MEDIASTINUM AND HILAR STRUCTURES: No masses or contour abnormalities. HEART AND VASCULAR STRUCTURES: Stable cardiomegaly. BONES: No acute findings. HARDWARE: None in the chest. OTHER: No other significant finding. IMPRESSION: Cardiomegaly with small effusions. Mild vascular congestion remains. TECHNICAL DOCUMENTATION: JOB ID: [id number] 2010 [employer]- All Rights Reserved Reading location - IP/workstation name: [email or web address]
[2020-01-13 13:05] LABS: HEMOGLOBIN 11.3 g/dL (13.5-17.0); MEAN CORPUSCULAR HEMOGLOBIN 28.8 pg (27.0-33.4); MEAN CORPUSCULAR HGB CONC 32.2 g/dL (32.0-36.0); MEAN CORPUSCULAR VOLUME 90 fl (80-97); PLATELET COUNT 235 10^3/uL (150-450); RED BLOOD COUNT 3.91 10^6/uL (4.35-5.55); RED CELL DISTRIBUTION WIDTH 17.6 % (11.5-14.0); WHITE BLOOD COUNT 4.9 10^3/uL (4.0-10.5)
[2020-01-13 13:23] LABS: ALBUMIN 4.5 g/dL (3.5-5.0); ALKALINE PHOSPHATASE 89 U/L (38-126); ANION GAP 16 (5-19); ASPARTATE AMINO TRANSFERASE 12 U/L (17-59); BILIRUBIN,DIRECT 0.5 mg/dL (0.0-0.4); BILIRUBIN,TOTAL 0.6 mg/dL (0.2-1.3); BLOOD UREA NITROGEN 58 mg/dL (7-20); CALCIUM 9.5 mg/dL (8.4-10.2); CARBON DIOXIDE 28 mmol/L (22-30); CHLORIDE 94 mmol/L (98-107); GLUCOSE 96 mg/dL (75-110); TOTAL PROTEIN 8.3 g/dL (6.3-8.2)
[2020-01-13 13:45] LABS: POTASSIUM 6.6 mmol/L (3.6-5.0)
--- NOTE | 2020-01-13 16:12 | EKG REPORT ---
SEVERITY:- ABNORMAL ECG - SINUS BRADYCARDIA RIGHT BUNDLE BRANCH BLOCK : Confirmed by: Nicholas Lemons MD 13-Jan-2020 16:11:38
[~2020-01-17 05:26] MED LIST changes: +ACETAMINOPHEN 1,000 MG/100 ML RTUPB IV ONE; +CEFAZOLIN 2 GM/D5W RTU 2 GM/50 ML RTUPB IV ONE; +CEFAZOLIN 2 GM/D5W RTU 2 GM/50 ML RTUPB IV PRN; -CEFAZOLIN SODIUM 2 GM in DEXTROSE 5%-WATER 100 ML IV PRN; -DEXAMETHASONE SOD PHOSPHATE INJ 4 MG/1 ML VIAL ONE; -FENTANYL CITRATE INJ/PF 100 MCG/2 ML AMPUL ONE; -FENTANYL CITRATE INJ/PF 250 MCG/5 ML AMPULE ONE; -IBUPROFEN 800 MG in NORMAL SALINE 250 ML IV PRN; +LACTATED RINGERS 1000 ML IV PRN; -MIDAZOLAM 2 MG/2 ML INJ ONE; -NORMAL SALINE 1000 ML (RENAL PATIENTS) IV PRN; -ONDANSETRON HCL INJ/PF 4 MG/2 ML SDV ONE; -PROPOFOL INJ 200 MG/20 ML VIAL IV ONE; -SUGAMMADEX SODIUM 200 MG/2 ML SDV IV ONE
[2020-01-17] MEDS ORDERED: BUPIVACAINE HCL 0.25 % INJ/PF (2.5 MG/1 ML) 30 ML VIAL ONE (07:05)
[2020-01-17] MEDS ORDERED: ONDANSETRON HCL INJ/PF 4 MG/2 ML SDV ONE (07:28)
[2020-01-17] MEDS ORDERED: DEXAMETHASONE SOD PHOSPHATE INJ 4 MG/1 ML VIAL ONE (07:28)
[2020-01-17] MEDS ORDERED: LIDOCAINE 2% INJ-PF (20 MG/ML) 10 ML AMPUL ONE (07:28)
[2020-01-17] MEDS ORDERED: MIDAZOLAM 2 MG/2 ML INJ ONE (07:28)
[2020-01-17] MEDS ORDERED: MORPHINE SULFATE 10 MG/ML INJ ONE (07:28)
[2020-01-17] MEDS ORDERED: FENTANYL CITRATE INJ/PF 100 MCG/2 ML AMPUL ONE ×2 (07:28→11:08)
[2020-01-17] MEDS ORDERED: PROPOFOL INJ 200 MG/20 ML VIAL IV ONE (07:29)
[2020-01-17] MEDS ORDERED: DIPHENHYDRAMINE HCL 50 MG/ML VIAL IV PRN (08:28)
[2020-01-17] MEDS ORDERED: OXYCODONE-ACETAMINOPHEN 5-325 MG TABLET PO PRN ×2 (08:28)
[2020-01-17] MEDS ORDERED: FENTANYL CITRATE INJ/PF 100 MCG/2 ML AMPUL IV PRN ×3 (08:28)
[2020-01-17] MEDS ORDERED: MORPHINE SULFATE 10 MG/ML INJ IV PRN (08:28)
[2020-01-17] MEDS ORDERED: MEPERIDINE HCL/PF INJ 25 MG/1 ML DISP.SYRIN IV PRN (08:28)
[2020-01-17] MEDS ORDERED: PROMETHAZINE HCL INJ 25 MG/1 ML VIAL IV PRN ×2 (08:28)
[2020-01-17] MEDS ORDERED: SUGAMMADEX SODIUM 200 MG/2 ML SDV IV ONE (09:47)
[2020-01-17] MEDS ORDERED: OXYCODONE HCL IR 5 MG TABLET PO PRN (11:01)
--- NOTE | 2020-01-17 11:01 | Discharge Summary ---
Discharge Summary (SDC) - Discharge Final Diagnosis: Large bilateral inguinal hernias, right side direct, left-sided indirect Date of Surgery: 01/17/20 Discharge Date: 01/17/20 Condition: Stable Forms: ASU Anesthesia D/C Instruction, Discharge POC-Surgical Service Treatment or Instructions: Discharge home. Diet as tolerated. Activity: No lifting greater than 10 pounds x 6 weeks. Follow-up with [place] [facility] in 7 to 10 days. No tub baths or swimming pools x2 weeks. Okay to shower starting on . Oxycodone 5 mg p.o. every 6 hours as needed for pain. Prescriptions: Oxycodone HCl [Oxy-Ir 5 mg Tablet] 5 mg PO Q6HP PRN #20 tab PRN Reason: For Pain Referrals: YANET PENNINGTON MD [ACTIVE STAFF] - 01/30/20 8:45 am Discharge Diet: As Tolerated Respiratory Treatments at Home: Deep Breathing/Coughing, Incentive Spirometer Discharge Activity: No Lifting Over 10 Pounds, No Lifting/Push/Pulling Home Care Assistance: None Needed Report the Following to Your Physician Immediately: Shortness of Breath, Nausea, Vomiting, Fever over 101 Degrees, Unusual Bleeding, Redness
[2020-01-17] MEDS ORDERED: FENTANYL CITRATE INJ/PF 50 MCG/1 ML 50 ML SDV IV ONE ×2 (11:09→11:16)
--- NOTE | 2020-01-17 11:13 | Operative Report ---
Nonrecallable Operative Report DATE OF SURGERY: 01/17/20 PREOPERATIVE DIAGNOSIS: Bilateral inguinal hernias, symptomatic POSTOPERATIVE DIAGNOSIS: Large right direct inguinal hernia, large left indirect inguinal hernia. OPERATION: Robot-assisted bilateral inguinal hernia repair with mesh. SURGEON: YANET PENNINGTON [employer] CLERK: EILEEN DUARTE ANESTHESIA: GA TISSUE REMOVED OR ALTERED: 2 liters of ascites COMPLICATIONS: None apparent ESTIMATED BLOOD LOSS: 30 cc PROCEDURE: Drains/implants: Right and left 3 DMax large inguinal hernia mesh. Procedure in detail: After informed consent was obtained, the patient was brought into the operating room and laid in the supine position. The area of the abdomen was prepped and draped in a normal sterile fashion. Patient had a previous supraumbilical hypertrophic scar present. This was removed/excised, and dissection was carried through the subcutaneous tissues using blunt dissection. The linea alba fascia was incised sharply, the abdomen was entered sharply. The balloon trocar was then inserted, and pneumoperitoneum was achieved. There was a large amount of ascites within the abdomen. Approximately 2 L of ascites was removed, to facilitate repair of the hernias. The patient was placed in the Trendelenburg position. Right and left lateral 8 mm robotic trochars were placed into the abdominal wall, under direct laparoscopic visualization. The robot was then brought over the patient and docked appropriately. I then assumed my position at the surgeon's console. There was a large amount of fat and the sigmoid colon within the left indirect inguinal hernia defect. This was reduced back into the abdomen very carefully. Next an incision was created in the peritoneum, 3 cm superior to the left inguinal hernia defect. The incision was carried all the way to the right side, and a preperitoneal dissection was undertaken. The dissection was performed using sharp dissection, blunt dissection, and electrocautery. The large left- sided hernia sac was reduced back into the abdomen. The cord structures were identified, and spared from injury. Attention was then turned to the right side. The right side had a large direct defect present. The hernia sac was reduced easily. The indirect space was examined, and found to be free of any obvious defect. The peritoneum was freed from the cord structures, taking great care not to injure the cord structures. There was no femoral defects present. Once the dissection was completed, attention was turned to repair of the hernia defects. The direct defect was closed using 2-O V lock nonabsorbable suture in simple running fashion. Next, a right sided 3 DMax inguinal hernia mesh was placed into the preperitoneal space. It was sutured to the anterior abdominal wall medially and superiorly using 2-0 Vicryl suture. Once the mesh was in good place, attention was turned to the left side. A left-sided 3D max inguinal hernia mesh was placed into the abdomen, and situated over the defect. It was sutured medially and superiorly using 2-0 Vicryl suture in simple interrupted fashion. Once the mesh was found to lie in good place, the peritoneum was closed. Peritoneum was reapproximated using 2-0 V Lock suture in simple running fashion. Once this was completed, the repair was inspected. It was found to be in good order. Next, the robot was undocked. I scrubbed back into the case. The 8 mm trocar sites were closed using 0 Vicryl suture in [id number] fashion, using the Sameer-Eddi device. The 12 mm trocar was removed, and pneumoperitoneum was relieved. The supraumbilical fascia was closed using 0 Vicryl suture in [id number] fashion x2. The overlying skin was closed using 4-0 Vicryl Rapide suture in subcuticular fashion. Dressings were placed, and the procedure was concluded. All sponge, instrument, and needle counts were correct x2. Condition: Stable. Eileen Duarte PA-C was scrubbed and present the entirety the procedure. She assisted with all portions of the procedure including opening the abdomen, placement of the trochars, docking of the robot, exchanging of the instruments, insertion of the mesh, closure of the fascia, and closure of the skin.
[2020-01-17] MEDS ORDERED: OXYCODONE HCL IR 5 MG TABLET ONE (12:02)
[2020-01-17 13:13] VITALS: BP 178/82
[2020-01-17] MEDS ORDERED: SUCCINYLCHOLINE CHLORIDE INJ 200 MG/10 ML VIAL ONE (14:42)
[2020-01-17] MEDS ORDERED: ROCURONIUM BROMIDE INJ 50 MG/5 ML VIAL IV ONE (14:42)
[2020-01-17] MEDS ORDERED: GLYCOPYRROLATE 1 MG/5 ML VIAL ONE (14:42)
[2020-01-17] MEDS ORDERED: PHENYLEPHRINE HCL INJ/PF 10 MG/1 ML SDV ONE (14:42)
== END 2020-01-17 12:55 | disposition home or self-care (01) ==
LOC: OROUT 05:26
PROVIDERS: ATTEND Surgery
DX: K40.20 Bilateral inguinal hernia, without obstruction or gangrene, not specified as recurrent (principal); R18.8 Other ascites; Z03.818 Encounter for observation for suspected exposure to other biological agents ruled out; I12.0 Hypertensive chronic kidney disease with stage 5 chronic kidney disease or end stage renal disease; N18.6 End stage renal disease; Z87.891 Personal history of nicotine dependence; Z79.899 Other long term (current) drug therapy; Z99.2 Dependence on renal dialysis; Z90.49 Acquired absence of other specified parts of digestive tract; K21.9 Gastro-esophageal reflux disease without esophagitis
CPT/HCPCS: 93005; 86900; 86901; 36415 ×2; 86850; 84132; 85027; 80053; 71046; 93010; 49650; U0003; J2250; J3490 ×4; J1100; J3010 ×2; J2270; J2370; J0330; J2405; J2704; A9270; J0690; J0131; C9803; 840; 87635; C1758; C1781

== ENCOUNTER → 2020-02-13 | Outpatient (CLI) | payer MEDICARE, MEDICAID ==
--- NOTE | 2020-02-13 15:33 | RADIOLOGY REPORT (SQ) ---
EXAM DESCRIPTION: U/S NON-OB PELVIS LTD W/O DOP IMAGES COMPLETED DATE/TIME: 02/13/2020 3:24 pm REASON FOR STUDY: R19.09 OTHER INTRA-ABDOMINAL AND PELVIC SWELLING, MASS AND LUMP R19.09 OTHER INTR A-ABDOMINAL AND PELVIC SWELLING, MASS AND L COMPARISON: None. TECHNIQUE: Dynamic and static grayscale images acquired of the localized site of clinical concern an d recorded on PACS. Additional selected color Doppler and spectral images recorded. SITE OF CONCERN: Right and left groins LIMITATIONS: None. FINDINGS: SKIN AND SUBCUTANEOUS TISSUES: Complex bilateral inguinal region cystic masses. On the ri ght the collection measures 10.5 x 9.3 x 9.1 cm. On the left the collection measures 10.8 x 6.6 x 6. 1 cm. These are avascular. DEEP SOFT TISSUES/MUSCLES: No masses. No fluid collections. No edema. VASCULAR: No increased or decreased vascularity. No occlusions. OTHER: No other significant finding. IMPRESSION: Complex bilateral inguinal fluid collections as discussed above. This could represent p ostoperative hematoma or abscess. TECHNICAL DOCUMENTATION: JOB ID: [id number] 2010 [employer]- All Rights Reserved Reading location - IP/workstation name: [email or web address]
== END ==
LOC: RAD 14:41
PROVIDERS: ATTEND Surgery
DX: R19.09 Other intra-abdominal and pelvic swelling, mass and lump (principal)
CPT/HCPCS: 76857

== ENCOUNTER 2020-03-05 08:16 | Emergency (ER) | payer MEDICARE, MEDICAID ==
[2020-03-05 09:19] LABS: ABSOLUTE BASOPHILS # (AUTO) 0.1 10^3/uL (0.0-0.2); ABSOLUTE EOSINOPHILS # (AUTO) 0.1 10^3/uL (0.0-0.6); ABSOLUTE LYMPHOCYTES (AUTO) 0.6 10^3/uL (0.5-4.7); ABSOLUTE MONOCYTES (AUTO) 0.6 10^3/uL (0.1-1.4); EOSINOPHILS % (AUTO) 1.2 % (0-6); HEMATOCRIT 21.1 % (37.9-51.0); LYMPHOCYTES % (AUTO) 8.3 % (13-45); MEAN CORPUSCULAR HEMOGLOBIN 28.8 pg (27.0-33.4); MEAN CORPUSCULAR HGB CONC 31.9 g/dL (32.0-36.0); MEAN CORPUSCULAR VOLUME 90 fl (80-97); MONOCYTES % (AUTO) 7.6 % (3-13); PLATELET COUNT 185 10^3/uL (150-450); RED BLOOD COUNT 2.34 10^6/uL (4.35-5.55); RED CELL DISTRIBUTION WIDTH 16.8 % (11.5-14.0); SEGMENTED NEUTROPHILS % (AUTO) 81.9 % (42-78); TOTAL CELLS COUNTED % (AUTO) 100 %; WHITE BLOOD COUNT 7.3 10^3/uL (4.0-10.5)
[2020-03-05 09:25] LABS: HEMOGLOBIN 6.8 g/dL (13.5-17.0)
[2020-03-05 09:35] LABS: ALKALINE PHOSPHATASE 87 U/L (38-126); ANION GAP 19 (5-19); ASPARTATE AMINO TRANSFERASE 22 U/L (17-59); BILIRUBIN,DIRECT 0.6 mg/dL (0.0-0.4); BILIRUBIN,TOTAL 0.6 mg/dL (0.2-1.3); BLOOD UREA NITROGEN 86 mg/dL (7-20); CALCIUM 9.4 mg/dL (8.4-10.2); CARBON DIOXIDE 24 mmol/L (22-30); CHLORIDE 100 mmol/L (98-107); GLUCOSE 100 mg/dL (75-110); POTASSIUM 5.5 mmol/L (3.6-5.0); TOTAL PROTEIN 8.7 g/dL (6.3-8.2)
[2020-03-05 09:51] LABS: ALBUMIN 4.4 g/dL (3.5-5.0)
--- NOTE | 2020-03-05 09:56 | RADIOLOGY REPORT (SQ) ---
EXAM DESCRIPTION: CHEST SINGLE VIEW IMAGES COMPLETED DATE/TIME: 03/05/2020 9:35 am REASON FOR STUDY: SOB COMPARISON: PA and lateral views of the chest from 01/13/2020. EXAM PARAMETERS: NUMBER OF VIEWS: One view. TECHNIQUE: An AP view of the chest was obtained. RADIATION DOSE: NA LIMITATIONS: None. FINDINGS: LUNGS AND PLEURA: Bilateral basilar predominant patchy parenchymal opacities associated wi th blunting of the costophrenic sulci. There is no pneumothorax. MEDIASTINUM AND HILAR STRUCTURES: No mediastinal or hilar contour abnormality. HEART AND VASCULAR STRUCTURES: The cardiac silhouette is enlarged. BONES: No acute findings. HARDWARE: None in the chest. OTHER: No other finding. IMPRESSION: Cardiomegaly and bilateral basilar predominant patchy parenchymal opacities associated w ith blunting of the costophrenic sulci. Correlate for mild CHF. TECHNICAL DOCUMENTATION: JOB ID: [id number] 2010 [employer]- All Rights Reserved Reading location - IP/workstation name: [email or web address]
--- NOTE | 2020-03-05 10:51 | ER Document Report ---
ED General - General Chief Complaint: Shortness Of Breath Stated Complaint: COUGH, DIFFICULTY BREATHING, VOMITING Time Seen by Provider: 03/05/20 09:09 Primary Care Provider: WILL WANG MD [Primary Care Provider] - Follow up as needed Mode of Arrival: Ambulatory Information source: Patient TRAVEL OUTSIDE OF THE [place] IN LAST 30 DAYS: No - HPI Notes: Patient arrives stating that he is feeling short of breath. He states that he is due for dialysis today. He states that he did not go to dialysis on Thursday because his "truck broke down". He states that he does have an appointment later today at dialysis 1 to come to the hospital to see why he was short of breath. He states he has had some cough and congestion over the last couple of days. He denies any bleeding or dark tarry stools. No significant pain. No fevers. He has had some weakness and malaise. He denies any known exposure to the Covid virus. - Related Data Allergies/Adverse Reactions: ketorolac [From Toradol] Allergy (Verified 01/17/20 05:35) tramadol Allergy (Verified 01/17/20 05:35) Past Medical History - General Information source: Patient - Social History Smoking Status: Current Every Day Smoker Chew tobacco use (# tins/day): No Frequency of alcohol use: None Drug Abuse: None Family History: None, Malignancy - Past Medical History Cardiac Medical History: Reports: Hx Congestive Heart Failure, Hx Coronary Artery Disease, Hx Heart Attack - Non-STEMI, Hx Hypercholesterolemia, Hx Hypertension Denies: Hx Atrial Fibrillation, Hx DVT, Hx Pulmonary Embolism Pulmonary Medical History: Denies: Hx Asthma, Hx Bronchitis, Hx COPD, Hx Pneumonia Neurological Medical History: Denies: Hx Cerebrovascular Accident, Hx Seizures Endocrine Medical History: Denies: Hx Diabetes Mellitus Type 1, Hx Diabetes Mellitus Type 2, Hx Hyperthyroidism, Hx Hypothyroidism Renal/ Medical History: Reports: Hx End Stage Renal Disease - On hemodialysis MWF. Denies: Hx Peritoneal Dialysis GI Medical History: Reports: Hx Cirrhosis - Alcoholic cirrhosis with ascites, Hx Gastroesophageal Reflux Disease. Denies: Hx Crohn's Disease, Hx Hepatitis, Hx Ulcerative Colitis Musculoskeletal Medical History: Denies Hx Arthritis, Denies Hx Gout Skin Medical History: Denies Hx Eczema, Denies Hx Psoriasis Psychiatric Medical History: Denies: Hx Depression Infectious Medical History: Denies: Hx Hepatitis Past Surgical History: Reports: Hx Appendectomy, Hx Cholecystectomy, Hx Vascular Surgery - RT AV Fistula - Immunizations Hx Diphtheria, Pertussis, Tetanus Vaccination: Yes Review of Systems - Review of Systems Constitutional: Malaise, Weakness Cardiovascular: denies: Chest pain, Palpitations Respiratory: Cough, Short of breath -: Yes All other systems reviewed and negative Physical Exam - Vital signs Vitals: Pulse Resp BP Pulse Ox 105 H 18 156/74 H 95 03/05/20 08:23 03/05/20 08:23 03/05/20 08:23 03/05/20 08:23 Interpretation: Normal, Other - Patient was apparently tachycardic at triage but he was not tachycardic on my exam with a pulse of 88. - General General appearance: Appears well, Alert - HEENT Head: Normocephalic, Atraumatic Eyes: Normal Pupils: PERRL - Respiratory Respiratory status: No respiratory distress Chest status: Nontender Breath sounds: Decreased air movement, Rales Chest palpation: Normal - Cardiovascular Rhythm: Regular Heart sounds: Normal auscultation Murmur: No - Abdominal Inspection: Normal Distension: No distension Bowel sounds: Normal Tenderness: Nontender Organomegaly: No organomegaly - Back Back: Normal, Nontender - Extremities General upper extremity: Normal inspection, Nontender, Normal color, Normal ROM, Normal temperature General lower extremity: Normal inspection, Nontender, Edema, Normal color, N ormal ROM, Normal temperature, Normal weight bearing. No: Verito's sign - Neurological Neuro grossly intact: Yes Cognition: Normal Orientation: AAOx4 [place] Coma Scale Eye Opening: Spontaneous [place] Coma Scale Verbal: Oriented [place] Coma Scale Motor: Obeys Commands [place] Coma Scale Total: 15 Speech: Normal Motor strength normal: LUE, RUE, LLE, RLE Sensory: Normal - Psychological Associated symptoms: Normal affect, Normal mood - Skin Skin Temperature: Warm Skin Moisture: Dry Skin Color: Normal Course - Re-evaluation Re-evalutation: 03/05/20 10:49 Patient presents complaint of shortness of breath. He has missed his most recent dialysis treatment has been approximately 6-day since he had dialysis which I believe explains his shortness of breath. Otherwise had some URI symptoms he has no elevated white blood cell count, no fever by rectal temperature, he is not coughing in the room nor is he in any respiratory distress, x-ray is not consistent with an infectious process. I called and discussed the case with the patient's sleeping bag filler. I think the patient is stable to be discharged and can drive himself to dialysis as they currently have a chair waiting for him. Patient does have an elevated troponin however it has been elevated this high before. He has no significant chest pain. He is nontoxic-appearing. His EKG does not have any significant ischemic changes. - Vital Signs Vital signs: Temp Pulse Resp BP Pulse Ox 98.8 F 105 H 18 156/74 H 95 03/05/20 09:20 03/05/20 08:23 03/05/20 08:23 03/05/20 08:23 03/05/20 08:23 - Laboratory Results Result Diagrams: 03/05/20 08:43 03/05/20 08:43 Laboratory Results Interpreted: 03/05/20 03/05/20 08:43 08:43 RBC 2.34 L Hgb 6.8 L Hct 21.1 L MCHC 31.9 L RDW 16.8 H Lymph % (Auto) 8.3 L Seg Neutrophils % 81.9 H Potassium 5.5 H BUN 86 H Creatinine 13.52 H Est GFR ( Amer) 5 L Est GFR (MDRD) Non-Af 4 L Direct Bilirubin 0.6 H Total Protein 8.7 H Critical Laboratory Results Reviewed: Yes Attending or Supervising Physician who Reviewed Labs: JING OAKES - Radiology Results Critical Radiology Results Reviewed: Yes Attending or Supervising Physician who Reviewed Radiology: JING OAKES - EKG Interpretation by Nv EKG shows normal: Sinus rhythm Rate: Normal - 89 Rhythm: NSR [place]/QRS: No: Right axis deviation, Left axis deviation Discharge - Discharge Clinical Impression: ESRD on hemodialysis, Hyperkalemia, Elevated troponin Dyspnea Qualifiers: Dyspnea type: shortness of breath Qualified Code(s): R06.02 - Shortness of breath; R06.00 - Dyspnea, unspecified; R06.01 - Orthopnea Anemia Qualifiers: Anemia type: due to chronic kidney disease Chronic kidney disease stage: on chronic dialysis Qualified Code(s): N18.6 - End stage renal disease; D63.1 - Anemia in chronic kidney disease; Z99.2 - Dependence on renal dialysis Condition: Stable Disposition: HOME, SELF-CARE Instructions: COVID-19 Guidance for Persons Under Investigation Additional Instructions: go straight to dialysis Referrals: WILL WANG MD [Primary Care Provider] - Follow up in 3-5 days
[2020-03-05 11:23] VITALS: BP 147/75
--- NOTE | 2020-03-05 19:13 | EKG REPORT ---
SEVERITY:- ABNORMAL ECG - SINUS RHYTHM INCOMPLETE RIGHT BUNDLE BRANCH BLOCK : Confirmed by: Oanh Valdivia MD 05-Mar-2020 19:12:37
== END 2020-03-05 11:34 | disposition home or self-care (01) ==
LOC: ER 08:16
DX: I13.2 Hypertensive heart and chronic kidney disease with heart failure and with stage 5 chronic kidney disease, or end stage renal disease (principal); N18.6 End stage renal disease; I50.9 Heart failure, unspecified; D63.1 Anemia in chronic kidney disease; Z99.2 Dependence on renal dialysis; Z91.15 Patient's noncompliance with renal dialysis; E87.5 Hyperkalemia; R79.89 Other specified abnormal findings of blood chemistry; R06.02 Shortness of breath; R06.01 Orthopnea; R05 Cough; R53.1 Weakness; R53.81 Other malaise; I25.10 Atherosclerotic heart disease of native coronary artery without angina pectoris; I25.2 Old myocardial infarction; F17.200 Nicotine dependence, unspecified, uncomplicated; Z88.8 Allergy status to other drugs, medicaments and biological substances; Z88.6 Allergy status to analgesic agent; Z20.828 Contact with and (suspected) exposure to other viral communicable diseases
CPT/HCPCS: 93005; 99285; 36415; 83605; 85025; 80053; 84484; 71045; 93010; U0003; C9803; 87635

== ENCOUNTER 2020-03-19 13:26 | Emergency (ER) | payer MEDICARE, MEDICAID ==
--- NOTE | 2020-03-19 14:58 | ER Document Report ---
ED Medical Screen (RME) - General Chief Complaint: Abnormal Lab Results Stated Complaint: ABNORMAL LABS Time Seen by Provider: 03/19/20 14:52 Primary Care Provider: Terrance ROSALES MD [Primary Care Provider] - Follow up as needed Mode of Arrival: Ambulatory Information source: Patient Notes: 59-year-old male sent to ED for a low hemoglobin. He went to dialysis this morning and they checked his blood and told him that his hemoglobin was below 6.5. He states he does have a history of renal failure and high blood pressure. He states he has had to be transfused multiple times in the past. He does have a fistula for his dialysis. He states he quit smoking about a month ago does not use any alcohol or drugs. He is alert oriented respirations regular nonla bored at this time. I have greeted and performed a rapid initial assessment of this patient. A comprehensive ED assessment and evaluation of the patient, analysis of test results and completion of medical decision making process will be conducted by an additional ED providers. TRAVEL OUTSIDE OF THE [place] IN LAST 30 DAYS: No - Related Data Allergies/Adverse Reactions: ketorolac [From Toradol] Allergy (Verified 01/17/20 05:35) tramadol Allergy (Verified 01/17/20 05:35) Past Medical History - Past Medical History Cardiac Medical History: Reports: Hx Congestive Heart Failure, Hx Coronary Artery Disease, Hx Heart Attack - Non-STEMI, Hx Hypercholesterolemia, Hx Hypertension Denies: Hx Atrial Fibrillation, Hx DVT, Hx Pulmonary Embolism Pulmonary Medical History: Denies: Hx Asthma, Hx Bronchitis, Hx COPD, Hx Pneumonia Neurological Medical History: Denies: Hx Cerebrovascular Accident, Hx Seizures Endocrine Medical History: Denies: Hx Diabetes Mellitus Type 1, Hx Diabetes Mellitus Type 2, Hx Hyperthyroidism, Hx Hypothyroidism Renal/ Medical History: Reports: Hx End Stage Renal Disease - On hemodialysis MWF. Denies: Hx Peritoneal Dialysis GI Medical History: Reports: Hx Cirrhosis - Alcoholic cirrhosis with ascites, Hx Gastroesophageal Reflux Disease. Denies: Hx Crohn's Disease, Hx Hepatitis, Hx Ulcerative Colitis Musculoskeltal Medical History: Denies Hx Arthritis, Denies Hx Gout Skin Medical History: Denies Hx Eczema, Denies Hx Psoriasis Psychiatric Medical History: Denies: Hx Depression Infectious Medical History: Denies: Hx Hepatitis Past Surgical History: Reports: Hx Appendectomy, Hx Cholecystectomy, Hx Vascular Surgery - RT AV Fistula - Immunizations Hx Diphtheria, Pertussis, Tetanus Vaccination: Yes Physical Exam - Vital signs Vitals: Temp Pulse Resp BP Pulse Ox 98.3 F 91 18 128/65 H 93 03/19/20 13:47 03/19/20 13:47 03/19/20 13:47 03/19/20 13:47 03/19/20 13:47 Course - Vital Signs Vital signs: Temp Pulse Resp BP Pulse Ox 98.3 F 91 18 128/65 H 93 03/19/20 13:47 03/19/20 13:47 03/19/20 13:47 03/19/20 13:47 03/19/20 13:47 Doctor's Discharge - Discharge Referrals: Terrance ROSALES MD [Primary Care Provider] - Follow up as needed
[2020-03-19 15:41] LABS: ABSOLUTE BASOPHILS # (AUTO) 0.1 10^3/uL (0.0-0.2); ABSOLUTE EOSINOPHILS # (AUTO) 0.1 10^3/uL (0.0-0.6); ABSOLUTE LYMPHOCYTES (AUTO) 0.7 10^3/uL (0.5-4.7); ABSOLUTE MONOCYTES (AUTO) 0.6 10^3/uL (0.1-1.4); ABSOLUTE NEUT (AUTO) 4.7 10^3/uL (1.7-8.2); BASOPHILS % (AUTO) 0.8 % (0-2); EOSINOPHILS % (AUTO) 1.4 % (0-6); LYMPHOCYTES % (AUTO) 11.3 % (13-45); MEAN CORPUSCULAR HEMOGLOBIN 30.1 pg (27.0-33.4); MEAN CORPUSCULAR HGB CONC 33.4 g/dL (32.0-36.0); MEAN CORPUSCULAR VOLUME 90 fl (80-97); MONOCYTES % (AUTO) 9.2 % (3-13); PLATELET COUNT 181 10^3/uL (150-450); RED BLOOD COUNT 2.11 10^6/uL (4.35-5.55); RED CELL DISTRIBUTION WIDTH 16.9 % (11.5-14.0); SEGMENTED NEUTROPHILS % (AUTO) 77.3 % (42-78); TOTAL CELLS COUNTED % (AUTO) 100 %; WHITE BLOOD COUNT 6.1 10^3/uL (4.0-10.5)
[2020-03-19 15:43] LABS: HEMOGLOBIN 6.4 g/dL (13.5-17.0)
[2020-03-19 15:46] LABS: ALBUMIN 4.1 g/dL (3.5-5.0); ALKALINE PHOSPHATASE 84 U/L (38-126); ANION GAP 13 (5-19); ASPARTATE AMINO TRANSFERASE 31 U/L (17-59); BILIRUBIN,DIRECT 0.4 mg/dL (0.0-0.4); BILIRUBIN,TOTAL 0.6 mg/dL (0.2-1.3); BLOOD UREA NITROGEN 45 mg/dL (7-20); CALCIUM 9.2 mg/dL (8.4-10.2); CARBON DIOXIDE 29 mmol/L (22-30); CHLORIDE 98 mmol/L (98-107); GLUCOSE 121 mg/dL (75-110); TOTAL PROTEIN 8.1 g/dL (6.3-8.2)
--- NOTE | 2020-03-19 18:00 | ER Document Report ---
ED General - General Chief Complaint: Abnormal Lab Results Stated Complaint: ABNORMAL LABS Time Seen by Provider: 03/19/20 14:52 Primary Care Provider: Terrance ROSALES MD [ACTIVE STAFF] - Follow up as needed Mode of Arrival: Ambulatory Information source: Patient Notes: 03/19/20 14:55 - ED Nursing Note by GEORGIANAROSEMARIE Liana Num: [id number] : 1960 Patient Age: 59 Pt went to HD and was noted to have Hgb 6.5 for labs and possbile transfusion. He reports previous transfusions in the past x 4 Pt has hx of renal failure and HTN Normal HD days MWF. Has AVF in the RUE. Resticted extremity band placed Denies any bleeding in stool or anticoags at home. ED Medical Screen (Rafael notes) - General Chief Complaint: Abnormal Lab Results Stated Complaint: ABNORMAL LABS Time Seen by Provider: 03/19/20 14:52 Primary Care Provider: Terrance ROSALES MD [Primary Care Provider] - Follow up as needed Mode of Arrival: Ambulatory Information source: Patient Notes: 59-year-old male sent to ED for a low hemoglobin. He went to dialysis this morning and they checked his blood and told him that his hemoglobin was below 6.5. He states he does have a history of renal failure and high blood pressure. He states he has had to be transfused multiple times in the past. He does have a fistula for his dialysis. He states he quit smoking about a month ago does not use any alcohol or drugs. He is alert oriented respirations regular nonlabored at this time. MY NOTES 59-year-old male arrives with chief complaint of having an abnormal lab when checked during dialysis today of a 6.5 hemoglobin. He had a similar low hemoglobin last February 2019. Patient reports she has had a least for transfusions in his life. He has been on dialysis for least 7 years secondary to hypertension problems. Today he reports he has COOLEY if he walks more than 100 feet. He is able to easily handle a 10 to 15 to 20 feet walk without difficulty. He has mildly pale but otherwise benign. TRAVEL OUTSIDE OF THE [place] IN LAST 30 DAYS: No - HPI Onset: This morning Onset/Duration: Sudden Quality of pain: Achy Severity: Mild Pain Level: 1 Associated symptoms: Shortness of breath. denies: Chest pain, Chills, Nonprodu ctive cough, Productive cough, Diarrhea, Drooling, Fever, Headache, Hoarseness, Hurts to breath, Leg swelling, Nausea, Vomiting, Rhinnorhea, Sinus pain/drainage, Slow to respond, Sore throat, Sweating, Weakness Exacerbated by: Movement, Walking, Coughing, Deep breathing. denies: Sitting, Standing Relieved by: denies: Denies Similar symptoms previously: No Recently seen / treated by doctor: No - Related Data Allergies/Adverse Reactions: ketorolac [From Toradol] Allergy (Verified 01/17/20 05:35) tramadol Allergy (Verified 01/17/20 05:35) Past Medical History - General Information source: Patient - Social History Smoking Status: Former Smoker Cigarette use (# per day): No Chew tobacco use (# tins/day): No Smoking Education Provided: No Frequency of alcohol use: None Lives with: Family Family History: None, Malignancy Patient has suicidal ideation: No Patient has homicidal ideation: No - Past Medical History Cardiac Medical History: Reports: Hx Congestive Heart Failure, Hx Coronary Artery Disease, Hx Heart Attack - Non-STEMI, Hx Hypercholesterolemia, Hx Hypertension Denies: Hx Atrial Fibrillation, Hx DVT, Hx Pulmonary Embolism Pulmonary Medical History: Denies: Hx Asthma, Hx Bronchitis, Hx COPD, Hx Pneumonia Neurological Medical History: Denies: Hx Cerebrovascular Accident, Hx Seizures Endocrine Medical History: Denies: Hx Diabetes Mellitus Type 1, Hx Diabetes Mellitus Type 2, Hx Hyperthyroidism, Hx Hypothyroidism Renal/ Medical History: Reports: Hx End Stage Renal Disease - On hemodialysis MWF. Denies: Hx Peritoneal Dialysis GI Medical History: Reports: Hx Cirrhosis - Alcoholic cirrhosis with ascites, Hx Gastroesophageal Reflux Disease. Denies: Hx Crohn's Disease, Hx Hepatitis, Hx Ulcerative Colitis Musculoskeletal Medical History: Denies Hx Arthritis, Denies Hx Gout Skin Medical History: Denies Hx Eczema, Denies Hx Psoriasis Psychiatric Medical History: Denies: Hx Depression Infectious Medical History: Denies: Hx Hepatitis Past Surgical History: Reports: Hx Appendectomy, Hx Cholecystectomy, Hx Vascular Surgery - RT AV Fistula - Immunizations Hx Diphtheria, Pertussis, Tetanus Vaccination: Yes Review of Systems - Review of Systems Constitutional: See HPI, Weakness EENT: No symptoms reported Cardiovascular: No symptoms reported Respiratory: See HPI, Short of breath Gastrointestinal: No symptoms reported Genitourinary: No symptoms reported Male Genitourinary: No symptoms reported Musculoskeletal: No symptoms reported Skin: No symptoms reported Hematologic/Lymphatic: No symptoms reported Neurological/Psychological: No symptoms reported Physical Exam - Vital signs Vitals: Temp Pulse Resp BP Pulse Ox 98.3 F 91 18 128/65 H 93 03/19/20 13:47 03/19/20 13:47 03/19/20 13:47 03/19/20 13:47 03/19/20 13:47 Interpretation: Normal - General General appearance: Appears well, Alert - HEENT Head: Normocephalic, Atraumatic Eyes: Pale conjunctiva Eyelashes: Normal Pupils: PERRL Ears: Normal Nasal: Normal Mouth/Lips: Normal Mucous membranes: Normal Pharynx: Normal Neck: Normal - Respiratory Respiratory status: No respiratory distress Chest status: Nontender Breath sounds: Wheezing - Diffusely Chest palpation: Normal - Cardiovascular Rhythm: Regular Heart sounds: Normal auscultation Murmur: Yes - Holosystolic 3 out of 10 left greater than right chest anteriorly - Abdominal Inspection: Normal Distension: No distension Bowel sounds: Normal Tenderness: Nontender Organomegaly: No organomegaly - Rectal Tenderness: No - Genitourinary Scrotum: Other - Deferred - Back Back: Normal, Nontender - Extremities General upper extremity: Nontender, Normal color, Normal ROM, Normal temperature, Other - Right arm with AV shunt in place. General lower extremity: Normal inspection, Nontender, Normal color, Normal ROM, Normal temperature, Normal weight bearing. No: Verito's sign - Neurological Neuro grossly intact: Yes Cognition: Normal Orientation: AAOx4 Yue Coma Scale Eye Opening: Spontaneous [place] Coma Scale Verbal: Oriented Yue Coma Scale Motor: Obeys Commands Yue Coma Scale Total: 15 Speech: Normal Motor strength normal: LUE, RUE, LLE, RLE Sensory: Normal - Psychological Associated symptoms: Normal affect, Normal mood - Skin Skin Temperature: Warm Skin Moisture: Dry Skin Color: Pale Course - Vital Signs Vital signs: Temp Pulse Resp BP Pulse Ox 98.3 F 91 18 128/65 H 93 03/19/20 13:47 03/19/20 13:47 03/19/20 13:47 03/19/20 13:47 03/19/20 13:47 - Laboratory Results Result Diagrams: 03/19/20 15:11 03/19/20 15:11 Laboratory Results Interpreted: 03/19/20 03/19/20 03/19/20 15:11 15:11 15:11 RBC 2.11 L Hgb 6.4 L Hct 19.0 L RDW 16.9 H Lymph % (Auto) 11.3 L BUN 45 H Creatinine 7.32 H Est GFR ( Amer) 9 L Est GFR (MDRD) Non-Af 8 L Glucose 121 H Crossmatch See Detail Critical Laboratory Results Reviewed: Yes Attending or Supervising Physician who Reviewed Labs: [place] AVITIA JR - Radiology Results Radiology Results Interpreted: 03/19/20 20:23 Dr. Nunez radiologist read this chest x-ray Critical Radiology Results Reviewed: No Critical Results Attending or Supervising Physician who Reviewed Radiology: [place] AVITIA JR Discharge - Discharge Clinical Impression: Shortness of breath, ESRD (end stage renal disease), transfusion b/o anemia Anemia Qualifiers: Anemia type: unspecified type Qualified Code(s): D64.9 - Anemia, unspecified Condition: Stable Disposition: HOME, SELF-CARE Additional Instructions: Follow-up with personal doctor and with collection teller as needed. Continue with your usual medications as directed. Return to ER as needed. Referrals: Terrance ROSALES MD [ACTIVE STAFF] - Follow up as needed
[2020-03-19] MEDS ORDERED: NORMAL SALINE 250 ML IV PRN ×2 (18:17)
--- NOTE | 2020-03-19 19:15 | RADIOLOGY REPORT (SQ) ---
EXAM DESCRIPTION: CHEST SINGLE VIEW IMAGES COMPLETED DATE/TIME: 03/19/2020 6:43 pm REASON FOR STUDY: [place] COMPARISON: 03/05/2020 EXAM PARAMETERS: NUMBER OF VIEWS: One view. TECHNIQUE: Single frontal radiographic view of the chest acquired. RADIATION DOSE: NA LIMITATIONS: None. FINDINGS: LUNGS AND PLEURA: Small pleural effusions. Faintly defined opacification in the right bas e laterally that may represent fluid in the fissure. MEDIASTINUM AND HILAR STRUCTURES: No masses. Contour normal. HEART AND VASCULAR STRUCTURES: Heart size is borderline. No denia pulmonary edema. BONES: No acute findings. HARDWARE: None in the chest. OTHER: No other significant finding. IMPRESSION: Borderline heart size without denia pulmonary edema. Small pleural effusions. TECHNICAL DOCUMENTATION: JOB ID: [id number] 2010 [employer]- All Rights Reserved Reading location - IP/workstation name: [email or web address]
[2020-03-20 01:30] VITALS: BP 153/87
== END 2020-03-20 01:20 | disposition home or self-care (01) ==
LOC: ER 13:26
DX: D64.9 Anemia, unspecified (principal); R53.1 Weakness; I13.2 Hypertensive heart and chronic kidney disease with heart failure and with stage 5 chronic kidney disease, or end stage renal disease; N18.6 End stage renal disease; I50.9 Heart failure, unspecified; E78.00 Pure hypercholesterolemia, unspecified; Z99.2 Dependence on renal dialysis; I25.2 Old myocardial infarction; Z90.49 Acquired absence of other specified parts of digestive tract
CPT/HCPCS: 99285; 86900; 86901; 36415; 36430; 86850; 85025; 80053; 86920; 71045; P9016; J7050

== ENCOUNTER 2020-04-16 13:42 | Emergency (ER) | payer MEDICARE, MEDICAID ==
--- NOTE | 2020-04-16 14:36 | ER Document Report ---
ED Medical Screen (RME) - General Chief Complaint: Abnormal Lab Results Stated Complaint: ABNORMAL LABS Time Seen by Provider: 04/16/20 14:26 Primary Care Provider: WILL WANG MD [Primary Care Provider] - Follow up as needed Mode of Arrival: Ambulatory Information source: Patient Notes: HPI; 59-year-old male presents to the emergency room complaining of worsening shortness of breath for the past several days. Patient states he was sent in by dialysis for hemoglobin of 6.2 this morning. Patient states he did have his dialysis this morning. He denies any chest pain. Denies any rectal bleeding, no bleeding. No active bleeding PE: Alert and oriented x3. Lungs: Diminished in the bases without rales, rhonchi, wheezes. Heart: Regular rate rhythm with a grade 3 out of 6 systolic murmur I have greeted and performed a rapid initial assessment of this patient. A comprehensive ED assessment and evaluation of the patient, analysis of test results and completion of the medical decision making process will be conducted by additional ED providers. I have specifically instructed the patient or family members with the patient to immediately return to any nursing staff should anything change in the patient's condition or with their chief complaint. TRAVEL OUTSIDE OF THE [place] IN LAST 30 DAYS: No - Related Data Allergies/Adverse Reactions: ketorolac [From Toradol] Allergy (Verified 04/16/20 14:23) tramadol Allergy (Verified 04/16/20 14:23) Past Medical History - Social History Chew tobacco use (# tins/day): No Frequency of alcohol use: None Drug Abuse: None - Past Medical History Cardiac Medical History: Reports: Hx Congestive Heart Failure, Hx Coronary Artery Disease, Hx Heart Attack - Non-STEMI, Hx Hypercholesterolemia, Hx Hypertension Denies: Hx Atrial Fibrillation, Hx DVT, Hx Pulmonary Embolism Pulmonary Medical History: Denies: Hx Asthma, Hx Bronchitis, Hx COPD, Hx Pneumonia Neurological Medical History: Denies: Hx Cerebrovascular Accident, Hx Seizures Endocrine Medical History: Denies: Hx Diabetes Mellitus Type 1, Hx Diabetes Mellitus Type 2, Hx Hyperthyroidism, Hx Hypothyroidism Renal/ Medical History: Reports: Hx End Stage Renal Disease - On hemodialysis MWF. Denies: Hx Peritoneal Dialysis GI Medical History: Reports: Hx Cirrhosis - Alcoholic cirrhosis with ascites, Hx Gastroesophageal Reflux Disease. Denies: Hx Crohn's Disease, Hx Hepatitis, Hx Ulcerative Colitis Musculoskeltal Medical History: Denies Hx Arthritis, Denies Hx Gout Skin Medical History: Denies Hx Eczema, Denies Hx Psoriasis Psychiatric Medical History: Denies: Hx Depression Infectious Medical History: Denies: Hx Hepatitis Past Surgical History: Reports: Hx Appendectomy, Hx Cholecystectomy, Hx Vascular Surgery - RT AV Fistula - Immunizations Hx Diphtheria, Pertussis, Tetanus Vaccination: Yes Physical Exam - Vital signs Vitals: Temp Pulse Resp BP Pulse Ox 98.5 F 93 20 135/62 H 94 04/16/20 13:47 04/16/20 13:47 04/16/20 13:47 04/16/20 13:47 04/16/20 13:47 Course - Vital Signs Vital signs: Temp Pulse Resp BP Pulse Ox 98.5 F 93 20 135/62 H 94 04/16/20 13:47 04/16/20 13:47 04/16/20 13:47 04/16/20 13:47 04/16/20 13:47 Doctor's Discharge - Discharge Referrals: WILL WANG MD [Primary Care Provider] - Follow up as needed
[2020-04-16 15:42] LABS: ABSOLUTE BASOPHILS # (AUTO) 0.1 10^3/uL (0.0-0.2); ABSOLUTE EOSINOPHILS # (AUTO) 0.1 10^3/uL (0.0-0.6); ABSOLUTE LYMPHOCYTES (AUTO) 0.5 10^3/uL (0.5-4.7); ABSOLUTE MONOCYTES (AUTO) 0.5 10^3/uL (0.1-1.4); ABSOLUTE NEUT (AUTO) 7.3 10^3/uL (1.7-8.2); BASOPHILS % (AUTO) 0.7 % (0-2); EOSINOPHILS % (AUTO) 0.7 % (0-6); HEMATOCRIT 19.2 % (37.9-51.0); LYMPHOCYTES % (AUTO) 6.2 % (13-45); MEAN CORPUSCULAR HEMOGLOBIN 31.3 pg (27.0-33.4); MEAN CORPUSCULAR HGB CONC 33.7 g/dL (32.0-36.0); MEAN CORPUSCULAR VOLUME 93 fl (80-97); MONOCYTES % (AUTO) 6.2 % (3-13); PLATELET COUNT 231 10^3/uL (150-450); RED BLOOD COUNT 2.07 10^6/uL (4.35-5.55); RED CELL DISTRIBUTION WIDTH 14.2 % (11.5-14.0); SEGMENTED NEUTROPHILS % (AUTO) 86.2 % (42-78); TOTAL CELLS COUNTED % (AUTO) 100 %; WHITE BLOOD COUNT 8.4 10^3/uL (4.0-10.5)
--- NOTE | 2020-04-16 15:42 | RADIOLOGY REPORT (SQ) ---
EXAM DESCRIPTION: CHEST SINGLE VIEW IMAGES COMPLETED DATE/TIME: 04/16/2020 3:31 pm REASON FOR STUDY: dyspnea COMPARISON: AP view of the chest from 03/11/2020. EXAM PARAMETERS: NUMBER OF VIEWS: One view. TECHNIQUE: An AP view of the chest was obtained. RADIATION DOSE: NA LIMITATIONS: None. FINDINGS: LUNGS AND PLEURA: There are pleural and parenchymal opacities in the inferior aspect of th e right hemithorax that obscure the contour of the hemidiaphragm and blunt the lateral costophrenic s ulcus. The left lateral costophrenic sulcus is also blunted. There is no pneumothorax. MEDIASTINUM AND HILAR STRUCTURES: No mediastinal or hilar contour abnormality. HEART AND VASCULAR STRUCTURES: The cardiac silhouette is enlarged. BONES: No acute findings. HARDWARE: None in the chest. OTHER: No other finding. IMPRESSION: Low inspiratory lung volumes, cardiomegaly and small bilateral pleural effusions. TECHNICAL DOCUMENTATION: JOB ID: [id number] 2010 [employer]- All Rights Reserved Reading location - IP/workstation name: [email or web address]
[2020-04-16 15:46] LABS: HEMOGLOBIN 6.5 g/dL (13.5-17.0)
[2020-04-16] MEDS ORDERED: NORMAL SALINE 250 ML IV PRN ×2 (15:57)
[2020-04-16 15:58] LABS: ALBUMIN 3.8 g/dL (3.5-5.0); ALKALINE PHOSPHATASE 74 U/L (38-126); ANION GAP 14 (5-19); ASPARTATE AMINO TRANSFERASE 16 U/L (17-59); BILIRUBIN,DIRECT 0.5 mg/dL (0.0-0.4); BILIRUBIN,TOTAL 0.5 mg/dL (0.2-1.3); BLOOD UREA NITROGEN 46 mg/dL (7-20); CALCIUM 8.8 mg/dL (8.4-10.2); CARBON DIOXIDE 29 mmol/L (22-30); CHLORIDE 98 mmol/L (98-107); GLUCOSE 111 mg/dL (75-110); POTASSIUM 3.9 mmol/L (3.6-5.0); TOTAL PROTEIN 7.6 g/dL (6.3-8.2)
[2020-04-16 16:19] LABS: TROPONIN I 0.237 ng/mL
--- NOTE | 2020-04-16 16:35 | ER Document Report ---
ED General - General Chief Complaint: Abnormal Lab Results Stated Complaint: ABNORMAL LABS Time Seen by Provider: 04/16/20 14:26 Primary Care Provider: WILL WANG MD [Primary Care Provider] - Follow up as needed Mode of Arrival: Ambulatory Information source: Patient TRAVEL OUTSIDE OF THE [place] IN LAST 30 DAYS: No - HPI Notes: Patient states he presents because he was instructed to come the emergency department for low hemoglobin. He is a dialysis patient. He states when he finished dialysis today they told him that his hemoglobin was 6.2 and that he was to come to the emergency department for a transfusion. He states he has been here several times before for similar problems and that he receives blood in the emergency department and is then discharged home. He states he has not had any new symptoms in the last couple of days. He states for the last month he has had some shortness of breath and cough but he has had 3 neg Covid tests. The shortness of breath and cough has not changed in the last 3 days. He denies any bleeding or black tarry stools. - Related Data Allergies/Adverse Reactions: ketorolac [From Toradol] Allergy (Verified 04/16/20 14:23) tramadol Allergy (Verified 04/16/20 14:23) Past Medical History - General Information source: Patient - Social History Smoking Status: Never Smoker Chew tobacco use (# tins/day): No Frequency of alcohol use: None Drug Abuse: None Family History: None, Malignancy - Past Medical History Cardiac Medical History: Reports: Hx Congestive Heart Failure, Hx Coronary Artery Disease, Hx Heart Attack - Non-STEMI, Hx Hypercholesterolemia, Hx Hypertension Denies: Hx Atrial Fibrillation, Hx DVT, Hx Pulmonary Embolism Pulmonary Medical History: Denies: Hx Asthma, Hx Bronchitis, Hx COPD, Hx Pneumonia Neurological Medical History: Denies: Hx Cerebrovascular Accident, Hx Seizures Endocrine Medical History: Denies: Hx Diabetes Mellitus Type 1, Hx Diabetes Mellitus Type 2, Hx Hyperthyroidism, Hx Hypothyroidism Renal/ Medical History: Reports: Hx End Stage Renal Disease - On hemodialysis MWF. Denies: Hx Peritoneal Dialysis GI Medical History: Reports: Hx Cirrhosis - Alcoholic cirrhosis with ascites, Hx Gastroesophageal Reflux Disease. Denies: Hx Crohn's Disease, Hx Hepatitis, Hx Ulcerative Colitis Musculoskeletal Medical History: Denies Hx Arthritis, Denies Hx Gout Skin Medical History: Denies Hx Eczema, Denies Hx Psoriasis Psychiatric Medical History: Denies: Hx Depression Infectious Medical History: Denies: Hx Hepatitis Past Surgical History: Reports: Hx Appendectomy, Hx Cholecystectomy, Hx Vascular Surgery - RT AV Fistula - Immunizations Hx Diphtheria, Pertussis, Tetanus Vaccination: Yes Review of Systems - Review of Systems Constitutional: Malaise, Weakness. denies: Chills, Fever Cardiovascular: denies: Chest pain, Palpitations Respiratory: Cough, Short of breath -: Yes All other systems reviewed and negative Physical Exam - Vital signs Vitals: Temp Pulse Resp BP Pulse Ox 98.5 F 93 20 135/62 H 94 04/16/20 13:47 04/16/20 13:47 04/16/20 13:47 04/16/20 13:47 04/16/20 13:47 Interpretation: Normal - General General appearance: Appears well, Alert - HEENT Head: Normocephalic, Atraumatic Eyes: Normal Pupils: PERRL - Respiratory Respiratory status: No respiratory distress Chest status: Nontender Breath sounds: Decreased air movement Chest palpation: Normal - Cardiovascular Rhythm: Regular Heart sounds: Normal auscultation Murmur: No - Abdominal Inspection: Normal Distension: No distension Bowel sounds: Normal Tenderness: Nontender Organomegaly: No organomegaly - Back Back: Normal, Nontender - Extremities General upper extremity: Normal inspection, Nontender, Normal color, Normal ROM, Normal temperature General lower extremity: Normal inspection, Nontender, Edema, Normal color, Normal ROM, Normal temperature, Normal weight bearing. No: Verito's sign - Neurological Neuro grossly intact: Yes Cognition: Normal Orientation: AAOx4 [place] Coma Scale Eye Opening: Spontaneous Yue Coma Scale Verbal: Oriented Yue Coma Scale Motor: Obeys Commands Yue Coma Scale Total: 15 Speech: Normal Motor strength normal: LUE, RUE, LLE, RLE Sensory: Normal - Psychological Associated symptoms: Normal affect, Normal mood - Skin Skin Temperature: Warm Skin Moisture: Dry Skin Color: Other - Uremic appearing Course - Re-evaluation Re-evalutation: 04/16/20 16:39 Patient presents because he was instructed to come for low hemoglobin. He will be transfused 2 units of packed red blood cells and if he tolerates these well he will be discharged home. I have discussed the case with his funeral home assistant Dr. Capellan. Patient otherwise had unremarkable laboratory values. He states he has had shortness of breath and a cough for a month but nothing is changed in the last couple of days. He has had 3 - Covid test in the last month he states. I did tell Dr. Capellan that I thought the patient should follow-up with cardiology as he is got some questionable subtle changes on EKG but I do not feel that he has new acute ischemia or that he warrants further evaluation in the emergency department. In addition he denies any chest pain. - Vital Signs Vital signs: Temp Pulse Resp BP Pulse Ox 98.8 F 82 22 H 129/70 H 100 04/16/20 17:25 04/16/20 17:25 04/16/20 17:25 04/16/20 17:25 04/16/20 17:10 - Laboratory Results Result Diagrams: 04/16/20 15:15 04/16/20 15:15 Laboratory Results Interpreted: 04/16/20 04/16/20 04/16/20 15:15 15:15 15:15 RBC 2.07 L Hgb 6.5 L Hct 19.2 L RDW 14.2 H Lymph % (Auto) 6.2 L Seg Neutrophils % 86.2 H BUN 46 H Creatinine 7.47 H Est GFR ( Amer) 9 L Est GFR (MDRD) Non-Af 7 L Glucose 111 H Direct Bilirubin 0.5 H AST 16 L NT-Pro-B Natriuret Pep Crossmatch See Detail 04/16/20 15:15 RBC Hgb Hct RDW Lymph % (Auto) Seg Neutrophils % BUN Creatinine Est GFR ( Amer) Est GFR (MDRD) Non-Af Glucose Direct Bilirubin AST NT-Pro-B Natriuret Pep [id number] H Crossmatch Critical Laboratory Results Reviewed: Yes Attending or Supervising Physician who Reviewed Labs: JING [place]ES - Radiology Results Critical Radiology Results Reviewed: No Critical Results - EKG Interpretation by Me EKG shows normal: Sinus rhythm Rate: Normal - 85 Rhythm: NSR [place]/QRS: RBBB - Incomplete Discharge - Discharge Clinical Impression: Anemia requiring transfusions, ESRD (end stage renal disease) on dialysis Anemia Qualifiers: Anemia type: due to chronic kidney disease Chronic kidney disease stage: on chronic dialysis Qualified Code(s): N18.6 - End stage renal disease Dyspnea Qualifiers: Dyspnea type: shortness of breath Qualified Code(s): R06.02 - Shortness of breath Condition: Stable Disposition: HOME, SELF-CARE Instructions: Anemia ([facility]) Additional Instructions: Please follow-up with Dr. Kellogg tomorrow Referrals: WILL WANG MD [Primary Care Provider] - Follow up as needed BENITO KELLOGG MD [ACTIVE STAFF] - Follow up tomorrow
--- NOTE | 2020-04-16 16:54 | EKG REPORT ---
SEVERITY:- ABNORMAL ECG - SINUS RHYTHM INCOMPLETE RIGHT BUNDLE BRANCH BLOCK : Confirmed by: Nicholas Lemons MD 16-Apr-2020 16:54:16
[2020-04-16 23:13] VITALS: BP 132/88
== END 2020-04-16 23:29 | disposition home or self-care (01) ==
LOC: ER 13:42
DX: I13.2 Hypertensive heart and chronic kidney disease with heart failure and with stage 5 chronic kidney disease, or end stage renal disease (principal); N18.6 End stage renal disease; I50.9 Heart failure, unspecified; D63.1 Anemia in chronic kidney disease; Z99.2 Dependence on renal dialysis; R06.02 Shortness of breath; R05 Cough; R53.81 Other malaise; R53.1 Weakness; I45.10 Unspecified right bundle-branch block; I25.10 Atherosclerotic heart disease of native coronary artery without angina pectoris; Z88.8 Allergy status to other drugs, medicaments and biological substances; Z88.6 Allergy status to analgesic agent
CPT/HCPCS: 93005; 99285; 86900; 86901; 36415; 36430; 86850; 85025; 80053; 84484; 86920; 83880; 71045; 93010; P9016